=== PATIENT | female | born 1945 | race African-American/Black ===

== ENCOUNTER 2017-08-16 23:22 | Inpatient (IN) | payer OTHER ==
--- NOTE | 2017-08-16 23:41 | PDOC ---
History of Present Illness - General Stated Complaint: ABNORMAL LABS Time Seen by Provider: 08/16/17 23:38 - History of Present Illness Initial Comments: 08/17/17 00:16 The patient is a 72 year old female with a history of HTN, HLD, Afib s/p pacemaker who presents for evaluation of laboratory abnormality. The patient states that she was diagnosed with a left sided kidney stone 3 days ago and was scheduled for a procedure in 2 days. During her pre-op lab work, she was noted to be anemic with a reported hematocrit of 17 prompting her physician to send her to the ED for further evaluation and possible blood transfusion. She does endorse some melenotic stools several days ago as well as some blood in her urine due to her kidney stone. She otherwise denies fevers, chills, lightheadedness, SOB, chest pain, nausea, or vomiting. Past History - Past Medical History Allergies/Adverse Reactions: Allergies Allergy/AdvReac Type Severity Reaction Status Date / Time lisinopril Allergy Severe Swelling Verified 01/14/16 21:04 aspirin AdvReac Intermediate Vomiting Verified 01/14/16 21:04 aspartame AdvReac Mild Verified 01/14/16 21:04 Home Medications: Ambulatory Orders Amlodipine Besylate 20 mg PO DAILY 08/17/17 Biotin 5,000 mcg PO DAILY 08/17/17 Cholecalciferol (Vitamin D3) [Vitamin D3] 5,000 unit PO DAILY 08/17/17 Flaxseed Oil [Flaxseed] 1,000 mg PO DAILY 08/17/17 Iron Polysaccharide Complex [Ferrex 150] 150 mg PO DAILY 08/17/17 Metoprolol Succinate 100 mg PO DAILY 08/17/17 Multivitamin [One Daily] 1 each PO DAILY 08/17/17 Rivaroxaban [Xarelto -] 20 mg PO BID 08/17/17 Anemia: No Asthma: Yes Cardiac Disorders: Yes (afib) CVA: No COPD: No CHF: No Dementia: No Diabetes: No GI Disorders: No Disorders: No HTN: Yes Hypercholesterolemia: Yes Liver Disease: No Seizures: No Thyroid Disease: No - Surgical History Abdominal Surgery: Yes (,SLEEVE (STOMACH)) Appendectomy: Yes Cholecystectomy: Yes Orthopedic Surgery: No - Immunization History Immunization Up to Date: Yes - Suicide/Smoking/Psychosocial Hx Smoking History: Former smoker Have you smoked in the past 12 months: Yes Number of Cigarettes Smoked Daily: 6 If you are a former smoker, when did you quit?: 02/2015 'Breaking Loose' booklet given: 01/14/15 Hx Alcohol Use: No Drug/Substance Use Hx: No Substance Use Type: None Hx Substance Use Treatment: No Review of Systems - Review of Systems Comments:: 08/17/17 00:25 Constitutional: No fevers, chills, fatigue, malaise HEENT: No Rhinorrhea, nasal congestion, visual changes Cardiovascular: No chest pain, syncope, palpitations, lightheadedness Respiratory: No Cough, SOB, Hemoptysis, Gastrointestinal: Melena. No Abdominal pain, Nausea, Vomiting, Constipation, Diarrhea, Genitourinary: Hematuria, Flank pain No Dysuria, Frequency, Urgency, Hesitancy, Musculoskeletal: No Myalgia, arthralgia Skin: No rashes, itching, bruising, pallor Neurologic: No Headache, Dizziness, Numbness, Weakness, or Tingling Psychiatric: No Hallucinations. No SI or HI *Physical Exam - Physical Exam Comments: 08/17/17 00:26 General Appearance: Nourished. No Apparent Distress HEENT: EOMI, MANDEEP. No Pharyngeal Erythema, Tonsillar Exudate, Tonsillar Erythema Neck: No Cervical Lymphadenopathy Respiratory/Chest: Lungs Clear, Normal Breath Sounds. No Crackles, Rales, Rhonchi, Wheezing Cardiovascular: Regular Rhythm, Regular Rate. No Murmur, Gallops, Rubs Gastrointestinal/Abdominal: Normal Bowel Sounds, Soft. Mild diffuse discomfort with palpation on exam. No Guarding, Rebound, Musculoskeletal: No CVA Tenderness Extremity: Normal Capillary Refill Integumentary: Pallor noted on exam. Normal Dry, Warm Neurologic: Fully Oriented, Alert, Normal Mood/Affect, Normal Response, Heart Score/ECG Review #1 ECG reviewed & interpreted by me at: 02:00 General ECG Interpretation: Sinus Rhythm, Normal Rate, Normal Intervals, No acute ischemic changes ED Treatment Course - LABORATORY CBC & Chemistry Diagram: 08/17/17 00:20 08/17/17 00:20 Medical Decision Making - Medical Decision Making 08/17/17 00:27 The patient is a 72 year old female with a history of HTN, HLD, Afib s/p pacemaker who presents for evaluation of laboratory abnormality. Differential includes but is not limited to: Anemia, Peptic ulcer, infectious, metabolic derangement. Given the patient history, we will obtain a cbc, cmp, coags, type and screen, and stool guiac to evaluate further. Given her report of melenotic stools, it is possible the patient is bleeding from a gi source. We will continue to monitor and reassess in the meantime. 08/17/17 02:07 CBC demonstrates a hgb of 4.6. CMP is unremarkable. Stool for occult blood demonstrates trace signs of blood. We will transfuse the patient with 2 units of PRBC and she will require admission for further management at this time. She continues to remain asymptomatic. We discussed the case with the hospitalist team who accepted the patient for admission. *DC/Admit/Observation/Transfer Diagnosis at time of Disposition: Anemia Qualifiers: Anemia type: unspecified type Qualified Code(s): D64.9 - Anemia, unspecified - Discharge Dispostion Condition at time of disposition: Stable Admit: Yes - Referrals Referrals: Shekhar Barakat MD [Primary Care Provider] - - Patient Instructions - Post Discharge Activity
--- NOTE | 2017-08-17 00:05 | PDOC ---
Attending Attestation - HPI HPI: 08/17/17 00:31 The patient is a 72 year old female with a significant PMH of AFib (s/p pacemaker), HTN, hyperlipidemia, and recent left sided kidney stone (diagnosed 3 days ago) who presents to the emergency department for evaluation of possible blood transfusion. The patient reports receiving preliminary labs this morning for her kidney stone procedure this upcoming Monday and notes that Dr. Lyons reported anemic hematocrit levels and sent them to the ED for evaluation. Allergies: Lisinopril, Aspirin, Aspartame. PCP: Dr. Rex Barakat <King Leon - Last Filed: 08/17/17 00:31> - Resident Resident Name: Pato Larry - ED Attending Attestation I have performed the following: I have examined & evaluated the patient, The case was reviewed & discussed with the resident, I agree w/resident's findings & plan, Exceptions are as noted - Physicial Exam PE: 08/17/17 19:30 Physical Exam General Appearance: Yes: Appropriately Dressed. No: Apparent Distress, Intoxicated HEENT: positive: EOMI, MANDEEP, Normal ENT Inspection, Normal Voice, TMs Normal, Pharynx Normal. negative: Pale Conjunctivae, Photophobia, Scleral Icterus (R), Scleral Icterus (L) Neck: positive: Trachea midline, Normal Thyroid, Supple. negative: Tender, Rigid, Carotid bruit, Stridor, Lymphadenopathy (R), Lymphadenopathy (L), Thyromegaly Respiratory/Chest: positive: Lungs Clear, Normal Breath Sounds. negative: Chest Tender, Respiratory Distress, Accessory Muscle Use, Labored Respiration, RES, Crackles, Rales, Rhonchi, Stridor, Wheezing, Dullness Cardiovascular: positive: Regular Rhythm, Regular Rate, S1, S2. negative: Edema , JVD, Murmur, Bradycardia, Tachycardia Vascular Pulses: Dorsalis-Pedis (R): 2+, Doralis-Pedis (L): 2+ Gastrointestinal/Abdominal: positive: Normal Bowel Sounds, Flat, Soft. negative : Tender, Organomegaly, Pulsatile Mass, Increased Bowel Sounds, Decreased BS, Distended, Guarding, Rebound, Hernia, Hepatomegaly, Spleenomegaly Lymphatic: negative: Adenopathy, Tenderness Musculoskeletal: positive: Normal Inspection. negative: CVA Tenderness, Decreased Range of Motion Extremity: positive: Normal Capillary Refill, Normal Inspection, Normal Range of Motion, Pelvis Stable. negative: Tender, Pedal Edema, Swelling, Erythema Integumentary: positive: Normal Color, Dry, Warm. negative: Cyanotic, Erythema , Jaundice, Rash Neurologic: positive: audiovisual technician II-XII NML intact, Fully Oriented, Alert, Normal Mood/ Affect, Motor Strength 5/5. negative: EOM Palsy, Facial Droop, Sensory Deficit - Medical Decision Making 08/17/17 19:31 pt admitted to [facility] <Radames Jacome - Last Filed: 08/17/17 19:31>
[2017-08-17 00:43] LABS: HEMATOCRIT 15.2 % (32.4-45.2); MCHC 29.9 g/dl (32.0-36.0); MEAN CELL VOLUME 61.8 fl (80-96); MEAN PLT VOLUME 7.6 fl (7.5-11.1); PLATELET COUNT 368 K/MM3 (134-434); RBC 2.46 M/mm3 (3.60-5.2); RDW 21.3 % (11.6-15.6); WHITE BLOOD COUNT 8.1 K/mm3 (4.0-10.0)
[2017-08-17 00:48] LABS: INR 1.35 (0.82-1.09); PROTHROMBIN TIME (PATIENT) 15.2 SEC (9.98-11.88)
[2017-08-17 00:53] LABS: MCH 18.5 pg (25.7-33.7)
[2017-08-17 00:54] LABS: HEMOGLOBIN 4.6 GM/dL (10.7-15.3)
[2017-08-17 01:08] LABS: CHLORIDE 109 mmol/L (98-107); POTASSIUM 4.3 mmol/L (3.5-5.1); SODIUM 140 mmol/L (136-145)
[2017-08-17 01:21] LABS: ALBUMIN 3.3 g/dl (3.4-5.0); ALK PHOS 97 U/L (45-117); ANION GAP 11 (8-16); BILIRUBIN,TOTAL 0.2 mg/dL (0.2-1.0); BLOOD UREA NITROGEN 18 mg/dL (7-18); CALCIUM 8.3 mg/dL (8.5-10.1); CO2 20 mmol/L (21-32); CREATININE 1.1 mg/dL (0.55-1.02); GLUCOSE,RANDOM 88 mg/dL (74-106); SGOT/AST 7 U/L (15-37); SGPT/ALT 6 U/L (12-78); TOT PROT 7.1 g/dl (6.4-8.2)
[2017-08-17] MEDS ORDERED: GABAPENTIN 100 MG CAPSULE (FP) ONE (03:55)
[2017-08-17] MEDS ORDERED: GABAPENTIN 300 MG CAPSULE (FP) PO ONE (03:55)
--- NOTE | 2017-08-17 04:05 | HP ---
CHIEF COMPLAINT: anemia PCP: Yuval HISTORY OF PRESENT ILLNESS: This is a 72 year old female with a significant past medical history of afib on xarelto who was recently diagnosed with renal stones and is scheduled for a procedure this week. However, her preop labs revealed significant anemia thus she was sent to the ED. Pt denies any CP, SOB, lightheadedness. She does report dark tarry stools off and on over the past few weeks/months. She also recently had some hematuria associated with her kidney stone. ER course was notable for: (1) Hgb 4.6 (2) stool occ blood trace Recent Travel: pt denies PAST MEDICAL HISTORY: HTN, HLD, afib (on xarelto), PPM, L kidney stone, asthma, arthritis PAST SURGICAL HISTORY: breast reduction, lap band, sleeve gastrectomy, B/L foot surgery, appendectomy as a child, cholecystectomy, PPM Social History: Smoking: pt denies Alcohol:pt denies Drugs: pt denies Family History: mother age 61 due to CHF, h/o DC in her 50s father age 68, rectal CA, h/o heart problems 2 brothers in their 40s, complications after MVC brother age 46, "drug problem" sister age 51, mI, asthma Allergies lisinopril Allergy (Severe, Verified 01/14/16 21:04) Swelling aspirin Adverse Reaction (Intermediate, Verified 01/14/16 21:04) Vomiting aspartame Adverse Reaction (Mild, Verified 01/14/16 21:04) headaches HOME MEDICATIONS: 3 Medication Instructions Recorded Amlodipine Besylate 20 mg PO DAILY 08/17/17 Biotin 5,000 mcg PO DAILY 08/17/17 Cholecalciferol (Vitamin D3) 5,000 unit PO DAILY 08/17/17 [Vitamin D3] Flaxseed Oil [Flaxseed] 1,000 mg PO DAILY 08/17/17 Iron Polysaccharide Complex 150 mg PO DAILY 08/17/17 [Ferrex 150] Metoprolol Succinate 100 mg PO DAILY 08/17/17 Multivitamin [One Daily] 1 each PO DAILY 08/17/17 Rivaroxaban [Xarelto -] 20 mg PO BID 08/17/17 REVIEW OF SYSTEMS CONSTITUTIONAL: Absent: fever, chills, diaphoresis, generalized weakness, malaise, loss of appetite, weight change HEENT: Absent: rhinorrhea, nasal congestion, throat pain, throat swelling, difficulty swallowing, mouth swelling, ear pain, eye pain, visual changes CARDIOVASCULAR: Absent: chest pain, syncope, palpitations, irregular heart rate, lightheadedness , peripheral edema RESPIRATORY: Absent: cough, shortness of breath, dyspnea with exertion, orthopnea, wheezing, stridor, hemoptysis GASTROINTESTINAL: Absent: abdominal pain, abdominal distension, nausea, vomiting, diarrhea, constipation, melena, hematochezia GENITOURINARY: Absent: dysuria, frequency, urgency, hesitancy, hematuria, flank pain, genital pain MUSCULOSKELETAL: Absent: myalgia, arthralgia, joint swelling, back pain, neck pain SKIN: Absent: rash, itching, pallor HEMATOLOGIC/IMMUNOLOGIC: Absent: easy bleeding, easy bruising, lymphadenopathy, frequent infections ENDOCRINE: Absent: unexplained weight gain, unexplained weight loss, heat intolerance, cold intolerance NEUROLOGIC: Absent: headache, focal weakness or paresthesias, dizziness, unsteady gait, seizure, mental status changes, bladder or bowel incontinence PSYCHIATRIC: Absent: anxiety, depression, suicidal or homicidal ideation, hallucinations. PHYSICAL EXAMINATION Vital Signs - 24 hr 3 08/16/17 08/17/17 08/17/17 23:45 02:50 03:15 Temperature 98 F 98.6 F 97.2 F L Pulse Rate 89 Pulse Rate [ 76 82 Right Radial] Respiratory 19 19 19 Rate Blood Pressure 101/62 Blood Pressure 110/67 111/76 [Right Arm] 3 08/17/17 03:33 Temperature 98.5 F Pulse Rate Pulse Rate [ 85 Right Radial] Respiratory 19 Rate Blood Pressure Blood Pressure 103/51 [Right Arm] GENERAL: Awake, alert, and fully oriented, in no acute distress. HEAD: Normal with no signs of trauma. EYES: Pupils equal, round and reactive to light, extraocular movements intact, sclera anicteric, conjunctiva pale. No lid lag. EARS, NOSE, THROAT: Ears normal, nares patent, oropharynx clear without exudates. Moist mucous membranes. NECK: Normal range of motion, supple without lymphadenopathy, JVD, or masses. LUNGS: Breath sounds equal, clear to auscultation bilaterally. No wheezes, and no crackles. No accessory muscle use. HEART: Regular rate and rhythm, normal S1 and S2 without murmur, rub or gallop. ABDOMEN: Soft, nontender, not distended, normoactive bowel sounds, no guarding, no rebound, no masses. No hepatomegaly or splenomegaly. MUSCULOSKELETAL: Normal range of motion at all joints. No bony deformities or tenderness. No CVA tenderness. UPPER EXTREMITIES: 2+ pulses, warm, well-perfused. No cyanosis. No clubbing. No peripheral edema. LOWER EXTREMITIES: 2+ pulses, warm, well-perfused. No calf tenderness. No peripheral edema. NEUROLOGICAL: Cranial nerves II-XII intact. Normal speech. Normal gait. PSYCHIATRIC: Cooperative. Good eye contact. Appropriate mood and affect. SKIN: Warm, dry, normal turgor, no rashes or lesions noted, normal capillary refill. Laboratory Results - last 24 hr 3 08/17/17 08/17/17 08/17/17 00:20 00:20 00:20 WBC 8.1 RBC 2.46 L D Hgb 4.6 L* D Hct 15.2 L D MCV 61.8 L MCH 18.5 L MCHC 29.9 L RDW 21.3 H D Plt Count 368 MPV 7.6 Neutrophils % No Result Required. Lymphocytes % No Result Required. PT with INR 15.20 H INR 1.35 H D PTT (Actin FS) 29.0 Sodium Potassium Chloride Carbon Dioxide Anion Gap BUN Creatinine Creat Clearance w eGFR Random Glucose Calcium Total Bilirubin AST ALT Alkaline Phosphatase Creatine Kinase Troponin I Total Protein Albumin Stool Occult Blood Blood Type A POSITIVE Antibody Screen Negative Crossmatch See Detail 3 08/17/17 08/17/17 00:20 01:37 WBC RBC Hgb Hct MCV MCH MCHC RDW Plt Count MPV Neutrophils % Lymphocytes % PT with INR INR PTT (Actin FS) Sodium 140 Potassium 4.3 Chloride 109 H Carbon Dioxide 20 L Anion Gap 11 BUN 18 Creatinine 1.1 H Creat Clearance w eGFR 48.82 Random Glucose 88 Calcium 8.3 L Total Bilirubin 0.2 D AST 7 L ALT 6 L Alkaline Phosphatase 97 Creatine Kinase 54 Troponin I < 0.02 Total Protein 7.1 Albumin 3.3 L Stool Occult Blood Trace Blood Type Antibody Screen Crossmatch ECG NSR vent rate 91, QTC 440 left axis deviation flattened T waves ASSESSMENT/PLAN: 72yF with PMH HTN, HLD, afib (on xarelto), PPM, L kidney stone, asthma, arthritis presented to the ED with low H/H. anemia, ? due to GI bleed - Would recommend GI consult, defer to PCP choice of GI doc - transfuse 2uPRBC - repeat CBC after second unit - xarelto on hold since Friday 08/11 for urology procedure - protonix IV afib - rate controlled, cont home toprol - hold xarelto HTN/HLD - cont home meds: toprol, amlodipine asthma - albuterol nebs PRN DVT PPX - contraindicated due to severe anemia, ? GI bleed - restart xarelto when cleared FEN - receiving PRBC, no IVF for now - bmp in am - clear liquid diet Dispo: Pt currently requires inpatient management of her emergent condition. Hospitalist Screening - Colonoscopy Questionnaire Colonoscopy Questionnaire: Colonoscopy Questionnaire - Patient: 50 - 75 years old and never had a screening colonoscopy: Unknown History of colon or rectal polyps, or CA: No History of IBD, Crohn's disease or UC: No History of abdominal radiation therapy as a child: No - Relative: 1 with colon or rectal CA, or polyps at age 60 or younger: No Colon or rectal CA diagnosed at age 45 or younger: No Multiple relatives with colon or rectal CA: No - Outcome: Screening Result: Negative Screen
[2017-08-17 04:54] VITALS: BMI 31.2
[2017-08-17 06:16] LABS: ANISOCYTOSIS 2+; PLATELET ESTIMATE ADEQUATE
[2017-08-17 09:52] LABS: BASO % 0.6 % (0-2.0); EOS % 2.9 % (0-4.5); HEMATOCRIT 22.5 % (32.4-45.2); LYMPH % 27.2 % (8-40); MCH 21.8 pg (25.7-33.7); MCHC 31.1 g/dl (32.0-36.0); MEAN CELL VOLUME 70.1 fl (80-96); MEAN PLT VOLUME 7.2 fl (7.5-11.1); MONO % 11.8 % (3.8-10.2); NEUT % 57.5 % (42.8-82.8); PLATELET COUNT 311 K/MM3 (134-434); RBC 3.21 M/mm3 (3.60-5.2); RDW 26.7 % (11.6-15.6); WHITE BLOOD COUNT 6.2 K/mm3 (4.0-10.0)
[2017-08-17] MEDS ORDERED: MULTIVITAMINS (DAILY MVI) TABLET (FP) PO SCH (10:00)
[2017-08-17] MEDS ORDERED: PATIENT'S OWN MEDICATION (NON-FORMULARY) (Biotin [Biotin] 5,000 MCG) PO SCH (10:00)
[2017-08-17] MEDS ORDERED: FLAXSEED OIL 1000 MG PO SCH (10:00)
[2017-08-17] MEDS ORDERED: amLODIPine BESYLATE 10 MG TABLET (FP) PO SCH (10:00)
[2017-08-17] MEDS ORDERED: CHOLECALCIFEROL (VITAMIN D3) 1,000 UNIT TABLET (FP) PO SCH (10:00)
[2017-08-17] MEDS ORDERED: PANTOPRAZOLE SODIUM 40 MG VIAL IVPUSH SCH (10:00)
[2017-08-17] MEDS ORDERED: IRON POLYSACCHARIDES 150 MG CAPSULE PO SCH (10:00)
[2017-08-17 10:18] LABS: ANION GAP 10 (8-16); BLOOD UREA NITROGEN 16 mg/dL (7-18); CALCIUM 8.3 mg/dL (8.5-10.1); CHLORIDE 110 mmol/L (98-107); CO2 20 mmol/L (21-32); GLUCOSE,RANDOM 104 mg/dL (74-106); MAGNESIUM 2.1 mg/dL (1.8-2.4); POTASSIUM 3.9 mmol/L (3.5-5.1); SODIUM 140 mmol/L (136-145)
[2017-08-17 10:20] LABS: CREATININE 1.1 mg/dL (0.55-1.02); PHOSPHOROUS 2.7 mg/dL (2.5-4.9)
[2017-08-17] MEDS ORDERED: PT OWN MED DRAWER 7, Y5N ONE ×2 (10:21→17:44)
[2017-08-17] MEDS: PANTOPRAZOLE SODIUM 40 MG VIAL IVPUSH SCH ×2 (10:29→22:26)
--- NOTE | 2017-08-17 12:49 | PN ---
Progress Note (short form) - Note Progress Note: Events noted Pt has abdominal pain More after eating food She noticed pain since Monday and it is getting worse-- scheduled for ESWL kidney stone tomorrow-- thought her pain was due to kidney stone Had black stools three days ago and similar episode about 3 months ago No nausea or vomiting no dizziness, SOB, chest pain feels tired Went to [facility] for pre- op testing and found to have severe anemia-- which is why she came here Vital Signs - 24 hr 08/16/17 08/17/17 08/17/17 23:45 02:50 03:15 Temperature 98 F 98.6 F 97.2 F L Pulse Rate 89 Pulse Rate [ 76 82 Right Radial] Respiratory 19 19 19 Rate Blood Pressure 101/62 Blood Pressure 110/67 111/76 [Right Arm] O2 Sat by Pulse Oximetry (%) 08/17/17 08/17/17 08/17/17 03:33 04:23 08:06 Temperature 98.5 F 98.6 F 98.8 F Pulse Rate 84 82 Pulse Rate [ 85 Right Radial] Respiratory 19 20 20 Rate Blood Pressure 115/62 111/52 Blood Pressure 103/51 [Right Arm] O2 Sat by Pulse 98 Oximetry (%) Current Medications Generic Name Dose Route Start Last Admin Trade Name Freq PRN Reason Stop Dose Admin Acetaminophen 650 mg 08/17/17 12:43 Tylenol - PO Q6H PRN FEVER Amlodipine Besylate 20 mg 08/17/17 10:00 08/17/17 10:30 Norvasc - PO 20 mg DAILY REMY Administration Metronidazole 500 mg in 100 mls @ 100 mls/hr 08/17/17 12:45 Flagyl 500mg Premixed Ivpb - IVPB Q8H-IV REMY Levofloxacin 500 mg in 100 mls @ 100 mls/hr 08/17/17 13:00 Levaquin 500 Mg Premixed Ivpb - IVPB DAILY REMY Dextrose/Sodium Chloride 20 meq in 1,000 mls @ 75 mls/hr 08/17/17 12:45 Dextrose 5%-Normal Saline+20 Meq Kcl - IV ASDIR REMY Metoprolol Succinate 100 mg 08/17/17 10:00 08/17/17 10:31 Toprol Xl - PO 100 mg DAILY REMY Administration Morphine Sulfate 1 mg 08/17/17 12:43 Morphine Injection - IVPUSH Q6H PRN PAIN LEVEL 6-10 Pantoprazole Sodium 40 mg 08/17/17 06:45 08/17/17 10:29 Protonix Iv IVPUSH 40 mg BID REMY Administration Laboratory Results - last 24 hr 08/17/17 08/17/17 08/17/17 00:20 00:20 00:20 WBC 8.1 RBC 2.46 L D Hgb 4.6 L* D Hct 15.2 L D MCV 61.8 L MCH 18.5 L MCHC 29.9 L RDW 21.3 H D Plt Count 368 MPV 7.6 Neutrophils % No Result Required. Neutrophils % (Manual) 47.0 Lymphocytes % No Result Required. Lymphocytes % (Manual) 41.0 H Monocytes % Monocytes % (Manual) 10 Eosinophils % Eosinophils % (Manual) 2.0 Basophils % Nucleated RBC % 1 H Hypochromia 3+ Platelet Estimate Adequate Platelet Comment No clumping noted Polychromasia 1+ Anisocytosis 2+ PT with INR 15.20 H INR 1.35 H D PTT (Actin FS) 29.0 Sodium Potassium Chloride Carbon Dioxide Anion Gap BUN Creatinine Creat Clearance w eGFR Random Glucose Calcium Phosphorus Magnesium Total Bilirubin AST ALT Alkaline Phosphatase Creatine Kinase Troponin I Total Protein Albumin Stool Occult Blood Blood Type A POSITIVE Antibody Screen Negative Crossmatch See Detail 08/17/17 08/17/17 08/17/17 00:20 01:37 09:33 WBC 6.2 RBC 3.21 L D Hgb 7.0 L D Hct 22.5 L D MCV 70.1 L D MCH 21.8 L MCHC 31.1 L RDW 26.7 H Plt Count 311 MPV 7.2 L Neutrophils % 57.5 Neutrophils % (Manual) Lymphocytes % 27.2 Lymphocytes % (Manual) Monocytes % 11.8 H Monocytes % (Manual) Eosinophils % 2.9 D Eosinophils % (Manual) Basophils % 0.6 Nucleated RBC % Hypochromia Platelet Estimate Platelet Comment Polychromasia Anisocytosis PT with INR INR PTT (Actin FS) Sodium 140 Potassium 4.3 Chloride 109 H Carbon Dioxide 20 L Anion Gap 11 BUN 18 Creatinine 1.1 H Creat Clearance w eGFR 48.82 Random Glucose 88 Calcium 8.3 L Phosphorus Magnesium Total Bilirubin 0.2 D AST 7 L ALT 6 L Alkaline Phosphatase 97 Creatine Kinase 54 Troponin I < 0.02 Total Protein 7.1 Albumin 3.3 L Stool Occult Blood Trace Blood Type Antibody Screen Crossmatch 08/17/17 09:33 WBC RBC Hgb Hct MCV MCH MCHC RDW Plt Count MPV Neutrophils % Neutrophils % (Manual) Lymphocytes % Lymphocytes % (Manual) Monocytes % Monocytes % (Manual) Eosinophils % Eosinophils % (Manual) Basophils % Nucleated RBC % Hypochromia Platelet Estimate Platelet Comment Polychromasia Anisocytosis PT with INR INR PTT (Actin FS) Sodium 140 Potassium 3.9 Chloride 110 H Carbon Dioxide 20 L Anion Gap 10 BUN 16 Creatinine 1.1 H Creat Clearance w eGFR Random Glucose 104 Calcium 8.3 L Phosphorus 2.7 Magnesium 2.1 Total Bilirubin AST ALT Alkaline Phosphatase Creatine Kinase Troponin I Total Protein Albumin Stool Occult Blood Blood Type Antibody Screen Crossmatch S1 S2 Irregular Pale++ Lungs clear Abd- soft , obese, tenderness -- left quadrant, suprapubic, right quadrant No edema A/P Afib Severe anemia HTN Kidney stones Abdominal pain -- R/O colitis -- check CT abd/pelvis -- GI eval -- stool occult blood noted -- Xarelto on hold -- iv antibiotics -- keep NPO -- iv fluids -- pain control
[2017-08-17] MEDS ORDERED: SODIUM CHLORIDE 0.9% 500 ML INFUS.BAG IV ONE (13:14)
--- NOTE | 2017-08-17 13:19 | CON.GI ---
Consult Consult Specialty:: GI Reason for Consultation:: symptomatic anemia - History of Present Illness History of Present Illness: Chart reviewed. Per ED encounter: The patient is a 72 year old female with a history of HTN, HLD , Afib s/p pacemaker, on Xarelto, who presents for evaluation of laboratory abnormality. The patient states that she was diagnosed with a left sided kidney stone 3 days ago and was scheduled for a procedure in 2 days. During her pre-op lab work, she was noted to be anemic with a reported hematocrit of 17 prompting her physician to send her to the ED for further evaluation and possible blood transfusion. She does endorse some melenotic stools several days ago as well as some blood in her urine due to her kidney stone. She otherwise denies fevers, chills, lightheadedness, SOB, chest pain, nausea, or vomiting. Hgb 4.6 g/dl, heme positive stools on admission, s/p 1 unit PRBC. at the time of this encounter, the patient is not in distress, had the patient report generalized abdominal pain x 1 month accompanied by nausea. Worse 10 min after meals, vomiting alleviates the pain. No changed in bowels, other than few episodes of melena. Reports no hematochezia, hematemesis, jaundice, explosive diarrhea, or waking up in the middle of the night due to abdominal pain or diarrhea. No bms for 12 hrs+. Xarelto was stopped > 2 days ago. Pt's fatehr was diagnosed with rectal cancer in his 60s. Pt tells me she had normal colonoscopy 5 y ago. - History Source History Provided By: Patient, Medical Record - Past Medical History Cardio/Vascular: Yes: AFIB, HTN Pulmonary: Yes: Asthma Gastrointestinal: Yes: Gastritis ...: No Psych: Yes: Anxiety - Past Surgical History Past Surgical History: Yes: Permanent Pacemaker - Alcohol/Substance Use Hx Alcohol Use: No - Smoking History Smoking history: Former smoker Have you smoked in the past 12 months: Yes Aproximately how many cigarettes per day: 6 If you are a former smoker, when did you quit?: 02/2015 - Social History Usual Living Arrangement: Alone Home Medications - Allergies Allergies/Adverse Reactions: Allergies Allergy/AdvReac Type Severity Reaction Status Date / Time lisinopril Allergy Severe Swelling Verified 01/14/16 21:04 aspirin AdvReac Intermediate Vomiting Verified 01/14/16 21:04 aspartame AdvReac Mild Verified 01/14/16 21:04 - Home Medications Home Medications: Ambulatory Orders Amlodipine Besylate 20 mg PO DAILY 08/17/17 Biotin 5,000 mcg PO DAILY 08/17/17 Cholecalciferol (Vitamin D3) [Vitamin D3] 5,000 unit PO DAILY 08/17/17 Flaxseed Oil [Flaxseed] 1,000 mg PO DAILY 08/17/17 Iron Polysaccharide Complex [Ferrex 150] 150 mg PO DAILY 08/17/17 Metoprolol Succinate 100 mg PO DAILY 08/17/17 Multivitamin [One Daily] 1 each PO DAILY 08/17/17 Rivaroxaban [Xarelto -] 20 mg PO BID 08/17/17 Family Disease History - Family Disease History Family Disease History: CA: Father (rectal cancer @ 60yo) Review of Systems Findings/Remarks: fatigue, therwise please refer to hpi, H&P Physical Exam-GI Vital Signs: Vital Signs Temperature 98.8 F 08/17/17 08:06 Pulse Rate 82 08/17/17 08:06 Respiratory Rate 20 08/17/17 08:06 Blood Pressure 111/52 08/17/17 08:06 O2 Sat by Pulse Oximetry (%) 98 08/17/17 04:23 Constitutional: Yes: Well Nourished, No Distress, Calm Eyes: Yes: Conjunctiva Clear HENT: Yes: Atraumatic Neck: Yes: Supple Cardiovascular: No: Bradycardia, Tachycardia Respiratory: Yes: Regular Gastrointestinal Inspection: No: Distention ...Palpate: Yes: Guarding, Soft, Tenderness. No: Firm/Rigid, Tenderness, Rebound Neurological: Yes: Alert, Oriented Labs: CBC, BMP 08/17/17 09:33 08/17/17 09:33 INR, PTT INR 1.35 (0.82-1.09) H D 08/17/17 00:20 CBCD WBC 6.2 K/mm3 (4.0-10.0) 08/17/17 09:33 RBC 3.21 M/mm3 (3.60-5.2) L D 08/17/17 09:33 Hgb 7.0 GM/dL (10.7-15.3) L D 08/17/17 09:33 Hct 22.5 % (32.4-45.2) L D 08/17/17 09:33 MCV 70.1 fl (80-96) L D 08/17/17 09:33 MCHC 31.1 g/dl (32.0-36.0) L 08/17/17 09:33 RDW 26.7 % (11.6-15.6) H 08/17/17 09:33 Plt Count 311 K/MM3 (134-434) 08/17/17 09:33 MPV 7.2 fl (7.5-11.1) L 08/17/17 09:33 CMP Sodium 140 mmol/L (136-145) 08/17/17 09:33 Potassium 3.9 mmol/L (3.5-5.1) 08/17/17 09:33 Chloride 110 mmol/L (98-107) H 08/17/17 09:33 Carbon Dioxide 20 mmol/L (21-32) L 08/17/17 09:33 Anion Gap 10 (8-16) 08/17/17 09:33 BUN 16 mg/dL (7-18) 08/17/17 09:33 Creatinine 1.1 mg/dL (0.55-1.02) H 08/17/17 09:33 Creat Clearance w eGFR 48.82 (>60) 08/17/17 00:20 Calcium 8.3 mg/dL (8.5-10.1) L 08/17/17 09:33 Total Bilirubin 0.2 mg/dL (0.2-1.0) D 08/17/17 00:20 AST 7 U/L (15-37) L 08/17/17 00:20 ALT 6 U/L (12-78) L 08/17/17 00:20 Alkaline Phosphatase 97 U/L (45-117) 08/17/17 00:20 Total Protein 7.1 g/dl (6.4-8.2) 08/17/17 00:20 Albumin 3.3 g/dl (3.4-5.0) L 08/17/17 00:20 Imaging - Results Cat Scan: Report Reviewed Problem List - Problems (1) Symptomatic anemia Code(s): D64.9 - ANEMIA, UNSPECIFIED (2) Abdominal pain Code(s): R10.9 - UNSPECIFIED ABDOMINAL PAIN (3) Abdominal tenderness Code(s): R10.819 - ABDOMINAL TENDERNESS, UNSPECIFIED SITE (4) GI bleeding Code(s): K92.2 - GASTROINTESTINAL HEMORRHAGE, UNSPECIFIED Assessment/Plan Microcytic hypochromic, symptomatic anemia with blood in stool Generalized postprandial abdomina pain with nausea, but no diarrhea. Unrevealing liver chemistry, BUN, Cr. R/o ischemic bowel, doubt pancreaticobiliary etiology, however will obtain lipase and await for CT A/P with contrast results. Pt had renal stone work up recently and likely had abdominal US done. Would request that study results to asses for gallstone disease. Agree with NPO, adequate hydration, CT A/P with contrast, PPI po bid. Plan EGD/ Colonoscopy in am to rule out malignancy, ulcer disease, colitis, angiectasia, etc. unless CT is consisted with defuse (?ischemic) colitis. Discussed with the patient
[2017-08-17] MEDS ORDERED: BISACODYL 5 MG TABLET.DR (FP) PO ONE (16:00)
--- NOTE | 2017-08-17 16:39 | EKG ---
Test Reason : Blood Pressure : / mmHG Vent. Rate : 091 BPM Atrial Rate : 091 BPM P-R Int : 152 ms QRS Dur : 080 ms QT Int : 358 ms P-R-T Axes : 053 -33 042 degrees QTc Int : 440 ms NORMAL SINUS RHYTHM LEFT AXIS DEVIATION POSSIBLE ANTERIOR INFARCT , AGE UNDETERMINED ABNORMAL ECG WHEN COMPARED WITH ECG OF 14-JAN-2016 23:51, SINUS RHYTHM HAS REPLACED ELECTRONIC ATRIAL PACEMAKER VENT. RATE HAS INCREASED BY 32 BPM QRS AXIS SHIFTED LEFT Confirmed by PABLO MOON MD ([id number]) on 08/17/2017 4:39:44 PM Referred By: Confirmed By:PABLO MOON MD
[2017-08-17] MEDS: D5-NS + 20 MEQ KCL - 20 MEQ/1,000 ML INFUS.BAG IV SCH ×2 (18:07→21:00)
[2017-08-17] MEDS: PEG 3350/NA SULF BICARB CL/KCL 4000 ML SOLN.RECON PO ONE ×2 (21:01)
[2017-08-18 07:27] LABS: INR 1.22 (0.82-1.09); PROTHROMBIN TIME (PATIENT) 13.8 SEC (9.98-11.88)
[2017-08-18 07:30] LABS: ACTIVATED PTT 27.7 SECONDS (26.9-34.4)
[2017-08-18 07:36] LABS: HEMATOCRIT 25.7 % (32.4-45.2); HEMOGLOBIN 8.3 GM/dL (10.7-15.3); MCH 22.8 pg (25.7-33.7); MCHC 32.4 g/dl (32.0-36.0); MEAN CELL VOLUME 70.5 fl (80-96); MEAN PLT VOLUME 7.7 fl (7.5-11.1); PLATELET COUNT 320 K/MM3 (134-434); RBC 3.64 M/mm3 (3.60-5.2); RDW 26.9 % (11.6-15.6); WHITE BLOOD COUNT 6.4 K/mm3 (4.0-10.0)
[2017-08-18 07:39] LABS: ANION GAP 12 (8-16); BLOOD UREA NITROGEN 10 mg/dL (7-18); CALCIUM 8.4 mg/dL (8.5-10.1); CHLORIDE 110 mmol/L (98-107); CO2 21 mmol/L (21-32); GLUCOSE,RANDOM 80 mg/dL (74-106); POTASSIUM 4.1 mmol/L (3.5-5.1); SODIUM 143 mmol/L (136-145)
[2017-08-18] MEDS: PANTOPRAZOLE SODIUM 40 MG VIAL IVPUSH SCH ×2 (09:24→21:21)
[2017-08-18] MEDS ORDERED: PT OWN MED DRAWER 7, Y5N ONE (10:05)
[2017-08-18] MEDS ORDERED: LIDOCAINE HCL/PF 2% SDV 5ML VIAL ONE (10:33)
[2017-08-18] MEDS ORDERED: ETOMIDATE 20 MG/10 ML AMPUL IVPUSH ONE (10:33)
[2017-08-18] MEDS ORDERED: PROPOFOL 20 ML ONE (10:33)
[2017-08-18] MEDS ORDERED: BISACODYL 5 MG TABLET.DR (FP) PO ONE (10:57)
--- NOTE | 2017-08-18 10:57 | PROC ---
Endoscopy Procedure Endoscopy procedure completed. Please see scanned procedure report. No acute pathology noted on this EGD, random duodenal and gastric biopsies taken. S/p sleeve gastrectomy. Plan colonoscopy on Monday
--- NOTE | 2017-08-18 11:40 | PN ---
Progress Note (short form) - Note Progress Note: Medical coverage for Dr. Shekhar Barakat Subjective: The patient was seen and examined at the bedside, she states she was unable to drink the golytely for colonoscopy prep. Current Medications Generic Name Dose Route Start Last Admin Trade Name Freq PRN Reason Stop Dose Admin Acetaminophen 650 mg 08/17/17 12:43 Tylenol - PO Q6H PRN FEVER Metronidazole 500 mg in 100 mls @ 100 mls/hr 08/17/17 12:45 08/18/17 09:24 Flagyl 500mg Premixed Ivpb - IVPB 100 mls/hr Q8H-IV REMY Administration Levofloxacin 500 mg in 100 mls @ 100 mls/hr 08/17/17 13:00 08/18/17 10:11 Levaquin 500 Mg Premixed Ivpb - IVPB 100 mls/hr DAILY [facility] Administration Dextrose/Sodium Chloride 20 meq in 1,000 mls @ 75 mls/hr 08/17/17 12:45 08/17 21:00 Dextrose 5%-Normal Saline+20 Meq Kcl - IV 75 mls/hr ASDIR REMY Administration Morphine Sulfate 1 mg 08/17/17 13:00 Morphine Injection - IVPUSH Q6H PRN PAIN LEVEL 6-10 Pantoprazole Sodium 40 mg 08/17/17 06:45 08/18/17 09:24 Protonix Iv IVPUSH 40 mg BID REMY Administration Polyethylene Glycol 255 gm 08/20/17 18:00 Miralax (For Bowel Prep) - PO 08/20/17 18:01 ONCE ONE Objective: Vital Signs Period Temp Pulse Resp BP Sys/Johnson Pulse Ox Last 24 Hr 98 F-98.9 F 73-80 14-20 83-110/49-61 97-100 Physical Exam: Patient refused CBCD WBC 6.4 K/mm3 (4.0-10.0) 08/18/17 07:00 RBC 3.64 M/mm3 (3.60-5.2) 08/18/17 07:00 Hgb 8.3 GM/dL (10.7-15.3) L D 08/18/17 07:00 Hct 25.7 % (32.4-45.2) L 08/18/17 07:00 MCV 70.5 fl (80-96) L 08/18/17 07:00 MCHC 32.4 g/dl (32.0-36.0) 08/18/17 07:00 RDW 26.9 % (11.6-15.6) H 08/18/17 07:00 Plt Count 320 K/MM3 (134-434) 08/18/17 07:00 MPV 7.7 fl (7.5-11.1) 08/18/17 07:00 CMP Sodium 143 mmol/L (136-145) 08/18/17 07:00 Potassium 4.1 mmol/L (3.5-5.1) 08/18/17 07:00 Chloride 110 mmol/L (98-107) H 08/18/17 07:00 Carbon Dioxide 21 mmol/L (21-32) 08/18/17 07:00 Anion Gap 12 (8-16) 08/18/17 07:00 BUN 10 mg/dL (7-18) 08/18/17 07:00 Creatinine 1.0 mg/dL (0.55-1.02) 08/18/17 07:00 Creat Clearance w eGFR 48.82 (>60) 08/17/17 00:20 Random Glucose 80 mg/dL (74-106) 08/18/17 07:00 Calcium 8.4 mg/dL (8.5-10.1) L 08/18/17 07:00 Total Bilirubin 0.2 mg/dL (0.2-1.0) D 08/17/17 00:20 AST 7 U/L (15-37) L 08/17/17 00:20 ALT 6 U/L (12-78) L 08/17/17 00:20 Alkaline Phosphatase 97 U/L (45-117) 08/17/17 00:20 Total Protein 7.1 g/dl (6.4-8.2) 08/17/17 00:20 Albumin 3.3 g/dl (3.4-5.0) L 08/17/17 00:20 CARDIAC ENZYMES Creatine Kinase 54 IU/L (26-192) 08/17/17 00:20 Troponin I < 0.02 ng/ml (0.00-0.05) 08/17/17 00:20 Assessment: This is a 72 year old female with PMHx of a.fib on xarelto, HTN, hyperlipidemia, asthma, arthritis, sleeve gastrectomy, appendectomy, cholecystectomy, who presented to the ED with significant anemia Plan: 1) Severe anemia - Source unknown - Stool for occult blood negative - S/p 3u PRBC: Hgb 4.6->8.3 - Xarelto on hold - EGD today: awaiting results - Colonscopy on hold until Monday: patient refused prep - F/u iron studies - Appreciate GI consult 2) Abdominal pain - No CT evidence of acute colitis. Mild to moderate colitis may not be demonstable on CT. Minimal to mild urinary bladder wall thickening is seen. - Continue empiric abx 3) A.fib - Hold xarelto 4) F/E/N: - Regular diet - Monitor electrolytes 5) Prophylaxis: - Hold all chemical DVT prophylaxis 2/2 severe anemia with unknown source 6) Dispo: - Requires continued inpatient care CODE STATUS: FULL CODE Visit type - Emergency Visit Emergency Visit: Yes ED Registration Date: 08/17/17 Care time: The patient presented to the Emergency Department on the above date and was hospitalized for further evaluation of their emergent condition. - New Patient This patient is new to me today: Yes Date on this admission: 08/18/17 - Critical Care Critical Care patient: No
[2017-08-18] MEDS: D5-NS + 20 MEQ KCL - 20 MEQ/1,000 ML INFUS.BAG IV SCH (17:47)
[2017-08-18] MEDS: ACETAMINOPHEN 325 MG TABLET (FP) PO PRN (21:20)
[2017-08-18 22:20] LABS: URINE APPEARANCE CLOUDY; URINE BILIRUBIN NEGATIVE (NEGATIVE); URINE BLOOD 2+ (NEGATIVE); URINE COLOR YELLOW; URINE GLUCOSE (UA) NEGATIVE (NEGATIVE); URINE KETONE NEGATIVE (NEGATIVE); URINE NITRITE NEGATIVE (NEGATIVE); URINE UROBILINOGEN NEGATIVE mg/dL (0.2-1.0)
[2017-08-18 22:28] LABS: URINE LEUK ESTERASE 3+ (NEGATIVE); URINE PROTEIN 1+ (NEGATIVE)
[2017-08-18 22:46] LABS: EPI CELLS RARE /HPF (FEW); URINE BACTERIA FEW /hpf (NONE SEEN); URINE MUCUS RARE
[2017-08-19] MEDS ORDERED: diphenhydrAMINE HCL 25 MG CAPSULE (FP) PO ONE (02:05)
[2017-08-19 08:06] LABS: SERUM IRON SATURATION 11 % (15-55); TOTAL IRON BINDING CAPACITY 353 ug/dL (250-450); UIBC 313 ug/dL (118-369)
[2017-08-19 08:26] LABS: HEMATOCRIT 23.3 % (32.4-45.2); HEMOGLOBIN 7.5 GM/dL (10.7-15.3); MCH 22.9 pg (25.7-33.7); MCHC 32.3 g/dl (32.0-36.0); MEAN CELL VOLUME 70.8 fl (80-96); MEAN PLT VOLUME 8.3 fl (7.5-11.1); PLATELET COUNT 265 K/MM3 (134-434); RDW 27.1 % (11.6-15.6); WHITE BLOOD COUNT 5.6 K/mm3 (4.0-10.0)
[2017-08-19] MEDS: MORPHINE SULFATE 10 MG/1 ML *VIAL IVPUSH PRN ×2 (09:34→18:46)
[2017-08-19] MEDS: PANTOPRAZOLE SODIUM 40 MG VIAL IVPUSH SCH ×2 (10:00→21:19)
--- NOTE | 2017-08-19 11:59 | PN ---
Progress Note, Physician History of Present Illness: patient seen and examined today. Chart reviewed. Awake and comfortable. Denies pain--Reports okay with medication Denies any anju bleeding. Status post EGD --findings noted. Scheduled for colonoscopy on Monday. - Current Medication List Current Medications: Active Medications Acetaminophen (Tylenol -) 650 mg PO Q6H PRN PRN Reason: FEVER Last Admin: 08/18/17 21:20 Dose: 650 mg Metronidazole (Flagyl 500mg Premixed Ivpb -) 500 mg in 100 mls @ 100 mls/hr IVPB Q8H-IV [facility] Last Admin: 08/19/17 09:34 Dose: 100 mls/hr Levofloxacin (Levaquin 500 Mg Premixed Ivpb -) 500 mg in 100 mls @ 100 mls/hr IVPB DAILY [facility] Last Admin: 08/18/17 10:11 Dose: 100 mls/hr Morphine Sulfate (Morphine Injection -) 1 mg IVPUSH Q6H PRN PRN Reason: PAIN LEVEL 6-10 Last Admin: 08/19/17 09:34 Dose: 1 mg Pantoprazole Sodium (Protonix Iv) 40 mg IVPUSH BID [facility] Last Admin: 08/18/17 21:21 Dose: 40 mg Polyethylene Glycol (Miralax (For Bowel Prep) -) 255 gm PO ONCE ONE Stop: 08/20/17 18:01 - Objective Vital Signs: Vital Signs Temperature 98.6 F 08/19/17 05:37 Pulse Rate 85 08/19/17 05:37 Respiratory Rate 20 08/19/17 05:37 Blood Pressure 107/64 08/19/17 05:37 O2 Sat by Pulse Oximetry (%) 97 08/18/17 21:00 Constitutional: Yes: No Distress, Calm Eyes: Yes: Conjunctiva Clear Neck: Yes: Supple Cardiovascular: Yes: Regular Rate and Rhythm Respiratory: Yes: Diminished Gastrointestinal: Yes: Soft Edema: LLE: Trace, RLE: Trace Neurological: Yes: Alert Labs: CBC, BMP 08/19/17 06:18 08/18/17 07:00 INR, PTT INR 1.22 (0.82-1.09) H 08/18/17 07:00 Problem List - Problems (1) Abdominal pain Code(s): R10.9 - UNSPECIFIED ABDOMINAL PAIN (2) GI bleeding Code(s): K92.2 - GASTROINTESTINAL HEMORRHAGE, UNSPECIFIED (3) Back pain Code(s): M54.9 - DORSALGIA, UNSPECIFIED Qualifiers: Back pain location: low back pain Chronicity: acute Back pain laterality : bilateral Sciatica presence: with sciatica Sciatica laterality: bilateral sciatica Qualified Code(s): M54.42 - Lumbago with sciatica, left side (4) HTN (hypertension) Code(s): I10 - ESSENTIAL (PRIMARY) HYPERTENSION (5) Lumbago due to displacement of intervertebral disc Code(s): M51.26 - OTHER INTERVERTEBRAL DISC DISPLACEMENT, LUMBAR REGION (6) Morbid obesity Code(s): E66.01 - MORBID (SEVERE) OBESITY DUE TO EXCESS CALORIES Assessment/Plan GI bleed Afib HTN Kidney stones Abdominal pain transfuse when necessary xarelto held We will consult cardiology also Medications reviewed continue other medications Will follow. Monitor CBC and lites. discussed with nursing staff also
--- NOTE | 2017-08-19 19:10 | CON.CARD ---
Consult Consult Specialty:: cardiology Reason for Consultation:: anemia; CHF - History of Present Illness History of Present Illness: The patient is a 72 year old black female with a history of diastolic CHF, HTN, HLD, Afib s/p pacemaker who presents for evaluation of laboratory abnormality. The patient states that she was diagnosed with a left sided kidney stone 3 days ago and was scheduled for a procedure in 2 days. During her pre-op lab work, she was noted to be anemic with a reported hematocrit of 17 prompting her physician to send her to the ED for further evaluation and possible blood transfusion. She does endorse some melenotic stools several days ago as well as some blood in her urine due to her kidney stone. She otherwise denies fevers , chills, lightheadedness, SOB, chest pain, nausea, or vomiting. - History Source History Provided By: Patient, Medical Record Limitations to Obtaining History: No Limitations - Past Medical History Cardio/Vascular: Yes: AFIB, HTN Pulmonary: Yes: Asthma Gastrointestinal: Yes: Gastritis ...: No Psych: Yes: Anxiety - Past Surgical History Past Surgical History: Yes: Permanent Pacemaker - Alcohol/Substance Use Hx Alcohol Use: No - Smoking History Smoking history: Former smoker Have you smoked in the past 12 months: Yes Aproximately how many cigarettes per day: 6 If you are a former smoker, when did you quit?: 02/2015 - Social History Usual Living Arrangement: Alone Home Medications - Allergies Allergies/Adverse Reactions: Allergies Allergy/AdvReac Type Severity Reaction Status Date / Time lisinopril Allergy Severe Swelling Verified 01/14/16 21:04 aspirin AdvReac Intermediate Vomiting Verified 01/14/16 21:04 aspartame AdvReac Mild Verified 01/14/16 21:04 - Home Medications Home Medications: Ambulatory Orders Amlodipine Besylate 20 mg PO DAILY 08/17/17 Biotin 5,000 mcg PO DAILY 08/17/17 Cholecalciferol (Vitamin D3) [Vitamin D3] 5,000 unit PO DAILY 08/17/17 Flaxseed Oil [Flaxseed] 1,000 mg PO DAILY 08/17/17 Iron Polysaccharide Complex [Ferrex 150] 150 mg PO DAILY 08/17/17 Metoprolol Succinate 100 mg PO DAILY 08/17/17 Multivitamin [One Daily] 1 each PO DAILY 08/17/17 Rivaroxaban [Xarelto -] 20 mg PO BID 08/17/17 Family Disease History - Family Disease History Family Disease History: CA: Father (rectal cancer @ 60yo) Review of Systems - Review of Systems Constitutional: reports: Weakness Eyes: reports: No Symptoms HENT: reports: No Symptoms Neck: reports: No Symptoms Cardiovascular: reports: No Symptoms Respiratory: reports: SOB on Exertion Gastrointestinal: reports: Abdominal Pain Vital Signs: Vital Signs Temperature 98.2 F 08/19/17 17:24 Pulse Rate 90 08/19/17 17:24 Respiratory Rate 20 08/19/17 17:24 Blood Pressure 110/62 08/19/17 17:24 O2 Sat by Pulse Oximetry (%) 97 08/19/17 09:30 - Other Data Labs, Other Data: CBC, BMP 08/19/17 06:18 08/18/17 07:00 INR, PTT INR 1.22 (0.82-1.09) H 08/18/17 07:00 Problem List - Problems (1) Abdominal pain Code(s): R10.9 - UNSPECIFIED ABDOMINAL PAIN (2) Anemia Code(s): D64.9 - ANEMIA, UNSPECIFIED Qualifiers: Anemia type: unspecified type Qualified Code(s): D64.9 - Anemia, unspecified (3) GI bleeding Code(s): K92.2 - GASTROINTESTINAL HEMORRHAGE, UNSPECIFIED (4) Back pain Code(s): M54.9 - DORSALGIA, UNSPECIFIED Qualifiers: Back pain location: low back pain Chronicity: acute Back pain laterality : bilateral Sciatica presence: with sciatica Sciatica laterality: bilateral sciatica Qualified Code(s): M54.42 - Lumbago with sciatica, left side; M54.41 - Lumbago with sciatica, right side; M54.41 - Lumbago with sciatica, right side (5) Chronic leg pain Code(s): M79.606 - PAIN IN LEG, UNSPECIFIED; G89.29 - OTHER CHRONIC PAIN Qualifiers: Laterality: right Qualified Code(s): M79.604 - Pain in right leg (6) Cigarette nicotine dependence Code(s): F17.200 - NICOTINE DEPENDENCE, UNSPECIFIED, UNCOMPLICATED (7) Diastolic heart failure Code(s): I50.30 - UNSPECIFIED DIASTOLIC (CONGESTIVE) HEART FAILURE (8) HTN (hypertension) Code(s): I10 - ESSENTIAL (PRIMARY) HYPERTENSION (9) Hyperlipidemia Code(s): E78.5 - HYPERLIPIDEMIA, UNSPECIFIED
[2017-08-20] MEDS ORDERED: diphenhydrAMINE HCL 25 MG CAPSULE (FP) PO ONE (00:40)
[2017-08-20] MEDS: MORPHINE SULFATE 10 MG/1 ML *VIAL IVPUSH PRN ×2 (02:14→09:20)
[2017-08-20] MEDS ORDERED: PT OWN MED DRAWER 7, Y5N ONE (07:24)
[2017-08-20 08:04] LABS: BASO % 0.4 % (0-2.0); EOS % 4.6 % (0-4.5); HEMATOCRIT 24.8 % (32.4-45.2); HEMOGLOBIN 7.9 GM/dL (10.7-15.3); LYMPH % 27.5 % (8-40); MCH 22.8 pg (25.7-33.7); MCHC 31.7 g/dl (32.0-36.0); MEAN CELL VOLUME 71.7 fl (80-96); MEAN PLT VOLUME 7.7 fl (7.5-11.1); MONO % 10.5 % (3.8-10.2); PLATELET COUNT 286 K/MM3 (134-434); RBC 3.46 M/mm3 (3.60-5.2); RDW 27.8 % (11.6-15.6); WHITE BLOOD COUNT 5.7 K/mm3 (4.0-10.0)
[2017-08-20 08:12] LABS: ALBUMIN 2.8 g/dl (3.4-5.0); ANION GAP 6 (8-16); CHLORIDE 116 mmol/L (98-107); CO2 24 mmol/L (21-32); POTASSIUM 3.9 mmol/L (3.5-5.1); SODIUM 146 mmol/L (136-145)
[2017-08-20 08:17] LABS: ALK PHOS 83 U/L (45-117); BILIRUBIN,TOTAL 0.5 mg/dL (0.2-1.0); BLOOD UREA NITROGEN 8 mg/dL (7-18); GLUCOSE,RANDOM 83 mg/dL (74-106); SGOT/AST 5 U/L (15-37); SGPT/ALT < 6 U/L (12-78)
[2017-08-20] MEDS: PANTOPRAZOLE SODIUM 40 MG VIAL IVPUSH SCH ×2 (09:11→21:50)
--- NOTE | 2017-08-20 09:45 | PN ---
Progress Note, Physician History of Present Illness: patient seen and examined today. Chart reviewed. Awake and comfortable. Denies any anju bleeding. Status post EGD -- Scheduled for colonoscopy on Monday. No new issues today - Current Medication List Current Medications: Active Medications Acetaminophen (Tylenol -) 650 mg PO Q6H PRN PRN Reason: FEVER Last Admin: 08/18/17 21:20 Dose: 650 mg Metronidazole (Flagyl 500mg Premixed Ivpb -) 500 mg in 100 mls @ 100 mls/hr IVPB Q8H-IV [facility] Last Admin: 08/20/17 01:06 Dose: 100 mls/hr Levofloxacin (Levaquin 500 Mg Premixed Ivpb -) 500 mg in 100 mls @ 100 mls/hr IVPB DAILY [facility] Last Admin: 08/20/17 09:10 Dose: 100 mls/hr Morphine Sulfate (Morphine Injection -) 1 mg IVPUSH Q6H PRN PRN Reason: PAIN LEVEL 6-10 Last Admin: 08/20/17 09:20 Dose: 1 mg Pantoprazole Sodium (Protonix Iv) 40 mg IVPUSH BID [facility] Last Admin: 08/20/17 09:11 Dose: 40 mg Polyethylene Glycol (Miralax (For Bowel Prep) -) 255 gm PO ONCE ONE Stop: 08/20/17 18:01 - Objective Vital Signs: Vital Signs Temperature 98.2 F 08/20/17 05:47 Pulse Rate 83 08/20/17 05:47 Respiratory Rate 20 08/20/17 05:47 Blood Pressure 111/60 08/20/17 05:47 O2 Sat by Pulse Oximetry (%) 97 08/19/17 21:00 Constitutional: Yes: No Distress, Calm Eyes: Yes: Conjunctiva Clear Neck: Yes: Supple Cardiovascular: Yes: Pulse Irregular Respiratory: Yes: Diminished Gastrointestinal: Yes: Soft Edema: LLE: 1+, RLE: 1+ Neurological: Yes: Alert Labs: CBC, BMP 08/20/17 06:35 08/20/17 06:35 INR, PTT INR 1.22 (0.82-1.09) H 08/18/17 07:00 Problem List - Problems (1) Abdominal pain Code(s): R10.9 - UNSPECIFIED ABDOMINAL PAIN (2) GI bleeding Code(s): K92.2 - GASTROINTESTINAL HEMORRHAGE, UNSPECIFIED (3) Back pain Code(s): M54.9 - DORSALGIA, UNSPECIFIED Qualifiers: Back pain location: low back pain Chronicity: acute Back pain laterality : bilateral Sciatica presence: with sciatica Sciatica laterality: bilateral sciatica Qualified Code(s): M54.42 - Lumbago with sciatica, left side; M54.41 - Lumbago with sciatica, right side; M54.41 - Lumbago with sciatica, right side (4) HTN (hypertension) Code(s): I10 - ESSENTIAL (PRIMARY) HYPERTENSION (5) Lumbago due to displacement of intervertebral disc Code(s): M51.26 - OTHER INTERVERTEBRAL DISC DISPLACEMENT, LUMBAR REGION (6) Morbid obesity Code(s): E66.01 - MORBID (SEVERE) OBESITY DUE TO EXCESS CALORIES Assessment/Plan GI bleed Afib HTN Kidney stones Abdominal pain transfuse when necessary xarelto held Medications reviewed continue other medications Will follow. Monitor CBC and lites. discussed with nursing staff also colonoscopy on Monday.
[2017-08-20] MEDS ORDERED: POLYETHYLENE GLYCOL 3350 255 GM BTL PO ONE (18:00)
--- NOTE | 2017-08-20 21:12 | PN ---
Progress Note, Physician - Current Medication List Current Medications: Active Medications Acetaminophen (Tylenol -) 650 mg PO Q6H PRN PRN Reason: FEVER Last Admin: 08/18/17 21:20 Dose: 650 mg Metronidazole (Flagyl 500mg Premixed Ivpb -) 500 mg in 100 mls @ 100 mls/hr IVPB Q8H-IV [facility] Last Admin: 08/20/17 10:23 Dose: 100 mls/hr Levofloxacin (Levaquin 500 Mg Premixed Ivpb -) 500 mg in 100 mls @ 100 mls/hr IVPB DAILY [facility] Last Admin: 08/20/17 09:10 Dose: 100 mls/hr Pantoprazole Sodium (Protonix Iv) 40 mg IVPUSH BID [facility] Last Admin: 08/20/17 09:11 Dose: 40 mg - Objective Vital Signs: Vital Signs Temperature 98.3 F 08/20/17 17:21 Pulse Rate 86 08/20/17 14:27 Respiratory Rate 20 08/20/17 20:40 Blood Pressure 103/59 08/20/17 17:21 O2 Sat by Pulse Oximetry (%) 96 08/20/17 20:40 Labs: CBC, BMP 08/20/17 06:35 08/20/17 06:35 INR, PTT INR 1.22 (0.82-1.09) H 08/18/17 07:00 Problem List - Problems (1) Abdominal pain Code(s): R10.9 - UNSPECIFIED ABDOMINAL PAIN (2) Anemia Code(s): D64.9 - ANEMIA, UNSPECIFIED Qualifiers: Anemia type: unspecified type Qualified Code(s): D64.9 - Anemia, unspecified (3) GI bleeding Code(s): K92.2 - GASTROINTESTINAL HEMORRHAGE, UNSPECIFIED (4) Back pain Code(s): M54.9 - DORSALGIA, UNSPECIFIED Qualifiers: Back pain location: low back pain Chronicity: acute Back pain laterality : bilateral Sciatica presence: with sciatica Sciatica laterality: bilateral sciatica Qualified Code(s): M54.42 - Lumbago with sciatica, left side (5) Chronic leg pain Code(s): M79.606 - PAIN IN LEG, UNSPECIFIED; G89.29 - OTHER CHRONIC PAIN Qualifiers: Laterality: right Qualified Code(s): M79.604 - Pain in right leg (6) Cigarette nicotine dependence Code(s): F17.200 - NICOTINE DEPENDENCE, UNSPECIFIED, UNCOMPLICATED (7) Diastolic heart failure Code(s): I50.30 - UNSPECIFIED DIASTOLIC (CONGESTIVE) HEART FAILURE (8) HTN (hypertension) Code(s): I10 - ESSENTIAL (PRIMARY) HYPERTENSION (9) Hyperlipidemia Code(s): E78.5 - HYPERLIPIDEMIA, UNSPECIFIED
[2017-08-21] MEDS ORDERED: LIDOCAINE HCL/PF 2% SDV 5ML VIAL ONE (10:30)
--- NOTE | 2017-08-21 11:05 | PROC ---
Endoscopy Procedure Endoscopy procedure completed. Please see scanned procedure report. Severe, non-bleeding diverticulosis throughout the colon, and small internal hemorrhoids were noted, othersie notmal colonoscopy. High fiber diet, avoid constipation, hard stools, straining.
[2017-08-21] MEDS: PANTOPRAZOLE SODIUM 40 MG VIAL IVPUSH SCH (12:18)
[2017-08-21] MEDS: ACETAMINOPHEN 325 MG TABLET (FP) PO PRN ×2 (12:44→18:42)
--- NOTE | 2017-08-21 13:27 | PN ---
Progress Note, Physician History of Present Illness: patient seen and examined today. Chart reviewed. Awake and comfortable. no further bleeding no new issues today just came back from colonoscopy - Current Medication List Current Medications: Active Medications Acetaminophen (Tylenol -) 650 mg PO Q6H PRN PRN Reason: FEVER Last Admin: 08/21/17 12:44 Dose: 650 mg - Objective Vital Signs: Vital Signs Temperature 98.0 F 08/21/17 11:00 Pulse Rate 84 08/21/17 11:31 Respiratory Rate 20 08/21/17 11:31 Blood Pressure 130/72 08/21/17 11:31 O2 Sat by Pulse Oximetry (%) 99 08/21/17 11:31 Constitutional: Yes: No Distress, Calm Eyes: Yes: Conjunctiva Clear Neck: Yes: Supple Cardiovascular: Yes: Pulse Irregular Respiratory: Yes: Diminished Gastrointestinal: Yes: Soft Edema: LLE: 1+, RLE: 1+ Neurological: Yes: Alert Psychiatric: Yes: Alert Labs: CBC, BMP 08/20/17 06:35 08/20/17 06:35 INR, PTT INR 1.22 (0.82-1.09) H 08/18/17 07:00 Problem List - Problems (1) Abdominal pain Code(s): R10.9 - UNSPECIFIED ABDOMINAL PAIN (2) GI bleeding Code(s): K92.2 - GASTROINTESTINAL HEMORRHAGE, UNSPECIFIED (3) Back pain Code(s): M54.9 - DORSALGIA, UNSPECIFIED Qualifiers: Back pain location: low back pain Chronicity: acute Back pain laterality : bilateral Sciatica presence: with sciatica Sciatica laterality: bilateral sciatica Qualified Code(s): M54.42 - Lumbago with sciatica, left side; M54.41 - Lumbago with sciatica, right side; M54.41 - Lumbago with sciatica, right side (4) HTN (hypertension) Code(s): I10 - ESSENTIAL (PRIMARY) HYPERTENSION (5) Lumbago due to displacement of intervertebral disc Code(s): M51.26 - OTHER INTERVERTEBRAL DISC DISPLACEMENT, LUMBAR REGION (6) Morbid obesity Code(s): E66.01 - MORBID (SEVERE) OBESITY DUE TO EXCESS CALORIES Assessment/Plan GI bleed Afib HTN Kidney stones Abdominal pain transfuse when necessary xarelto held Medications reviewed continue other medications Will follow. Monitor CBC and lites. discussed with nursing staff also colonoscopy findings noted--- severe diverticulosis Check CBC tomorrow Discussed about diverticulosis If stable--- we will consider discharge Need cardiology input regarding anticoagulation. On hold for now. Will follow
--- NOTE | 2017-08-21 13:49 | PN ---
Progress Note, Physician History of Present Illness: The patient is a 72 year old black female with a history of diastolic CHF, HTN, HLD, Afib s/p pacemaker who presents for evaluation of laboratory abnormality. The patient states that she was diagnosed with a left sided kidney stone 3 days ago and was scheduled for a procedure in 2 days. During her pre-op lab work, she was noted to be anemic with a reported hematocrit of 17 prompting her physician to send her to the ED for further evaluation and possible blood transfusion. She does endorse some melenotic stools several days ago as well as some blood in her urine due to her kidney stone. She otherwise denies fevers , chills, lightheadedness, SOB, chest pain, nausea, or vomiting. - Current Medication List Current Medications: Active Medications Acetaminophen (Tylenol -) 650 mg PO Q6H PRN PRN Reason: FEVER Last Admin: 08/21/17 12:44 Dose: 650 mg - Objective Vital Signs: Vital Signs Temperature 98.0 F 08/21/17 13:26 Pulse Rate 83 08/21/17 13:26 Respiratory Rate 18 08/21/17 13:26 Blood Pressure 128/69 08/21/17 13:26 O2 Sat by Pulse Oximetry (%) 99 08/21/17 11:31 Eyes: Yes: WNL, Conjunctiva Clear, EOM Intact HENT: Yes: WNL, Atraumatic, Normocephalic Neck: Yes: WNL, Supple, Trachea Midline Cardiovascular: Yes: WNL, Regular Rate and Rhythm Respiratory: Yes: WNL, Regular, CTA Bilaterally Gastrointestinal: Yes: WNL, Normal Bowel Sounds Genitourinary: Yes: WNL Musculoskeletal: Yes: WNL Extremities: Yes: WNL Edema: No Integumentary: Yes: WNL Neurological: Yes: WNL, Alert, Oriented ...Motor Strength: WNL Psychiatric: Yes: WNL Labs: CBC, BMP 08/20/17 06:35 08/20/17 06:35 INR, PTT INR 1.22 (0.82-1.09) H 08/18/17 07:00 Assessment/Plan roblems (1) Abdominal pain Code(s): R10.9 - UNSPECIFIED ABDOMINAL PAIN (2) Anemia Code(s): D64.9 - ANEMIA, UNSPECIFIED Qualifiers: Anemia type: unspecified type Qualified Code(s): D64.9 - Anemia, unspecified (3) GI bleeding Code(s): K92.2 - GASTROINTESTINAL HEMORRHAGE, UNSPECIFIED (4) Back pain Code(s): M54.9 - DORSALGIA, UNSPECIFIED Qualifiers: Back pain location: low back pain Chronicity: acute Back pain laterality : bilateral Sciatica presence: with sciatica Sciatica laterality: bilateral sciatica Qualified Code(s): M54.42 - Lumbago with sciatica, left side (5) Chronic leg pain Code(s): M79.606 - PAIN IN LEG, UNSPECIFIED; G89.29 - OTHER CHRONIC PAIN Qualifiers: Laterality: right Qualified Code(s): M79.604 - Pain in right leg (6) Cigarette nicotine dependence Code(s): F17.200 - NICOTINE DEPENDENCE, UNSPECIFIED, UNCOMPLICATED (7) Diastolic heart failure Code(s): I50.30 - UNSPECIFIED DIASTOLIC (CONGESTIVE) HEART FAILURE (8) HTN (hypertension) Code(s): I10 - ESSENTIAL (PRIMARY) HYPERTENSION (9) Hyperlipidemia Code(s): E78.5 - HYPERLIPIDEMIA, UNSPECIFIED
--- NOTE | 2017-08-21 16:30 | PATH ---
Surgical Pathology Report Patient Name: SADIE CASAREZ Med. Rec. #: [id number] /Age/Gender: 1945 (Age: 72) / F Account: [id number] Location: [facility] MED/SURG Taken: 08/18/2017 Received: 08/18/2017 Reported: 08/21/2017 Physicians: Kristan Henderson AGAIvet Specimen(s) Received A: BX 2ND PORTION DUODENUM B: BX ANTRUM Clinical History Preoperative diagnosis: Anemia Postoperative diagnosis: Same Final Diagnosis A. DUODENUM, SECOND PORTION, BIOPSY: SMALL BOWEL MUCOSA WITHOUT SIGNIFICANT PATHOLOGIC FINDINGS. B. STOMACH, ANTRUM, BIOPSY: GASTRIC ANTRAL MUCOSA WITH MODERATE CHRONIC GASTRITIS. IMMUNOHISTOCHEMICAL STAIN FOR H. PYLORI IS NEGATIVE. Electronically Signed Lexi Conway M.D. Gross Description A. Received in formalin, labeled "biopsy second portion of duodenum" are 2 schaefer, irregular portions of soft tissue measuring 0.2 and 0.4 cm. in greatest dimension. The specimens are submitted in toto in one cassette. B. Received in formalin, labeled "biopsy antrum" are 3 schaefer, irregular portions of soft tissue ranging from 0.1-0.4 cm. in greatest dimension. The specimens are submitted in toto in one cassette. 08/18/2017 [facility]08/18/2017
[2017-08-22 07:47] LABS: BASO % 0.7 % (0-2.0); EOS % 5.7 % (0-4.5); HEMATOCRIT 24.2 % (32.4-45.2); HEMOGLOBIN 7.7 GM/dL (10.7-15.3); LYMPH % 30.8 % (8-40); MCHC 31.9 g/dl (32.0-36.0); MEAN CELL VOLUME 72.1 fl (80-96); MEAN PLT VOLUME 8.3 fl (7.5-11.1); MONO % 10.5 % (3.8-10.2); NEUT % 52.3 % (42.8-82.8); PLATELET COUNT 246 K/MM3 (134-434); RBC 3.36 M/mm3 (3.60-5.2); RDW 29.3 % (11.6-15.6); WHITE BLOOD COUNT 5.1 K/mm3 (4.0-10.0)
[2017-08-22 08:17] LABS: ALBUMIN 2.8 g/dl (3.4-5.0); ANION GAP 9 (8-16); BLOOD UREA NITROGEN 6 mg/dL (7-18); CALCIUM 8.1 mg/dL (8.5-10.1); CHLORIDE 113 mmol/L (98-107); CO2 24 mmol/L (21-32); CREATININE 0.8 mg/dL (0.55-1.02); GLUCOSE,RANDOM 83 mg/dL (74-106); POTASSIUM 3.5 mmol/L (3.5-5.1); SGOT/AST 15 U/L (15-37); SGPT/ALT 8 U/L (12-78); SODIUM 146 mmol/L (136-145)
[2017-08-22 08:19] LABS: ALK PHOS 82 U/L (45-117); BILIRUBIN,TOTAL 0.6 mg/dL (0.2-1.0); TOT PROT 6.1 g/dl (6.4-8.2)
[2017-08-22] MEDS: ACETAMINOPHEN 325 MG TABLET (FP) PO PRN (10:20)
--- NOTE | 2017-08-22 12:48 | DS ---
Physical Examination Vital Signs: Vital Signs Temperature 98.3 F 08/22/17 09:52 Pulse Rate 88 08/22/17 09:52 Respiratory Rate 18 08/22/17 09:52 Blood Pressure 115/58 08/22/17 09:52 O2 Sat by Pulse Oximetry (%) 100 08/21/17 21:00 Constitutional: Yes: No Distress, Calm Cardiovascular: Yes: Pulse Irregular Respiratory: Yes: CTA Bilaterally Gastrointestinal: Yes: Normal Bowel Sounds, Soft, Abdomen, Obese. No: Tenderness Edema: No Labs: CBC, BMP 08/22/17 06:00 08/22/17 06:00 Discharge Summary Reason For Visit: ANEMIA Current Active Problems Abdominal pain (Acute) Abdominal tenderness (Acute) Anemia (Acute) GI bleeding (Acute) Symptomatic anemia (Acute) Hospital Course: Admitted for GI bleeding-- found to have severe anemia-- transfused PRBC Seen by GI and Cardiology Xarelto on hold Underwent EGD and colonoscopy-- extensive diverticulosis No further bleeding- viatls stable pt has persistent AFib-- xarelto restarted stable for dc home-- advised to return to ER if GI bleeding as she is on anticoagulant Condition: Stable - Instructions Referrals: Shekhar Barakat MD [Primary Care Provider] - Disposition: HOME - Home Medications Comprehensive Discharge Medication List: Ambulatory Orders Amlodipine Besylate 20 mg PO DAILY 08/17/17 Biotin 5,000 mcg PO DAILY 08/17/17 Cholecalciferol (Vitamin D3) [Vitamin D3] 5,000 unit PO DAILY 08/17/17 Flaxseed Oil [Flaxseed] 1,000 mg PO DAILY 08/17/17 Iron Polysaccharide Complex [Ferrex 150] 150 mg PO DAILY 08/17/17 Metoprolol Succinate 100 mg PO DAILY 08/17/17 Multivitamin [One Daily] 1 each PO DAILY 08/17/17 Rivaroxaban [Xarelto -] 20 mg PO BID 08/17/17
[2017-08-22 14:44] VITALS: BP 124/72; PULSE 86; TEMP 97.9
== END 2017-08-22 17:15 | disposition home or self-care (01) | DRG 812 ==
LOC: JER 23:22 → JERBED 08-17 02:06 → UNDOADMIN 08-17 02:27 → JERBED 08-17 02:27 → J5S 08-17 04:20 → J7W 08-18 11:20
PROVIDERS: ADMIT Internal Medicine; ATTEND Internal Medicine
PROC: 30233N1 Transfusion of Nonautologous Red Blood Cells into Peripheral Vein, Percutaneous Approach (ICD-10-PCS; 2017-08-17)
PROC: 0DD68ZX Extraction of Stomach, Via Natural or Artificial Opening Endoscopic, Diagnostic (ICD-10-PCS; 2017-08-18)
PROC: 0DD98ZX Extraction of Duodenum, Via Natural or Artificial Opening Endoscopic, Diagnostic (ICD-10-PCS; principal; 2017-08-18 15:30)
PROC: 0DJD8ZZ Inspection of Lower Intestinal Tract, Via Natural or Artificial Opening Endoscopic (ICD-10-PCS; 2017-08-21)
DX: D64.9 Anemia, unspecified (principal); K92.2 Gastrointestinal hemorrhage, unspecified; I50.30 Unspecified diastolic (congestive) heart failure; I48.91 Unspecified atrial fibrillation; I11.0 Hypertensive heart disease with heart failure; E78.5 Hyperlipidemia, unspecified; M19.90 Unspecified osteoarthritis, unspecified site; J45.909 Unspecified asthma, uncomplicated; N20.0 Calculus of kidney; K29.60 Other gastritis without bleeding; F41.9 Anxiety disorder, unspecified; K57.30 Diverticulosis of large intestine without perforation or abscess without bleeding; K64.8 Other hemorrhoids; M79.604 Pain in right leg; R10.819 Abdominal tenderness, unspecified site; E66.8 Other obesity; Z68.31 Body mass index [BMI] 31.0-31.9, adult; M54.42 Lumbago with sciatica, left side; M51.26 Other intervertebral disc displacement, lumbar region; Z98.84 Bariatric surgery status; Z95.0 Presence of cardiac pacemaker; Z87.891 Personal history of nicotine dependence
CPT/HCPCS: 36415; 36430; 74177-TC; 80048; 80053; 81003; 81015; 82272; 82550; 82728; 83540; 83550; 83605; 83690; 83735; 84100; 84484; 85025; 85027; 85610; 85730; 86850; 86900; 86901; 86922; 87086; 88305-TC; 93005; 93010; 94761; 99283-25; P9038; P9058

== ENCOUNTER 2018-04-05 12:03 | Inpatient (IN) | payer OTHER ==
[2018-04-05] MEDS ORDERED: RANITIDINE HCL 150 MG TABLET (FP) ONE (12:12)
[2018-04-05] MEDS ORDERED: PANTOPRAZOLE SODIUM 40 MG VIAL IVPUSH ONE (13:04)
[2018-04-05] MEDS ORDERED: morphine CARPU-JECT 4 MG/1 ML DISP.SYRIN IVPUSH ONE (13:06)
--- NOTE | 2018-04-05 13:18 | PDOC ---
*Physical Exam - Vital Signs Last Vital Signs Temp Pulse Resp BP Pulse Ox 98.4 F 93 H 18 100/67 95 04/05/18 12:10 04/05/18 12:10 04/05/18 12:10 04/05/18 12:10 04/05/18 12:10 ED Treatment Course - LABORATORY CBC & Chemistry Diagram: 04/09/18 05:30 04/09/18 05:30 Medical Decision Making - Critical Care Time Total Critical Care Time (minutes): 35 Critical Care Statement: The care of this patient involved high complexity decision making to prevent further life threatening deterioration of the patient 's condition and/or to evaluate & treat vital organ system(s) failure or risk of failure. - Medical Decision Making 04/05/18 13:17 Pt seen by the Advanced Practice Provider under my direct supervision Pt interviewed and examined Ancillary studies reviewed I agree with plan as outlined by the Advanced Practice Provider MORRIS Houser Vital Signs Temp Pulse Resp BP Pulse Ox 98.4 F 93 H 18 100/67 95 04/05/18 12:10 04/05/18 12:10 04/05/18 12:10 04/05/18 12:10 04/05/18 12:10 This is a 73-year-old female history of gastric sleeve presenting with left flank pain and abdominal pain. Patient reported that the pain is persisted with decreased appetite and started noticing dark stools. Patient does have prior history of kidney stones. I had examined the patient and noted that she had lower and upper bowel pain including left flank pain. Differential includes gastritis, renal colic, pyelonephritis, cystitis, bowel obstruction, pancreatitis, gastric sleeve competition. I agree with the physician civil engineering assistant plan to obtain a CAT scan of the pelvis and labs and urinalysis and reassess. 04/05/18 14:06 CBC, BMP 04/05/18 12:52 04/05/18 12:52 CMP Sodium 141 mmol/L (136-145) 04/05/18 12:52 Potassium 4.1 mmol/L (3.5-5.1) 04/05/18 12:52 Chloride 111 mmol/L (98-107) H 04/05/18 12:52 Carbon Dioxide 19 mmol/L (21-32) L 04/05/18 12:52 Anion Gap 11 MMOL/L (8-16) 04/05/18 12:52 BUN 29 mg/dL (7-18) H 04/05/18 12:52 Creatinine 1.3 mg/dL (0.55-1.3) 04/05/18 12:52 Creat Clearance w eGFR 40.15 (>60) 04/05/18 12:52 Random Glucose 99 mg/dL (74-106) 04/05/18 12:52 Calcium 8.5 mg/dL (8.5-10.1) 04/05/18 12:52 Phosphorus 2.9 mg/dL (2.5-4.9) 04/05/18 12:52 Magnesium 2.4 mg/dL (1.8-2.4) 04/05/18 12:52 Total Bilirubin 0.5 mg/dL (0.2-1) 04/05/18 12:52 AST 19 U/L (15-37) 04/05/18 12:52 ALT 12 U/L (13-61) L 04/05/18 12:52 Alkaline Phosphatase 80 U/L (45-117) 04/05/18 12:52 Creatine Kinase 50 IU/L (26-192) 04/05/18 12:52 Troponin I < 0.02 ng/ml (0.00-0.05) 04/05/18 12:52 Total Protein 6.3 g/dl (6.4-8.2) L 04/05/18 12:52 Albumin 3.0 g/dl (3.4-5.0) L 04/05/18 12:52 Lipase 33 U/L (73-393) L 04/05/18 12:52 INR, PTT INR 3.29 (0.83-1.09) H 04/05/18 12:52 Stool occult negative. Patient's hemoglobin is noted to be at 2.5. This is concerning given the anemia. At this time, according to the physician civil engineering assistant, the patient's stool was dark but not black and tarry. We'll however, initiate Protonix bolus and drip. The INR is interestingly elevated at 3.29 despite only being on xarelto. The patient is taking his medication for atrial fibrillation. We'll consult patient's radiographic technologist, Dr. Aranda in regards for what to do coagulation medications. We'll consult the intensive care unit team for admission to the ICU. We'll touch base with the patient's primary care physician for admission. Risks and benefits were discussed with the patient in regards for blood chest fusion. Patient consents for transfusion. Family didn't know that the patient did have a history of anemia in August 2017 where her preoperative hemoglobin was 7. This was done prior to procedure for her kidney stones. The patient's vital signs are stable the patient overall is alert and speaking and without chest pain. We'll continue to monitor the patient but will admit the patient. *DC/Admit/Observation/Transfer Diagnosis at time of Disposition: Anemia, Elevated INR, Hemoglobin low - Discharge Dispostion Condition at time of disposition: Stable - Referrals - Patient Instructions - Post Discharge Activity
[2018-04-05 13:23] LABS: BASO % 0.6 % (0-2.0); EOS % 0.2 % (0-4.5); HEMATOCRIT 9.1 % (32.4-45.2); MEAN CELL VOLUME 57.9 fl (80-96); MEAN PLT VOLUME 8.7 fl (7.5-11.1); MONO % 11.1 % (3.8-10.2); NEUT % 67.1 % (42.8-82.8); PLATELET COUNT 344 K/MM3 (134-434); RBC 1.58 M/mm3 (3.60-5.2); RDW 21.5 % (11.6-15.6); WHITE BLOOD COUNT 6.8 K/mm3 (4.0-10.0)
[2018-04-05 13:26] LABS: INR 3.29 (0.83-1.09); MCH 15.6 pg (25.7-33.7); PROTHROMBIN TIME (PATIENT) 39.3 SEC (9.7-13.0)
[2018-04-05 13:28] LABS: HEMOGLOBIN 2.5 GM/dL (10.7-15.3)
[2018-04-05] MEDS ORDERED: PANTOPRAZOLE SODIUM 40 MG VIAL ONE (13:29)
[2018-04-05] MEDS ORDERED: ACETAMINOPHEN 1000 MG/100 ML VIAL (NON FORMULARY) IVPB ONE (13:32)
[2018-04-05] MEDS ORDERED: ONDANSETRON 4 MG/2 ML VIAL ONE (13:38)
--- NOTE | 2018-04-05 13:40 | PDOC ---
History of Present Illness - General Chief Complaint: Nausea/Vomiting Stated Complaint: Nausea Time Seen by Provider: 04/05/18 12:17 History Source: Patient, Friend Exam Limitations: No Limitations - History of Present Illness Initial Comments: 04/05/18 13:38 73 yo F w/ a h/o HTN, HLD, distolic CHF, Afib w/ PPM, asthma, kidney stone s/p lithotripsy 5 months ago, s/p gastric sleeve 5years, comes in for evaluation of generalized malaise for the past 2-3 days with associated fatigue,(+)diffuse abdominal pain worse in epigastric and suprapubic regions. (+)mild L sided flank pain (+)loss of appetite, (+) nausea and 1-2 episodes a day of NBNB vomiting. No diarrhea but admits to dark colored stools, no BRBPR. (+) occasional lightheadedness worse with movement, no CP, no SOB, no dizziness. NO fever/chills, no known sick contacts, no recent travel, no prior h/o similar symptoms. DEnies urinary symptoms, no burning/pain on urination, no hematuria PSHx: appendectomy, cholecystectomy, Lap band, PPM, gastric sleeve, lithotripsy Head Of Advertising: Dr. Jorgensen PMD: Dr. Barakat 04/05/18 14:06 Past History - Past Medical History Allergies/Adverse Reactions: Allergies Allergy/AdvReac Type Severity Reaction Status Date / Time lisinopril Allergy Severe Swelling Verified 04/05/18 12:08 aspirin AdvReac Intermediate Vomiting Verified 04/05/18 12:08 aspartame AdvReac Mild Verified 04/05/18 12:08 Home Medications: Ambulatory Orders Amlodipine Besylate 20 mg PO DAILY 08/17/17 Biotin 5,000 mcg PO DAILY 08/17/17 Cholecalciferol (Vitamin D3) [Vitamin D3] 5,000 unit PO DAILY 08/17/17 Flaxseed Oil [Flaxseed] 1,000 mg PO DAILY 08/17/17 Iron Polysaccharide Complex [Ferrex 150] 150 mg PO DAILY 08/17/17 Metoprolol Succinate 100 mg PO DAILY 08/17/17 Multivitamin [One Daily] 1 each PO DAILY 08/17/17 Rivaroxaban [Xarelto -] 20 mg PO BID 08/17/17 Anemia: No Asthma: Yes Cancer: No Cardiac Disorders: Yes (afib) CVA: Yes (LEFT SIDE WEAK) COPD: No CHF: No Dementia: No Diabetes: No GI Disorders: No Disorders: No HTN: Yes Hypercholesterolemia: Yes Liver Disease: No Seizures: No Thyroid Disease: No - Surgical History Abdominal Surgery: Yes (SLEEVE (STOMACH)) Appendectomy: Yes Cholecystectomy: Yes Orthopedic Surgery: Yes - Immunization History Immunization Up to Date: Yes - Suicide/Smoking/Psychosocial Hx Smoking History: Former smoker Have you smoked in the past 12 months: No Number of Cigarettes Smoked Daily: 6 If you are a former smoker, when did you quit?: 02/2015 Information on smoking cessation initiated: No 'Breaking Loose' booklet given: 01/14/15 Hx Alcohol Use: No Drug/Substance Use Hx: No Substance Use Type: None Hx Substance Use Treatment: No Review of Systems - Review of Systems Able to Perform ROS?: Yes Constitutional: Yes: Loss of Appetite, Malaise. No: Chills, Fever, Night Sweats HEENTM: No: Eye Pain, Recent change in vision, Throat Pain Respiratory: No: Cough, Shortness of Breath Cardiac (ROS): No: Chest Pain, Palpitations, Chest Tightness ABD/GI: Yes: Nausea, Vomiting, Abdominal cramping. No: Diarrhea : No: Dysuria, Hematuria Integumentary: No: Rash Neurological: No: Headache, Numbness Endocrine: No: Unexplained Weight Loss *Physical Exam - Vital Signs Last Vital Signs Temp Pulse Resp BP Pulse Ox 98.4 F 93 H 18 100/67 95 04/05/18 12:10 04/05/18 12:10 04/05/18 12:10 04/05/18 12:10 04/05/18 12:10 - Physical Exam General Appearance: Yes: Nourished, Apparent Distress HEENT: positive: MANDEEP, Normal ENT Inspection, Normal Voice, Pale Conjunctivae. negative: Scleral Icterus (R), Scleral Icterus (L) Neck: positive: Supple. negative: Decreased range of motion, Tender midline Respiratory/Chest: positive: Lungs Clear, Normal Breath Sounds. negative: Respiratory Distress, Accessory Muscle Use Cardiovascular: positive: Regular Rhythm, Regular Rate Gastrointestinal/Abdominal: positive: Normal Bowel Sounds, Tender (epigastric and suprapubic regions, L CVA tenderness), Soft. negative: Guarding Rectal Exam: positive: other (mikey guaiac sent to the lab, no BRBPR) Musculoskeletal: positive: Normal Inspection. negative: CVA Tenderness, Decreased Range of Motion Extremity: positive: Normal Capillary Refill, Normal Inspection, Normal Range of Motion. negative: Tender, Pedal Edema Integumentary: positive: Dry, Pale. negative: Jaundice, Rash Neurologic: positive: Fully Oriented, Alert, Normal Mood/Affect ED Treatment Course - LABORATORY CBC & Chemistry Diagram: 04/05/18 12:52 04/05/18 12:52 - ADDITIONAL ORDERS Additional order review: Laboratory Results 04/05/18 04/05/18 04/05/18 12:52 12:52 12:52 PT with INR 39.30 H INR 3.29 H Stool Occult Blood Negative Crossmatch See Detail 04/05/18 12:52 RBC 1.58 L MCV 57.9 L MCHC 27.0 L RDW 21.5 H MPV 8.7 Neutrophils % 67.1 D Lymphocytes % 21.0 D Monocytes % 11.1 H Eosinophils % 0.2 D Basophils % 0.6 - RADIOLOGY Radiology Studies Ordered: Category Date Time Status SPIRAL- RENAL-STONE CT [CT] Stat CT Scan 04/05/18 13:00 Ordered CHEST X-RAY PORTABLE* [RAD] Stat Radiology 04/05/18 12:45 Ordered Medical Decision Making - Medical Decision Making 04/05/18 13:47 73 yo F w/ generalized malaise, vomiting, dark colored stools, w/ lightheadedness, fatigue. R/O GI bleed with blood loss. Will line and lab, do an EKG, CXR, CT abdomen and reassess. WIll give tylenol and protonix and reassess 04/05/18 14:08 H/H noted. 2 units of PRBCs ordered. INR is 3, pt is on Xarelto. Pt's PMD and Head Of Advertising paged. wIll ask Dr. Barakat which GI doctor he would like us to consult for patient 04/05/18 14:[address] Case covering for Dr. Barakat. She asked to call GI (Dr. Roe ) for a consult. Also recommended to give 1 unit of FFP due to the high INR. Pt should go to the ICU. ICU paged for consult. GI also paged 04/05/18 14:[address] Roe who says that he will consult on her, he will come see her late tonight at around 9pm 04/05/18 14:47 ICU came and saw patient. I spoke to Dr. Aranda who is aware of admission and will come in see patient today or tomorrow *DC/Admit/Observation/Transfer Diagnosis at time of Disposition: Anemia, Elevated INR, Hemoglobin low - Discharge Dispostion Condition at time of disposition: Stable Decision to Admit order: Yes - Referrals Referrals: Shekhar Barakat MD [Primary Care Provider] - - Patient Instructions - Post Discharge Activity
[2018-04-05 13:44] LABS: ALK PHOS 80 U/L (45-117); ANION GAP 11 MMOL/L (8-16); BILIRUBIN,TOTAL 0.5 mg/dL (0.2-1); BLOOD UREA NITROGEN 29 mg/dL (7-18); CALCIUM 8.5 mg/dL (8.5-10.1); CHLORIDE 111 mmol/L (98-107); CO2 19 mmol/L (21-32); CREATININE 1.3 mg/dL (0.55-1.3); GLUCOSE,RANDOM 99 mg/dL (74-106); LIPASE 33 U/L (73-393); MAGNESIUM 2.4 mg/dL (1.8-2.4); PHOSPHOROUS 2.9 mg/dL (2.5-4.9); POTASSIUM 4.1 mmol/L (3.5-5.1); SGOT/AST 19 U/L (15-37); SGPT/ALT 12 U/L (13-61); SODIUM 141 mmol/L (136-145); TOT PROT 6.3 g/dl (6.4-8.2)
[2018-04-05 15:04] LABS: ANISOCYTOSIS 2+
[2018-04-05] MEDS: PANTOPRAZOLE SODIUM 80 MG in SODIUM CHLORIDE 100 ML IVPB SCH (15:20)
[2018-04-05] MEDS ORDERED: SODIUM CHLORIDE 500 ML IV STA (15:31)
--- NOTE | 2018-04-05 16:07 | CONSULT ---
Consultation: REQUESTING PROVIDER: CONSULT REQUEST: We have been asked to medically evaluate this patient for severe acute anemia HISTORY OF PRESENT ILLNESS: 73 yo F w/ PMH HTN, HLD, diastolic CHF, Afib w/ PPM (on Xarelto), asthma, kidney stone s/p lithotripsy 5 months ago, s/p gastric sleeve 5years, small internal hemorrhoids ( EGD 08/2017), and severe, non-bleeding diverticulosis ( colonoscopy 08/2017), p/w generalized fatigue/lightheadedness, diffuse abdominal pain worse in epigastric and suprapubic regions, mild L sided flank pain, loss of appetite, nausea, and 1-2 episodes a day of NBNB vomiting x 3d. pt says this is the first time she has felt these sxs. Denies diarrhea but does admit to dark colored stools, no BRBPR. Denies diarrhea, fevers, chills, cp, sob, sick contacts, recent travel, urinary sxs Of note, pt was seen in our hospital in 08/2017 for drop in Hgb of 4.6 and required transfusion. pt underwent EGD and colonoscopy which revealed severe, non-bleeding diverticulosis throughout the colon, and small internal hemorrhoids PSHx: appendectomy, cholecystectomy, Lap band, PPM, gastric sleeve, lithotripsy Qa Intern: Dr. Jorgensen PMD: Dr. Barakat In the ED, pt was noted to have severe pallor w/ a Hgb of 2.5 EKG Qtc 500 , CXR unremarkable , FOBT neg CT abdomen was ordered pt given tylenol and protonix 2 units of PRBCs ordered. INR is 3 Dr. Case covering for Dr. Barakat. Dr. Roe (GI) consulted, he will come see her late tonight at around 9pm Dr. Aranda aware of admission and will come in see patient today or tomorrow REVIEW OF SYSTEMS: as per HPI PHYSICAL EXAMINATION Vital Signs - 24 hr 04/05/18 12:10 Temperature 98.4 F Pulse Rate 93 H Respiratory 18 Rate Blood Pressure 100/67 O2 Sat by Pulse 95 Oximetry (%) GENERAL: AOX3, mild distress, dark skinned, pale HEAD: NCAT EYES: PERRLA, EOMI, sclera anicteric, conjunctival pallor EARS, NOSE, THROAT: nares patent, oropharynx clear without exudates. dry mucous membranes. pale mucosa NECK: Normal range of motion, supple without lymphadenopathy, JVD, or masses. LUNGS: CTAB HEART: tachycardia, RR, normal S1 and S2 without murmur, rub or gallop. ABDOMEN: Soft, ND +BS, TTP lower quadrants no guarding, no rebound, no masses. MUSCULOSKELETAL: Normal range of motion at all joints. No bony deformities or tenderness. No CVA tenderness. UPPER EXTREMITIES: 2+ pulses, warm, well-perfused. No clubbing. No peripheral edema. white palmar sufaces LOWER EXTREMITIES: 2+ pulses, warm, well-perfused. No calf tenderness. No peripheral edema. NEUROLOGICAL: Cranial nerves II-XII intact. Normal speech. RECTAL: no masses palpated. soft dark brown stools PSYCHIATRIC: Cooperative. Good eye contact. Appropriate mood and affect. SKIN: Warm, dry, normal turgor, no rashes or lesions noted. dark skinned, pale Laboratory Results - last 24 hr 04/05/18 04/05/18 04/05/18 12:52 12:52 12:52 WBC 6.8 RBC 1.58 L Hgb 2.5 L* Hct 9.1 L MCV 57.9 L MCH 15.6 L D MCHC 27.0 L RDW 21.5 H Plt Count 344 D MPV 8.7 Absolute Neuts (auto) 4.6 Neutrophils % 67.1 D Lymphocytes % 21.0 D Monocytes % 11.1 H Eosinophils % 0.2 D Basophils % 0.6 Nucleated RBC % 1 H Hypochromia 2+ Anisocytosis 2+ Microcytosis 2+ PT with INR 39.30 H INR 3.29 H Sodium 141 Potassium 4.1 Chloride 111 H Carbon Dioxide 19 L Anion Gap 11 BUN 29 H Creatinine 1.3 Creat Clearance w eGFR 40.15 Random Glucose 99 Calcium 8.5 Phosphorus 2.9 Magnesium 2.4 Total Bilirubin 0.5 AST 19 ALT 12 L Alkaline Phosphatase 80 Creatine Kinase 50 Troponin I < 0.02 Total Protein 6.3 L Albumin 3.0 L Lipase 33 L Stool Occult Blood Blood Type Antibody Screen Crossmatch 04/05/18 04/05/18 12:52 12:52 WBC RBC Hgb Hct MCV MCH MCHC RDW Plt Count MPV Absolute Neuts (auto) Neutrophils % Lymphocytes % Monocytes % Eosinophils % Basophils % Nucleated RBC % Hypochromia Anisocytosis Microcytosis PT with INR INR Sodium Potassium Chloride Carbon Dioxide Anion Gap BUN Creatinine Creat Clearance w eGFR Random Glucose Calcium Phosphorus Magnesium Total Bilirubin AST ALT Alkaline Phosphatase Creatine Kinase Troponin I Total Protein Albumin Lipase Stool Occult Blood Negative Blood Type A POSITIVE Antibody Screen Negative Crossmatch See Detail Active Medications Generic Name Dose Route Start Last Admin Trade Name Freq PRN Reason Stop Dose Admin Pantoprazole Sodium 80 mg/ 100 mls @ 10 mls/hr 04/05/18 13:45 Sodium Chloride IVPB Q10H REMY 8 MG/HR ASSESSMENT/PLAN: 73 yo F w/ PMH HTN, HLD, diastolic CHF, Afib w/ PPM (on Xarelto), asthma, kidney stone s/p lithotripsy 5 months ago, s/p gastric sleeve 5years, small internal hemorrhoids ( EGD 08/2017), and severe, non-bleeding diverticulosis ( colonoscopy 08/2017), p/w lightheadedness, abdominal pain, mild L sided flank pain, N/NBNB vomiting x 3d and found on labs w/ severe microcytic anemia (Hgb 2.5) requiring transfusion and monitoring in ICU. Neuro intact, AO x3 Cardio/Heme/GI -In the ED, pt was noted to have severe pallor w/ a Hgb of 2.5 w/ tachycardia and soft BPs -hold home BP meds in setting of soft BPs and severe anemia -hold xarelto in setting of severe anemia -Maintain MAP >65 -cardiac monitoring -EKG Qtc 500, avoid prolonging qtc meds -daily EKG if need prolonging qtc meds -FOBT neg -f/u CT A/P for source of a bleed -c/w protonix gtt -2 units of PRBCs and 1 FFP ordered. INR is 3 -monitor H/H -trop neg, lipase nl -Dr. Case covering for Dr. Barakat. -Dr. Roe (GI) consulted, he will come see her late tonight at around 9pm -Dr. Aranda aware of admission and will come in see patient today or tomorrow Pulm no active issues Duonebs prn CXR unremarkable maintain O2 sat >90 O2 prn Renal monitor UOP monitor Cr IVF bolus 500cc for RACHEL, likely prerenal IVF 100cc/hr ID -no issues, afebrile, no leukocytosis FEN IVF NS 100cc/hr replete prn NPO ppx SCDs protonix gtt Dispo: severe acute anemia requiring transfusions ICU monitoring We will continue to follow the patient. Thank you for this consultative opportunity. Visit type - Emergency Visit Emergency Visit: Yes ED Registration Date: 04/05/18 Care time: The patient presented to the Emergency Department on the above date and was hospitalized for further evaluation of their emergent condition. - New Patient This patient is new to me today: Yes Date on this admission: 04/05/18 - Critical Care Critical Care patient: Yes Total Critical Care Time (in minutes): 38 Critical Care Statement: The care of this patient involved high complexity decision making to prevent further life threatening deterioration of the patient 's condition and/or to evaluate & treat vital organ system(s) failure or risk of failure.
--- NOTE | 2018-04-05 16:40 | HP ---
Admitting History and Physical - Primary Care Physician PCP: Shekhar Barakat - Admission Chief Complaint: fatigue History of Present Illness: ER HISTORY 04/05/18 13:38 73 yo F w/ a h/o HTN, HLD, distolic CHF, Afib w/ PPM, asthma, kidney stone s/p lithotripsy 5 months ago, s/p gastric sleeve 5years, comes in for evaluation of generalized malaise for the past 2-3 days with associated fatigue,(+)diffuse abdominal pain worse in epigastric and suprapubic regions. (+)mild L sided flank pain (+)loss of appetite, (+) nausea and 1-2 episodes a day of NBNB vomiting. No diarrhea but admits to dark colored stools, no BRBPR. (+) occasional lightheadedness worse with movement, no CP, no SOB, no dizziness. NO fever/chills, no known sick contacts, no recent travel, no prior h/o similar symptoms. 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 Jorgensen PMD: Dr. Barakat Pt seen by me in the ER , has not been feeling herself for the last 3 days. Did notice dark colored stools a few days ago. Has pain in lower abdomen, no associated nausea, fever, no dysuria. Dizzy+, palpitations+ History Source: Patient Limitations to Obtaining History: No Limitations - Past Medical History Cardiovascular: Yes: AFIB, HTN Pulmonary: Yes: Asthma Gastrointestinal: Yes: Gastritis Psych: Yes: Anxiety - Past Surgical History Past Surgical History: Yes: Permanent Pacemaker - Smoking History Smoking history: Former smoker Have you smoked in the past 12 months: No Aproximately how many cigarettes per day: 6 If you are a former smoker, when did you quit?: 02/2015 - Alcohol/Substance Use Hx Alcohol Use: No Home Medications - Allergies Allergies/Adverse Reactions: Allergies Allergy/AdvReac Type Severity Reaction Status Date / Time lisinopril Allergy Severe Swelling Verified 04/05/18 12:08 aspirin AdvReac Intermediate Vomiting Verified 04/05/18 12:08 aspartame AdvReac Mild Verified 04/05/18 12:08 - Home Medications Home Medications: Ambulatory Orders Amlodipine Besylate 20 mg PO DAILY 08/17/17 Biotin 5,000 mcg PO DAILY 08/17/17 Cholecalciferol (Vitamin D3) [Vitamin D3] 5,000 unit PO DAILY 08/17/17 Flaxseed Oil [Flaxseed] 1,000 mg PO DAILY 08/17/17 Iron Polysaccharide Complex [Ferrex 150] 150 mg PO DAILY 08/17/17 Metoprolol Succinate 100 mg PO DAILY 08/17/17 Multivitamin [One Daily] 1 each PO DAILY 08/17/17 Rivaroxaban [Xarelto -] 20 mg PO BID 08/17/17 Family Disease History - Family Disease History Family Disease History: CA: Father (rectal cancer @ 60yo) Review of Systems - Review of Systems Constitutional: reports: Weakness. denies: Chills, Fever, Unintentional Wgt. Loss Cardiovascular: reports: Palpitations, Shortness of Breath. denies: Chest Pain Gastrointestinal: reports: Abdominal Pain. denies: Constipation Physical Examination Vital Signs: Vital Signs Temperature 97.9 F 04/05/18 15:25 Pulse Rate 98 H 04/05/18 15:25 Respiratory Rate 22 H 04/05/18 15:25 Blood Pressure 105/57 L 04/05/18 15:25 O2 Sat by Pulse Oximetry (%) 100 04/05/18 15:25 Constitutional: Yes: No Distress, Calm, Pallor Cardiovascular: Yes: Regular Rate and Rhythm, Murmur Respiratory: Yes: Diminished Gastrointestinal: Yes: Normal Bowel Sounds, Soft, Tenderness (suprapubic region) Edema: No Psychiatric: Yes: Alert, Oriented Labs: CBC, BMP 04/05/18 12:52 04/05/18 12:52 Imaging - Results Chest X-ray: Image Reviewed (clear) EKG: Image Reviewed (NSR) Problem List - Problems (1) Acute anemia Code(s): D64.9 - ANEMIA, UNSPECIFIED (2) Anemia Code(s): D64.9 - ANEMIA, UNSPECIFIED (3) Elevated INR Code(s): R79.1 - ABNORMAL COAGULATION PROFILE (4) GI bleeding Code(s): K92.2 - GASTROINTESTINAL HEMORRHAGE, UNSPECIFIED (5) HTN (hypertension) Code(s): I10 - ESSENTIAL (PRIMARY) HYPERTENSION Assessment/Plan PLAN Guaic negative Pt will receive 2 units of PRBC in ER will need more , Lasix IV in between Also to give FFP for elevated INR Protonix gtt DC Xarelto GI and Cardiology evaluation CT Abd/pelvis pending Spoke with ER attending Admit to ICU for further monitoring
--- NOTE | 2018-04-05 17:24 | CON.CARD ---
Consult Consult Specialty:: cardiology Reason for Consultation:: CAD; CHF - History of Present Illness History of Present Illness: This is a 73-year-old black woman with PMHx of history of gastric sleeve, overweight, CVA (?2016), HTN, diastolic CHF, AF, s/p PPM, nephrolithiasis, anemia, now presenting with left flank pain and abdominal pain. Patient reported that the pain is persisted with decreased appetite and started noticing dark stools. She denies chest pain or dyspnea. - History Source History Provided By: Patient, Medical Record Limitations to Obtaining History: No Limitations - Past Medical History Cardio/Vascular: Yes: AFIB, CHF (diastolic), HTN Pulmonary: Yes: Asthma Gastrointestinal: Yes: Gastritis Renal/: Yes: Renal Inusuff Reproductive: Yes: Postmenopausal ...: No Heme/Onc: Yes: Anemia Psych: Yes: Anxiety - Past Surgical History Past Surgical History: Yes: Permanent Pacemaker - Alcohol/Substance Use Hx Alcohol Use: No - Smoking History Smoking history: Former smoker Have you smoked in the past 12 months: No Aproximately how many cigarettes per day: 6 If you are a former smoker, when did you quit?: 02/2015 - Social History Usual Living Arrangement: Alone Home Medications - Allergies Allergies/Adverse Reactions: Allergies Allergy/AdvReac Type Severity Reaction Status Date / Time lisinopril Allergy Severe Swelling Verified 04/05/18 12:08 tomato Allergy Intermediate Itching Verified 04/05/18 17:33 aspirin AdvReac Intermediate Vomiting Verified 04/05/18 12:08 aspartame AdvReac Mild Verified 04/05/18 12:08 dark chocolated Allergy Intermediate Rash Uncoded 04/05/18 17:33 string beans Allergy Intermediate Rash Uncoded 04/05/18 17:33 - Home Medications Home Medications: Ambulatory Orders Amlodipine Besylate 10 mg PO DAILY 08/17/17 Biotin 500 mg PO DAILY 08/17/17 Cholecalciferol (Vitamin D3) [Vitamin D3] 1,000 unit PO DAILY 08/17/17 Flaxseed Oil [Flaxseed] 1,200 mg PO DAILY 08/17/17 Metoprolol Succinate 100 mg PO DAILY 08/17/17 Multivitamin [One Daily] 1 each PO DAILY 08/17/17 Rivaroxaban [Xarelto -] 20 mg PO DAILY 08/17/17 Gabapentin [Neurontin] 600 mg PO DAILY PRN 04/05/18 Family Disease History - Family Disease History Family Disease History: CA: Father (rectal cancer @ 60yo) Review of Systems - Review of Systems Constitutional: reports: Weakness Eyes: reports: No Symptoms HENT: reports: No Symptoms Neck: reports: No Symptoms Cardiovascular: reports: No Symptoms Respiratory: reports: No Symptoms Gastrointestinal: reports: Abdominal Pain, Nausea Breasts: reports: No Symptoms Reported Musculoskeletal: reports: Muscle Weakness Integumentary: reports: No Symptoms Neurological: reports: Weakness Hematology/Lymphatic: reports: Other Psychiatric: reports: Anxiety - Risk Factors Known Risk Factors: Yes: Age, Hypercholesterolemia, Hypertension, Physical Inactivity, Prior [place] /Emb Stroke, Race, Smoking (former) Vital Signs: Vital Signs Temperature 97.9 F 04/05/18 15:25 Pulse Rate 98 H 04/05/18 15:25 Respiratory Rate 22 H 04/05/18 15:25 Blood Pressure 105/57 L 04/05/18 15:25 O2 Sat by Pulse Oximetry (%) 100 04/05/18 15:25 Constitutional: Yes: Calm Eyes: Yes: WNL HENT: Yes: WNL Neck: Yes: WNL Respiratory: Yes: Regular Gastrointestinal: Yes: Soft Renal/: No: Anuria Heart Sounds: Yes: S1, S2 Murmur: Yes: Systolic Murmur, Grade 2 Musculoskeletal: Yes: Muscle Weakness Extremities: Yes: Cool Edema: Yes Peripheral Pulses WNL: Yes Integumentary: Yes: WNL Neurological: Yes: WNL, Alert, Oriented Psychiatric: Yes: WNL - Other Data Labs, Other Data: CBC, BMP 04/05/18 12:52 04/05/18 12:52 INR, PTT INR 3.29 (0.83-1.09) H 04/05/18 12:52 Troponin, BNP 04/05/18 12:52 Troponin I < 0.02 Troponin, BNP 04/05/18 12:52 Troponin I < 0.02 Ejection Fraction %: LVEF > or = 40 % Imaging - Results Chest X-ray: Image Reviewed Cat Scan: Report Reviewed EKG: Pending Problem List - Problems (1) Nephrolithiasis Code(s): N20.0 - CALCULUS OF KIDNEY (2) Acute anemia Assessment/Plan: Pt for transfusion of FFP (elevated INR) and PRBCs. On IVF (increase in BUN/Cr compared to 08/2017). F/u hematology and GI consults. Code(s): D64.9 - ANEMIA, UNSPECIFIED (3) Elevated INR Code(s): R79.1 - ABNORMAL COAGULATION PROFILE (4) Abdominal tenderness Code(s): R10.819 - ABDOMINAL TENDERNESS, UNSPECIFIED SITE (5) Diastolic heart failure Code(s): I50.30 - UNSPECIFIED DIASTOLIC (CONGESTIVE) HEART FAILURE (6) GI bleeding Code(s): K92.2 - GASTROINTESTINAL HEMORRHAGE, UNSPECIFIED Qualifiers: GI bleed type/associated pathology: unspecified gastrointestinal hemorrhage type Qualified Code(s): K92.2 - Gastrointestinal hemorrhage, unspecified (7) HTN (hypertension) Code(s): I10 - ESSENTIAL (PRIMARY) HYPERTENSION (8) Atrial fibrillation Assessment/Plan: NOAC held pending heme, GI workups. On metoprolol for HR conttrol. Code(s): I48.91 - UNSPECIFIED ATRIAL FIBRILLATION (9) History of permanent cardiac pacemaker placement Assessment/Plan: DDDR PPM Code(s): Z95.0 - PRESENCE OF CARDIAC PACEMAKER
[2018-04-05] MEDS ORDERED: ACETAMINOPHEN 325 MG TABLET (FP) PO PRN (18:15)
--- NOTE | 2018-04-05 18:24 | CONSULT ---
Consult - text type - Consultation Consultation Note: 73 yo F w/ a h/o HTN, HLD, distolic CHF, Afib w/ PPM, asthma, kidney stone s/p lithotripsy 5 months ago, s/p gastric sleeve 5years, comes in for evaluation of generalized malaise for the past 2-3 days with associated fatigue,(+)diffuse abdominal pain worse in suprapubic regions. (+)mild L sided flank pain (+)loss of appetite, (+) nausea and 1-2 episodes a day of vomiting. No diarrhea but admits to dark colored stools, no BRBPR. (+)occasional lightheadedness worse with movement, no CP, no SOB, no dizziness. NO fever/chills, no known sick contacts, no recent travel, no prior h/o similar symptoms. PSHx: appendectomy, cholecystectomy, Lap band, PPM, gastric sleeve, lithotripsy Allergies/Adverse Reactions: Allergies Allergy/AdvReac Type Severity Reaction Status Date / Time lisinopril Allergy Severe Swelling Verified 04/05/18 12:08 aspirin AdvReac Intermediate Vomiting Verified 04/05/18 12:08 aspartame AdvReac Mild Verified 04/05/18 12:08 Home Medications: Ambulatory Orders Amlodipine Besylate 20 mg PO DAILY 08/17/17 Biotin 5,000 mcg PO DAILY 08/17/17 Cholecalciferol (Vitamin D3) [Vitamin D3] 5,000 unit PO DAILY 08/17/17 Flaxseed Oil [Flaxseed] 1,000 mg PO DAILY 08/17/17 Iron Polysaccharide Complex [Ferrex 150] 150 mg PO DAILY 08/17/17 Metoprolol Succinate 100 mg PO DAILY 08/17/17 Multivitamin [One Daily] 1 each PO DAILY 08/17/17 Rivaroxaban [Xarelto -] 20 mg PO BID 08/17/17 PMH Asthma: Yes Cardiac Disorders: Yes (afib) CVA: Yes (LEFT SIDE WEAK) HTN: Yes Hypercholesterolemia: Yes - Surgical History Abdominal Surgery: Yes (SLEEVE (STOMACH)) Appendectomy: Yes Cholecystectomy: Yes Orthopedic Surgery: Yes - Suicide/Smoking/Psychosocial Hx Smoking History: Former smoker - Vital Signs Last Vital Signs Temp Pulse Resp BP Pulse Ox 99.0 F 81 14 107/68 98 04/06/18 18:00 04/06/18 18:00 04/06/18 18:00 04/06/18 18:00 04/06/18 09:00 Cor: RSR, No murmurs, No gallops Lungs: Clear to P&A Abd: Soft, Normal bowel sounds, No organomegaly Ext:No significant edema Labs/meds reviewed A/P 73 yo F w/ generalized malaise, vomiting, dark colored stools, w/ lightheadedness, fatigue. Hgb --2.5/Hct-9/MCV -57 SEVERE IRON DEFICIENCY ANEMIA/chronic blood loss Check iron studies /B!@/folate/retic/TSH/fT4/hemoglobin electrophoresis Transfusing PRBCS Hold Xeralti GI w/u
[2018-04-05] MEDS: SODIUM CHLORIDE 1,000 ML IV SCH (18:47)
[2018-04-05] MEDS ORDERED: GABAPENTIN 300 MG CAPSULE (FP) PO ONE (20:00)
--- NOTE | 2018-04-05 20:55 | CON.GI ---
Consult Consult Specialty:: Gastroenterology Referred by:: Dr. Sabiha Case Reason for Consultation:: Anemia - History of Present Illness Chief Complaint: Weakness, orthostatic dizziness, dark stools History of Present Illness: 73F is admitted with a Hb of 2 and c/o weakness, orthabostatic dizziness, and dark stools. She denies any overt hematochezia or hematemesis. She denies dysphagia and loss of appetite. She lost 125 lbs following her gastric sleeve surgery but has been stable since then. She presented with Hb of 4 in 08/20 when she was seen by Dr Ling. He performed an EGD on 08/18/17 which was unremarkable and biopsies faied to reveal celiac disease. He did a colonoscopy on 08/21/17 which revealed severe universal diverticulosis. She had a colonoscopy with Dr Gayle on 03/08/12 revealed scattered diverticuli and a normal terminal ileum. 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 Nicolette has no recollection of this. Her father of colon cancer in his 60's as per previous records. She now believes that he of heart disease and alcohol abuse. Nicolette denies using NSAIDs and does not drink alcohol. She had a lap band before her gastric sleeve. She moves her bowels regularly. 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 Cardio/Vascular: Yes: AFIB (has PPM), CHF (diastolic), HTN Pulmonary: Yes: Asthma Gastrointestinal: Yes: Diverticulosis, GI Bleed, Hiatal Hernia, Other (s/p gastric sleeve and ) Renal/: Yes: Renal Inusuff, Renal Calculi (s/p ESWL) ...: No Heme/Onc: Yes: Anemia (recurring severe microcytic anemia) Psych: Yes: Anxiety Musculoskeletal: Yes: Chronic low back pain (spinal stenosis and lower extremity weakness) - Past Surgical History Past Surgical History: Yes: Appendectomy, Cholecystectomy, Colonoscopy, Hernia Repair (umbilical hernia repair), Permanent Pacemaker Additional Surgical History: s/p lap band and later gastric sleeve. 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 Place of : [facility] History of Recent Travel: No Home Medications - Allergies Allergies/Adverse Reactions: Allergies Allergy/AdvReac Type Severity Reaction Status Date / Time lisinopril Allergy Severe Swelling Verified 04/05/18 12:08 tomato Allergy Intermediate Itching Verified 04/05/18 17:33 aspirin AdvReac Intermediate Vomiting Verified 04/05/18 12:08 aspartame AdvReac Mild Verified 04/05/18 12:08 dark chocolated Allergy Intermediate Rash Uncoded 04/05/18 17:33 string beans Allergy Intermediate Rash Uncoded 04/05/18 17:33 - Home Medications Home Medications: Ambulatory Orders Amlodipine Besylate 10 mg PO DAILY 08/17/17 Biotin 500 mg PO DAILY 08/17/17 Cholecalciferol (Vitamin D3) [Vitamin D3] 1,000 unit PO DAILY 08/17/17 Flaxseed Oil [Flaxseed] 1,200 mg PO DAILY 08/17/17 Metoprolol Succinate 100 mg PO DAILY 08/17/17 Multivitamin [One Daily] 1 each PO DAILY 08/17/17 Rivaroxaban [Xarelto -] 20 mg PO DAILY 08/17/17 Gabapentin [Neurontin] 600 mg PO DAILY PRN 04/05/18 Family Disease History - Family Disease History Family Disease History: Heart Disease: Mother ( in her 70's of heart disease ), CA: Father (rectal cancer @ 60yo,alcoholic), Other: Brother (3 brother were alcoholics) Review of Systems - Review of Systems Constitutional: reports: Malaise, Weakness Eyes: reports: No Symptoms HENT: reports: No Symptoms Neck: reports: No Symptoms Cardiovascular: reports: Shortness of Breath Respiratory: reports: Exercise Intolerance, SOB on Exertion Gastrointestinal: reports: Other (dark stool) Musculoskeletal: reports: Back Pain Physical Exam-GI Vital Signs: Vital Signs Temperature 98.0 F 04/05/18 18:00 Pulse Rate 100 H 04/05/18 20:00 Respiratory Rate 13 04/05/18 20:00 Blood Pressure 93/82 04/05/18 20:00 O2 Sat by Pulse Oximetry (%) 98 04/05/18 20:05 CBC,CMP WBC 6.8 K/mm3 (4.0-10.0) 04/05/18 12:52 RBC 1.58 M/mm3 (3.60-5.2) L 04/05/18 12:52 Hgb 2.5 GM/dL (10.7-15.3) L* 04/05/18 12:52 Hct 9.1 % (32.4-45.2) L 04/05/18 12:52 MCV 57.9 fl (80-96) L 04/05/18 12:52 MCH 15.6 pg (25.7-33.7) L D 04/05/18 12:52 MCHC 27.0 g/dl (32.0-36.0) L 04/05/18 12:52 RDW 21.5 % (11.6-15.6) H 04/05/18 12:52 Plt Count 344 K/MM3 (134-434) D 04/05/18 12:52 MPV 8.7 fl (7.5-11.1) 04/05/18 12:52 Absolute Neuts (auto) 4.6 K/mm3 (1.5-8.0) 04/05/18 12:52 Neutrophils % 67.1 % (42.8-82.8) D 04/05/18 12:52 Lymphocytes % 21.0 % (8-40) D 04/05/18 12:52 Monocytes % 11.1 % (3.8-10.2) H 04/05/18 12:52 Eosinophils % 0.2 % (0-4.5) D 04/05/18 12:52 Basophils % 0.6 % (0-2.0) 04/05/18 12:52 Nucleated RBC % 1 % (0-0) H 04/05/18 12:52 Hypochromia 2+ 04/05/18 12:52 Anisocytosis 2+ 04/05/18 12:52 Microcytosis 2+ 04/05/18 12:52 Sodium 141 mmol/L (136-145) 04/05/18 12:52 Potassium 4.1 mmol/L (3.5-5.1) 04/05/18 12:52 Chloride 111 mmol/L (98-107) H 04/05/18 12:52 Carbon Dioxide 19 mmol/L (21-32) L 04/05/18 12:52 Anion Gap 11 MMOL/L (8-16) 04/05/18 12:52 BUN 29 mg/dL (7-18) H 04/05/18 12:52 Creatinine 1.3 mg/dL (0.55-1.3) 04/05/18 12:52 Creat Clearance w eGFR 40.15 (>60) 04/05/18 12:52 Random Glucose 99 mg/dL (74-106) 04/05/18 12:52 Calcium 8.5 mg/dL (8.5-10.1) 04/05/18 12:52 Phosphorus 2.9 mg/dL (2.5-4.9) 04/05/18 12:52 Magnesium 2.4 mg/dL (1.8-2.4) 04/05/18 12:52 Total Bilirubin 0.5 mg/dL (0.2-1) 04/05/18 12:52 AST 19 U/L (15-37) 04/05/18 12:52 ALT 12 U/L (13-61) L 04/05/18 12:52 Alkaline Phosphatase 80 U/L (45-117) 04/05/18 12:52 Creatine Kinase 50 IU/L (26-192) 04/05/18 12:52 Troponin I < 0.02 ng/ml (0.00-0.05) 04/05/18 12:52 Total Protein 6.3 g/dl (6.4-8.2) L 04/05/18 12:52 Albumin 3.0 g/dl (3.4-5.0) L 04/05/18 12:52 Lipase 33 U/L (73-393) L 04/05/18 12:52 TSH 2.35 uIU/ml (0.358-3.74) 04/05/18 12:52 Current Medications Generic Name Dose Route Start Last Admin Trade Name Freq PRN Reason Stop Dose Admin Acetaminophen 650 mg 04/05/18 18:15 04/05/18 18:47 Tylenol - PO 650 mg Q6H PRN Administration PAIN LEVEL 4 - 6 Chlorhexidine Gluconate 1 applic 04/05/18 22:00 04/05/18 21:00 Hibiclens For Decolonization - TP 1 applic HS REMY Administration Pantoprazole Sodium 80 mg/ 100 mls @ 10 mls/hr 04/05/18 13:45 04/05/18 15:20 Sodium Chloride IVPB 10 mls/hr Q10H REMY Administration 8 MG/HR Sodium Chloride 1,000 mls @ 100 mls/hr 04/05/18 15:45 04/05/18 18:47 Normal Saline - IV 100 mls/hr ASDIR REMY Administration Mupirocin 1 applic 04/05/18 22:00 04/05/18 21:00 Bactroban Ointment (For Decolonization) - NS 04/10/18 21:59 1 applic BID REMY Administration Constitutional: Yes: Calm, Pallor Eyes: Yes: Conjunctiva Clear HENT: Yes: Atraumatic Neck: Yes: Trachea Midline Cardiovascular: Yes: Regular Rate and Rhythm (left PPM) Respiratory: Yes: CTA Bilaterally Gastrointestinal Inspection: Yes: Distention, Scars (oblique RUQ and oblique RLQ and inverted arc subumbilical and laparoscopic incisions) ...Auscultate: Yes: Normoactive Bowel Sounds ...Palpate: Yes: Soft, Other (nontender) ...Percussion: Yes: Tympanitic ...Rectal Exam: Yes: Guaiac Positive (dark bronw strongly guaiac positive stool) Neurological: Yes: Alert, Other (forgetful) Labs: CBC, BMP 04/05/18 12:52 04/05/18 12:52 INR, PTT INR 3.29 (0.83-1.09) H 04/05/18 12:52 Laboratory Tests 03/23/11 01/14/15 01/18/15 16:25 12:11 06:00 Hgb 13.6 13.6 MCV 90.6 90.0 01/14/16 04/25/17 08/17/17 22:33 11:48 00:20 Hgb 10.8 D 10.5 L 4.6 L* D MCV 76.2 L 61.8 L 08/22/17 04/05/18 06:00 12:52 Hgb 7.7 L MCV 57.9 L Imaging - Results Cat Scan: Image Reviewed (bladder wall thickening, left staghorn calculus, diverticulosis) Problem List - Problems (1) GI bleeding Assessment/Plan: Her recurring severe anemia and strongly positive stool guaiac suggest ongoing GI blood loss. 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 She will ultimately need a capsule endoscopy an can return to Dr Genia Walters for this. . The finding of a submucosal cardia tumor in 2006 also bears further investigation. I have therefore advised Nicolette to undergo an enteroscopy when adequately stabilized with transfusions and off Xarelto. Her gastric sleeve may preclude being able to retrovert the scope and examine the cardia however. Her bariatric surgery hinders iron absorption so she will likely need Venofer. She may need another colonoscopy if a capsule endoscopy is unrevealing given her FH of colon cancer. Agree with empiric PPI in the interim Code(s): K92.2 - GASTROINTESTINAL HEMORRHAGE, UNSPECIFIED Qualifiers: GI bleed type/associated pathology: unspecified gastrointestinal hemorrhage type Qualified Code(s): K92.2 - Gastrointestinal hemorrhage, unspecified (2) Bariatric surgery status Code(s): Z98.84 - BARIATRIC SURGERY STATUS (3) Diverticula of colon Code(s): K57.30 - DVRTCLOS OF LG INT W/O PERFORATION OR ABSCESS W/O BLEEDING (4) Microcytic hypochromic anemia Code(s): D50.9 - IRON DEFICIENCY ANEMIA, UNSPECIFIED (5) Family history of colon cancer in father Code(s): Z80.0 - FAMILY HISTORY OF MALIGNANT NEOPLASM OF DIGESTIVE ORGANS Assessment/Plan Agree with transfusions Enteroscopy when stable May need Venofer Refer for capsule endoscopy and possible gastric EUS after discharge
[2018-04-05] MEDS: CHLORHEXIDINE GLUCONATE 4% CLEANSER FOR DECOLONIZATION TP SCH (21:00)
[2018-04-05] MEDS: MUPIROCIN 2% TOPICAL OINTMENT FOR DECOLONIZATION NS SCH (21:00)
[2018-04-06 01:54] LABS: BASO % 0.6 % (0-2.0); EOS % 0.1 % (0-4.5); HEMATOCRIT 14.6 % (32.4-45.2); LYMPH % 28.9 % (8-40); MCH 21.3 pg (25.7-33.7); MEAN CELL VOLUME 68.7 fl (80-96); MEAN PLT VOLUME 8.8 fl (7.5-11.1); MONO % 13.2 % (3.8-10.2); NEUT % 57.2 % (42.8-82.8); PLATELET COUNT 230 K/MM3 (134-434); RBC 2.12 M/mm3 (3.60-5.2); RDW 28.8 % (11.6-15.6); WHITE BLOOD COUNT 5.4 K/mm3 (4.0-10.0)
[2018-04-06 02:03] LABS: HEMOGLOBIN 4.5 GM/dL (10.7-15.3)
--- NOTE | 2018-04-06 06:13 | PN ---
Progress Note (short form) - Note Progress Note: Patient seen and examined Denies chest pain or SOB No GI complaints of naused, vominting diarrhea , melena, hematochezia Last Vital Signs Temp Pulse Resp BP Pulse Ox 98 F 84 16 95/81 98 04/06/18 05:46 04/06/18 05:46 04/06/18 05:46 04/06/18 05:46 04/05/18 20:05 HEENT: ESTEBAN, EOM Intact Oropharynx: No thrush, No mucositis, dentures Cor: RSR, No murmurs, No gallops Lungs: Clear to P&A Abd: Soft, Normal bowel sounds, No organomegaly,RUQ scar Ext:No significant edema Skin: No rashes, Integument intact CBC, BMP 04/06/18 01:00 04/05/18 12:52 INR, PTT INR 3.29 (0.83-1.09) H 04/05/18 12:52 Current Medications Generic Name Dose Route Start Last Admin Trade Name Freq PRN Reason Stop Dose Admin Acetaminophen 650 mg 04/05/18 18:15 04/05/18 18:47 Tylenol - PO 650 mg Q6H PRN Administration PAIN LEVEL 4 - 6 Chlorhexidine Gluconate 1 applic 04/05/18 22:00 04/05/18 21:00 Hibiclens For Decolonization - TP 1 applic HS REYM Administration Pantoprazole Sodium 80 mg/ 100 mls @ 10 mls/hr 04/05/18 13:45 04/05/18 15:20 Sodium Chloride IVPB 10 mls/hr Q10H REMY Administration 8 MG/HR Sodium Chloride 1,000 mls @ 100 mls/hr 04/05/18 15:45 04/05/18 18:47 Normal Saline - IV 100 mls/hr ASDIR REMY Administration Mupirocin 1 applic 04/05/18 22:00 04/05/18 21:00 Bactroban Ointment (For Decolonization) - NS 04/10/18 21:59 1 applic BID REMY Administration Impression: Hypochromic anemia, with previous hematest positive stool suggestive of Blood loss anemia S/P gastric sleeve and lap band bypass surgery- suggesting possibility of FE++ malabsorption as well Coagulopathy- with elevated INR - previously in records normal INR and level seems too elevated for xarelto as underlying sole etiology, normal LFT's, and no obvious occult infection Suggest - transfuse to HB- 7.0- 8.0 repeat INR/PTT Check B-12 in view of gastric bypass Further GI assessment as outpatient with capsule endoscopy if feasible IV Venofer Problem List - Problems (1) Bariatric surgery status Code(s): Z98.84 - BARIATRIC SURGERY STATUS (2) Nephrolithiasis Code(s): N20.0 - CALCULUS OF KIDNEY (3) History of permanent cardiac pacemaker placement Code(s): Z95.0 - PRESENCE OF CARDIAC PACEMAKER
[2018-04-06] MEDS ORDERED: IRON SUCROSE INJECTION 200 MG in SODIUM CHLORIDE 90 ML IVPB ONE (07:15)
[2018-04-06 09:12] LABS: BASO % 0.5 % (0-2.0); EOS % 0.5 % (0-4.5); HEMATOCRIT 19.2 % (32.4-45.2); LYMPH % 22.6 % (8-40); MCH 22.7 pg (25.7-33.7); MCHC 31.6 g/dl (32.0-36.0); MEAN CELL VOLUME 71.9 fl (80-96); MEAN PLT VOLUME 8.6 fl (7.5-11.1); MONO % 14.7 % (3.8-10.2); NEUT % 61.7 % (42.8-82.8); PLATELET COUNT 224 K/MM3 (134-434); RBC 2.68 M/mm3 (3.60-5.2); RDW 26.8 % (11.6-15.6); WHITE BLOOD COUNT 4.5 K/mm3 (4.0-10.0)
[2018-04-06 09:13] LABS: INR 2.06 (0.83-1.09); PROTHROMBIN TIME (PATIENT) 24.5 SEC (9.7-13.0)
[2018-04-06 09:17] LABS: HEMOGLOBIN 6.1 GM/dL (10.7-15.3)
--- NOTE | 2018-04-06 09:47 | PN ---
Progress Note (short form) - Note Progress Note: pt seen/ examined in icu chart reviewed awake/ comfortable weak but better got 2 units of prbcs and ffps INR, PTT INR 2.06 (0.83-1.09) H 04/06/18 08:10 Vital Signs Temp 98 F 04/06/18 05:46 Pulse 73 04/06/18 08:00 Resp 12 04/06/18 08:00 BP 94/52 L 04/06/18 08:00 Pulse Ox 98 04/05/18 20:05 Intake & Output 04/05/18 04/05/18 04/06/18 11:59 23:59 11:59 Intake Total 1767 Balance 1767 Weight 154 lb 5.177 oz 169 lb 9 oz Intake: IV 500 Normal Saline - 1,000 ml 500 @ 100 mls/hr IV ASDIR REMY Rx#:[id number] IVPB 250 Packed Cells 700 Fresh Frozen Plasma 317 Other: Voiding Method Bedpan # Unmeasured Voids Void 1 2 Height 5 ft Body Mass Index (BMI) 30.1 Weight Measurement Method [facility] Method Est/Stated by Patient Active Medications Acetaminophen (Tylenol -) 650 mg PO Q6H PRN PRN Reason: PAIN LEVEL 4 - 6 Last Admin: 04/05/18 18:47 Dose: 650 mg Chlorhexidine Gluconate (Hibiclens For Decolonization -) 1 applic TP HS [facility] Last Admin: 04/05/18 21:00 Dose: 1 applic Pantoprazole Sodium 80 mg/ (Sodium Chloride) 100 mls @ 10 mls/hr IVPB Q10H [facility] Last Admin: 04/05/18 15:20 Dose: 10 mls/hr Sodium Chloride (Normal Saline -) 1,000 mls @ 100 mls/hr IV ASDIR REMY Last Admin: 04/05/18 18:47 Dose: 100 mls/hr Mupirocin (Bactroban Ointment (For Decolonization) -) 1 applic NS BID [facility] Stop: 04/10/18 21:59 Last Admin: 04/05/18 21:00 Dose: 1 applic CBC, BMP 04/06/18 08:10 Physical Examination Constitutional: Yes: No Distress, Calm, Pallor. weak Cardiovascular: Yes: Regular Rate and Rhythm, Murmur Respiratory: Yes: Bilateral Breath sounds Gastrointestinal: Yes: Normal Bowel Sounds, Soft, Tenderness (suprapubic region) Edema: No Psychiatric: Yes: Alert, Oriented x 3 Imaging - Results Chest X-ray: Image Reviewed (clear) EKG: Image Reviewed (NSR) Problem List - Problems (1) Acute anemia Code(s): D64.9 - ANEMIA, UNSPECIFIED (2) Anemia Code(s): D64.9 - ANEMIA, UNSPECIFIED (3) Elevated INR Code(s): R79.1 - ABNORMAL COAGULATION PROFILE (4) GI bleeding Code(s): K92.2 - GASTROINTESTINAL HEMORRHAGE, UNSPECIFIED (5) HTN (hypertension) Code(s): I10 - ESSENTIAL (PRIMARY) HYPERTENSION Assessment/Plan Better tranfuse one unit of prbcs Protonix gtt off Xarelto GI and Cardiology to follow Discussed with Dr. Ornelas also today Discussed with icu team/ nursing staff will follow cc time approx 25 min
[2018-04-06] MEDS ORDERED: PT OWN MED DRAWER 7, Y5N ONE (09:51)
[2018-04-06] MEDS: PANTOPRAZOLE SODIUM 80 MG in SODIUM CHLORIDE 100 ML IVPB SCH ×3 (09:55→23:08)
[2018-04-06] MEDS: MUPIROCIN 2% TOPICAL OINTMENT FOR DECOLONIZATION NS SCH ×2 (09:56→21:10)
[2018-04-06 09:57] LABS: CHOLESTEROL 75 mg/dL (50-200); HDL CHOLESTEROL 24 mg/dL (40-60); TRIGLYCERIDES 71 mg/dL (0-150)
[2018-04-06 10:16] LABS: ALBUMIN 2.9 g/dl (3.4-5.0); ALK PHOS 81 U/L (45-117); ANION GAP 7 MMOL/L (8-16); BILIRUBIN,TOTAL 1.4 mg/dL (0.2-1); BLOOD UREA NITROGEN 20 mg/dL (7-18); CALCIUM 8.2 mg/dL (8.5-10.1); CHLORIDE 116 mmol/L (98-107); CO2 22 mmol/L (21-32); GLUCOSE,RANDOM 83 mg/dL (74-106); LDH 130 U/L (84-246); MAGNESIUM 2.4 mg/dL (1.8-2.4); PHOSPHOROUS 2.5 mg/dL (2.5-4.9); POTASSIUM 3.8 mmol/L (3.5-5.1); SGOT/AST 13 U/L (15-37); SGPT/ALT 13 U/L (13-61); SODIUM 145 mmol/L (136-145); TOT PROT 5.8 g/dl (6.4-8.2); URIC ACID 6.8 mg/dL (2.6-7.2)
--- NOTE | 2018-04-06 10:55 | EKG ---
Test Reason : Blood Pressure : / mmHG Vent. Rate : 101 BPM Atrial Rate : 101 BPM P-R Int : 142 ms QRS Dur : 164 ms QT Int : 386 ms P-R-T Axes : 053 005 104 degrees QTc Int : 500 ms SINUS TACHYCARDIA LOW VOLTAGE QRS POOR R WAVE PROGRESSION POOR DATA QUALITY, INTERPRETATION MAY BE ADVERSELY AFFECTED Confirmed by JAIRO HERNÁNDEZ MD ([id number]) on 04/06/2018 10:55:08 AM Referred By: Confirmed By:JAIRO HERNÁNDEZ MD
--- NOTE | 2018-04-06 12:01 | PN ---
Teaching Attending Note Name of Resident: Fabrizio King ATTENDING PHYSICIAN STATEMENT I saw and evaluated the patient. I reviewed the resident's note and discussed the case with the resident. I agree with the resident's findings and plan as documented. SUBJECTIVE: Patient seen and examined in the ICU. Awake and alert. No obvious sign of bleeding. Receiving pRBCs transfusion. Denies CP or SOB. Does report some lower abdominal discomfort. Denies hematuria. Intake & Output 04/03/18 04/04/18 04/05/18 04/06/18 23:59 23:59 23:59 23:59 Intake Total 1767 Balance 1767 Weight 154 lb 5.177 oz 169 lb 9 oz Last Vital Signs Temp Pulse Resp BP Pulse Ox 98.6 F 82 16 106/54 L 98 04/06/18 10:00 04/06/18 10:00 04/06/18 10:00 04/06/18 10:00 04/06/18 09:00 Active Medications Acetaminophen (Tylenol -) 650 mg PO Q6H PRN PRN Reason: PAIN LEVEL 4 - 6 Last Admin: 04/05/18 18:47 Dose: 650 mg Chlorhexidine Gluconate (Hibiclens For Decolonization -) 1 applic TP HS [facility] Last Admin: 04/05/18 21:00 Dose: 1 applic Pantoprazole Sodium 80 mg/ (Sodium Chloride) 100 mls @ 10 mls/hr IVPB Q10H [facility] Last Admin: 04/06/18 09:55 Dose: 10 mls/hr Sodium Chloride (Normal Saline -) 1,000 mls @ 100 mls/hr IV ASDIR [facility] Last Admin: 04/05/18 18:47 Dose: 100 mls/hr Mupirocin (Bactroban Ointment (For Decolonization) -) 1 applic NS BID [facility] Stop: 04/10/18 21:59 Last Admin: 04/06/18 09:56 Dose: 1 applic GENERAL: AOX3 HEAD: NC, AT EYES: PERRLA, EOMI, sclera anicteric, conjunctival pallor EARS, NOSE, THROAT: nares patent, oropharynx clear without exudates. dry mucous membranes. pale mucosa NECK: Normal range of motion, supple without lymphadenopathy, JVD, or masses. LUNGS: Clear HEART: normal S1 and S2 without murmur, rub or gallop. ABDOMEN: Soft, ND +BS, TTP lower quadrants no guarding, no rebound, no masses. MUSCULOSKELETAL: Normal range of motion at all joints. No bony deformities or tenderness. No CVA tenderness. UPPER EXTREMITIES: 2+ pulses, warm, well-perfused. No clubbing. No peripheral edema. white palmar sufaces LOWER EXTREMITIES: 2+ pulses, warm, well-perfused. No calf tenderness. No peripheral edema. NEUROLOGICAL: Non-focal PSYCHIATRIC: Cooperative. Good eye contact. Appropriate mood and affect. SKIN: Warm, dry, normal turgor, no rashes or lesions noted. dark skinned, pale Laboratory Results - last 24 hr 04/05/18 04/05/18 04/05/18 12:52 12:52 12:52 WBC 6.8 RBC 1.58 L Hgb 2.5 L* Hct 9.1 L MCV 57.9 L MCH 15.6 L D MCHC 27.0 L RDW 21.5 H Plt Count 344 D MPV 8.7 Absolute Neuts (auto) 4.6 Neutrophils % 67.1 D Lymphocytes % 21.0 D Monocytes % 11.1 H Eosinophils % 0.2 D Basophils % 0.6 Nucleated RBC % 1 H Hypochromia 2+ Anisocytosis 2+ Microcytosis 2+ PT with INR 39.30 H INR 3.29 H Sodium 141 Potassium 4.1 Chloride 111 H Carbon Dioxide 19 L Anion Gap 11 BUN 29 H Creatinine 1.3 Creat Clearance w eGFR 40.15 Random Glucose 99 Uric Acid Calcium 8.5 Phosphorus 2.9 Magnesium 2.4 Ferritin Total Bilirubin 0.5 AST 19 ALT 12 L Alkaline Phosphatase 80 LD Total Creatine Kinase 50 Troponin I < 0.02 Total Protein 6.3 L Albumin 3.0 L Triglycerides Cholesterol Total LDL Cholesterol HDL Cholesterol Lipase 33 L Vitamin B12 TSH 2.35 Free T4 Stool Occult Blood Blood Type Antibody Screen Direct Antiglob Test Crossmatch 04/05/18 04/05/18 04/06/18 12:52 12:52 01:00 WBC 5.4 RBC 2.12 L Hgb 4.5 L* Hct 14.6 L MCV 68.7 L MCH 21.3 L D MCHC 31.0 L RDW 28.8 H Plt Count 230 D MPV 8.8 Absolute Neuts (auto) 3.1 Neutrophils % 57.2 Lymphocytes % 28.9 D Monocytes % 13.2 H Eosinophils % 0.1 Basophils % 0.6 Nucleated RBC % 1 H Hypochromia Anisocytosis Microcytosis PT with INR INR Sodium Potassium Chloride Carbon Dioxide Anion Gap BUN Creatinine Creat Clearance w eGFR Random Glucose Uric Acid Calcium Phosphorus Magnesium Ferritin Total Bilirubin AST ALT Alkaline Phosphatase LD Total Creatine Kinase Troponin I Total Protein Albumin Triglycerides Cholesterol Total LDL Cholesterol HDL Cholesterol Lipase Vitamin B12 TSH Free T4 Stool Occult Blood Negative Blood Type A POSITIVE Antibody Screen Negative Direct Antiglob Test Crossmatch See Detail 04/06/18 04/06/18 04/06/18 08:10 08:10 08:10 WBC 4.5 RBC 2.68 L Hgb 6.1 L* Hct 19.2 L D MCV 71.9 L MCH 22.7 L MCHC 31.6 L RDW 26.8 H Plt Count 224 MPV 8.6 Absolute Neuts (auto) 2.8 Neutrophils % 61.7 Lymphocytes % 22.6 D Monocytes % 14.7 H Eosinophils % 0.5 D Basophils % 0.5 Nucleated RBC % 1 H Hypochromia Anisocytosis Microcytosis PT with INR INR Sodium 145 Potassium 3.8 Chloride 116 H Carbon Dioxide 22 Anion Gap 7 L BUN 20 H Creatinine 1.0 Creat Clearance w eGFR 54.35 Random Glucose 83 Uric Acid 6.8 Calcium 8.2 L Phosphorus 2.5 Magnesium 2.4 Ferritin Total Bilirubin 1.4 H AST 13 L ALT 13 Alkaline Phosphatase 81 LD Total 130 Creatine Kinase Troponin I Total Protein 5.8 L Albumin 2.9 L Triglycerides Cholesterol Total LDL Cholesterol HDL Cholesterol Lipase Vitamin B12 TSH Free T4 Stool Occult Blood Blood Type Antibody Screen Direct Antiglob Test Negative Crossmatch See Detail 04/06/18 04/06/18 04/06/18 08:10 08:10 08:10 WBC RBC Hgb Hct MCV MCH MCHC RDW Plt Count MPV Absolute Neuts (auto) Neutrophils % Lymphocytes % Monocytes % Eosinophils % Basophils % Nucleated RBC % Hypochromia Anisocytosis Microcytosis PT with INR 24.50 H INR 2.06 H Sodium Potassium Chloride Carbon Dioxide Anion Gap BUN Creatinine Creat Clearance w eGFR Random Glucose Uric Acid Calcium Phosphorus Magnesium Ferritin 12.7 Total Bilirubin AST ALT Alkaline Phosphatase LD Total Creatine Kinase Troponin I Total Protein Albumin Triglycerides 71 Cholesterol 75 Total LDL Cholesterol 43 HDL Cholesterol 24 L Lipase Vitamin B12 2016 H TSH Free T4 1.04 Stool Occult Blood Blood Type Antibody Screen Direct Antiglob Test Crossmatch ASSESSMENT/PLAN: Acute GI Bleed with Severe Symptomatic Anemia HTN RACHEL HLD Diastolic CHF Afib w/ PPM on Xarelto (stopped) Asthma by history Kidney stone s/p lithotripsy 5 months ago S/P gastric sleeve 5years ago Internal hemorrhoids Severe diverticulosis Prolonged QTc Normal transfusion thresholds O2 as needed Monitor for signs of high output failure Hold Xarelto Follow EKG for QTc PPI Follow INR (hold further FFP for now) BD TX PRN IVF GI consult noted ICU monitoring until H&H has stabilized Dr Zapata Critical care time spent in reviewing chart, evaluating patient and formulating plan - 36 minutes.
--- NOTE | 2018-04-06 12:26 | PN ---
Physical Exam: SUBJECTIVE: Patient seen and examined in the ICU. pt feeling much better. pt received 3U pRBCs and 1 FFP. pt currently on 4th prbc. Awake and alert. No obvious sign of bleeding. Does report some lower abdominal discomfort. denies cp , sob, SMILEY, dysuria, hematuria OBJECTIVE: Vital Signs Period Temp Pulse Resp BP Sys/Johnson Pulse Ox Last 24 Hr 97.9 F-98.7 F 72-100 12-100 85-114/49-82 98-100 GENERAL: AOX3, mild distress, dark skinned, improved color of skin HEAD: NCAT EYES: PERRLA, EOMI, sclera anicteric, conjunctival pallor, but improved EARS, NOSE, THROAT: nares patent, oropharynx clear without exudates. MMM. good mucosal color NECK: Normal range of motion, supple without lymphadenopathy, JVD, or masses. LUNGS: CTAB HEART: RRR, normal S1 and S2 without murmur, rub or gallop. ABDOMEN: Soft, ND +BS, TTP suprapubic no guarding, no rebound, no masses. MUSCULOSKELETAL: Normal range of motion at all joints. No bony deformities or tenderness. No CVA tenderness. UPPER EXTREMITIES: 2+ pulses, warm, well-perfused. No clubbing. No peripheral edema. LOWER EXTREMITIES: 2+ pulses, warm, well-perfused. No calf tenderness. No peripheral edema. NEUROLOGICAL: Cranial nerves II-XII intact. Normal speech. PSYCHIATRIC: Cooperative. Good eye contact. Appropriate mood and affect. SKIN: Warm, dry, normal turgor, no rashes or lesions noted. normal color Laboratory Results - last 24 hr 04/05/18 04/05/18 04/05/18 12:52 12:52 12:52 WBC 6.8 RBC 1.58 L Hgb 2.5 L* Hct 9.1 L MCV 57.9 L MCH 15.6 L D MCHC 27.0 L RDW 21.5 H Plt Count 344 D MPV 8.7 Absolute Neuts (auto) 4.6 Neutrophils % 67.1 D Lymphocytes % 21.0 D Monocytes % 11.1 H Eosinophils % 0.2 D Basophils % 0.6 Nucleated RBC % 1 H Hypochromia 2+ Anisocytosis 2+ Microcytosis 2+ PT with INR 39.30 H INR 3.29 H Sodium 141 Potassium 4.1 Chloride 111 H Carbon Dioxide 19 L Anion Gap 11 BUN 29 H Creatinine 1.3 Creat Clearance w eGFR 40.15 Random Glucose 99 Uric Acid Calcium 8.5 Phosphorus 2.9 Magnesium 2.4 Ferritin Total Bilirubin 0.5 AST 19 ALT 12 L Alkaline Phosphatase 80 LD Total Creatine Kinase 50 Troponin I < 0.02 Total Protein 6.3 L Albumin 3.0 L Triglycerides Cholesterol Total LDL Cholesterol HDL Cholesterol Lipase 33 L Vitamin B12 TSH 2.35 Free T4 Stool Occult Blood Blood Type Antibody Screen Direct Antiglob Test Crossmatch 04/05/18 04/05/18 04/06/18 12:52 12:52 01:00 WBC 5.4 RBC 2.12 L Hgb 4.5 L* Hct 14.6 L MCV 68.7 L MCH 21.3 L D MCHC 31.0 L RDW 28.8 H Plt Count 230 D MPV 8.8 Absolute Neuts (auto) 3.1 Neutrophils % 57.2 Lymphocytes % 28.9 D Monocytes % 13.2 H Eosinophils % 0.1 Basophils % 0.6 Nucleated RBC % 1 H Hypochromia Anisocytosis Microcytosis PT with INR INR Sodium Potassium Chloride Carbon Dioxide Anion Gap BUN Creatinine Creat Clearance w eGFR Random Glucose Uric Acid Calcium Phosphorus Magnesium Ferritin Total Bilirubin AST ALT Alkaline Phosphatase LD Total Creatine Kinase Troponin I Total Protein Albumin Triglycerides Cholesterol Total LDL Cholesterol HDL Cholesterol Lipase Vitamin B12 TSH Free T4 Stool Occult Blood Negative Blood Type A POSITIVE Antibody Screen Negative Direct Antiglob Test Crossmatch See Detail 04/06/18 04/06/18 04/06/18 08:10 08:10 08:10 WBC 4.5 RBC 2.68 L Hgb 6.1 L* Hct 19.2 L D MCV 71.9 L MCH 22.7 L MCHC 31.6 L RDW 26.8 H Plt Count 224 MPV 8.6 Absolute Neuts (auto) 2.8 Neutrophils % 61.7 Lymphocytes % 22.6 D Monocytes % 14.7 H Eosinophils % 0.5 D Basophils % 0.5 Nucleated RBC % 1 H Hypochromia Anisocytosis Microcytosis PT with INR INR Sodium 145 Potassium 3.8 Chloride 116 H Carbon Dioxide 22 Anion Gap 7 L BUN 20 H Creatinine 1.0 Creat Clearance w eGFR 54.35 Random Glucose 83 Uric Acid 6.8 Calcium 8.2 L Phosphorus 2.5 Magnesium 2.4 Ferritin Total Bilirubin 1.4 H AST 13 L ALT 13 Alkaline Phosphatase 81 LD Total 130 Creatine Kinase Troponin I Total Protein 5.8 L Albumin 2.9 L Triglycerides Cholesterol Total LDL Cholesterol HDL Cholesterol Lipase Vitamin B12 TSH Free T4 Stool Occult Blood Blood Type Antibody Screen Direct Antiglob Test Negative Crossmatch See Detail 04/06/18 04/06/18 04/06/18 08:10 08:10 08:10 WBC RBC Hgb Hct MCV MCH MCHC RDW Plt Count MPV Absolute Neuts (auto) Neutrophils % Lymphocytes % Monocytes % Eosinophils % Basophils % Nucleated RBC % Hypochromia Anisocytosis Microcytosis PT with INR 24.50 H INR 2.06 H Sodium Potassium Chloride Carbon Dioxide Anion Gap BUN Creatinine Creat Clearance w eGFR Random Glucose Uric Acid Calcium Phosphorus Magnesium Ferritin 12.7 Total Bilirubin AST ALT Alkaline Phosphatase LD Total Creatine Kinase Troponin I Total Protein Albumin Triglycerides 71 Cholesterol 75 Total LDL Cholesterol 43 HDL Cholesterol 24 L Lipase Vitamin B12 2016 H TSH Free T4 1.04 Stool Occult Blood Blood Type Antibody Screen Direct Antiglob Test Crossmatch Active Medications Generic Name Dose Route Start Last Admin Trade Name Freq PRN Reason Stop Dose Admin Acetaminophen 650 mg 04/05/18 18:15 04/05/18 18:47 Tylenol - PO 650 mg Q6H PRN Administration PAIN LEVEL 4 - 6 Chlorhexidine Gluconate 1 applic 04/05/18 22:00 04/05/18 21:00 Hibiclens For Decolonization - TP 1 applic HS REMY Administration Pantoprazole Sodium 80 mg/ 100 mls @ 10 mls/hr 04/05/18 13:45 04/06/18 09:55 Sodium Chloride IVPB 10 mls/hr Q10H REMY Administration 8 MG/HR Sodium Chloride 1,000 mls @ 100 mls/hr 04/05/18 15:45 04/05/18 18:47 Normal Saline - IV 100 mls/hr ASDIR REMY Administration Mupirocin 1 applic 04/05/18 22:00 04/06/18 09:56 Bactroban Ointment (For Decolonization) - NS 04/10/18 21:59 1 applic BID REMY Administration ASSESSMENT/PLAN: 73 yo F w/ PMH HTN, HLD, diastolic CHF, Afib w/ PPM (on Xarelto), asthma, kidney stone s/p lithotripsy 5 months ago, s/p gastric sleeve 5years, small internal hemorrhoids ( EGD 08/2017), and severe, non-bleeding diverticulosis ( colonoscopy 08/2017), p/w lightheadedness, abdominal pain, mild L sided flank pain, N/NBNB vomiting x 3d and found on labs w/ severe microcytic anemia (Hgb 2.5) requiring multiple transfusions and monitoring in ICU. Neuro intact, AO x3 Cardio/Heme/GI -In the ED, pt was noted to have severe pallor w/ a Hgb of 2.5 w/ tachycardia and soft BPs -pt received 3U pRBCs and currently on 4th prbc. Hgb improved to 6.1 overnight s /p 3U, will rpt CBC at 430pm after 4th unit. -INR improved to 2.06 s/p 1 FFP -continue to transfuse if H/H <7 -Follow INR (hold further FFP for now) -monitor H/H -hold home BP meds in setting of soft BPs and severe anemia -hold xarelto in setting of severe anemia -Maintain MAP >65 -cardiac monitoring -EKG Qtc 500, avoid prolonging qtc meds -daily EKG if need prolonging qtc meds -FOBT neg -c/w protonix gtt -trop neg, lipase nl -Dr. Roe (GI) consulted -Dr. Aranda (cardio) consulted -CT A/P - urinary bladder suggestive of increased inflammation/infection in comparison to a CT exam of 08/17/2017. Several punctate nonobstructing left renal lower pole calculi are noted. On the previous exam a ipsilateral staghorn calculus was noted with associated at least moderate hydronephrosis. On the current exam there is mild left hydronephrosis. Left renal atrophy is seen. As on the prior study there is minimal right hydronephrosis. No obstructing calculus is seen. There is no gross mass lesion on noncontrast imaging. Pulm no active issues Duonebs prn CXR unremarkable maintain O2 sat >90 O2 prn Renal monitor UOP monitor Cr s/p IVF bolus 500cc for RACHEL, likely prerenal RACHEL improving IVF 100cc/hr ID -afebrile, no leukocytosis, suprapubic tenderness -CT A/P - urinary bladder suggestive of increased inflammation/infection in comparison to a CT exam of 08/17/2017 -f/u UA, Ucx FEN IVF NS 100cc/hr replete prn clear liquid diet ppx SCDs protonix gtt Dispo: severe acute anemia requiring transfusions, s/p 3 pRBCS, 1 FFP, currently on 4th pRBC ICU monitoring We will continue to follow the patient. Thank you for this consultative opportunity. Visit type - Emergency Visit Emergency Visit: Yes ED Registration Date: 04/05/18 Care time: The patient presented to the Emergency Department on the above date and was hospitalized for further evaluation of their emergent condition. - New Patient This patient is new to me today: Yes Date on this admission: 04/06/18 - Critical Care Critical Care patient: Yes Total Critical Care Time (in minutes): 38 Critical Care Statement: The care of this patient involved high complexity decision making to prevent further life threatening deterioration of the patient 's condition and/or to evaluate & treat vital organ system(s) failure or risk of failure.
[2018-04-06] MEDS: SODIUM CHLORIDE 1,000 ML IV SCH (15:32)
[2018-04-06 15:43] LABS: URINE APPEARANCE CLOUDY; URINE BILIRUBIN NEGATIVE (<2.0 mg/dL); URINE COLOR YELLOW; URINE GLUCOSE (UA) NEGATIVE (NEGATIVE); URINE KETONE NEGATIVE (NEGATIVE); URINE LEUK ESTERASE 3+ (NEGATIVE); URINE NITRITE NEGATIVE (NEGATIVE); URINE PROTEIN 2+ (NEGATIVE)
--- NOTE | 2018-04-06 16:04 | PN ---
Progress Note, Physician Chief Complaint: Pt A&Ox3; still weak, but less so than when first admitted (now s/p 2 U PRBCs). History of Present Illness: This is a 73-year-old black woman with PMHx of history of gastric sleeve, overweight, CVA (?2015), HTN, diastolic CHF, AF, s/p PPM, nephrolithiasis, anemia, now presenting with left flank pain and abdominal pain. Patient reported that the pain is persisted with decreased appetite and started noticing dark stools. She denies chest pain or dyspnea. - Current Medication List Current Medications: Active Medications Acetaminophen (Tylenol -) 650 mg PO Q6H PRN PRN Reason: PAIN LEVEL 4 - 6 Last Admin: 04/05/18 18:47 Dose: 650 mg Chlorhexidine Gluconate (Hibiclens For Decolonization -) 1 applic TP HS [facility] Last Admin: 04/05/18 21:00 Dose: 1 applic Pantoprazole Sodium 80 mg/ (Sodium Chloride) 100 mls @ 10 mls/hr IVPB Q10H [facility] Last Admin: 04/06/18 09:55 Dose: 10 mls/hr Sodium Chloride (Normal Saline -) 1,000 mls @ 100 mls/hr IV ASDIR [facility] Last Admin: 04/06/18 15:32 Dose: 100 mls/hr Mupirocin (Bactroban Ointment (For Decolonization) -) 1 applic NS BID [facility] Stop: 04/10/18 21:59 Last Admin: 04/06/18 09:56 Dose: 1 applic - Objective Vital Signs: Vital Signs Temperature 99.3 F 04/06/18 14:00 Pulse Rate 83 04/06/18 14:00 Respiratory Rate 13 04/06/18 14:00 Blood Pressure 95/50 L 04/06/18 14:00 O2 Sat by Pulse Oximetry (%) 98 04/06/18 09:00 Constitutional: Yes: No Distress Eyes: Yes: WNL HENT: Yes: WNL Neck: Yes: WNL Cardiovascular: Yes: Regular Rate and Rhythm Respiratory: Yes: WNL Gastrointestinal: Yes: Soft ...Rectal Exam: Yes: Deferred Genitourinary: No: Anuria Breast(s): Yes: WNL Musculoskeletal: Yes: Muscle Weakness Extremities: Yes: WNL Edema: No Peripheral Pulses WNL: Yes Integumentary: Yes: WNL Labs: CBC, BMP 04/06/18 08:10 04/06/18 08:10 INR, PTT INR 2.06 (0.83-1.09) H 04/06/18 08:10 Problem List - Problems (1) Nephrolithiasis Code(s): N20.0 - CALCULUS OF KIDNEY (2) Acute anemia Assessment/Plan: Pt has had transfusion of FFP (elevated INR) and 2 & PRBCs; for further PRBCs today; Hb 2.5-->6.1. On IVF (increase in BUN/Cr compared to 08/2017). F/u hematology and GI consults. Code(s): D64.9 - ANEMIA, UNSPECIFIED (3) Elevated INR Code(s): R79.1 - ABNORMAL COAGULATION PROFILE (4) Abdominal tenderness Code(s): R10.819 - ABDOMINAL TENDERNESS, UNSPECIFIED SITE (5) Diastolic heart failure Code(s): I50.30 - UNSPECIFIED DIASTOLIC (CONGESTIVE) HEART FAILURE (6) GI bleeding Code(s): K92.2 - GASTROINTESTINAL HEMORRHAGE, UNSPECIFIED Qualifiers: GI bleed type/associated pathology: unspecified gastrointestinal hemorrhage type Qualified Code(s): K92.2 - Gastrointestinal hemorrhage, unspecified (7) HTN (hypertension) Code(s): I10 - ESSENTIAL (PRIMARY) HYPERTENSION (8) Atrial fibrillation Assessment/Plan: NOAC held pending heme, GI workups. On metoprolol for HR conttrol. Code(s): I48.91 - UNSPECIFIED ATRIAL FIBRILLATION (9) History of permanent cardiac pacemaker placement Code(s): Z95.0 - PRESENCE OF CARDIAC PACEMAKER
[2018-04-06 16:40] LABS: URINE BACTERIA RARE /hpf (NONE SEEN)
[2018-04-06 17:35] LABS: BASO % 0.8 % (0-2.0); EOS % 1.2 % (0-4.5); HEMATOCRIT 26.9 % (32.4-45.2); MCH 25.8 pg (25.7-33.7); MCHC 33.5 g/dl (32.0-36.0); MEAN PLT VOLUME 8.6 fl (7.5-11.1); PLATELET COUNT 199 K/MM3 (134-434); RBC 3.49 M/mm3 (3.60-5.2); RDW 25.6 % (11.6-15.6); WHITE BLOOD COUNT 5.6 K/mm3 (4.0-10.0)
--- NOTE | 2018-04-06 18:20 | PN ---
GI Progress Note Subjective: GI NOte: Hb up to 9. 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 I explained to Nicolette that she will ultimately need a capsule endoscopy and that she can return to Dr Genia Walters for this. Will try to arrange enteroscopy. Continue PPI in the interim. Discussed with ICU residents Code(s): K92.2 - GASTROINTESTINAL HEMORRHAGE, UNSPECIFIED Qualifiers: GI bleed type/associated pathology: unspecified gastrointestinal hemorrhage type Qualified Code(s): K92.2 - Gastrointestinal hemorrhage, unspecified (2) Bariatric surgery status Code(s): Z98.84 - BARIATRIC SURGERY STATUS (3) Diverticula of colon Code(s): K57.30 - DVRTCLOS OF LG INT W/O PERFORATION OR ABSCESS W/O BLEEDING (4) Microcytic hypochromic anemia Code(s): D50.9 - IRON DEFICIENCY ANEMIA, UNSPECIFIED (5) Family history of colon cancer in father Code(s): Z80.0 - FAMILY HISTORY OF MALIGNANT NEOPLASM OF DIGESTIVE ORGANS
--- NOTE | 2018-04-06 19:04 | PN ---
Progress Note (short form) - Note Progress Note: Patient has foul smelling urine, Positive LE 3+, 45 WBC. We will treat with IV ceftriaxone for UTI. Urine cultures are pending. H&H improved after 4 units of PRBC to 02/28.9 VS are currently stable. Tolerating PO Stable for transfer to Tele Informed Dr. Barakat about transfer.
[2018-04-06] MEDS ORDERED: cefTRIAXone SODIUM 1 GM VIAL ONE (19:15)
[2018-04-06] MEDS ORDERED: DEXTROSE 5%-WATER - 50 ML IVPB ONE (19:15)
[2018-04-06] MEDS: CEFTRIAXONE 1 GM in DEXTROSE 5%-WATER - 50 ML IVPB SCH (19:16)
[2018-04-06] MEDS: CHLORHEXIDINE GLUCONATE 4% CLEANSER FOR DECOLONIZATION TP SCH (21:10)
[2018-04-07 06:11] LABS: SERUM IRON SATURATION 6 % (15-55); TOTAL IRON BINDING CAPACITY 380 ug/dL (250-450); UIBC 356 ug/dL (118-369)
[2018-04-07] MEDS: PANTOPRAZOLE SODIUM 80 MG in SODIUM CHLORIDE 100 ML IVPB SCH ×2 (06:43→16:37)
[2018-04-07 07:00] LABS: BASO % 0.4 % (0-2.0); EOS % 1.9 % (0-4.5); HEMATOCRIT 28.2 % (32.4-45.2); HEMOGLOBIN 9.5 GM/dL (10.7-15.3); LYMPH % 11.4 % (8-40); MCH 25.8 pg (25.7-33.7); MCHC 33.7 g/dl (32.0-36.0); MEAN CELL VOLUME 76.5 fl (80-96); MEAN PLT VOLUME 8.7 fl (7.5-11.1); MONO % 10.9 % (3.8-10.2); NEUT % 75.4 % (42.8-82.8); PLATELET COUNT 200 K/MM3 (134-434); RBC 3.69 M/mm3 (3.60-5.2); RDW 25.1 % (11.6-15.6); WHITE BLOOD COUNT 7.6 K/mm3 (4.0-10.0)
[2018-04-07 07:13] LABS: INR 1.48 (0.83-1.09); PROTHROMBIN TIME (PATIENT) 17.5 SEC (9.7-13.0)
[2018-04-07 07:16] LABS: ACTIVATED PTT 29.2 SECONDS (25.2-36.5)
[2018-04-07 07:19] LABS: ALBUMIN 2.8 g/dl (3.4-5.0); ALK PHOS 86 U/L (45-117); ANION GAP 8 MMOL/L (8-16); BLOOD UREA NITROGEN 11 mg/dL (7-18); CALCIUM 7.6 mg/dL (8.5-10.1); CHLORIDE 119 mmol/L (98-107); CO2 20 mmol/L (21-32); CREATININE 0.8 mg/dL (0.55-1.3); GLUCOSE,RANDOM 75 mg/dL (74-106); MAGNESIUM 2.1 mg/dL (1.8-2.4); PHOSPHOROUS 1.7 mg/dL (2.5-4.9); POTASSIUM 3.9 mmol/L (3.5-5.1); SGOT/AST 13 U/L (15-37); SGPT/ALT 11 U/L (13-61); SODIUM 147 mmol/L (136-145); TOT PROT 5.6 g/dl (6.4-8.2)
[2018-04-07] MEDS ORDERED: cefTRIAXone SODIUM 1 GM VIAL ONE (08:49)
[2018-04-07] MEDS ORDERED: DEXTROSE 5%-WATER - 50 ML IVPB ONE (08:50)
[2018-04-07] MEDS: CEFTRIAXONE 1 GM in DEXTROSE 5%-WATER - 50 ML IVPB SCH (09:30)
[2018-04-07] MEDS: MUPIROCIN 2% TOPICAL OINTMENT FOR DECOLONIZATION NS SCH (09:31)
--- NOTE | 2018-04-07 10:44 | PN ---
Progress Note, Physician Chief Complaint: This is my first encounter with Ms. Guzman covering Dr. Aranda for the weekend. c/o left pleuritic chest pain since last night Mild dry cough TELE: NSR w/ rare PVCs - Current Medication List Current Medications: Active Medications Acetaminophen (Tylenol -) 650 mg PO Q6H PRN PRN Reason: PAIN LEVEL 4 - 6 Last Admin: 04/05/18 18:47 Dose: 650 mg Chlorhexidine Gluconate (Hibiclens For Decolonization -) 1 applic TP HS REMY Last Admin: 04/06/18 21:10 Dose: 1 applic Pantoprazole Sodium 80 mg/ (Sodium Chloride) 100 mls @ 10 mls/hr IVPB Q10H REMY Last Admin: 04/07/18 06:43 Dose: 10 mls/hr Sodium Chloride (Normal Saline -) 1,000 mls @ 100 mls/hr IV ASDIR REMY Last Admin: 04/06/18 15:32 Dose: 100 mls/hr Ceftriaxone Sodium 1 gm/ (Dextrose) 50 mls @ 100 mls/hr IVPB DAILY REMY; Protocol Last Admin: 04/07/18 09:30 Dose: 100 mls/hr Mupirocin (Bactroban Ointment (For Decolonization) -) 1 applic NS BID REMY Stop: 04/10/18 21:59 Last Admin: 04/07/18 09:31 Dose: Not Given - Objective Vital Signs: Vital Signs Temperature 98.1 F 04/07/18 06:00 Pulse Rate 90 04/07/18 06:00 Respiratory Rate 20 04/07/18 06:00 Blood Pressure 103/58 L 04/07/18 06:00 O2 Sat by Pulse Oximetry (%) 96 04/07/18 02:00 Constitutional: Yes: No Distress, Calm Eyes: Yes: Conjunctiva Clear Cardiovascular: Yes: Regular Rate and Rhythm Respiratory: Yes: Other (left basilar rales.) Gastrointestinal: Yes: Soft Edema: No Neurological: Yes: Alert, Oriented Labs: CBC, BMP 04/07/18 05:30 04/07/18 05:30 INR, PTT INR 1.48 (0.83-1.09) H 04/07/18 05:30 Laboratory Tests 04/06/18 04/07/18 04/07/18 08:10 05:30 05:30 WBC 7.6 Hgb 9.5 L Hct 28.2 L Plt Count 200 INR 2.06 H 1.48 H Sodium Potassium Creatinine Creat Clearance w eGFR 04/07/18 05:30 WBC Hgb Hct Plt Count INR Sodium 147 H Potassium 3.9 Creatinine 0.8 Creat Clearance w eGFR > 60 - ....Imaging EKG: Image Reviewed Assessment/Plan IMP: Anemia secondary GI blood loss small bowel ectasias PAF s/p PPM Abnl lung exam/ left basilar rales and pleuritic pain x 24 hours REC: To resume AC when cleared by GI. Hemodynamically stable in NSR at this time Repeat CXR ordered to eval left base.
--- NOTE | 2018-04-07 11:18 | PN ---
Progress Note (short form) - Note Progress Note: Patient seen and examined Denies chest pain or SOB No GI complaints of naused, vominting diarrhea , melena, hematochezia Vital Signs Period Temp Pulse Resp BP Sys/Johnson Pulse Ox Last 24 Hr 97.3 F-99.3 F 72-90 13-20 86-114/50-68 96-98 doing well CBC, BMP 04/07/18 05:30 04/07/18 05:30 Active Medications Generic Name Dose Route Start Last Admin Trade Name Freq PRN Reason Stop Dose Admin Acetaminophen 650 mg 04/05/18 18:15 04/05/18 18:47 Tylenol - PO 650 mg Q6H PRN Administration PAIN LEVEL 4 - 6 Chlorhexidine Gluconate 1 applic 04/05/18 22:00 04/06/18 21:10 Hibiclens For Decolonization - TP 1 applic HS REMY Administration Pantoprazole Sodium 80 mg/ 100 mls @ 10 mls/hr 04/05/18 13:45 04/07/18 06:43 Sodium Chloride IVPB 10 mls/hr Q10H REMY Administration 8 MG/HR Sodium Chloride 1,000 mls @ 100 mls/hr 04/05/18 15:45 04/06/18 15:32 Normal Saline - IV 100 mls/hr ASDIR REMY Administration Ceftriaxone Sodium 1 gm/ 50 mls @ 100 mls/hr 04/06/18 19:15 04/07/18 09:30 Dextrose IVPB 100 mls/hr DAILY REMY Administration Protocol Mupirocin 1 applic 04/05/18 22:00 04/07/18 09:31 Bactroban Ointment (For Decolonization) - NS 04/10/18 21:59 Not Given BID REMY Impression: Hypochromic anemia, with previous hematest positive stool suggestive of Blood loss anemia S/P gastric sleeve and lap band bypass surgery- suggesting possibility of FE++ malabsorption as well Coagulopathy- with elevated INR - previously in records normal INR and level seems too elevated for xarelto as underlying sole etiology, normal LFT's, and no obvious occult infection Suggest - transfuse to HB- 7.0- 8.0 repeat INR/PTT Check B-12 in view of gastric bypass Further GI assessment as outpatient with capsule endoscopy if feasible IV Venofer
--- NOTE | 2018-04-07 12:33 | EKG ---
Test Reason : Blood Pressure : / mmHG Vent. Rate : 084 BPM Atrial Rate : 084 BPM P-R Int : 146 ms QRS Dur : 092 ms QT Int : 332 ms P-R-T Axes : 048 -18 068 degrees QTc Int : 392 ms NORMAL SINUS RHYTHM with demand atrial and ventricular pacing. LOW VOLTAGE QRS CANNOT RULE OUT ANTERIOR INFARCT , AGE UNDETERMINED ABNORMAL ECG Confirmed by JAIRO HERNÁNDEZ MD ([id number]) on 04/07/2018 12:32:43 PM Referred By: Krishna DODD Confirmed By:JAIRO HERNÁNDEZ MD
[2018-04-07 12:48] VITALS: BMI 33.0
--- NOTE | 2018-04-07 14:16 | PN ---
Progress Note (short form) - Note Progress Note: feeling better no dark colored stools has lower abdominal pain no nausea Vital Signs - 24 hr 04/06/18 04/06/18 04/06/18 16:00 18:00 20:00 Temperature 99.0 F Pulse Rate 81 81 81 Respiratory 19 14 14 Rate Blood Pressure 104/60 107/68 86/51 L O2 Sat by Pulse Oximetry (%) 04/06/18 04/06/18 04/07/18 20:25 22:00 00:00 Temperature 98.8 F Pulse Rate 75 78 Respiratory 18 20 Rate Blood Pressure 105/57 L 100/52 L O2 Sat by Pulse 98 Oximetry (%) 04/07/18 04/07/18 04/07/18 02:00 06:00 10:09 Temperature 98.2 F 98.1 F 97.3 F L Pulse Rate 83 90 90 Respiratory 20 20 18 Rate Blood Pressure 109/60 103/58 L 114/60 O2 Sat by Pulse 96 Oximetry (%) 04/07/18 10:49 Temperature Pulse Rate Respiratory 18 Rate Blood Pressure O2 Sat by Pulse 96 Oximetry (%) Current Medications Generic Name Dose Route Start Last Admin Trade Name Freq PRN Reason Stop Dose Admin Acetaminophen 650 mg 04/05/18 18:15 04/05/18 18:47 Tylenol - PO 650 mg Q6H PRN Administration PAIN LEVEL 4 - 6 Chlorhexidine Gluconate 1 applic 04/05/18 22:00 04/06/18 21:10 Hibiclens For Decolonization - TP 1 applic HS REMY Administration Pantoprazole Sodium 80 mg/ 100 mls @ 10 mls/hr 04/05/18 13:45 04/07/18 06:43 Sodium Chloride IVPB 10 mls/hr Q10H REMY Administration 8 MG/HR Sodium Chloride 1,000 mls @ 100 mls/hr 04/05/18 15:45 04/06/18 15:32 Normal Saline - IV 100 mls/hr ASDIR REMY Administration Ceftriaxone Sodium 1 gm/ 50 mls @ 100 mls/hr 04/06/18 19:15 04/07/18 09:30 Dextrose IVPB 100 mls/hr DAILY REMY Administration Protocol Mupirocin 1 applic 04/05/18 22:00 04/07/18 09:31 Bactroban Ointment (For Decolonization) - NS 04/10/18 21:59 Not Given BID REMY Laboratory Results - last 24 hr 04/05/18 04/06/18 04/06/18 19:20 08:10 08:10 WBC RBC Hgb Hct MCV MCH MCHC RDW Plt Count MPV Absolute Neuts (auto) Neutrophils % Lymphocytes % Monocytes % Eosinophils % Basophils % Nucleated RBC % Retic Count 1.49 Haptoglobin PT with INR INR PTT (Actin FS) Sodium Potassium Chloride Carbon Dioxide Anion Gap BUN Creatinine Creat Clearance w eGFR Random Glucose Calcium Phosphorus Magnesium Iron 24 L 90 TIBC 380 Iron Saturation 6 L Transferrin 275 Total Bilirubin AST ALT Alkaline Phosphatase Total Protein Albumin Urine Color Urine Appearance Urine pH Ur Specific [place] Urine Protein Urine Glucose (UA) Urine Ketones Urine Blood Urine Nitrite Urine Bilirubin Urine Urobilinogen Ur Leukocyte Esterase Urine WBC (Auto) Urine RBC (Auto) Urine Bacteria 04/06/18 04/06/18 04/06/18 08:10 15:00 17:20 WBC 5.6 RBC 3.49 L Hgb 9.0 L Hct 26.9 L D MCV 77.0 L MCH 25.8 D MCHC 33.5 RDW 25.6 H Plt Count 199 MPV 8.6 Absolute Neuts (auto) 3.6 Neutrophils % 65.0 Lymphocytes % 20.0 Monocytes % 13.0 H Eosinophils % 1.2 D Basophils % 0.8 Nucleated RBC % 1 H Retic Count Haptoglobin 63 PT with INR INR PTT (Actin FS) Sodium Potassium Chloride Carbon Dioxide Anion Gap BUN Creatinine Creat Clearance w eGFR Random Glucose Calcium Phosphorus Magnesium Iron TIBC Iron Saturation Transferrin Total Bilirubin AST ALT Alkaline Phosphatase Total Protein Albumin Urine Color Yellow Urine Appearance Cloudy Urine pH 8.0 D Ur Specific [place] 1.013 Urine Protein 2+ H Urine Glucose (UA) Negative Urine Ketones Negative Urine Blood 1+ H Urine Nitrite Negative Urine Bilirubin Negative Urine Urobilinogen 2.0 H Ur Leukocyte Esterase 3+ H Urine WBC (Auto) 45 Urine RBC (Auto) 15 Urine Bacteria Rare 04/07/18 04/07/18 04/07/18 05:30 05:30 05:30 WBC 7.6 RBC 3.69 Hgb 9.5 L Hct 28.2 L MCV 76.5 L MCH 25.8 MCHC 33.7 RDW 25.1 H Plt Count 200 MPV 8.7 Absolute Neuts (auto) 5.7 Neutrophils % 75.4 Lymphocytes % 11.4 D Monocytes % 10.9 H Eosinophils % 1.9 Basophils % 0.4 Nucleated RBC % 1 H Retic Count Haptoglobin PT with INR 17.50 H INR 1.48 H PTT (Actin FS) 29.2 Sodium 147 H Potassium 3.9 Chloride 119 H Carbon Dioxide 20 L Anion Gap 8 BUN 11 Creatinine 0.8 Creat Clearance w eGFR > 60 Random Glucose 75 Calcium 7.6 L Phosphorus 1.7 L Magnesium 2.1 Iron TIBC Iron Saturation Transferrin Total Bilirubin 1.0 AST 13 L ALT 11 L Alkaline Phosphatase 86 Total Protein 5.6 L Albumin 2.8 L Urine Color Urine Appearance Urine pH Ur Specific [place] Urine Protein Urine Glucose (UA) Urine Ketones Urine Blood Urine Nitrite Urine Bilirubin Urine Urobilinogen Ur Leukocyte Esterase Urine WBC (Auto) Urine RBC (Auto) Urine Bacteria S1 S2 RRR Lungs clear Abd- soft , obese, tender lower abdomen, BS+ No edema PLAN HCT better for capsule endoscopy as outpt can advance diet to full liquids on protonix GTT Problem List - Problems (1) Acute anemia Code(s): D64.9 - ANEMIA, UNSPECIFIED (2) Anemia Code(s): D64.9 - ANEMIA, UNSPECIFIED (3) Elevated INR Code(s): R79.1 - ABNORMAL COAGULATION PROFILE (4) GI bleeding Code(s): K92.2 - GASTROINTESTINAL HEMORRHAGE, UNSPECIFIED Qualifiers: GI bleed type/associated pathology: unspecified gastrointestinal hemorrhage type Qualified Code(s): K92.2 - Gastrointestinal hemorrhage, unspecified (5) HTN (hypertension) Code(s): I10 - ESSENTIAL (PRIMARY) HYPERTENSION
[2018-04-07] MEDS: SODIUM CHLORIDE 1,000 ML IV SCH (16:36)
--- NOTE | 2018-04-07 17:19 | PN ---
GI Progress Note Subjective: GI Note: NO overt bleeding. I have obtained an informed consent to do enteroscopy on 04/09 after discussing the risks of perforation and hemorrhage with Nicolette. - Objective Vital Signs: Vital Signs Temperature 98.1 F 04/07/18 14:00 Pulse Rate 92 H 04/07/18 14:00 Respiratory Rate 20 04/07/18 14:00 Blood Pressure 114/56 L 04/07/18 14:00 O2 Sat by Pulse Oximetry (%) 96 04/07/18 10:49 CBC,CMP WBC 7.6 K/mm3 (4.0-10.0) 04/07/18 05:30 RBC 3.69 M/mm3 (3.60-5.2) 04/07/18 05:30 Hgb 9.5 GM/dL (10.7-15.3) L 04/07/18 05:30 Hct 28.2 % (32.4-45.2) L 04/07/18 05:30 MCV 76.5 fl (80-96) L 04/07/18 05:30 MCH 25.8 pg (25.7-33.7) 04/07/18 05:30 MCHC 33.7 g/dl (32.0-36.0) 04/07/18 05:30 RDW 25.1 % (11.6-15.6) H 04/07/18 05:30 Plt Count 200 K/MM3 (134-434) 04/07/18 05:30 MPV 8.7 fl (7.5-11.1) 04/07/18 05:30 Absolute Neuts (auto) 5.7 K/mm3 (1.5-8.0) 04/07/18 05:30 Neutrophils % 75.4 % (42.8-82.8) 04/07/18 05:30 Lymphocytes % 11.4 % (8-40) D 04/07/18 05:30 Monocytes % 10.9 % (3.8-10.2) H 04/07/18 05:30 Eosinophils % 1.9 % (0-4.5) 04/07/18 05:30 Basophils % 0.4 % (0-2.0) 04/07/18 05:30 Nucleated RBC % 1 % (0-0) H 04/07/18 05:30 Hypochromia 2+ 04/05/18 12:52 Anisocytosis 2+ 04/05/18 12:52 Microcytosis 2+ 04/05/18 12:52 Retic Count 1.49 % (0.5-1.5) 04/06/18 08:10 Haptoglobin 63 mg/dL (34-200) 04/06/18 08:10 Sodium 147 mmol/L (136-145) H 04/07/18 05:30 Potassium 3.9 mmol/L (3.5-5.1) 04/07/18 05:30 Chloride 119 mmol/L (98-107) H 04/07/18 05:30 Carbon Dioxide 20 mmol/L (21-32) L 04/07/18 05:30 Anion Gap 8 MMOL/L (8-16) 04/07/18 05:30 BUN 11 mg/dL (7-18) 04/07/18 05:30 Creatinine 0.8 mg/dL (0.55-1.3) 04/07/18 05:30 Creat Clearance w eGFR > 60 (>60) 04/07/18 05:30 Random Glucose 75 mg/dL (74-106) 04/07/18 05:30 Uric Acid 6.8 mg/dL (2.6-7.2) 04/06/18 08:10 Calcium 7.6 mg/dL (8.5-10.1) L 04/07/18 05:30 Phosphorus 1.7 mg/dL (2.5-4.9) L 04/07/18 05:30 Magnesium 2.1 mg/dL (1.8-2.4) 04/07/18 05:30 Iron 90 ug/dL (27-139) 04/06/18 08:10 TIBC 380 ug/dL (250-450) 04/05/18 19:20 Iron Saturation 6 % (15-55) L 04/05/18 19:20 Transferrin 275 mg/dL (200-370) 04/06/18 08:10 Ferritin 12.7 ng/ml (8-388) 04/06/18 08:10 Total Bilirubin 1.0 mg/dL (0.2-1) 04/07/18 05:30 AST 13 U/L (15-37) L 04/07/18 05:30 ALT 11 U/L (13-61) L 04/07/18 05:30 Alkaline Phosphatase 86 U/L (45-117) 04/07/18 05:30 LD Total 130 U/L (84-246) 04/06/18 08:10 Creatine Kinase 50 IU/L (26-192) 04/05/18 12:52 Troponin I < 0.02 ng/ml (0.00-0.05) 04/05/18 12:52 Total Protein 5.6 g/dl (6.4-8.2) L 04/07/18 05:30 Albumin 2.8 g/dl (3.4-5.0) L 04/07/18 05:30 Triglycerides 71 mg/dL (0-150) 04/06/18 08:10 Cholesterol 75 mg/dL (50-200) 04/06/18 08:10 Total LDL Cholesterol 43 mg/dL (5-100) 04/06/18 08:10 HDL Cholesterol 24 mg/dL (40-60) L 04/06/18 08:10 Lipase 33 U/L (73-393) L 04/05/18 12:52 Vitamin B12 2016 pg/ml (193-986) H 04/06/18 08:10 TSH 2.35 uIU/ml (0.358-3.74) 04/05/18 12:52 Free T4 1.04 ng/dl (0.76-1.46) 04/06/18 08:10 Constitutional: No Distress ...Auscultate: Yes: Normoactive Bowel Sounds ...Palpate: Yes: Soft, Other (nontender) Labs: CBC, BMP 04/07/18 05:30 04/07/18 05:30 INR, PTT INR 1.48 (0.83-1.09) H 04/07/18 05:30 Assessment/Plan 04/09 enteroscopy Problem List - Problems (1) GI bleeding Assessment/Plan: 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 For 04/09 enteroscopy. Continue PPI in the interim. Code(s): K92.2 - GASTROINTESTINAL HEMORRHAGE, UNSPECIFIED Qualifiers: GI bleed type/associated pathology: unspecified gastrointestinal hemorrhage type Qualified Code(s): K92.2 - Gastrointestinal hemorrhage, unspecified (2) Bariatric surgery status Code(s): Z98.84 - BARIATRIC SURGERY STATUS (3) Diverticula of colon Code(s): K57.30 - DVRTCLOS OF LG INT W/O PERFORATION OR ABSCESS W/O BLEEDING (4) Microcytic hypochromic anemia Code(s): D50.9 - IRON DEFICIENCY ANEMIA, UNSPECIFIED (5) Family history of colon cancer in father Code(s): Z80.0 - FAMILY HISTORY OF MALIGNANT NEOPLASM OF DIGESTIVE ORGANS
[2018-04-07] MEDS: SODIUM CHLORIDE 0.45% 1,000 ML IV SCH (23:13)
[2018-04-07] MEDS: PANTOPRAZOLE 40 MG TABLET (FP) PO SCH (23:14)
[2018-04-08 07:33] LABS: HEMATOCRIT 26.8 % (32.4-45.2); HEMOGLOBIN 9.2 GM/dL (10.7-15.3); MCH 26.5 pg (25.7-33.7); MCHC 34.4 g/dl (32.0-36.0); MEAN CELL VOLUME 77.1 fl (80-96); MEAN PLT VOLUME 8.7 fl (7.5-11.1); PLATELET COUNT 219 K/MM3 (134-434); RBC 3.48 M/mm3 (3.60-5.2); WHITE BLOOD COUNT 6.9 K/mm3 (4.0-10.0)
[2018-04-08] MEDS ORDERED: cefTRIAXone SODIUM 1 GM VIAL ONE (09:29)
[2018-04-08] MEDS ORDERED: DEXTROSE 5%-WATER - 50 ML IVPB ONE (09:30)
--- NOTE | 2018-04-08 10:03 | PN ---
Progress Note, Physician Chief Complaint: Coverage for Manoj TELE: NSR Pleuritic CP resolved: CXR with LLL atelectasis. - Current Medication List Current Medications: Active Medications Acetaminophen (Tylenol -) 650 mg PO Q6H PRN PRN Reason: PAIN LEVEL 4 - 6 Last Admin: 04/05/18 18:47 Dose: 650 mg Ceftriaxone Sodium 1 gm/ (Dextrose) 50 mls @ 100 mls/hr IVPB DAILY [facility]; Protocol Last Admin: 04/07/18 09:30 Dose: 100 mls/hr Sodium Chloride (1/2 Normal Saline) 1,000 mls @ 75 mls/hr IV ASDIR [facility] Last Admin: 04/07/18 23:13 Dose: 75 mls/hr Pantoprazole Sodium (Protonix -) 40 mg PO BID [facility] Last Admin: 04/07/18 23:14 Dose: 40 mg - Objective Vital Signs: Vital Signs Temperature 98.3 F 04/08/18 05:00 Pulse Rate 85 04/08/18 05:00 Respiratory Rate 20 04/08/18 05:00 Blood Pressure 105/60 04/08/18 05:00 O2 Sat by Pulse Oximetry (%) 98 04/07/18 21:00 Constitutional: Yes: No Distress, Calm Cardiovascular: Yes: Regular Rate and Rhythm Respiratory: Yes: CTA Bilaterally, Other (L basilar rales cleared) Gastrointestinal: Yes: Soft Edema: No Neurological: Yes: Alert, Oriented Labs: CBC, BMP 04/08/18 05:30 04/07/18 05:30 INR, PTT INR 1.48 (0.83-1.09) H 04/07/18 05:30 Laboratory Tests 04/07/18 04/08/18 05:30 05:30 WBC 6.9 Hgb 9.2 L Plt Count 219 Sodium 147 H Potassium 3.9 BUN 11 Creatinine 0.8 Magnesium 2.1 - ....Imaging EKG: Image Reviewed Assessment/Plan IMP: Anemia secondary GI blood loss small bowel ectasias PAF s/p PPM Atelectasis REC: To resume AC when cleared by GI. Hemodynamically stable in NSR at this time Incentive spirometer Coverage for Dr. Aranda
[2018-04-08] MEDS: PANTOPRAZOLE 40 MG TABLET (FP) PO SCH ×2 (10:31→21:20)
[2018-04-08] MEDS: SODIUM CHLORIDE 0.45% 1,000 ML IV SCH ×2 (10:31→21:19)
[2018-04-08] MEDS: CEFTRIAXONE 1 GM in DEXTROSE 5%-WATER - 50 ML IVPB SCH (10:31)
--- NOTE | 2018-04-08 11:44 | PN ---
GI Progress Note Subjective: GI NOte: No overt bleeding. Will do enteroscopy tomorrow - Objective Vital Signs: Vital Signs Temperature 98.3 F 04/08/18 05:00 Pulse Rate 85 04/08/18 05:00 Respiratory Rate 20 04/08/18 05:00 Blood Pressure 105/60 04/08/18 05:00 O2 Sat by Pulse Oximetry (%) 98 04/07/18 21:00 Laboratory Tests 04/06/18 04/06/18 04/07/18 08:10 17:20 05:30 Hgb 6.1 L* 9.0 L 9.5 L 04/08/18 05:30 Hgb 9.2 L Constitutional: No Distress ...Auscultate: Yes: Normoactive Bowel Sounds ...Palpate: Yes: Soft, Other (nontender) Labs: CBC, BMP 04/08/18 05:30 04/07/18 05:30 INR, PTT INR 1.48 (0.83-1.09) H 04/07/18 05:30 Assessment/Plan 04/09 enteroscopy Problem List - Problems (1) GI bleeding Code(s): K92.2 - GASTROINTESTINAL HEMORRHAGE, UNSPECIFIED Qualifiers: GI bleed type/associated pathology: unspecified gastrointestinal hemorrhage type Qualified Code(s): K92.2 - Gastrointestinal hemorrhage, unspecified (2) Bariatric surgery status Code(s): Z98.84 - BARIATRIC SURGERY STATUS (3) Diverticula of colon Code(s): K57.30 - DVRTCLOS OF LG INT W/O PERFORATION OR ABSCESS W/O BLEEDING (4) Microcytic hypochromic anemia Code(s): D50.9 - IRON DEFICIENCY ANEMIA, UNSPECIFIED (5) Family history of colon cancer in father Code(s): Z80.0 - FAMILY HISTORY OF MALIGNANT NEOPLASM OF DIGESTIVE ORGANS
[2018-04-08] MEDS ORDERED: ACETAMINOPHEN 325 MG TABLET (FP) PO PRN (14:10)
--- NOTE | 2018-04-08 19:33 | PN ---
Progress Note (short form) - Note Progress Note: no complaints no dark colored stools has lower abdominal pain no nausea tolerating diet enteroscopy scheduled for tomorrow Vital Signs - 24 hr 04/07/18 04/08/18 04/08/18 21:00 01:00 EST 05:00 Temperature 98.3 F 98.4 F 98.3 F Pulse Rate 90 85 85 Respiratory 20 20 20 Rate Blood Pressure 110/58 L 109/55 L 105/60 O2 Sat by Pulse 98 Oximetry (%) 04/08/18 04/08/18 09:00 14:00 Temperature 98 F 98.5 F Pulse Rate 76 91 H Respiratory 20 20 Rate Blood Pressure 90/40 L 121/62 O2 Sat by Pulse 98 Oximetry (%) Current Medications Generic Name Dose Route Start Last Admin Trade Name Freq PRN Reason Stop Dose Admin Acetaminophen 650 mg 04/08/18 14:10 Tylenol - PO Q6H PRN PAIN LEVEL 4 - 6 Ceftriaxone Sodium 1 gm/ 50 mls @ 100 mls/hr 04/06/18 19:15 04/08/18 10:31 Dextrose IVPB 100 mls/hr DAILY [facility] Administration Protocol Sodium Chloride 1,000 mls @ 75 mls/hr 04/07/18 20:15 04/08/18 10:31 1/2 Normal Saline IV 75 mls/hr ASDIR [facility] Administration Pantoprazole Sodium 40 mg 04/07/18 22:00 04/08/18 10:31 Protonix - PO 40 mg BID [facility] Administration Laboratory Results - last 24 hr 04/05/18 04/06/18 04/08/18 12:52 08:10 05:30 WBC 6.9 RBC 3.48 L Hgb 9.2 L Hct 19.0 L 26.8 L MCV 77.1 L MCH 26.5 MCHC 34.4 RDW 26.0 H Plt Count 219 MPV 8.7 Folate 2083 Folate Hemolysate 395.7 Blood Type A POSITIVE Antibody Screen Negative Crossmatch See Detail S1 S2 RRR Lungs clear Abd- soft , obese, tender lower abdomen, BS+ No edema PLAN HCT better enteroscopy tomorrow GI follow up noted xarelto in hold Problem List - Problems (1) Acute anemia Code(s): D64.9 - ANEMIA, UNSPECIFIED (2) Anemia Code(s): D64.9 - ANEMIA, UNSPECIFIED (3) Elevated INR Code(s): R79.1 - ABNORMAL COAGULATION PROFILE (4) GI bleeding Code(s): K92.2 - GASTROINTESTINAL HEMORRHAGE, UNSPECIFIED Qualifiers: GI bleed type/associated pathology: unspecified gastrointestinal hemorrhage type Qualified Code(s): K92.2 - Gastrointestinal hemorrhage, unspecified (5) HTN (hypertension) Code(s): I10 - ESSENTIAL (PRIMARY) HYPERTENSION
[2018-04-09] MEDS: SODIUM CHLORIDE 0.45% 1,000 ML IV SCH ×2 (00:33→22:06)
[2018-04-09] MEDS ORDERED: METOCLOPRAMIDE HCL INJECTION 10 MG/2 ML VIAL IVPUSH ONE (02:12)
[2018-04-09] MEDS ORDERED: oxyCODONE HCL 5 MG TABLET PO ONE (02:13)
[2018-04-09 06:30] LABS: HEMATOCRIT 26.9 % (32.4-45.2); HEMOGLOBIN 9.3 GM/dL (10.7-15.3); MCH 26.9 pg (25.7-33.7); MCHC 34.7 g/dl (32.0-36.0); MEAN CELL VOLUME 77.4 fl (80-96); MEAN PLT VOLUME 8.7 fl (7.5-11.1); PLATELET COUNT 229 K/MM3 (134-434); RBC 3.48 M/mm3 (3.60-5.2); WHITE BLOOD COUNT 7.4 K/mm3 (4.0-10.0)
[2018-04-09 06:54] LABS: ANION GAP 7 MMOL/L (8-16); BLOOD UREA NITROGEN 7 mg/dL (7-18); CALCIUM 7.9 mg/dL (8.5-10.1); CHLORIDE 113 mmol/L (98-107); CO2 22 mmol/L (21-32); CREATININE 0.8 mg/dL (0.55-1.3); GLUCOSE,RANDOM 94 mg/dL (74-106); POTASSIUM 3.5 mmol/L (3.5-5.1); SODIUM 142 mmol/L (136-145)
[2018-04-09] MEDS ORDERED: DEXTROSE 5%-WATER - 50 ML IVPB ONE (09:39)
[2018-04-09] MEDS ORDERED: cefTRIAXone SODIUM 1 GM VIAL ONE (09:39)
--- NOTE | 2018-04-09 12:04 | PN ---
Progress Note, Physician History of Present Illness: This is a 73-year-old black woman with PMHx of history of gastric sleeve, overweight, CVA (?2015), HTN, diastolic CHF, AF, s/p PPM, nephrolithiasis, anemia, now presenting with left flank pain and abdominal pain. Patient reported that the pain is persisted with decreased appetite and started noticing dark stools. She denies chest pain or dyspnea. - Current Medication List Current Medications: Active Medications Acetaminophen (Tylenol -) 650 mg PO Q6H PRN PRN Reason: PAIN LEVEL 4 - 6 Last Admin: 04/09/18 01:41 Dose: 650 mg Ceftriaxone Sodium 1 gm/ (Dextrose) 50 mls @ 100 mls/hr IVPB DAILY [facility]; Protocol Last Admin: 04/08/18 10:31 Dose: 100 mls/hr Sodium Chloride (1/2 Normal Saline) 1,000 mls @ 75 mls/hr IV ASDIR [facility] Last Admin: 04/09/18 00:33 Dose: 75 mls/hr Pantoprazole Sodium (Protonix -) 40 mg PO BID [facility] Last Admin: 04/08/18 21:20 Dose: 40 mg - Objective Vital Signs: Vital Signs Temperature 98 F 04/09/18 09:00 Pulse Rate 70 04/09/18 09:00 Respiratory Rate 20 04/09/18 09:00 Blood Pressure 130/80 04/09/18 09:00 O2 Sat by Pulse Oximetry (%) 99 04/08/18 21:00 Eyes: Yes: WNL, Conjunctiva Clear, EOM Intact HENT: Yes: WNL, Atraumatic, Normocephalic Neck: Yes: WNL, Supple, Trachea Midline Cardiovascular: Yes: WNL, Regular Rate and Rhythm Respiratory: Yes: WNL, Regular, CTA Bilaterally Gastrointestinal: Yes: WNL, Normal Bowel Sounds Genitourinary: Yes: WNL Musculoskeletal: Yes: WNL Extremities: Yes: WNL Edema: No Integumentary: Yes: WNL Neurological: Yes: WNL, Alert, Oriented ...Motor Strength: WNL Psychiatric: Yes: WNL Labs: CBC, BMP 04/09/18 05:30 04/09/18 05:30 INR, PTT INR 1.48 (0.83-1.09) H 04/07/18 05:30 Assessment/Plan IMP: Anemia secondary GI blood loss small bowel ectasias PAF s/p PPM Atelectasis REC: To resume AC when cleared by GI. Hemodynamically stable in NSR at this time Incentive spirometer
--- NOTE | 2018-04-09 13:22 | PN ---
Progress Note (short form) - Note Progress Note: GI Procedure NOte: Please see enteroscopy report. Two small nonbleeding gastric antral ulcers were found. A vascular ectasia was found in the proximal jejunum. The gastric sleeve appeared normal. A hiatal hernia was found. 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 Continue PPI. Problem List - Problems (1) GI bleeding Code(s): K92.2 - GASTROINTESTINAL HEMORRHAGE, UNSPECIFIED Qualifiers: GI bleed type/associated pathology: unspecified gastrointestinal hemorrhage type Qualified Code(s): K92.2 - Gastrointestinal hemorrhage, unspecified (2) Bariatric surgery status Code(s): Z98.84 - BARIATRIC SURGERY STATUS (3) Diverticula of colon Code(s): K57.30 - DVRTCLOS OF LG INT W/O PERFORATION OR ABSCESS W/O BLEEDING (4) Microcytic hypochromic anemia Code(s): D50.9 - IRON DEFICIENCY ANEMIA, UNSPECIFIED (5) Family history of colon cancer in father Code(s): Z80.0 - FAMILY HISTORY OF MALIGNANT NEOPLASM OF DIGESTIVE ORGANS
--- NOTE | 2018-04-09 14:09 | PN ---
Progress Note (short form) - Note Progress Note: patient seen and examined. Chart reviewed Just came back from endoscopy Drowsy Daughter at bedside Vital Signs Temp 98 F 04/09/18 13:03 Pulse 64 04/09/18 13:39 Resp 17 04/09/18 13:39 BP 128/58 L 04/09/18 13:39 Pulse Ox 100 04/09/18 13:39 Intake & Output 04/08/18 04/09/18 04/09/18 23:59 11:59 23:59 Intake Total 1050 450 100 Balance 1050 450 100 Intake: IV 1050 450 100 1/2 Normal Saline 1,000 825 ml @ 75 mls/hr IV ASDIR [facility] Rx#:[id number] SL 225 450 Other: Voiding Method Diaper Incontinent Incontinent # Unmeasured Voids Void 2 1 Bowel Movement No No # Bowel Movements 1 Active Medications Acetaminophen (Tylenol -) 650 mg PO Q6H PRN PRN Reason: PAIN LEVEL 4 - 6 Last Admin: 04/09/18 01:41 Dose: 650 mg Ceftriaxone Sodium 1 gm/ (Dextrose) 50 mls @ 100 mls/hr IVPB DAILY [facility]; Protocol Last Admin: 04/08/18 10:31 Dose: 100 mls/hr Sodium Chloride (1/2 Normal Saline) 1,000 mls @ 75 mls/hr IV ASDIR [facility] Last Admin: 04/09/18 00:33 Dose: 75 mls/hr Pantoprazole Sodium (Protonix -) 40 mg PO BID [facility] Last Admin: 04/08/18 21:20 Dose: 40 mg Sumatriptan Succinate (Imitrex -) 25 mg PO ONCE ONE Stop: 04/09/18 14:11 CBC, BMP 04/09/18 05:30 04/09/18 05:30 Physical exam Drowsy/comfortable Lungs--clear CVS--S1 and S2 regular abdomen-soft Extremity--no edema Assessment and plan GI bleed s/p enteroscopy by Dr. Roe with 2 gastric ulcers at the antrum and AV malformation at the proximal jejunum.As per Dr. Roe---the patient may have multiple vascular ectasias along the small bowel and is recommending capsule endoscopy. Will discuss with GI Monitor H&H and continue other medications Will follow discussed with Patient's daughter also.
[2018-04-09] MEDS ORDERED: SUMAtriptan SUCCINATE 25 MG TABLET PO ONE (14:10)
[2018-04-09] MEDS: CEFTRIAXONE 1 GM in DEXTROSE 5%-WATER - 50 ML IVPB SCH (15:02)
[2018-04-09] MEDS: PANTOPRAZOLE 40 MG TABLET (FP) PO SCH ×2 (15:12→22:06)
--- NOTE | 2018-04-09 15:41 | PN ---
Progress Note (short form) - Note Progress Note: Patient seen and examined at bedside with daughter present Came to see patient this AM but was at endoscopy patient is now s/p enteroscopy by Dr. Roe with 2 gastric ulcers at the antrum and AV malformation at the proximal jejunum. Dr. Roe believes the patient may have multiple vascular ectasias along the small bowel and is recommending capsule endoscopy. Patient feels "bad" after procedure tolerated procedure well Vital Signs Temperature 98 F 04/09/18 13:03 Pulse Rate 64 04/09/18 13:39 Respiratory Rate 17 04/09/18 13:39 Blood Pressure 128/58 L 04/09/18 13:39 O2 Sat by Pulse Oximetry (%) 100 04/09/18 13:39 PE: NAD lying in bed trying to sleep RRR S1 S2 no murmur appreciated CTAB Soft mildly tender to palpation in epigastrium no lower extremity edema 04/05/18 04/09/18 04/09/18 12:52 05:30 05:30 WBC 7.4 RBC 3.48 L Hgb 9.3 L Hct 26.9 L MCV 77.4 L MCHC 34.7 RDW 27.0 H Plt Count 229 Sodium 142 Potassium 3.5 Chloride 113 H Carbon Dioxide 22 Anion Gap 7 L BUN 7 Creatinine 0.8 Blood Type A POSITIVE Antibody Screen Negative 04/06/18 15:00 Urine Culture - Final Urine - Urine Clean Catch Contaminated: Please Repeat A/P: 73F with multiple medical problems presents with weakness and general malaise found to be anemic Hb 2.5 s/p multiple units of PRBCs and s/p enteroscopy today with findings of a hiatal hernia 2 ulcers in the stomach and an 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 restart when ok by GI she will need a capsule endoscopy done as there is a high suspicion for multiple vascular ectasias of the small bowel Trend CBC Transfuse PRN Hb<7 Will follow
[2018-04-10] MEDS ORDERED: DEXTROSE 5%-WATER - 50 ML IVPB ONE (09:24)
[2018-04-10] MEDS ORDERED: cefTRIAXone SODIUM 1 GM VIAL ONE (09:24)
[2018-04-10] MEDS: CEFTRIAXONE 1 GM in DEXTROSE 5%-WATER - 50 ML IVPB SCH (09:44)
[2018-04-10] MEDS: PANTOPRAZOLE 40 MG TABLET (FP) PO SCH ×2 (09:44→21:45)
[2018-04-10 10:20] LABS: HGB SOLUBILITY Negative (Negative); Hgb C 0 % (0.0); Hgb F 0 % (0.0-2.0); Hgb S 0 % (0.0)
--- NOTE | 2018-04-10 11:53 | PN ---
Progress Note (short form) - Note Progress Note: no complaints no dark colored stools has lower abdominal pain no nausea tolerating diet s/p enteroscopy vitals stable labs noted S1 S2 RRR Lungs clear Abd- soft , obese, tender lower abdomen, BS+ No edema PLAN HCT better enteroscopy noted GI follow up xarelto in hold Problem List - Problems (1) Acute anemia Code(s): D64.9 - ANEMIA, UNSPECIFIED (2) Anemia Code(s): D64.9 - ANEMIA, UNSPECIFIED (3) Elevated INR Code(s): R79.1 - ABNORMAL COAGULATION PROFILE (4) GI bleeding Code(s): K92.2 - GASTROINTESTINAL HEMORRHAGE, UNSPECIFIED Qualifiers: GI bleed type/associated pathology: unspecified gastrointestinal hemorrhage type Qualified Code(s): K92.2 - Gastrointestinal hemorrhage, unspecified (5) HTN (hypertension) Code(s): I10 - ESSENTIAL (PRIMARY) HYPERTENSION
[2018-04-10] MEDS ORDERED: POLYETHYLENE GLYCOL 3350 119 GM BTL PO PRN (12:35)
[2018-04-10] MEDS: SODIUM CHLORIDE 0.45% 1,000 ML IV SCH (15:41)
--- NOTE | 2018-04-10 18:00 | PATH ---
Surgical Pathology Report Patient Name: SADIE CASAREZ Med. Rec. #: [id number] /Age/Gender: 1945 (Age: 73) / F Account: [id number] Location: 4 W TELEMETRY U Taken: 04/09/2018 Received: 04/09/2018 Reported: 04/10/2018 Physicians: Kristan Alejandre M.D. 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 IMMUNOHISTOCHEMICAL STAIN FOR H. PYLORI IS NEGATIVE. Electronically Signed Lexi Conway M.D. Gross Description Received in formalin, labeled "biopsy antrum" is a schaefer, irregular portion of soft tissue measuring 0.3 cm. in greatest dimension. The specimen is submitted in toto in one cassette. 04/09/201804/09/2018
--- NOTE | 2018-04-10 21:02 | PN ---
GI Progress Note Subjective: GI NOte: NO adverse effects since the EGD but Nicolette feels constipated and has not had a BM for 2 days. I explained that her bloating could be all the air that is infused during enteroscopy. Gastric biopsy negative for HP. - Objective Vital Signs: Vital Signs Temperature 98.6 F 04/10/18 18:00 Pulse Rate 86 04/10/18 18:00 Respiratory Rate 20 04/10/18 18:00 Blood Pressure 118/65 04/10/18 18:00 O2 Sat by Pulse Oximetry (%) 97 04/10/18 09:00 Constitutional: Calm ...Auscultate: Yes: Normoactive Bowel Sounds ...Palpate: Yes: Soft, Other (nontender) ...Percussion: Yes: Tympanitic Labs: CBC, BMP 04/09/18 05:30 04/09/18 05:30 INR, PTT INR 1.48 (0.83-1.09) H 04/07/18 05:30 Assessment/Plan Suspect small bowel AVM bleeding For capsule endoscopy as outpatient Miralax for constipation Continue PPI for gastric ulcer, Advised to avoid NSAIDs Problem List - Problems (1) GI bleeding Assessment/Plan: Suspect bleeding from small bowel vascular ectasia and again advised capsule endoscopy at [facility]. Code(s): K92.2 - GASTROINTESTINAL HEMORRHAGE, UNSPECIFIED Qualifiers: Qualified Code(s): K92.2 - Gastrointestinal hemorrhage, unspecified (2) Bariatric surgery status Code(s): Z98.84 - BARIATRIC SURGERY STATUS (3) Diverticula of colon Code(s): K57.30 - DVRTCLOS OF LG INT W/O PERFORATION OR ABSCESS W/O BLEEDING (4) Microcytic hypochromic anemia Code(s): D50.9 - IRON DEFICIENCY ANEMIA, UNSPECIFIED (5) Family history of colon cancer in father Code(s): Z80.0 - FAMILY HISTORY OF MALIGNANT NEOPLASM OF DIGESTIVE ORGANS
[2018-04-11] MEDS: SODIUM CHLORIDE 0.45% 1,000 ML IV SCH (08:52)
[2018-04-11 08:53] VITALS: PULSE 84
--- NOTE | 2018-04-11 09:04 | PN ---
Progress Note, Physician Chief Complaint: Pt A&Ox3; no chest pain or dizziness; no dyspnea. She says she made need to go for video endoscopy. History of Present Illness: This is a 73-year-old black woman with PMHx of history of gastric sleeve, overweight, CVA (?2015), HTN, diastolic CHF, AF, s/p PPM, nephrolithiasis, anemia, now presenting with left flank pain and abdominal pain. Patient reported that the pain is persisted with decreased appetite and started noticing dark stools. She denies chest pain or dyspnea. - Current Medication List Current Medications: Active Medications Acetaminophen (Tylenol -) 650 mg PO Q6H PRN PRN Reason: PAIN LEVEL 4 - 6 Last Admin: 04/09/18 01:41 Dose: 650 mg Ceftriaxone Sodium 1 gm/ (Dextrose) 50 mls @ 100 mls/hr IVPB DAILY [facility]; Protocol Last Admin: 04/10/18 09:44 Dose: 100 mls/hr Sodium Chloride (1/2 Normal Saline) 1,000 mls @ 75 mls/hr IV ASDIR [facility] Last Admin: 04/11/18 08:52 Dose: 75 mls/hr Pantoprazole Sodium (Protonix -) 40 mg PO BID [facility] Last Admin: 04/10/18 21:45 Dose: 40 mg Polyethylene Glycol (Miralax (For Daily Use) -) 17 gm PO DAILY PRN PRN Reason: CONSTIPATION Last Admin: 04/10/18 14:29 Dose: 17 gm - Objective Vital Signs: Vital Signs Temperature 97.5 F L 04/11/18 08:41 Pulse Rate 84 04/11/18 08:41 Respiratory Rate 20 04/11/18 08:41 Blood Pressure 128/64 04/11/18 08:41 O2 Sat by Pulse Oximetry (%) 98 04/11/18 08:41 Constitutional: Yes: Calm Eyes: Yes: WNL HENT: Yes: WNL Neck: Yes: WNL Cardiovascular: Yes: S1, S2 Respiratory: Yes: Regular Gastrointestinal: Yes: Soft, Abdomen, Obese ...Rectal Exam: Yes: Deferred Genitourinary: No: Anuria Musculoskeletal: Yes: Muscle Weakness Extremities: Yes: Cool Edema: No Peripheral Pulses WNL: Yes Integumentary: Yes: WNL Neurological: Yes: WNL Psychiatric: Yes: WNL Labs: CBC, BMP 04/09/18 05:30 04/09/18 05:30 INR, PTT INR 1.48 (0.83-1.09) H 04/07/18 05:30 - ....Imaging Other: Image Reviewed (telemetry: NSR) Problem List - Problems (1) Nephrolithiasis Code(s): N20.0 - CALCULUS OF KIDNEY (2) Acute anemia Assessment/Plan: Pt has had transfusion of FFP and PRBCs. 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 Pt was prescribed pantoprazole; for capsule video endoscopy in one month. Anticoagulant held. Code(s): D64.9 - ANEMIA, UNSPECIFIED (3) Elevated INR Code(s): R79.1 - ABNORMAL COAGULATION PROFILE (4) Abdominal tenderness Code(s): R10.819 - ABDOMINAL TENDERNESS, UNSPECIFIED SITE (5) Diastolic heart failure Code(s): I50.30 - UNSPECIFIED DIASTOLIC (CONGESTIVE) HEART FAILURE (6) HTN (hypertension) Assessment/Plan: On metoprolol. Code(s): I10 - ESSENTIAL (PRIMARY) HYPERTENSION (7) Atrial fibrillation Assessment/Plan: NOAC held until cleared by accounting administrative assistant. On metoprolol for HR conttrol. Code(s): I48.91 - UNSPECIFIED ATRIAL FIBRILLATION (8) History of permanent cardiac pacemaker placement Code(s): Z95.0 - PRESENCE OF CARDIAC PACEMAKER
[2018-04-11] MEDS ORDERED: cefTRIAXone SODIUM 1 GM VIAL ONE (10:30)
[2018-04-11] MEDS ORDERED: PT OWN MED DRAWER 7, Y5N ONE (10:30)
[2018-04-11] MEDS ORDERED: DEXTROSE 5%-WATER - 50 ML IVPB ONE (10:31)
[2018-04-11] MEDS: CEFTRIAXONE 1 GM in DEXTROSE 5%-WATER - 50 ML IVPB SCH (10:44)
[2018-04-11] MEDS: PANTOPRAZOLE 40 MG TABLET (FP) PO SCH (10:44)
--- NOTE | 2018-04-11 11:19 | PN ---
Progress Note, Physician History of Present Illness: This is a 73-year-old black woman with PMHx of history of gastric sleeve, overweight, CVA (?2015), HTN, diastolic CHF, AF, s/p PPM, nephrolithiasis, anemia, now presenting with left flank pain and abdominal pain. Patient reported that the pain is persisted with decreased appetite and started noticing dark stools. She denies chest pain or dyspnea. - Current Medication List Current Medications: Active Medications Acetaminophen (Tylenol -) 650 mg PO Q6H PRN PRN Reason: PAIN LEVEL 4 - 6 Last Admin: 04/09/18 01:41 Dose: 650 mg Ceftriaxone Sodium 1 gm/ (Dextrose) 50 mls @ 100 mls/hr IVPB DAILY REMY; Protocol Last Admin: 04/11/18 10:44 Dose: 100 mls/hr Sodium Chloride (1/2 Normal Saline) 1,000 mls @ 75 mls/hr IV ASDIR REMY Last Admin: 04/11/18 08:52 Dose: 75 mls/hr Pantoprazole Sodium (Protonix -) 40 mg PO BID REMY Last Admin: 04/11/18 10:44 Dose: 40 mg Polyethylene Glycol (Miralax (For Daily Use) -) 17 gm PO DAILY PRN PRN Reason: CONSTIPATION Last Admin: 04/10/18 14:29 Dose: 17 gm - Objective Vital Signs: Vital Signs Temperature 97.5 F L 04/11/18 08:41 Pulse Rate 84 04/11/18 08:41 Respiratory Rate 20 04/11/18 08:41 Blood Pressure 128/64 04/11/18 08:41 O2 Sat by Pulse Oximetry (%) 98 04/11/18 08:41 Eyes: Yes: WNL, Conjunctiva Clear, EOM Intact HENT: Yes: WNL, Atraumatic, Normocephalic Neck: Yes: WNL, Supple, Trachea Midline Cardiovascular: Yes: WNL, Regular Rate and Rhythm Respiratory: Yes: WNL, Regular, CTA Bilaterally Gastrointestinal: Yes: WNL, Normal Bowel Sounds Genitourinary: Yes: WNL Musculoskeletal: Yes: WNL Extremities: Yes: WNL Edema: No Integumentary: Yes: WNL Neurological: Yes: WNL, Alert, Oriented ...Motor Strength: WNL Psychiatric: Yes: WNL Labs: CBC, BMP 04/09/18 05:30 11/05/18 05:30 INR, PTT INR 1.48 (0.83-1.09) H 04/07/18 05:30 Assessment/Plan Problems (1) Nephrolithiasis Code(s): N20.0 - CALCULUS OF KIDNEY (2) Acute anemia Assessment/Plan: Pt has had transfusion of FFP and PRBCs. 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 Pt was prescribed pantoprazole; for capsule video endoscopy in one month. Anticoagulant held. capsule endoscopy at [facility] planned. Code(s): D64.9 - ANEMIA, UNSPECIFIED (3) Elevated INR Code(s): R79.1 - ABNORMAL COAGULATION PROFILE (4) Abdominal tenderness Code(s): R10.819 - ABDOMINAL TENDERNESS, UNSPECIFIED SITE (5) Diastolic heart failure Code(s): I50.30 - UNSPECIFIED DIASTOLIC (CONGESTIVE) HEART FAILURE (6) HTN (hypertension) Assessment/Plan: On metoprolol. Code(s): I10 - ESSENTIAL (PRIMARY) HYPERTENSION (7) Atrial fibrillation Assessment/Plan: NOAC held until cleared by metal mine inspector. On metoprolol for HR conttrol. Code(s): I48.91 - UNSPECIFIED ATRIAL FIBRILLATION (8) History of permanent cardiac pacemaker placement Code(s): Z95.0 - PRESENCE OF CARDIAC PACEMAKER
--- NOTE | 2018-04-11 12:19 | DS ---
Physical Examination Vital Signs: Vital Signs Temperature 97.5 F L 04/11/18 08:41 Pulse Rate 84 04/11/18 08:41 Respiratory Rate 20 04/11/18 08:41 Blood Pressure 128/64 04/11/18 08:41 O2 Sat by Pulse Oximetry (%) 98 04/11/18 08:41 Constitutional: Yes: No Distress, Calm Cardiovascular: Yes: Regular Rate and Rhythm Respiratory: Yes: CTA Bilaterally Gastrointestinal: Yes: Normal Bowel Sounds, Soft. No: Tenderness Edema: No Labs: CBC, BMP 04/09/18 05:30 04/09/18 05:30 Discharge Summary Reason For Visit: ANEMIA Current Active Problems Acute anemia (Acute) Anemia (Acute) Atrial fibrillation (Acute) Bariatric surgery status (Acute) Diverticula of colon (Acute) Elevated INR (Acute) Family history of colon cancer in father (Acute) Hemoglobin low (Acute) History of permanent cardiac pacemaker placement (Acute) Microcytic hypochromic anemia (Acute) Nephrolithiasis (Acute) Hospital Course: Admitted for severe anemia was in INCU Transfused PRBC, given FFP for elevated INR Xarelto on hold guiac positive stools Seen by GI- Dr Roe Pt was then transferred to telemetry vitals stable underwent push enteroscopy- hiatal hernia, vascular ectasia in jejunum,gastric erosions- pathology negative for H pylori Advised protonix Hold off Xarelto and capsule endoscopy as outpt- till then pt can not take ASA, NSAIDS, NOACs Stable for dc home antibiotics for UTI Condition: Stable - Instructions Referrals: Melanie Ramires MD, FACP, FACG [Staff Physician] - (capsule endoscopy ) Shekhar Barakat MD [Primary Care Provider] - Disposition: HOME - Home Medications Comprehensive Discharge Medication List: Ambulatory Orders Amlodipine Besylate 10 mg PO DAILY 08/17/17 Biotin 500 mg PO DAILY 08/17/17 Cholecalciferol (Vitamin D3) [Vitamin D3] 1,000 unit PO DAILY 08/17/17 Flaxseed Oil [Flaxseed] 1,200 mg PO DAILY 08/17/17 Metoprolol Succinate 100 mg PO DAILY 08/17/17 Multivitamin [One Daily] 1 each PO DAILY 08/17/17 Rivaroxaban [Xarelto -] 20 mg PO DAILY 08/17/17 Gabapentin [Neurontin] 600 mg PO DAILY PRN 04/05/18
[2018-04-11 15:33] VITALS: BP 124/57; TEMP 98.1
== END 2018-04-11 18:34 | disposition home or self-care (01) | DRG 378 ==
LOC: JER 12:03 → JERBED 14:30 → JICU 16:40 → J4W 04-07 02:25
PROVIDERS: ADMIT Internal Medicine; ATTEND Internal Medicine
PROC: 30233K1 Transfusion of Nonautologous Frozen Plasma into Peripheral Vein, Percutaneous Approach (ICD-10-PCS; 2018-04-05)
PROC: 30233N1 Transfusion of Nonautologous Red Blood Cells into Peripheral Vein, Percutaneous Approach (ICD-10-PCS; 2018-04-05)
PROC: 0DB88ZX Excision of Small Intestine, Via Natural or Artificial Opening Endoscopic, Diagnostic (ICD-10-PCS; principal; 2018-04-09 12:30)
DX: K31.811 Angiodysplasia of stomach and duodenum with bleeding (principal); I50.30 Unspecified diastolic (congestive) heart failure; D68.9 Coagulation defect, unspecified; N17.9 Acute kidney failure, unspecified; J98.11 Atelectasis; N13.6 Pyonephrosis; K92.2 Gastrointestinal hemorrhage, unspecified; D64.9 Anemia, unspecified; R79.1 Abnormal coagulation profile; R10.819 Abdominal tenderness, unspecified site; I48.91 Unspecified atrial fibrillation; I11.0 Hypertensive heart disease with heart failure; K59.00 Constipation, unspecified; E78.5 Hyperlipidemia, unspecified; J45.909 Unspecified asthma, uncomplicated; K25.9 Gastric ulcer, unspecified as acute or chronic, without hemorrhage or perforation; K29.70 Gastritis, unspecified, without bleeding; F41.9 Anxiety disorder, unspecified; Z87.891 Personal history of nicotine dependence; D50.9 Iron deficiency anemia, unspecified; K57.90 Diverticulosis of intestine, part unspecified, without perforation or abscess without bleeding; K44.9 Diaphragmatic hernia without obstruction or gangrene; M54.5 Low back pain; K64.8 Other hemorrhoids; I45.81 Long QT syndrome; E66.9 Obesity, unspecified; Z68.35 Body mass index [BMI] 35.0-35.9, adult; Z80.0 Family history of malignant neoplasm of digestive organs; Z95.0 Presence of cardiac pacemaker; Z98.84 Bariatric surgery status
CPT/HCPCS: 36415; 36430; 71045-TC-FY; 74176; 80048; 80053; 80061; 81003; 81015; 82272; 82550; 82607; 82728; 82747; 83010; 83021; 83540; 83550; 83615; 83690; 83721; 83735; 84100; 84439; 84443; 84466; 84484; 84550; 85014; 85025; 85027; 85044; 85610; 85660; 85730; 86850; 86880; 86900; 86901; 86922; 87086; 88305-TC; 93005; 93010; 97116-GP; 97162-GP; 99284-25; J1756; J7030; P9017; P9038; P9058

== ENCOUNTER 2019-03-22 09:31 | Inpatient (IN) | payer OTHER ==
--- NOTE | 2019-03-22 09:52 | PDOC ---
Attending Attestation - Resident Resident Name: YvonJarad - ED Attending Attestation I have performed the following: I have examined & evaluated the patient, The case was reviewed & discussed with the resident, I agree w/resident's findings & plan, Exceptions are as noted - HPI HPI: 03/22/19 10:35 Ms. Guzman is a 73 yo F h/o HTN, HLD, distolic CHF, Afib w/ PPM on Xeralto, asthma, kidney stone s/p lithotripsy, h/p severe GIB and anemia. Pt reports that she has had LLQ pain for several weeks, intermittently. Pain is now associated with post prandial vomiting. No fevers or chills PT also reports severe back pain (no flank pain) Last evening, she noted a worsening of her migraine She took Imitrex but this did not substantially improve her headache until now No diarrhea but admits to dark colored stools, no BRBPR. (+)occasional lightheadedness worse with movement, no CP, no SOB, no dizziness. NO fever/chills, no known sick contacts, no recent travel, no prior h/o similar symptoms. 03/22/19 10:43 - Physicial Exam PE: 03/22/19 09:52 GENERAL: The patient is in no acute distress, intermittently in severe pain in her back. ENT: Ears normal, nares patent, oropharynx clear without exudates. Dry mucous membranes. NECK: Normal range of motion, supple LUNGS: Breath sounds equal, clear to auscultation bilaterally. No wheezes, and no crackles. HEART:Regular rate and rhythm, normal S1 and S2 without murmur, rub or gallop. ABDOMEN: Soft, LLQ tenderness to palpation, no involuntary guarding or rebound EXTREMITIES: Normal range of motion, no edema. NEUROLOGICAL: Cranial nerves II through XII grossly intact. Normal speech. No focal neurological deficits. SKIN: Warm, Dry, normal turgor, no rashes or lesions noted. 03/22/19 10:45 - Medical Decision Making 03/22/19 10:46 73 yo F presenting with a complaint of abdominal pain, inability to tolerate po Pt has a h/o severe anemia 2/2 GIB Will do: Labs CT abd and pelvis Analgesia EKG Anticipate admission 03/22/19 10:52 EKG - NSR rate of 80 bpm , axis nml, no st elevation of depression t wave flattening Laboratory Tests 03/22/19 03/22/19 03/22/19 10:13 10:15 10:15 WBC 6.6 Hgb 11.0 Hct 34.4 D Plt Count 282 D INR BUN 16.6 Creatinine 0.9 Lactic Acid Creatine Kinase Troponin I Urine Blood 1+ H Urine Nitrite Positive H Ur Leukocyte Esterase 3+ H Urine WBC (Auto) 140 U Epithel Cells (Auto) 1.8 Urine Bacteria (Auto) 797.5 03/22/19 03/22/19 03/22/19 10:15 10:15 10:15 WBC Hgb Hct Plt Count INR 1.21 H BUN Creatinine Lactic Acid 1.5 Creatine Kinase 116 Troponin I < 0.02 Urine Blood Urine Nitrite Ur Leukocyte Esterase Urine WBC (Auto) U Epithel Cells (Auto) Urine Bacteria (Auto) CT performed No acute findings PO challenged with crackers which pt was able to tolerate Pt reports difficulty walking Will plan to admit to pt pmd
[2019-03-22 10:52] LABS: BASO % 0.4 % (0-2.0); EOS % 0.2 % (0-4.5); HEMATOCRIT 34.4 % (32.4-45.2); LYMPH % 16.5 % (8-40); MCH 24.8 pg (25.7-33.7); MCHC 32.1 g/dl (32.0-36.0); MEAN CELL VOLUME 77.4 fl (80-96); MONO % 4.4 % (3.8-10.2); NEUT % 78.5 % (42.8-82.8); PLATELET COUNT 282 K/MM3 (134-434); RBC 4.45 M/mm3 (3.60-5.2); RDW 19.9 % (11.6-15.6); WHITE BLOOD COUNT 6.6 K/mm3 (4.0-10.0)
[2019-03-22] MEDS ORDERED: METOCLOPRAMIDE HCL INJECTION 10 MG/2 ML VIAL IVPUSH ONE (10:54)
[2019-03-22] MEDS ORDERED: ACETAMINOPHEN 1000 MG/100 ML VIAL (NON FORMULARY) IVPB ONE (10:54)
--- NOTE | 2019-03-22 10:54 | PDOC ---
History of Present Illness - General Chief Complaint: Pain, Acute Stated Complaint: Pain Time Seen by Provider: 03/22/19 09:49 History Source: Patient Exam Limitations: No Limitations - History of Present Illness Initial Comments: 03/22/19 11:04 73 yo female pmh HTN, HLD, distolic CHF, Afib w/ PPM, asthma, anemia, kidney stone s/p lithotripsy 5 months ago, s/p gastric sleeve 5years presents to the ED for back pain and abdominal pain. Pt stats she has had LLQ abdominal pain with NB/NB vomiting after eating for the past 3 days 73 yo F w/ a h/o HTN, HLD, distolic CHF, Afib w/ PPM, asthma, kidney stone s/p lithotripsy 5 months ago, s/p gastric sleeve 5years, comes in for evaluation of generalized malaise for the past 2-3 days with associated fatigue,(+)diffuse abdominal pain worse in suprapubic regions. (+)mild L sided flank pain (+)loss of appetite, (+) nausea and 1-2 episodes a day of vomiting. No diarrhea but admits to dark colored stools, no BRBPR. (+)occasional lightheadedness worse with movement, no CP, no SOB, no dizziness. NO fever/chills, no known sick contacts, no recent travel, no prior h/o similar symptoms. Ms. Guzman is a 73 yo F h/o HTN, HLD, distolic CHF, Afib w/ PPM on Xeralto, asthma, kidney stone s/p lithotripsy, h/p severe GIB and anemia. Pt reports that she has had LLQ pain for several weeks, intermittently. Pain is now associated with post prandial vomiting. No fevers or chills PT also reports severe back pain (no flank pain) Last evening, she noted a worsening of her migraine She took Imitrex but this did not substantially improve her headache until now No diarrhea but admits to dark colored stools, no BRBPR. (+)occasional lightheadedness worse with movement, no CP, no SOB, no dizziness. NO fever/chills, no known sick contacts, no recent travel, no prior h/o similar symptoms. Past History - Past Medical History Allergies/Adverse Reactions: Allergies Allergy/AdvReac Type Severity Reaction Status Date / Time lisinopril Allergy Severe Swelling Verified 03/22/19 09:56 tomato Allergy Intermediate Itching Verified 03/22/19 09:56 aspirin AdvReac Intermediate Vomiting Verified 03/22/19 09:56 aspartame AdvReac Mild Verified 03/22/19 09:56 dark chocolated Allergy Intermediate Rash Uncoded 03/22/19 09:56 string beans Allergy Intermediate Rash Uncoded 03/22/19 09:56 Home Medications: Ambulatory Orders Cefuroxime Axetil [Ceftin -] 500 mg PO Q12H #8 tablet 04/11/18 Metoprolol Succinate 50 mg PO DAILY #0 tab 04/11/18 Pantoprazole Sodium [Protonix -] 40 mg PO BID #60 tablet.ec 04/11/18 Polyethylene Glycol 3350 [Miralax 119 gm Btl -] 17 gm PO DAILY PRN #1 bottle 12/20 Anemia: No Asthma: Yes Cancer: No Cardiac Disorders: Yes (afib) CVA: Yes (LEFT SIDE WEAK) COPD: No CHF: No Dementia: No Diabetes: No GI Disorders: No Disorders: No HTN: Yes Hypercholesterolemia: Yes Liver Disease: No Seizures: No Thyroid Disease: No - Surgical History Abdominal Surgery: Yes (SLEEVE (STOMACH)) Appendectomy: Yes Cholecystectomy: Yes Orthopedic Surgery: Yes - Immunization History Immunization Up to Date: Yes - Psycho Social/Smoking Cessation Hx Smoking History: Unknown if ever smoked Have you smoked in the past 12 months: No Number of Cigarettes Smoked Daily: 6 If you are a former smoker, when did you quit?: 02/2015 Information on smoking cessation initiated: No 'Breaking Loose' booklet given: 01/14/15 Hx Alcohol Use: No Drug/Substance Use Hx: No Substance Use Type: None Hx Substance Use Treatment: No *Physical Exam - Vital Signs Last Vital Signs Temp Pulse Resp BP Pulse Ox 97.5 F L 85 16 135/50 L 98 03/22/19 09:50 03/22/19 09:50 03/22/19 09:50 03/22/19 09:50 03/22/19 09:50 ED Treatment Course - LABORATORY CBC & Chemistry Diagram: 03/22/19 10:15 03/22/19 10:15 - RADIOLOGY Radiology Studies Ordered: Category Date Time Status CHEST X-RAY PORTABLE* [RAD] Stat Radiology 03/22/19 10:11 Completed Medical Decision Making - Medical Decision Making 03/22/19 18:00 Pt denies recent trauma to the back, denies incontinence of bowel or bladder, or new neuro symptoms Discussed case with Dr. Barakat, agrees to have pt admitted for intractable pain in the back pt agrees to try morphine for pain control, will give 2 mg IV Discharge - Discharge Information Problems reviewed: Yes Clinical Impression/Diagnosis: Back pain, Abdominal pain Condition: Stable - Admission Yes - Follow up/Referral Referrals: Shekhar Barakat MD [Primary Care Provider] - - Patient Discharge Instructions - Post Discharge Activity
[2019-03-22] MEDS ORDERED: METOCLOPRAMIDE HCL INJECTION 10 MG/2 ML VIAL ONE (11:04)
[2019-03-22] MEDS ORDERED: ACETAMINOPHEN INJECTION 100 ML IVPB ONE (11:04)
[2019-03-22 11:05] LABS: INR 1.21 (0.83-1.09); PROTHROMBIN TIME (PATIENT) 14.3 SEC (9.7-13.0)
[2019-03-22 11:11] LABS: ALBUMIN 3.8 g/dl (3.4-5.0); BILIRUBIN,TOTAL 0.4 mg/dL (0.2-1); BLOOD UREA NITROGEN 16.6 mg/dL (7-18); CALCIUM 9.1 mg/dL (8.5-10.1); CREATININE 0.9 mg/dL (0.55-1.3); POTASSIUM 4.4 mmol/L (3.5-5.1); TOT PROT 7.8 g/dl (6.4-8.2)
[2019-03-22 11:12] LABS: LIPASE 42 U/L (73-393)
[2019-03-22 12:38] LABS: EPI CELLS 1.8 /HPF (0-5/HPF); HYALINE CASTS 12 /lpf (0-8); PH,URINE 6.5 (5.0-8.0); URINE APPEARANCE CLOUDY; URINE BACTERIA 797.5 /hpf (NEGATIVE); URINE BILIRUBIN NEGATIVE (NEGATIVE); URINE COLOR YELLOW; URINE GLUCOSE (UA) NEGATIVE (NEGATIVE); URINE KETONE NEGATIVE (NEGATIVE); URINE LEUK ESTERASE 3+ (NEGATIVE); URINE NITRITE POSITIVE (NEGATIVE); URINE PROTEIN NEGATIVE (NEGATIVE); URINE RBC 3 /hpf (0-4); URINE UROBILINOGEN 0.2 mg/dL (0.2-1.0); URINE WBC 140 /hpf (0-5)
[2019-03-22] MEDS ORDERED: LIDOCAINE 5% TOPICAL PATCH TP ONE (14:52)
[2019-03-22] MEDS ORDERED: CYCLOBENZAPRINE HCL 10 MG TABLET (FP) PO ONE (14:52)
[2019-03-22] MEDS ORDERED: KETOROLAC TROMETHAMINE 15 MG/ML VIAL IVPUSH ONE (14:52)
[2019-03-22] MEDS ORDERED: CYCLOBENZAPRINE HCL 10 MG TABLET (FP) ONE (14:58)
[2019-03-22] MEDS ORDERED: LIDOCAINE 5% TOPICAL PATCH ONE (14:59)
[2019-03-22] MEDS ORDERED: KETOROLAC TROMETHAMINE 15 MG/ML VIAL ONE (14:59)
[2019-03-22] MEDS ORDERED: diazePAM 2 MG TABLET PO ONE (16:17)
[2019-03-22] MEDS ORDERED: diazePAM 2 MG TABLET ONE (16:23)
[2019-03-22] MEDS ORDERED: morphine CARPU-JECT 2 MG/1 ML DISP.SYRIN IVPUSH ONE (19:17)
[2019-03-22] MEDS ORDERED: MORPHINE SULFATE 2 MG/ML VIAL ONE (19:19)
[2019-03-22] MEDS ORDERED: CEFTRIAXONE 1,000 MG in DEXTROSE 5%-WATER - 50 ML IVPB ONE (19:32)
[2019-03-22] MEDS ORDERED: CEFTRIAXONE 1 GM/50 ML BAG ONE ×2 (19:36→19:39)
[2019-03-22 20:56] VITALS: BMI 39.1
[2019-03-22] MEDS: LIDOCAINE PATCH REMOVAL MC SCH (21:32)
--- NOTE | 2019-03-22 22:17 | EKG ---
Test Reason : Blood Pressure : / mmHG Vent. Rate : 080 BPM Atrial Rate : 080 BPM P-R Int : 158 ms QRS Dur : 092 ms QT Int : 422 ms P-R-T Axes : 040 -18 047 degrees QTc Int : 486 ms NORMAL SINUS RHYTHM ANTERIOR INFARCT , AGE UNDETERMINED ABNORMAL ECG WHEN COMPARED WITH ECG OF 07-APR-2018 09:47, SINUS RHYTHM HAS REPLACED ELECTRONIC VENTRICULAR PACEMAKER Confirmed by MD DEIRDRE, SASKIA ([id number]) on 03/22/2019 10:16:39 PM Referred By: Confirmed By:SASKIA GILMORE MD
[2019-03-22] MEDS: ACETAMINOPHEN 1000 MG/100 ML VIAL (NON FORMULARY) IVPB PRN (23:22)
[2019-03-23] MEDS ORDERED: MORPHINE SULFATE 2 MG/ML VIAL IM ONE (04:13)
[2019-03-23] MEDS ORDERED: MORPHINE SULFATE 2 MG/ML VIAL IVPUSH ONE (05:03)
[2019-03-23] MEDS: ACETAMINOPHEN 1000 MG/100 ML VIAL (NON FORMULARY) IVPB PRN (10:05)
[2019-03-23] MEDS: GABAPENTIN 300 MG CAPSULE (FP) PO SCH (10:06)
[2019-03-23] MEDS: amLODIPine BESYLATE 10 MG TABLET (FP) PO SCH (10:06)
[2019-03-23] MEDS: RIVAROXABAN 20 MG TABLET PO SCH (10:06)
[2019-03-23] MEDS ORDERED: METOCLOPRAMIDE HCL INJECTION 10 MG/2 ML VIAL IVPUSH PRN (12:32)
[2019-03-23] MEDS ORDERED: CYCLOBENZAPRINE HCL 10 MG TABLET (FP) PO PRN (12:35)
--- NOTE | 2019-03-23 12:40 | HP ---
Admitting History and Physical - Primary Care Physician PCP: Shekhar Barakat - Admission History of Present Illness: Pt seen/ examined chart reviewed/ case was d/w er resident yesterday In summary 73 yo female pmh of Back pain , HTN, HLD, distolic CHF, Afib w/ PPM, asthma, anemia, kidney stone s/p lithotripsy 5 months ago, s/p gastric sleeve 5years presents to the ED for back pain and abdominal pain ct scan - abd- no acute pathology Given Morphine for pain Admitted due to Intractable pain Uti + given abx also Slight improvement today Pt seen / examined History Source: Patient - Past Medical History 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 Cardiovascular: Yes: AFIB, CHF (diastolic), HTN Pulmonary: Yes: Asthma Gastrointestinal: Yes: Gastritis Renal/: Yes: Renal Inusuff Heme/Onc: Yes: Anemia Psych: Yes: Anxiety Musculoskeletal: Yes: Chronic low back pain (spinal stenosis and lower extremity weakness) - Past Surgical History Past Surgical History: Yes: Permanent Pacemaker - Smoking History Smoking history: Unknown if ever smoked Have you smoked in the past 12 months: No Aproximately how many cigarettes per day: 6 If you are a former smoker, when did you quit?: 02/2015 - Alcohol/Substance Use Hx Alcohol Use: No History of Substance Use: reports: None - Social History 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 History of Recent Travel: No Home Medications - Allergies Allergies/Adverse Reactions: Allergies Allergy/AdvReac Type Severity Reaction Status Date / Time lisinopril Allergy Severe Swelling Verified 03/22/19 09:56 tomato Allergy Intermediate Itching Verified 03/22/19 09:56 aspirin AdvReac Intermediate Vomiting Verified 03/22/19 09:56 aspartame AdvReac Mild Verified 03/22/19 09:56 dark chocolated Allergy Intermediate Rash Uncoded 03/22/19 09:56 string beans Allergy Intermediate Rash Uncoded 03/22/19 09:56 - Home Medications Home Medications: Ambulatory Orders Amlodipine Besylate [Norvasc -] 10 mg PO DAILY 03/22/19 Atorvastatin Ca [Lipitor] 20 mg PO HS 03/22/19 Biotin 500 mg PO DAILY 03/22/19 Cholecalciferol (Vitamin D3) [Vitamin D3] 1,000 unit PO DAILY 03/22/19 Flaxseed Oil [Flaxseed] 1,000 mg PO DAILY 03/22/19 Gabapentin 600 mg PO DAILY 03/22/19 Metoprolol Succinate 100 mg PO DAILY 03/22/19 Multivitamin [One-Daily Multi-Vitamin] 1 each PO DAILY 03/22/19 Rivaroxaban [Xarelto -] 20 mg PO DAILY 03/22/19 Thiamine HCl [Vitamin B-1] 250 mg PO DAILY 03/22/19 Physical Examination Vital Signs: Vital Signs Temperature 98.6 F 03/23/19 09:00 Pulse Rate 102 H 03/23/19 09:00 Respiratory Rate 18 03/23/19 09:00 Blood Pressure 105/66 03/23/19 09:00 O2 Sat by Pulse Oximetry (%) 98 03/22/19 20:56 Constitutional: Yes: No Distress, Calm, Obese Eyes: Yes: Conjunctiva Clear, PERRL HENT: Yes: WNL Neck: Yes: Supple Cardiovascular: Yes: Regular Rate and Rhythm Respiratory: Yes: CTA Bilaterally Gastrointestinal: Yes: Soft Musculoskeletal: Yes: Back Pain Edema: No Peripheral Pulses WNL: Yes Neurological: Yes: Alert ...Motor Strength: WNL Psychiatric: Yes: Alert Labs: CBC, BMP 03/22/19 10:15 03/22/19 10:15 Imaging - Results Chest X-ray: Report Reviewed Cat Scan: Report Reviewed EKG: Report Reviewed Problem List - Problems (1) Intractable low back pain Code(s): M54.5 - LOW BACK PAIN (2) Abdominal pain Code(s): R10.9 - UNSPECIFIED ABDOMINAL PAIN (3) Atrial fibrillation Code(s): I48.91 - UNSPECIFIED ATRIAL FIBRILLATION (4) Bariatric surgery status Code(s): Z98.84 - BARIATRIC SURGERY STATUS (5) History of permanent cardiac pacemaker placement Code(s): Z95.0 - PRESENCE OF CARDIAC PACEMAKER (6) Morbid obesity Code(s): E66.01 - MORBID (SEVERE) OBESITY DUE TO EXCESS CALORIES (7) UTI (urinary tract infection) Code(s): N39.0 - URINARY TRACT INFECTION, SITE NOT SPECIFIED Qualifiers: Urinary tract infection type: site unspecified Hematuria presence: without hematuria Qualified Code(s): N39.0 - Urinary tract infection, site not specified Assessment/Plan Pain control Laxatives PT Ct - LS spine Pain management consult Abx for uti Will follow d/w RN also
[2019-03-23] MEDS ORDERED: DEXTROSE 5%-WATER - 50 ML IVPB ONE (14:48)
[2019-03-23] MEDS ORDERED: cefTRIAXone SODIUM 1 GM VIAL ONE (14:48)
[2019-03-23] MEDS: MORPHINE SULFATE 2 MG/ML VIAL IVPUSH PRN (14:50)
[2019-03-23] MEDS: CEFTRIAXONE 1 GM in DEXTROSE 5%-WATER - 50 ML IVPB SCH (14:53)
[2019-03-23] MEDS: DOCUSATE SODIUM 100 MG CAPSULE (FP) PO SCH ×2 (14:53→21:21)
[2019-03-23] MEDS: ATORVASTATIN CA 20 MG TABLET (FP) PO SCH (21:21)
[2019-03-23] MEDS: LIDOCAINE PATCH REMOVAL MC SCH (21:21)
[2019-03-24] MEDS ORDERED: MAG HYDROX/AL HYDROX/SIMETH 30 ML UNIT-DOSE CUP PO ONE (02:46)
[2019-03-24] MEDS: DOCUSATE SODIUM 100 MG CAPSULE (FP) PO SCH ×3 (05:58→21:11)
[2019-03-24 06:22] LABS: BASO % 0.5 % (0-2.0); EOS % 5.1 % (0-4.5); HEMATOCRIT 30.8 % (32.4-45.2); LYMPH % 26.6 % (8-40); MCH 25.2 pg (25.7-33.7); MCHC 32.5 g/dl (32.0-36.0); MEAN CELL VOLUME 77.5 fl (80-96); MEAN PLT VOLUME 7.8 fl (7.5-11.1); MONO % 10.6 % (3.8-10.2); NEUT % 57.2 % (42.8-82.8); PLATELET COUNT 251 K/MM3 (134-434); RBC 3.97 M/mm3 (3.60-5.2); RDW 19.9 % (11.6-15.6); WHITE BLOOD COUNT 5.8 K/mm3 (4.0-10.0)
[2019-03-24 07:04] LABS: BILIRUBIN,TOTAL 0.3 mg/dL (0.2-1); BLOOD UREA NITROGEN 23.6 mg/dL (7-18); CALCIUM 8.6 mg/dL (8.5-10.1); POTASSIUM 4.3 mmol/L (3.5-5.1); TOT PROT 6.4 g/dl (6.4-8.2)
[2019-03-24] MEDS ORDERED: DEXTROSE 5%-WATER - 50 ML IVPB ONE (09:48)
[2019-03-24] MEDS ORDERED: cefTRIAXone SODIUM 1 GM VIAL ONE (09:48)
[2019-03-24] MEDS: oxyCODONE HCL 5 MG TABLET PO PRN ×2 (09:59→17:16)
[2019-03-24] MEDS: RIVAROXABAN 20 MG TABLET PO SCH (09:59)
[2019-03-24] MEDS: amLODIPine BESYLATE 10 MG TABLET (FP) PO SCH (10:00)
[2019-03-24] MEDS: CEFTRIAXONE 1 GM in DEXTROSE 5%-WATER - 50 ML IVPB SCH (10:00)
[2019-03-24] MEDS: GABAPENTIN 300 MG CAPSULE (FP) PO SCH (10:00)
--- NOTE | 2019-03-24 13:53 | PN ---
Progress Note (short form) - Note Progress Note: looks and feels better pain improved denies being constipated Vital Signs Temp 98.6 F 03/24/19 10:00 Pulse 78 03/24/19 10:00 Resp 18 03/24/19 10:00 BP 122/75 03/24/19 10:00 Pulse Ox 98 03/23/19 21:00 Intake & Output 03/23/19 03/24/19 03/24/19 23:59 11:59 23:59 Intake Total 750 250 Balance 750 250 Intake: IVPB 50 Oral 700 250 Other: Voiding Method Toilet Toilet Toilet # Unmeasured Voids Void 1 2 Bowel Movement Yes # Bowel Movements 1 Weight Measurement Method Built in [facility] Active Medications Amlodipine Besylate (Norvasc -) 10 mg PO DAILY [facility] Last Admin: 03/24/19 10:00 Dose: 10 mg Atorvastatin Calcium (Lipitor -) 20 mg PO HS [facility] Last Admin: 03/23/19 21:21 Dose: 20 mg Cyclobenzaprine HCl (Flexeril -) 10 mg PO Q8H PRN PRN Reason: MUSCLE SPASMS Diazepam (Valium -) 2 mg PO DAILY PRN PRN Reason: BACK PAIN Docusate Sodium (Colace -) 100 mg PO TID [facility] Last Admin: 03/24/19 05:58 Dose: 100 mg Gabapentin (Neurontin -) 600 mg PO DAILY [facility] Last Admin: 03/24/19 10:00 Dose: 600 mg Ceftriaxone Sodium 1 gm/ (Dextrose) 50 mls @ 100 mls/hr IVPB DAILY [facility]; Protocol Last Admin: 03/24/19 10:00 Dose: 100 mls/hr Metoclopramide HCl (Reglan Injection -) 10 mg IVPUSH Q6H PRN PRN Reason: NAUSEA AND/OR VOMITING Metoprolol Succinate (Toprol Xl -) 100 mg PO DAILY [facility] Last Admin: 03/24/19 10:00 Dose: 100 mg Miscellaneous (Lidoderm Patch Removal) 1 each MC DAILY@2200 [facility] Last Admin: 03/23/19 21:21 Dose: 1 each Morphine Sulfate (Morphine Sulfate) 1 mg IVPUSH Q4H PRN PRN Reason: PAIN LEVEL 7 - 10 Last Admin: 03/23/19 14:50 Dose: 1 mg Oxycodone HCl (Roxicodone -) 10 mg PO Q6H PRN PRN Reason: PAIN LEVEL 4 - 6 Last Admin: 03/24/19 09:59 Dose: 10 mg Rivaroxaban (Xarelto) 20 mg PO DAILY@0800 [facility] Last Admin: 03/24/19 09:59 Dose: 20 mg CBC,CMP WBC 5.8 K/mm3 (4.0-10.0) 03/24/19 05:30 RBC 3.97 M/mm3 (3.60-5.2) 03/24/19 05:30 Hgb 10.0 GM/dL (10.7-15.3) L 03/24/19 05:30 Hct 30.8 % (32.4-45.2) L 03/24/19 05:30 MCV 77.5 fl (80-96) L 03/24/19 05:30 MCH 25.2 pg (25.7-33.7) L 03/24/19 05:30 MCHC 32.5 g/dl (32.0-36.0) 03/24/19 05:30 RDW 19.9 % (11.6-15.6) H 03/24/19 05:30 Plt Count 251 K/MM3 (134-434) 03/24/19 05:30 MPV 7.8 fl (7.5-11.1) 03/24/19 05:30 Absolute Neuts (auto) 3.3 K/mm3 (1.5-8.0) 03/24/19 05:30 Neutrophils % 57.2 % (42.8-82.8) D 03/24/19 05:30 Lymphocytes % 26.6 % (8-40) D 03/24/19 05:30 Monocytes % 10.6 % (3.8-10.2) H D 03/24/19 05:30 Eosinophils % 5.1 % (0-4.5) H D 03/24/19 05:30 Basophils % 0.5 % (0-2.0) 03/24/19 05:30 Nucleated RBC % 0 % (0-0) 03/24/19 05:30 Sodium 142 mmol/L (136-145) 03/24/19 05:30 Potassium 4.3 mmol/L (3.5-5.1) 03/24/19 05:30 Chloride 110 mmol/L (98-107) H 03/24/19 05:30 Carbon Dioxide 25 mmol/L (21-32) 03/24/19 05:30 Anion Gap 8 MMOL/L (8-16) 03/24/19 05:30 BUN 23.6 mg/dL (7-18) H 03/24/19 05:30 Creatinine 1.0 mg/dL (0.55-1.3) 03/24/19 05:30 Est GFR (CKD-EPI)AfAm 64.73 03/24/19 05:30 Est GFR (CKD-EPI)NonAf 55.85 03/24/19 05:30 Random Glucose 81 mg/dL (74-106) 03/24/19 05:30 Lactic Acid 1.5 mmol/L (0.4-2.0) 03/22/19 10:15 Calcium 8.6 mg/dL (8.5-10.1) 03/24/19 05:30 Total Bilirubin 0.3 mg/dL (0.2-1) 03/24/19 05:30 AST 12 U/L (15-37) L 03/24/19 05:30 ALT 14 U/L (13-61) 03/24/19 05:30 Alkaline Phosphatase 91 U/L (45-117) 03/24/19 05:30 Creatine Kinase 116 U/L (26-192) 03/22/19 10:15 Troponin I < 0.02 ng/ml (0.00-0.05) 03/22/19 10:15 Total Protein 6.4 g/dl (6.4-8.2) 03/24/19 05:30 Albumin 3.0 g/dl (3.4-5.0) L 03/24/19 05:30 Lipase 42 U/L (73-393) L 03/22/19 10:15 TSH 2.22 uIU/ml (0.358-3.74) 03/24/19 05:30 CBC, BMP 03/24/19 05:30 03/24/19 05:30 ct scan-- LS Spine pending Physical Examination Constitutional: Yes: No Distress, Calm, Obese Eyes: Yes: Conjunctiva Clear, PERRL HENT: Yes: WNL Neck: Yes: Supple Cardiovascular: Yes: Regular Rate and Rhythm Respiratory: Yes: CTA Bilaterally Gastrointestinal: Yes: Soft Musculoskeletal: Yes: Back Pain-- Improved Edema: No Peripheral Pulses WNL: Yes Neurological: Yes: Alert ...Motor Strength: WNL Psychiatric: Yes: Alert Assessment/Plan Pain control-- Better Laxatives PT Ct - LS spine Pain management consult pending Abx for uti Will follow d/w RN also Problem List - Problems (1) Intractable low back pain Code(s): M54.5 - LOW BACK PAIN (2) Abdominal pain Code(s): R10.9 - UNSPECIFIED ABDOMINAL PAIN (3) Atrial fibrillation Code(s): I48.91 - UNSPECIFIED ATRIAL FIBRILLATION (4) Bariatric surgery status Code(s): Z98.84 - BARIATRIC SURGERY STATUS (5) History of permanent cardiac pacemaker placement Code(s): Z95.0 - PRESENCE OF CARDIAC PACEMAKER (6) Morbid obesity Code(s): E66.01 - MORBID (SEVERE) OBESITY DUE TO EXCESS CALORIES (7) UTI (urinary tract infection) Code(s): N39.0 - URINARY TRACT INFECTION, SITE NOT SPECIFIED Qualifiers: Urinary tract infection type: site unspecified Hematuria presence: without hematuria Qualified Code(s): N39.0 - Urinary tract infection, site not specified
[2019-03-24] MEDS: diazePAM 2 MG TABLET PO PRN (21:11)
[2019-03-24] MEDS: ATORVASTATIN CA 20 MG TABLET (FP) PO SCH (21:11)
[2019-03-24] MEDS: MORPHINE SULFATE 2 MG/ML VIAL IVPUSH PRN (21:12)
[2019-03-24] MEDS: LIDOCAINE PATCH REMOVAL MC SCH (21:13)
[2019-03-25] MEDS: oxyCODONE HCL 5 MG TABLET PO PRN ×2 (05:00→18:01)
[2019-03-25] MEDS: DOCUSATE SODIUM 100 MG CAPSULE (FP) PO SCH ×3 (06:04→21:03)
[2019-03-25] MEDS: RIVAROXABAN 20 MG TABLET PO SCH ×2 (08:32→17:56)
[2019-03-25] MEDS ORDERED: PT OWN MED DRAWER 7, Y5N ONE (09:24)
[2019-03-25] MEDS ORDERED: cefTRIAXone SODIUM 1 GM VIAL ONE (09:25)
[2019-03-25] MEDS ORDERED: DEXTROSE 5%-WATER - 50 ML IVPB ONE (09:25)
[2019-03-25] MEDS: amLODIPine BESYLATE 10 MG TABLET (FP) PO SCH (09:54)
[2019-03-25] MEDS: GABAPENTIN 300 MG CAPSULE (FP) PO SCH (09:54)
[2019-03-25] MEDS: CEFTRIAXONE 1 GM in DEXTROSE 5%-WATER - 50 ML IVPB SCH (09:55)
--- NOTE | 2019-03-25 13:26 | PN ---
Progress Note (short form) - Note Progress Note: Pt seen/ examined today still having pain issues Vital Signs Temp 97.9 F 03/25/19 07:03 Pulse 75 03/25/19 07:03 Resp 20 03/25/19 07:03 BP 90/56 L 03/25/19 07:03 Pulse Ox 98 03/24/19 21:00 Intake & Output 03/24/19 03/25/19 03/25/19 23:59 11:59 23:59 Intake Total 1350 500 Balance 1350 500 Intake: Oral 1350 500 Other: Voiding Method Toilet Toilet # Unmeasured Voids Void 1 2 Bowel Movement Yes # Bowel Movements 1 Active Medications Amlodipine Besylate (Norvasc -) 10 mg PO DAILY [facility] Last Admin: 03/25/19 09:54 Dose: 10 mg Atorvastatin Calcium (Lipitor -) 20 mg PO HS [facility] Last Admin: 03/24/19 21:11 Dose: 20 mg Cyclobenzaprine HCl (Flexeril -) 10 mg PO Q8H [facility] Diazepam (Valium -) 2 mg PO DAILY PRN PRN Reason: BACK PAIN Last Admin: 03/24/19 21:11 Dose: 2 mg Docusate Sodium (Colace -) 100 mg PO TID [facility] Last Admin: 03/25/19 06:04 Dose: 100 mg Gabapentin (Neurontin -) 600 mg PO DAILY [facility] Last Admin: 03/25/19 09:54 Dose: 600 mg Ceftriaxone Sodium 1 gm/ (Dextrose) 50 mls @ 100 mls/hr IVPB DAILY [facility]; Protocol Last Admin: 03/25/19 09:55 Dose: 100 mls/hr Metoclopramide HCl (Reglan Injection -) 10 mg IVPUSH Q6H PRN PRN Reason: NAUSEA AND/OR VOMITING Metoprolol Succinate (Toprol Xl -) 100 mg PO DAILY [facility] Last Admin: 03/25/19 09:54 Dose: 100 mg Miscellaneous (Lidoderm Patch Removal) 1 each MC DAILY@2200 [facility] Last Admin: 03/24/19 21:13 Dose: 1 each Morphine Sulfate (Morphine Sulfate) 1 mg IVPUSH Q4H PRN PRN Reason: PAIN LEVEL 7 - 10 Last Admin: 03/24/19 21:12 Dose: 1 mg Oxycodone HCl (Roxicodone -) 10 mg PO Q6H PRN PRN Reason: PAIN LEVEL 4 - 6 Last Admin: 03/25/19 05:00 Dose: 10 mg Rivaroxaban (Xarelto) 20 mg PO DAILY@1800 [facility] CBC, BMP 03/24/19 05:30 03/24/19 05:30 Microbiology 03/22/19 10:13 Urine Culture - Final Urine - Urine Clean Catch Escherichia Coli Physical Examination Constitutional: Yes: No Distress, Calm, Obese Eyes: Yes: Conjunctiva Clear, PERRL HENT: Yes: WNL Neck: Yes: Supple Cardiovascular: Yes: Regular Rate and Rhythm Respiratory: Yes: CTA Bilaterally Gastrointestinal: Yes: Soft Musculoskeletal: Yes: Back Pain-- Improved Edema: No Peripheral Pulses WNL: Yes Neurological: Yes: Alert ...Motor Strength: WNL Psychiatric: Yes: Alert Assessment/Plan Pain control-- Better Laxatives PT Ct - LS spine--noted Pain management consult pending Abx for uti Physical therapy Will follow d/w RN also If better - consider d/c in am Problem List - Problems (1) Intractable low back pain Code(s): M54.5 - LOW BACK PAIN (2) Abdominal pain Code(s): R10.9 - UNSPECIFIED ABDOMINAL PAIN (3) Atrial fibrillation Code(s): I48.91 - UNSPECIFIED ATRIAL FIBRILLATION (4) Bariatric surgery status Code(s): Z98.84 - BARIATRIC SURGERY STATUS (5) History of permanent cardiac pacemaker placement Code(s): Z95.0 - PRESENCE OF CARDIAC PACEMAKER (6) Morbid obesity Code(s): E66.01 - MORBID (SEVERE) OBESITY DUE TO EXCESS CALORIES (7) UTI (urinary tract infection) Code(s): N39.0 - URINARY TRACT INFECTION, SITE NOT SPECIFIED Qualifiers: Urinary tract infection type: site unspecified Hematuria presence: without hematuria Qualified Code(s): N39.0 - Urinary tract infection, site not specified
[2019-03-25] MEDS: CYCLOBENZAPRINE HCL 10 MG TABLET (FP) PO SCH ×2 (14:47→21:03)
[2019-03-25] MEDS: ATORVASTATIN CA 20 MG TABLET (FP) PO SCH (21:03)
[2019-03-26] MEDS: oxyCODONE HCL 5 MG TABLET PO PRN ×2 (00:17→09:39)
[2019-03-26] MEDS: CYCLOBENZAPRINE HCL 10 MG TABLET (FP) PO SCH ×2 (05:44→13:33)
[2019-03-26] MEDS: DOCUSATE SODIUM 100 MG CAPSULE (FP) PO SCH ×2 (05:45→13:33)
[2019-03-26] MEDS ORDERED: DEXTROSE 5%-WATER - 50 ML IVPB ONE (09:34)
[2019-03-26] MEDS ORDERED: cefTRIAXone SODIUM 1 GM VIAL ONE (09:34)
[2019-03-26] MEDS ORDERED: PT OWN MED DRAWER 7, Y5N ONE ×2 (09:34→10:53)
[2019-03-26] MEDS: amLODIPine BESYLATE 10 MG TABLET (FP) PO SCH (09:39)
[2019-03-26] MEDS: CEFTRIAXONE 1 GM in DEXTROSE 5%-WATER - 50 ML IVPB SCH (09:39)
[2019-03-26] MEDS: GABAPENTIN 300 MG CAPSULE (FP) PO SCH (09:39)
[2019-03-26] MEDS: diazePAM 2 MG TABLET PO PRN (10:24)
--- NOTE | 2019-03-26 11:18 | DS ---
Physical Examination Vital Signs: Vital Signs Temperature 97.8 F 03/26/19 06:17 Pulse Rate 72 03/26/19 06:17 Respiratory Rate 20 03/26/19 06:17 Blood Pressure 106/65 03/26/19 06:17 O2 Sat by Pulse Oximetry (%) 95 03/25/19 21:00 Constitutional: Yes: No Distress Cardiovascular: Yes: Regular Rate and Rhythm Respiratory: Yes: CTA Bilaterally Gastrointestinal: Yes: Normal Bowel Sounds, Soft, Abdomen, Obese. No: Tenderness Edema: Yes Edema: LLE: Trace, RLE: Trace Labs: CBC, BMP 03/24/19 05:30 03/24/19 05:30 Discharge Summary Problems reviewed: Yes Reason For Visit: BACK PAIN ABDOMINAL PAIN Current Active Problems Abdominal pain (Acute) Back pain (Acute) Intractable low back pain (Acute) Hospital Course: - Admission History of Present Illness: Pt seen/ examined chart reviewed/ case was d/w er resident yesterday In summary 73 yo female pmh of Back pain , HTN, HLD, distolic CHF, Afib w/ PPM, asthma, anemia, kidney stone s/p lithotripsy 5 months ago, s/p gastric sleeve 5years presents to the ED for back pain and abdominal pain ct scan - abd- no acute pathology Given Morphine for pain Admitted due to Intractable pain Uti + given abx also HOSPITAL COURSE She was admitted for intractable back pain and UTI CT spine-- degenerative disease Started on flexeril valium and oxycodone as needed for pain -- pt is ambulating better with walker Needs outpt PT she will be going for out patient physical therapy in [place]-- already has the script Complete antibiotics course pain management eval as an outpt stable for al home meds sent to pharmacy Condition: Stable - Instructions Referrals: Christopher Johnson MD [Staff Physician] - Shekhar Barakat MD [Primary Care Provider] - Disposition: HOME - Home Medications Comprehensive Discharge Medication List: Ambulatory Orders Amlodipine Besylate [Norvasc -] 10 mg PO DAILY 03/22/19 Atorvastatin Ca [Lipitor] 20 mg PO HS 03/22/19 Biotin 500 mg PO DAILY 03/22/19 Cholecalciferol (Vitamin D3) [Vitamin D3] 1,000 unit PO DAILY 03/22/19 Flaxseed Oil [Flaxseed] 1,000 mg PO DAILY 03/22/19 Gabapentin 600 mg PO DAILY 03/22/19 Metoprolol Succinate 100 mg PO DAILY 03/22/19 Multivitamin [One-Daily Multi-Vitamin] 1 each PO DAILY 03/22/19 Rivaroxaban [Xarelto -] 20 mg PO DAILY 03/22/19 Thiamine HCl [Vitamin B-1] 250 mg PO DAILY 03/22/19 Cephalexin [Keflex] 500 mg PO BID #8 capsule 03/26/19 Cyclobenzaprine HCl [Flexeril -] 10 mg PO Q8H PRN #60 tablet 03/26/19 Diazepam [Valium] 2 mg PO DAILY PRN #30 tablet MDD 1 03/26/19 oxyCODONE HCL [Roxicodone -] 10 mg PO Q6H PRN #30 tablet MDD 4 03/26/19
[2019-03-26] MEDS ORDERED: MAG HYDROX/AL HYDROX/SIMETH 30 ML UNIT-DOSE CUP PO PRN (12:36)
[2019-03-26] MEDS ORDERED: SODIUM CHLORIDE 500 ML IV ONE (15:30)
[2019-03-26] MEDS: RIVAROXABAN 20 MG TABLET PO SCH (17:16)
[2019-03-26 17:30] VITALS: BP 122/65; PULSE 74; TEMP 97.9
== END 2019-03-26 18:28 | disposition home or self-care (01) | DRG 552 ==
LOC: JER 09:31 → JERBED 18:02 → J8W 20:15
PROVIDERS: ADMIT Internal Medicine; ATTEND Internal Medicine
DX: M51.36 Other intervertebral disc degeneration, lumbar region (principal); N39.0 Urinary tract infection, site not specified; I50.30 Unspecified diastolic (congestive) heart failure; I11.0 Hypertensive heart disease with heart failure; E78.5 Hyperlipidemia, unspecified; M54.5 Low back pain; K29.70 Gastritis, unspecified, without bleeding; J45.909 Unspecified asthma, uncomplicated; I48.91 Unspecified atrial fibrillation; R10.9 Unspecified abdominal pain; F41.9 Anxiety disorder, unspecified; E66.8 Other obesity; D64.9 Anemia, unspecified; Z95.0 Presence of cardiac pacemaker; Z98.84 Bariatric surgery status; Z86.73 Personal history of transient ischemic attack (TIA), and cerebral infarction without residual deficits; Z68.39 Body mass index [BMI] 39.0-39.9, adult
CPT/HCPCS: 36415; 71045-TC-FY; 72131-TC; 74177-TC; 80053; 81003; 82550; 83605; 83690; 84443; 84484; 85025; 85610; 86850; 86900; 86901; 87086; 87186; 93005; 93010; 97116-GP; 97162-GP; 99285-25; J0131

== ENCOUNTER 2021-07-02 15:29 | Inpatient (IN) | payer OTHER ==
[2021-07-02] MEDS ORDERED: PANTOPRAZOLE SODIUM 40 MG VIAL IVPUSH ONE (17:41)
[2021-07-02 17:51] LABS: BASO % 0.6 % (0-2.0); EOS % 0.8 % (0-4.5); LYMPH % 40.1 % (8-40); MCHC 27.6 g/dl (32.0-36.0); MEAN CELL VOLUME 68.1 fl (80-96); MEAN PLT VOLUME 8.7 fl (7.5-11.1); MONO % 10.1 % (3.8-10.2); NEUT % 48.4 % (42.8-82.8); PLATELET COUNT 270 10^3/uL (134-434); WHITE BLOOD COUNT 4.7 K/mm3 (4.0-10.0)
[2021-07-02 17:52] LABS: MCH 18.8 pg (25.7-33.7)
[2021-07-02 17:53] LABS: HEMOGLOBIN 4.7 GM/dL (10.7-15.3)
[2021-07-02 18:11] LABS: CHLORIDE 110 mmol/L (98-107); SODIUM 134 mmol/L (136-145)
[2021-07-02 18:13] LABS: BLOOD UREA NITROGEN 15.2 mg/dL (7-18); CALCIUM 8.4 mg/dL (8.5-10.1); CO2 24 mmol/L (21-32); GLUCOSE,RANDOM 87 mg/dL (74-106)
[2021-07-02 18:16] LABS: ANISOCYTOSIS 3+; MACROCYTOSIS 0; OVALOCYTE 1+; PLATELET ESTIMATE NORMAL; SGOT/AST 107 U/L (15-37); TARGET CELLS 2+
[2021-07-02 18:18] LABS: BILIRUBIN,TOTAL 0.3 mg/dL (0.2-1); TOT PROT 7.2 g/dl (6.4-8.2)
[2021-07-02] MEDS ORDERED: PANTOPRAZOLE SODIUM 40 MG VIAL ONE (18:18)
[2021-07-02 18:19] LABS: ALK PHOS 82 U/L (45-117)
[2021-07-02 18:26] LABS: INR 1.81 (0.83-1.09); PROTHROMBIN TIME (PATIENT) 20.9 SEC (9.7-13.0)
[2021-07-02 18:29] LABS: ACTIVATED PTT 32.9 SECONDS (25.2-36.5)
[2021-07-02 18:52] LABS: ANION GAP 0 MMOL/L (8-16); SGPT/ALT 20 U/L (13-61)
[2021-07-02 19:02] LABS: BLOOD UREA NITROGEN 15.9 mg/dL (7-18); CALCIUM 8.6 mg/dL (8.5-10.1)
[2021-07-02 19:06] LABS: CREATININE 0.9 mg/dL (0.55-1.3)
[2021-07-03 01:34] VITALS: BMI 30.1
[2021-07-03] MEDS ORDERED: ACETAMINOPHEN 1000 MG/100 ML BAG IVPB ONE (02:25)
[2021-07-03 04:52] LABS: EPI CELLS 2 /uL (0-25.1); HYALINE CASTS 3 /uL (0-3.1); PH,URINE 7.5 (5.0-8.0); URINE APPEARANCE TURBID; URINE BACTERIA >9,000 /uL (0-1359); URINE BILIRUBIN NEGATIVE (NEGATIVE); URINE COLOR YELLOW; URINE GLUCOSE (UA) NEGATIVE (NEGATIVE); URINE KETONE NEGATIVE (NEGATIVE); URINE LEUK ESTERASE 3+ (NEGATIVE); URINE NITRITE NEGATIVE (NEGATIVE); URINE PROTEIN 2+ (NEGATIVE); URINE RBC 15 /uL (0-23.9); URINE WBC 1622 /uL (0-25.8)
[2021-07-03 08:48] LABS: BASO % 0.9 % (0-2.0); EOS % 1.6 % (0-4.5); LYMPH % 38.8 % (8-40); MCH 20.7 pg (25.7-33.7); MCHC 31.5 g/dl (32.0-36.0); MEAN CELL VOLUME 65.9 fl (80-96); MEAN PLT VOLUME 7.8 fl (7.5-11.1); MONO % 11.2 % (3.8-10.2); NEUT % 47.5 % (42.8-82.8); PLATELET COUNT 220 10^3/uL (134-434); RBC 2.58 M/mm3 (3.60-5.2); RDW 21.3 % (11.6-15.6); WHITE BLOOD COUNT 3.9 K/mm3 (4.0-10.0)
[2021-07-03 08:56] LABS: HEMOGLOBIN 5.4 GM/dL (10.7-15.3)
[2021-07-03 09:14] LABS: ALBUMIN 2.9 g/dl (3.4-5.0); CALCIUM 8.6 mg/dL (8.5-10.1)
[2021-07-03 09:15] LABS: BILIRUBIN,TOTAL 0.8 mg/dL (0.2-1); TOT PROT 5.8 g/dl (6.4-8.2)
[2021-07-03 09:16] LABS: CREATININE 0.9 mg/dL (0.55-1.3)
[2021-07-03 10:39] LABS: HEMATOCRIT 17.9 % (32.4-45.2); MCH 20.7 pg (25.7-33.7); MCHC 31.2 g/dl (32.0-36.0); MEAN CELL VOLUME 66.4 fl (80-96); MEAN PLT VOLUME 8.5 fl (7.5-11.1); PLATELET COUNT 225 10^3/uL (134-434); RDW 21.3 % (11.6-15.6)
[2021-07-03] MEDS ORDERED: oxyCODONE HCL 5 MG TABLET PO PRN (10:40)
[2021-07-03] MEDS ORDERED: CYCLOBENZAPRINE HCL 10 MG TABLET (FP) PO PRN (10:40)
[2021-07-03 10:42] LABS: CALCIUM 8.5 mg/dL (8.5-10.1)
[2021-07-03] MEDS: PANTOPRAZOLE SODIUM 40 MG VIAL IVPUSH SCH (10:42)
[2021-07-03 10:43] LABS: BLOOD UREA NITROGEN 14.8 mg/dL (7-18)
[2021-07-03] MEDS ORDERED: FUROSEMIDE 40 MG/4 ML INJECTABLE VIAL IVPUSH SCH (10:43)
[2021-07-03 10:55] LABS: HEMOGLOBIN 5.6 GM/dL (10.7-15.3)
[2021-07-03] MEDS ORDERED: BISACODYL 5 MG TABLET.DR (FP) PO ONE (15:36)
[2021-07-03] MEDS: ATORVASTATIN CA 20 MG TABLET (FP) PO SCH (21:48)
[2021-07-04 08:16] LABS: BASO % 1.1 % (0-2.0); EOS % 3.1 % (0-4.5); HEMATOCRIT 21.4 % (32.4-45.2); LYMPH % 35.2 % (8-40); MCHC 31.1 g/dl (32.0-36.0); MEAN CELL VOLUME 67.5 fl (80-96); MEAN PLT VOLUME 8.2 fl (7.5-11.1); MONO % 11.7 % (3.8-10.2); NEUT % 48.9 % (42.8-82.8); PLATELET COUNT 223 10^3/uL (134-434); RBC 3.17 M/mm3 (3.60-5.2); RDW 21.1 % (11.6-15.6); WHITE BLOOD COUNT 4.9 K/mm3 (4.0-10.0)
[2021-07-04 08:37] LABS: HEMOGLOBIN 6.7 GM/dL (10.7-15.3)
[2021-07-04] MEDS: CHOLECALCIFEROL (VIT D3) 1,000 UNIT (25 MCG) TABLET PO SCH (09:23)
[2021-07-04] MEDS: THIAMINE HCL 100 MG TABLET (FP) PO SCH (09:23)
[2021-07-04] MEDS: MULTIVITAMINS (DAILY MVI) TABLET (FP) PO SCH (09:23)
[2021-07-04] MEDS: PANTOPRAZOLE SODIUM 40 MG VIAL IVPUSH SCH (09:23)
[2021-07-04] MEDS ORDERED: BIOTIN 500 MG PO SCH (10:00)
[2021-07-04] MEDS ORDERED: FUROSEMIDE 40 MG/4 ML INJECTABLE VIAL IVPUSH SCH (11:53)
[2021-07-04] MEDS ORDERED: PEG 3350/NA SULF BICARB CL/KCL 4000 ML SOLN.RECON PO ONE (14:00)
[2021-07-04] MEDS: ATORVASTATIN CA 20 MG TABLET (FP) PO SCH (22:27)
[2021-07-05 07:32] LABS: BASO % 0.8 % (0-2.0); EOS % 4.5 % (0-4.5); HEMOGLOBIN 8.4 GM/dL (10.7-15.3); LYMPH % 27.2 % (8-40); MCH 22.8 pg (25.7-33.7); MCHC 32.2 g/dl (32.0-36.0); MONO % 12.3 % (3.8-10.2); NEUT % 55.2 % (42.8-82.8); PLATELET COUNT 215 10^3/uL (134-434); RBC 3.66 M/mm3 (3.60-5.2); RDW 24.8 % (11.6-15.6); WHITE BLOOD COUNT 5.7 K/mm3 (4.0-10.0)
[2021-07-05] MEDS: PANTOPRAZOLE SODIUM 40 MG VIAL IVPUSH SCH (09:28)
[2021-07-05] MEDS: MULTIVITAMINS (DAILY MVI) TABLET (FP) PO SCH (12:23)
[2021-07-05] MEDS: CHOLECALCIFEROL (VIT D3) 1,000 UNIT (25 MCG) TABLET PO SCH (12:23)
[2021-07-05] MEDS: THIAMINE HCL 100 MG TABLET (FP) PO SCH (12:24)
[2021-07-05] MEDS: PANTOPRAZOLE 40 MG TABLET PO SCH (12:29)
[2021-07-05] MEDS: GABAPENTIN 300 MG CAPSULE PO SCH ×2 (12:32→23:01)
[2021-07-05] MEDS: CLOTRIMAZOLE 1% CREAM TP SCH ×2 (15:42→23:01)
[2021-07-05] MEDS: ATORVASTATIN CA 20 MG TABLET (FP) PO SCH (23:01)
[2021-07-06 07:34] LABS: BASO % 0.5 % (0-2.0); EOS % 4.1 % (0-4.5); HEMOGLOBIN 7.9 GM/dL (10.7-15.3); LYMPH % 22.2 % (8-40); MCH 22.3 pg (25.7-33.7); MCHC 30.5 g/dl (32.0-36.0); MEAN PLT VOLUME 8.4 fl (7.5-11.1); MONO % 11.5 % (3.8-10.2); NEUT % 61.7 % (42.8-82.8); PLATELET COUNT 206 10^3/uL (134-434); RBC 3.56 M/mm3 (3.60-5.2); RDW 25.2 % (11.6-15.6); WHITE BLOOD COUNT 5.6 K/mm3 (4.0-10.0)
[2021-07-06 10:03] LABS: ANISOCYTOSIS 1+; MACROCYTOSIS 0; PLATELET ESTIMATE NORMAL
[2021-07-06] MEDS: THIAMINE HCL 100 MG TABLET (FP) PO SCH (10:28)
[2021-07-06] MEDS: GABAPENTIN 300 MG CAPSULE PO SCH ×2 (10:29→21:49)
[2021-07-06] MEDS: MULTIVITAMINS (DAILY MVI) TABLET (FP) PO SCH (10:29)
[2021-07-06] MEDS: CHOLECALCIFEROL (VIT D3) 1,000 UNIT (25 MCG) TABLET PO SCH (10:30)
[2021-07-06] MEDS: PANTOPRAZOLE 40 MG TABLET PO SCH (10:30)
[2021-07-06] MEDS: CLOTRIMAZOLE 1% CREAM TP SCH ×2 (10:40→21:49)
[2021-07-06] MEDS ORDERED: IRON SUCROSE INJECTION 200 MG in SODIUM CHLORIDE 90 ML IVPB ONE (11:00)
[2021-07-06] MEDS: APIXABAN 5 MG TABLET PO SCH ×2 (11:12→21:49)
[2021-07-06] MEDS: ATORVASTATIN CA 20 MG TABLET (FP) PO SCH (21:49)
[2021-07-07] MEDS: oxyCODONE HCL 5 MG TABLET PO PRN (06:53)
[2021-07-07 07:34] LABS: BASO % 0.5 % (0-2.0); EOS % 5.6 % (0-4.5); HEMATOCRIT 26.4 % (32.4-45.2); HEMOGLOBIN 8.3 GM/dL (10.7-15.3); LYMPH % 17.8 % (8-40); MCHC 31.3 g/dl (32.0-36.0); MEAN CELL VOLUME 73.5 fl (80-96); MEAN PLT VOLUME 8.2 fl (7.5-11.1); MONO % 12.8 % (3.8-10.2); NEUT % 63.3 % (42.8-82.8); PLATELET COUNT 182 10^3/uL (134-434); RBC 3.59 M/mm3 (3.60-5.2); RDW 25.7 % (11.6-15.6); WHITE BLOOD COUNT 4.9 K/mm3 (4.0-10.0)
[2021-07-07 08:06] LABS: BILIRUBIN,TOTAL 0.6 mg/dL (0.2-1); CALCIUM 8.6 mg/dL (8.5-10.1)
[2021-07-07 08:07] LABS: ALBUMIN 2.7 g/dl (3.4-5.0); BLOOD UREA NITROGEN 12.4 mg/dL (7-18)
[2021-07-07 08:10] LABS: CREATININE 0.9 mg/dL (0.55-1.3)
[2021-07-07 08:12] LABS: TOT PROT 5.9 g/dl (6.4-8.2)
[2021-07-07] MEDS: PANTOPRAZOLE 40 MG TABLET PO SCH (09:15)
[2021-07-07] MEDS: GABAPENTIN 300 MG CAPSULE PO SCH ×3 (09:15→21:36)
[2021-07-07] MEDS: CLOTRIMAZOLE 1% CREAM TP SCH ×2 (09:16→21:39)
[2021-07-07] MEDS: APIXABAN 5 MG TABLET PO SCH ×2 (09:16→21:36)
[2021-07-07] MEDS: THIAMINE HCL 100 MG TABLET (FP) PO SCH (09:16)
[2021-07-07] MEDS: CHOLECALCIFEROL (VIT D3) 1,000 UNIT (25 MCG) TABLET PO SCH (09:16)
[2021-07-07] MEDS: MULTIVITAMINS (DAILY MVI) TABLET (FP) PO SCH (09:16)
[2021-07-07] MEDS ORDERED: ALBUTEROL SO4 HFA INHALER IH PRN (10:40)
[2021-07-07] MEDS: FUROSEMIDE 40 MG/4 ML INJECTABLE VIAL IVPUSH SCH (12:13)
[2021-07-07] MEDS: BUDESONIDE/FORMETEROL FUMARATE 160/4.5 mcg INHALER IH SCH ×2 (12:13→21:38)
[2021-07-07] MEDS ORDERED: SUMAtriptan SUCCINATE 25 MG TABLET PO ONE (15:47)
[2021-07-07] MEDS: ATORVASTATIN CA 20 MG TABLET (FP) PO SCH (21:36)
[2021-07-08] MEDS: oxyCODONE HCL 5 MG TABLET PO PRN (01:06)
[2021-07-08] MEDS: GABAPENTIN 300 MG CAPSULE PO SCH ×3 (06:06→21:30)
[2021-07-08 07:34] LABS: BASO % 0.2 % (0-2.0); HEMATOCRIT 28.9 % (32.4-45.2); HEMOGLOBIN 8.8 GM/dL (10.7-15.3); LYMPH % 11.2 % (8-40); MCH 22.7 pg (25.7-33.7); MCHC 30.5 g/dl (32.0-36.0); MEAN CELL VOLUME 74.5 fl (80-96); MEAN PLT VOLUME 8.6 fl (7.5-11.1); MONO % 4.1 % (3.8-10.2); NEUT % 84.5 % (42.8-82.8); PLATELET COUNT 203 10^3/uL (134-434); RBC 3.88 M/mm3 (3.60-5.2); WHITE BLOOD COUNT 7.2 K/mm3 (4.0-10.0)
[2021-07-08 08:14] LABS: ALBUMIN 3.2 g/dl (3.4-5.0); BLOOD UREA NITROGEN 10.4 mg/dL (7-18)
[2021-07-08 08:15] LABS: CALCIUM 8.5 mg/dL (8.5-10.1)
[2021-07-08 08:16] LABS: CREATININE 0.7 mg/dL (0.55-1.3)
[2021-07-08 08:17] LABS: BILIRUBIN,TOTAL 0.8 mg/dL (0.2-1)
[2021-07-08 08:18] LABS: TOT PROT 6.6 g/dl (6.4-8.2)
[2021-07-08] MEDS ORDERED: ACETAMINOPHEN 325 MG TABLET (FP) ONE (09:31)
[2021-07-08] MEDS: FUROSEMIDE 40 MG/4 ML INJECTABLE VIAL IVPUSH SCH (10:21)
[2021-07-08] MEDS: APIXABAN 5 MG TABLET PO SCH ×2 (10:22→21:30)
[2021-07-08] MEDS: THIAMINE HCL 100 MG TABLET (FP) PO SCH (10:22)
[2021-07-08] MEDS: PANTOPRAZOLE 40 MG TABLET PO SCH (10:22)
[2021-07-08] MEDS: MULTIVITAMINS (DAILY MVI) TABLET (FP) PO SCH (10:22)
[2021-07-08] MEDS: POTASSIUM CHLORIDE TABS 20 MEQ TABLET.ER (FP) PO SCH (10:24)
[2021-07-08] MEDS: BUDESONIDE/FORMETEROL FUMARATE 160/4.5 mcg INHALER IH SCH ×2 (10:24→21:33)
[2021-07-08] MEDS: CHOLECALCIFEROL (VIT D3) 1,000 UNIT (25 MCG) TABLET PO SCH (10:25)
[2021-07-08] MEDS: CLOTRIMAZOLE 1% CREAM TP SCH ×2 (10:25→21:33)
[2021-07-08] MEDS: ACETAMINOPHEN/CAFFEINE/BUTALBITAL 1 TAB PO PRN ×2 (11:37→21:31)
[2021-07-08] MEDS: ATORVASTATIN CA 20 MG TABLET (FP) PO SCH (21:30)
[2021-07-09] MEDS: GABAPENTIN 300 MG CAPSULE PO SCH ×3 (05:44→21:26)
[2021-07-09] MEDS: MULTIVITAMINS (DAILY MVI) TABLET (FP) PO SCH (09:26)
[2021-07-09] MEDS: THIAMINE HCL 100 MG TABLET (FP) PO SCH (09:26)
[2021-07-09] MEDS: POTASSIUM CHLORIDE TABS 20 MEQ TABLET.ER (FP) PO SCH (09:26)
[2021-07-09] MEDS: PANTOPRAZOLE 40 MG TABLET PO SCH (09:26)
[2021-07-09] MEDS: APIXABAN 5 MG TABLET PO SCH ×2 (09:26→21:26)
[2021-07-09] MEDS: CHOLECALCIFEROL (VIT D3) 1,000 UNIT (25 MCG) TABLET PO SCH (09:26)
[2021-07-09] MEDS: FUROSEMIDE 40 MG/4 ML INJECTABLE VIAL IVPUSH SCH (09:27)
[2021-07-09] MEDS: BUDESONIDE/FORMETEROL FUMARATE 160/4.5 mcg INHALER IH SCH ×2 (09:31→21:26)
[2021-07-09] MEDS: CLOTRIMAZOLE 1% CREAM TP SCH ×2 (09:34→21:27)
[2021-07-09] MEDS: ACETAMINOPHEN/CAFFEINE/BUTALBITAL 1 TAB PO PRN (13:17)
[2021-07-09] MEDS: oxyCODONE HCL 5 MG TABLET PO PRN (19:54)
[2021-07-09] MEDS: ATORVASTATIN CA 20 MG TABLET (FP) PO SCH (21:26)
[2021-07-10] MEDS: GABAPENTIN 300 MG CAPSULE PO SCH ×3 (06:01→22:04)
[2021-07-10] MEDS: ACETAMINOPHEN/CAFFEINE/BUTALBITAL 1 TAB PO PRN ×2 (06:06→09:56)
[2021-07-10 07:08] LABS: BASO % 0.7 % (0-2.0); EOS % 1.1 % (0-4.5); HEMATOCRIT 30.6 % (32.4-45.2); HEMOGLOBIN 9.3 GM/dL (10.7-15.3); LYMPH % 28.8 % (8-40); MCH 22.7 pg (25.7-33.7); MCHC 30.3 g/dl (32.0-36.0); MEAN CELL VOLUME 74.8 fl (80-96); MEAN PLT VOLUME 8.7 fl (7.5-11.1); MONO % 13.9 % (3.8-10.2); NEUT % 55.5 % (42.8-82.8); PLATELET COUNT 238 10^3/uL (134-434); RDW 28.1 % (11.6-15.6); WHITE BLOOD COUNT 6.3 K/mm3 (4.0-10.0)
[2021-07-10 07:33] LABS: CALCIUM 9.6 mg/dL (8.5-10.1)
[2021-07-10 07:34] LABS: ALBUMIN 3.2 g/dl (3.4-5.0); BLOOD UREA NITROGEN 16.9 mg/dL (7-18)
[2021-07-10 07:38] LABS: TOT PROT 6.7 g/dl (6.4-8.2)
[2021-07-10 07:39] LABS: BILIRUBIN,TOTAL 0.6 mg/dL (0.2-1)
[2021-07-10] MEDS: FUROSEMIDE 40 MG/4 ML INJECTABLE VIAL IVPUSH SCH (09:54)
[2021-07-10] MEDS: THIAMINE HCL 100 MG TABLET (FP) PO SCH (09:55)
[2021-07-10] MEDS: PANTOPRAZOLE 40 MG TABLET PO SCH (09:55)
[2021-07-10] MEDS: APIXABAN 5 MG TABLET PO SCH ×2 (09:56→22:03)
[2021-07-10] MEDS: CHOLECALCIFEROL (VIT D3) 1,000 UNIT (25 MCG) TABLET PO SCH (09:56)
[2021-07-10] MEDS: MULTIVITAMINS (DAILY MVI) TABLET (FP) PO SCH (09:56)
[2021-07-10] MEDS: BUDESONIDE/FORMETEROL FUMARATE 160/4.5 mcg INHALER IH SCH ×2 (09:57→22:05)
[2021-07-10] MEDS: CLOTRIMAZOLE 1% CREAM TP SCH (09:58)
[2021-07-10] MEDS: POTASSIUM CHLORIDE TABS 20 MEQ TABLET.ER (FP) PO SCH (10:00)
[2021-07-10 10:42] LABS: ANISOCYTOSIS 2+; MACROCYTOSIS 0; PLATELET ESTIMATE NORMAL
[2021-07-10] MEDS: ATORVASTATIN CA 20 MG TABLET (FP) PO SCH (22:03)
[2021-07-11] MEDS: GABAPENTIN 300 MG CAPSULE PO SCH ×3 (05:52→21:12)
[2021-07-11] MEDS: CLOTRIMAZOLE 1% CREAM TP SCH ×3 (05:52→22:50)
[2021-07-11] MEDS: APIXABAN 5 MG TABLET PO SCH ×2 (09:31→21:11)
[2021-07-11] MEDS: PANTOPRAZOLE 40 MG TABLET PO SCH (09:31)
[2021-07-11] MEDS: ACETAMINOPHEN/CAFFEINE/BUTALBITAL 1 TAB PO PRN ×2 (09:31→17:54)
[2021-07-11] MEDS: MULTIVITAMINS (DAILY MVI) TABLET (FP) PO SCH (09:31)
[2021-07-11] MEDS: CHOLECALCIFEROL (VIT D3) 1,000 UNIT (25 MCG) TABLET PO SCH (09:32)
[2021-07-11] MEDS: FUROSEMIDE 40 MG TABLET (FP) PO SCH (09:32)
[2021-07-11] MEDS: THIAMINE HCL 100 MG TABLET (FP) PO SCH (09:33)
[2021-07-11] MEDS: POTASSIUM CHLORIDE TABS 20 MEQ TABLET.ER (FP) PO SCH (09:33)
[2021-07-11] MEDS: BUDESONIDE/FORMETEROL FUMARATE 160/4.5 mcg INHALER IH SCH ×2 (09:39→22:50)
[2021-07-11 15:34] LABS: EPI CELLS 2 /uL (0-25.1); HYALINE CASTS 4 /uL (0-3.1); PH,URINE 7.5 (5.0-8.0); URINE APPEARANCE CLOUDY; URINE BACTERIA 3417 /uL (0-1359); URINE BILIRUBIN NEGATIVE (NEGATIVE); URINE COLOR YELLOW; URINE GLUCOSE (UA) NEGATIVE (NEGATIVE); URINE KETONE NEGATIVE (NEGATIVE); URINE LEUK ESTERASE 3+ (NEGATIVE); URINE NITRITE POSITIVE (NEGATIVE); URINE PROTEIN NEGATIVE (NEGATIVE); URINE RBC 2 /uL (0-23.9); URINE UROBILINOGEN 0.2 mg/dL (0.2-1.0); URINE WBC 372 /uL (0-25.8)
[2021-07-11] MEDS: CEFUROXIME AXETIL 500 MG TABLET PO SCH (21:11)
[2021-07-11] MEDS: ATORVASTATIN CA 20 MG TABLET (FP) PO SCH (21:11)
[2021-07-12] MEDS: GABAPENTIN 300 MG CAPSULE PO SCH ×2 (05:17→14:27)
[2021-07-12 10:30] LABS: BASO % 0.9 % (0-2.0); HEMATOCRIT 31.2 % (32.4-45.2); HEMOGLOBIN 9.6 GM/dL (10.7-15.3); MCH 23.3 pg (25.7-33.7); MCHC 30.6 g/dl (32.0-36.0); MEAN CELL VOLUME 76.3 fl (80-96); MEAN PLT VOLUME 8.3 fl (7.5-11.1); MONO % 4.5 % (3.8-10.2); NEUT % 67.6 % (42.8-82.8); PLATELET COUNT 216 10^3/uL (134-434); RBC 4.09 M/mm3 (3.60-5.2); RDW 28.9 % (11.6-15.6)
[2021-07-12] MEDS: THIAMINE HCL 100 MG TABLET (FP) PO SCH (10:52)
[2021-07-12] MEDS: FUROSEMIDE 40 MG TABLET (FP) PO SCH (10:52)
[2021-07-12] MEDS: CEFUROXIME AXETIL 500 MG TABLET PO SCH (10:52)
[2021-07-12] MEDS: CHOLECALCIFEROL (VIT D3) 1,000 UNIT (25 MCG) TABLET PO SCH (10:53)
[2021-07-12] MEDS: POTASSIUM CHLORIDE TABS 20 MEQ TABLET.ER (FP) PO SCH (10:53)
[2021-07-12] MEDS: MULTIVITAMINS (DAILY MVI) TABLET (FP) PO SCH (10:53)
[2021-07-12] MEDS: PANTOPRAZOLE 40 MG TABLET PO SCH (10:53)
[2021-07-12] MEDS: APIXABAN 5 MG TABLET PO SCH (10:53)
[2021-07-12] MEDS: CLOTRIMAZOLE 1% CREAM TP SCH (10:54)
[2021-07-12] MEDS: BUDESONIDE/FORMETEROL FUMARATE 160/4.5 mcg INHALER IH SCH (10:54)
[2021-07-12 10:55] LABS: ALBUMIN 3.2 g/dl (3.4-5.0); BLOOD UREA NITROGEN 28.2 mg/dL (7-18); CALCIUM 9.1 mg/dL (8.5-10.1)
[2021-07-12 10:56] LABS: CREATININE 1.2 mg/dL (0.55-1.3)
[2021-07-12 10:58] LABS: TOT PROT 6.7 g/dl (6.4-8.2)
[2021-07-12 10:59] LABS: BILIRUBIN,TOTAL 0.6 mg/dL (0.2-1)
[2021-07-12 15:59] VITALS: BP 105/51; PULSE 86; TEMP 98.5
== END 2021-07-12 17:04 | disposition home or self-care (01) | DRG 378 ==
LOC: JER 15:29 → JERBED 19:34 → J4W 23:21 → J5S 07-10 18:45
PROVIDERS: ADMIT Internal Medicine; ATTEND Internal Medicine
PROC: 30233N1 Transfusion of Nonautologous Red Blood Cells into Peripheral Vein, Percutaneous Approach (ICD-10-PCS; 2021-07-02)
PROC: 0DB98ZX Excision of Duodenum, Via Natural or Artificial Opening Endoscopic, Diagnostic (ICD-10-PCS; 2021-07-05)
PROC: 0DB58ZX Excision of Esophagus, Via Natural or Artificial Opening Endoscopic, Diagnostic (ICD-10-PCS; 2021-07-05)
PROC: 0DJD8ZZ Inspection of Lower Intestinal Tract, Via Natural or Artificial Opening Endoscopic (ICD-10-PCS; principal; 2021-07-05 09:57)
DX: K57.91 Diverticulosis of intestine, part unspecified, without perforation or abscess with bleeding (principal); I50.32 Chronic diastolic (congestive) heart failure; I69.354 Hemiplegia and hemiparesis following cerebral infarction affecting left non-dominant side; I11.0 Hypertensive heart disease with heart failure; E78.5 Hyperlipidemia, unspecified; J45.909 Unspecified asthma, uncomplicated; I25.119 Atherosclerotic heart disease of native coronary artery with unspecified angina pectoris; E78.00 Pure hypercholesterolemia, unspecified; D50.9 Iron deficiency anemia, unspecified; R79.1 Abnormal coagulation profile; I48.0 Paroxysmal atrial fibrillation; K44.9 Diaphragmatic hernia without obstruction or gangrene; M54.50 Low back pain, unspecified; K25.4 Chronic or unspecified gastric ulcer with hemorrhage; Q27.33 Arteriovenous malformation of digestive system vessel; F41.9 Anxiety disorder, unspecified; E66.9 Obesity, unspecified; Z68.31 Body mass index [BMI] 31.0-31.9, adult; E86.1 Hypovolemia; K21.00 Gastro-esophageal reflux disease with esophagitis, without bleeding; K57.90 Diverticulosis of intestine, part unspecified, without perforation or abscess without bleeding; K64.8 Other hemorrhoids; Z98.84 Bariatric surgery status; Z95.0 Presence of cardiac pacemaker
CPT/HCPCS: 36415; 36430; 70450-TC; 71045-TC-FY; 76937; 80048; 80053; 81003; 82272; 82550; 82553; 84484; 85025; 85027; 85610; 85730; 86078; 86850; 86900; 86901; 86922; 87086; 88305-TC; 93005; 93010; 93306-TC; 94761; 97116-GP; 97161-GP; 99285-25; C9803; J0131; J1756; P9038; P9058; U0003; U0005

== ENCOUNTER 2022-03-23 20:07 | Inpatient (IN) | payer OTHER ==
[2022-03-23 20:19] VITALS: BMI 35.9
[2022-03-23] MEDS ORDERED: ACETAMINOPHEN 1000 MG/100 ML BAG IVPB ONE (21:28)
[2022-03-23] MEDS ORDERED: ACETAMINOPHEN INJECTION 100 ML IVPB ONE (21:28)
[2022-03-23 21:38] LABS: BASO % 0.3 % (0-2.0); HEMOGLOBIN 12.9 GM/dL (10.7-15.3); LYMPH % 9.8 % (8-40); MCH 28.9 pg (25.7-33.7); MCHC 32.3 g/dl (32.0-36.0); MEAN CELL VOLUME 89.6 fl (80-96); MEAN PLT VOLUME 8.5 fl (7.5-11.1); MONO % 9.3 % (3.8-10.2); NEUT % 80.6 % (42.8-82.8); PLATELET COUNT 207 10^3/uL (134-434); RBC 4.46 M/mm3 (3.60-5.2); RDW 16.6 % (11.6-15.6)
[2022-03-23 21:42] LABS: EPI CELLS >36 /uL (0-25.1); HYALINE CASTS 22 /uL (0-3.1); URINE APPEARANCE TURBID; URINE BACTERIA >9,000 /uL (0-1359); URINE BILIRUBIN NEGATIVE (NEGATIVE); URINE COLOR DK YELLOW; URINE GLUCOSE (UA) NEGATIVE (NEGATIVE); URINE KETONE TRACE (NEGATIVE); URINE LEUK ESTERASE 3+ (NEGATIVE); URINE NITRITE NEGATIVE (NEGATIVE); URINE PROTEIN 3+ (NEGATIVE); URINE WBC 17588 /uL (0-25.8)
[2022-03-23] MEDS ORDERED: CEFTRIAXONE 1 GM in DEXTROSE 5%-WATER - 100 ML IVPB ONE (22:04)
[2022-03-23 22:05] LABS: CALCIUM 9.1 mg/dL (8.5-10.1)
[2022-03-23 22:06] LABS: ALBUMIN 3.2 g/dl (3.4-5.0); BLOOD UREA NITROGEN 24.3 mg/dL (7-18)
[2022-03-23 22:09] LABS: CREATININE 1.3 mg/dL (0.55-1.3)
[2022-03-23 22:10] LABS: BILIRUBIN,TOTAL 0.6 mg/dL (0.2-1)
[2022-03-23 22:11] LABS: TOT PROT 6.9 g/dl (6.4-8.2)
[2022-03-23 22:19] LABS: URINE RBC 617 /uL (0-23.9)
[2022-03-23] MEDS ORDERED: CEFTRIAXONE 1 GM/50 ML BAG ONE (23:22)
[2022-03-24] MEDS ORDERED: ALBUTEROL SO4 HFA INHALER IH PRN (07:10)
[2022-03-24] MEDS: FERROUS SO4 325 MG TABLET (FP) PO SCH ×2 (07:58→17:20)
[2022-03-24] MEDS: ACETAMINOPHEN 1000 MG/100 ML BAG IVPB PRN (07:58)
[2022-03-24] MEDS: amLODIPine BESYLATE 10 MG TABLET (FP) PO SCH (09:09)
[2022-03-24] MEDS: BACLOFEN 10 MG TABLET (FP) PO PRN (09:09)
[2022-03-24] MEDS: PANTOPRAZOLE 40 MG TABLET PO SCH (09:09)
[2022-03-24] MEDS ORDERED: DABIGATRAN ETEXILATE MESYLATE 75 MG CAPSULE PO SCH (10:00)
[2022-03-24] MEDS: CEFTRIAXONE 1 GM in DEXTROSE 5%-WATER - 50 ML IVPB SCH (14:10)
[2022-03-24] MEDS: DABIGATRAN ETEXILATE MESYLATE 150 MG CAPSULE PO SCH (21:19)
[2022-03-24] MEDS: ATORVASTATIN CA 20 MG TABLET (FP) PO SCH (21:19)
[2022-03-24] MEDS: GABAPENTIN 300 MG CAPSULE PO SCH (21:19)
[2022-03-25] MEDS: BACLOFEN 10 MG TABLET (FP) PO PRN ×2 (05:42→15:48)
[2022-03-25] MEDS: ACETAMINOPHEN 1000 MG/100 ML BAG IVPB PRN (06:28)
[2022-03-25] MEDS: FERROUS SO4 325 MG TABLET (FP) PO SCH ×2 (08:42→17:08)
[2022-03-25] MEDS: CEFTRIAXONE 1 GM in DEXTROSE 5%-WATER - 50 ML IVPB SCH (09:00)
[2022-03-25] MEDS: DABIGATRAN ETEXILATE MESYLATE 150 MG CAPSULE PO SCH ×2 (09:00→22:00)
[2022-03-25] MEDS: amLODIPine BESYLATE 10 MG TABLET (FP) PO SCH (09:00)
[2022-03-25] MEDS: PANTOPRAZOLE 40 MG TABLET PO SCH (09:00)
[2022-03-25] MEDS: GABAPENTIN 100 MG CAPSULE PO SCH (09:06)
[2022-03-25] MEDS: ACETAMINOPHEN 325 MG TABLET (FP) PO PRN ×2 (09:54→16:21)
[2022-03-25 10:33] LABS: BASO % 0.4 % (0-2.0); EOS % 4.4 % (0-4.5); HEMATOCRIT 38.1 % (32.4-45.2); HEMOGLOBIN 12.3 GM/dL (10.7-15.3); LYMPH % 18.5 % (8-40); MCH 28.7 pg (25.7-33.7); MCHC 32.2 g/dl (32.0-36.0); MEAN CELL VOLUME 89.3 fl (80-96); MEAN PLT VOLUME 8.8 fl (7.5-11.1); MONO % 11.7 % (3.8-10.2); PLATELET COUNT 208 10^3/uL (134-434); RBC 4.26 M/mm3 (3.60-5.2); RDW 16.3 % (11.6-15.6); WHITE BLOOD COUNT 5.4 K/mm3 (4.0-10.0)
[2022-03-25 11:03] LABS: BLOOD UREA NITROGEN 27.7 mg/dL (7-18); CALCIUM 8.1 mg/dL (8.5-10.1); CREATININE 1.3 mg/dL (0.55-1.3)
[2022-03-25 11:04] LABS: ALBUMIN 2.7 g/dl (3.4-5.0)
[2022-03-25 11:06] LABS: BILIRUBIN,TOTAL 0.4 mg/dL (0.2-1); TOT PROT 5.9 g/dl (6.4-8.2)
[2022-03-25] MEDS: ATORVASTATIN CA 20 MG TABLET (FP) PO SCH (22:00)
[2022-03-25] MEDS: GABAPENTIN 300 MG CAPSULE PO SCH (22:00)
[2022-03-26] MEDS: ACETAMINOPHEN 325 MG TABLET (FP) PO PRN (05:48)
[2022-03-26] MEDS: FERROUS SO4 325 MG TABLET (FP) PO SCH ×2 (08:20→17:10)
[2022-03-26] MEDS: CEFTRIAXONE 1 GM in DEXTROSE 5%-WATER - 50 ML IVPB SCH (09:15)
[2022-03-26] MEDS: PANTOPRAZOLE 40 MG TABLET PO SCH (09:15)
[2022-03-26] MEDS: GABAPENTIN 100 MG CAPSULE PO SCH (09:15)
[2022-03-26] MEDS: DABIGATRAN ETEXILATE MESYLATE 150 MG CAPSULE PO SCH ×2 (09:15→21:44)
[2022-03-26] MEDS: amLODIPine BESYLATE 10 MG TABLET (FP) PO SCH (09:15)
[2022-03-26] MEDS ORDERED: POTASSIUM CHLORIDE ORAL LIQUID 20 MEQ/15 ML PO ONE (11:51)
[2022-03-26] MEDS: ATORVASTATIN CA 20 MG TABLET (FP) PO SCH (21:44)
[2022-03-26] MEDS: GABAPENTIN 300 MG CAPSULE PO SCH (21:44)
[2022-03-27] MEDS: BACLOFEN 10 MG TABLET (FP) PO PRN (06:09)
[2022-03-27] MEDS: FERROUS SO4 325 MG TABLET (FP) PO SCH ×2 (08:11→16:44)
[2022-03-27] MEDS: DABIGATRAN ETEXILATE MESYLATE 150 MG CAPSULE PO SCH ×2 (09:08→22:18)
[2022-03-27] MEDS: CEFTRIAXONE 1 GM in DEXTROSE 5%-WATER - 50 ML IVPB SCH (09:08)
[2022-03-27] MEDS: amLODIPine BESYLATE 10 MG TABLET (FP) PO SCH (09:08)
[2022-03-27] MEDS: PANTOPRAZOLE 40 MG TABLET PO SCH (09:08)
[2022-03-27] MEDS: GABAPENTIN 100 MG CAPSULE PO SCH (09:08)
[2022-03-27 11:33] VITALS: RESP 18
[2022-03-27] MEDS: ATORVASTATIN CA 20 MG TABLET (FP) PO SCH (22:18)
[2022-03-27] MEDS: GABAPENTIN 300 MG CAPSULE PO SCH (22:18)
[2022-03-28] MEDS: FERROUS SO4 325 MG TABLET (FP) PO SCH (07:57)
[2022-03-28] MEDS: amLODIPine BESYLATE 10 MG TABLET (FP) PO SCH (09:12)
[2022-03-28] MEDS: GABAPENTIN 100 MG CAPSULE PO SCH (09:12)
[2022-03-28] MEDS: PANTOPRAZOLE 40 MG TABLET PO SCH (09:12)
[2022-03-28] MEDS: DABIGATRAN ETEXILATE MESYLATE 150 MG CAPSULE PO SCH (09:12)
[2022-03-28] MEDS: CEFTRIAXONE 1 GM in DEXTROSE 5%-WATER - 50 ML IVPB SCH (10:18)
[2022-03-28 12:09] VITALS: BP 119/79; PULSE 68; TEMP 99
== END 2022-03-28 16:35 | disposition home or self-care (01) | DRG 690 ==
LOC: JER 20:07 → JERBED 03-24 02:28 → J6S 03-24 04:18
PROVIDERS: ADMIT Internal Medicine; ATTEND Internal Medicine
DX: N39.0 Urinary tract infection, site not specified (principal); I50.32 Chronic diastolic (congestive) heart failure; I69.354 Hemiplegia and hemiparesis following cerebral infarction affecting left non-dominant side; I48.91 Unspecified atrial fibrillation; Z79.01 Long term (current) use of anticoagulants; I11.0 Hypertensive heart disease with heart failure; E78.5 Hyperlipidemia, unspecified; D64.9 Anemia, unspecified; E03.9 Hypothyroidism, unspecified; Z86.16 Personal history of COVID-19; M54.30 Sciatica, unspecified side; Z95.0 Presence of cardiac pacemaker
CPT/HCPCS: 36415; 71045-TC-FY; 74178-TC; 80048; 80053; 81003; 83605; 84484; 85025; 87086; 87186; 93005; 93010; 97116-GP; 97161-GP; 99285-25; C9803-CS; J0475; U0003; U0005

== ENCOUNTER 2022-06-30 18:54 | Emergency (ER) | payer OTHER ==
[2022-06-30 19:03] VITALS: BP 154/73; PULSE 88; RESP 16; TEMP 98.8; BMI 35.9
[2022-06-30] MEDS ORDERED: ACETAMINOPHEN 500 MG TABLET (FP) PO ONE (19:34)
[2022-06-30] MEDS ORDERED: ACETAMINOPHEN 500 MG TABLET (FP) ONE (19:45)
[2022-06-30] MEDS ORDERED: KETOROLAC TROMETHAMINE 30 MG/1 ML VIAL IM ONE (21:25)
[2022-06-30] MEDS ORDERED: KETOROLAC TROMETHAMINE 30 MG/1 ML VIAL ONE (21:55)
== END 2022-06-30 22:03 | disposition home or self-care (01) ==
LOC: JERFT 18:54
PROC: 3E023GC Introduction of Other Therapeutic Substance into Muscle, Percutaneous Approach (ICD-10-PCS; principal; 2022-06-30)
DX: M79.601 Pain in right arm (principal); M25.561 Pain in right knee; W19.XXXA Unspecified fall, initial encounter
CPT/HCPCS: 73030-TC-RT-FY; 73060-TC-RT-FY; 73070-TC-RT-FY; 73090-TC-RT-FY; 73110-TC-RT-FY; 73130-TC-RT-FY; 73502-TC-RT-FY; 73562-TC-RT-FY; 99284-25

== ENCOUNTER 2023-05-27 04:44 | Inpatient (IN) | payer OTHER ==
[2023-05-27 05:05] VITALS: BMI 34.0
[2023-05-27] MEDS ORDERED: ONDANSETRON 4 MG/2 ML VIAL ONE (05:26)
[2023-05-27] MEDS ORDERED: ACETAMINOPHEN INJECTION 100 ML IVPB ONE (05:26)
[2023-05-27] MEDS ORDERED: MAG HYDROX/AL HYDROX/SIMETH 30 ML UNIT-DOSE CUP ONE (05:26)
[2023-05-27] MEDS: ACETAMINOPHEN 1000 MG/100 ML BAG IVPB ONE (05:32)
[2023-05-27] MEDS: ONDANSETRON 4 MG/2 ML VIAL IVPUSH ONE (05:32)
[2023-05-27] MEDS: SODIUM CHLORIDE 500 ML IV STA (05:32)
[2023-05-27] MEDS: MAG HYDROX/AL HYDROX/SIMETH 30 ML UNIT-DOSE CUP PO ONE (05:32)
[2023-05-27] MEDS ORDERED: FAMOTIDINE 20 MG/50 ML IVPB 20 MG/50 ML MG IVPB ONE (05:42)
[2023-05-27] MEDS: FAMOTIDINE 20 MG/50 ML IVPB 20 MG/50 ML MG IVPB ONE (05:51)
[2023-05-27 06:20] LABS: INR 1.24 (0.83-1.09); PROTHROMBIN TIME (PATIENT) 14.3 SEC (9.7-13.0)
[2023-05-27 06:21] LABS: BASO % 0.5 % (0-2.0); EOS % 0.2 % (0-4.5); HEMATOCRIT 44.3 % (32.4-45.2); HEMOGLOBIN 14.9 GM/dL (10.7-15.3); LYMPH % 11.5 % (8-40); MCH 30.4 pg (25.7-33.7); MCHC 33.6 g/dl (32.0-36.0); MEAN CELL VOLUME 90.5 fl (80-96); MONO % 6.5 % (3.8-10.2); NEUT % 81.3 % (42.8-82.8); PLATELET COUNT 257 10^3/uL (134-434); RBC 4.89 M/mm3 (3.60-5.2); RDW 15.3 % (11.6-15.6); WHITE BLOOD COUNT 10.8 K/mm3 (4.0-10.0)
[2023-05-27 06:22] LABS: POTASSIUM 4.4 mmol/L (3.5-5.1)
[2023-05-27 06:22] LABS: EPI CELLS 24 /uL (0-25.1); HYALINE CASTS 8 /uL (0-3.1); PH,URINE 6.5 (5.0-8.0); URINE APPEARANCE TURBID; URINE BACTERIA >9,000 /uL (0-1359); URINE BILIRUBIN 1+ (NEGATIVE); URINE COLOR RED; URINE GLUCOSE (UA) TRACE (NEGATIVE); URINE KETONE NEGATIVE (NEGATIVE); URINE LEUK ESTERASE 2+ (NEGATIVE); URINE NITRITE POSITIVE (NEGATIVE); URINE PROTEIN 4+ (NEGATIVE); URINE UROBILINOGEN 0.2 mg/dL (0.2-1.0); URINE WBC 1428 /uL (0-25.8)
[2023-05-27 06:23] LABS: ACTIVATED PTT 47.2 SECONDS (25.2-36.5)
[2023-05-27 06:24] LABS: ALBUMIN 3.2 g/dl (3.4-5.0); CALCIUM 9.2 mg/dL (8.5-10.1)
[2023-05-27 06:29] LABS: CREATININE 1.1 mg/dL (0.55-1.3)
[2023-05-27 06:43] LABS: BILIRUBIN,TOTAL 0.3 mg/dL (0.2-1)
[2023-05-27] MEDS ORDERED: CEFTRIAXONE 1 GM/50 ML BAG ONE ×2 (06:44→07:39)
[2023-05-27] MEDS: CEFTRIAXONE 1 GM in DEXTROSE 5%-WATER - 100 ML IVPB ONE (06:49)
[2023-05-27] MEDS: CEFTRIAXONE 1,000 MG in DEXTROSE 5%-WATER - 50 ML IVPB ONE (08:05)
[2023-05-27 09:05] LABS: URINE RBC 24201 /uL (0-23.9); YEAST NEGATIVE (NEGATIVE)
[2023-05-27] MEDS: KETOROLAC TROMETHAMINE 15 MG/ML VIAL IVPUSH ONE (09:22)
[2023-05-27] MEDS ORDERED: morphine SULFATE 4 MG/ML VIAL ONE (09:25)
[2023-05-27] MEDS: morphine CARPU-JECT 4 MG/1 ML DISP.SYRIN IVPUSH ONE (09:35)
[2023-05-27] MEDS ORDERED: ALBUTEROL SO4 HFA INHALER IH PRN (12:11)
[2023-05-27] MEDS ORDERED: METOPROLOL TARTRATE 50 MG TABLET (FP) ONE (19:47)
[2023-05-27] MEDS: METOPROLOL TARTRATE 50 MG TABLET (FP) PO ONE (19:52)
[2023-05-27] MEDS ORDERED: ATORVASTATIN CA 20 MG TABLET (FP) ONE (21:18)
[2023-05-27] MEDS: ATORVASTATIN CA 20 MG TABLET (FP) PO SCH (21:22)
[2023-05-27] MEDS ORDERED: DABIGATRAN ETEXILATE MESYLATE 75 MG CAPSULE PO SCH (22:00)
[2023-05-28 05:45] LABS: BASO % 0.6 % (0-2.0); EOS % 1.2 % (0-4.5); HEMATOCRIT 40.6 % (32.4-45.2); HEMOGLOBIN 13.4 GM/dL (10.7-15.3); LYMPH % 9.9 % (8-40); MCH 29.9 pg (25.7-33.7); MEAN CELL VOLUME 90.6 fl (80-96); MEAN PLT VOLUME 8.3 fl (7.5-11.1); MONO % 5.7 % (3.8-10.2); NEUT % 82.6 % (42.8-82.8); PLATELET COUNT 224 10^3/uL (134-434); RBC 4.48 M/mm3 (3.60-5.2); RDW 15.3 % (11.6-15.6); WHITE BLOOD COUNT 8.3 K/mm3 (4.0-10.0)
[2023-05-28 06:03] LABS: POTASSIUM 4.5 mmol/L (3.5-5.1)
[2023-05-28 06:06] LABS: CALCIUM 8.7 mg/dL (8.5-10.1)
[2023-05-28 06:07] LABS: ALBUMIN 2.7 g/dl (3.4-5.0); BLOOD UREA NITROGEN 13.1 mg/dL (7-18)
[2023-05-28 06:11] LABS: TOT PROT 5.9 g/dl (6.4-8.2)
[2023-05-28 06:50] LABS: BILIRUBIN,TOTAL 0.8 mg/dL (0.2-1)
[2023-05-28 09:03] LABS: MAGNESIUM 2.1 mg/dL (1.8-2.4)
[2023-05-28] MEDS: PANTOPRAZOLE 40 MG TABLET PO SCH (09:12)
[2023-05-28] MEDS: amLODIPine BESYLATE 10 MG TABLET (FP) PO SCH (09:12)
[2023-05-28] MEDS ORDERED: CEFTRIAXONE 1,000 MG in DEXTROSE 5%-WATER - 50 ML IVPB SCH (09:45)
[2023-05-28] MEDS ORDERED: ALBUTEROL SO4 HFA INHALER IH SCH (10:00)
[2023-05-28] MEDS: ERTAPENEM SODIUM 1 GM in SODIUM CHLORIDE 50 ML IVPB SCH (10:36)
[2023-05-29 16:58] LABS: N-TERMINAL BNP 815.4 pg/ml (5-450)
[2023-05-30 09:38] LABS: N-TERMINAL BNP 1227.4 pg/ml (5-450)
[2023-05-30] MEDS: ENOXAPARIN NA (PORCINE) 80 MG/0.8 ML DISP.SYRIN SQ SCH (14:28)
[2023-05-31] MEDS ORDERED: LIDOCAINE HCL/PF 2% SDV 5ML VIAL ONE (15:38)
[2023-05-31] MEDS ORDERED: ONDANSETRON 4 MG/2 ML VIAL IVPUSH PRN ×2 (16:10→16:29)
[2023-05-31] MEDS ORDERED: PROMETHAZINE HCL 25 MG/1 ML VIAL IVPB PRN ×2 (16:10→16:29)
[2023-05-31] MEDS ORDERED: LACTATED RINGERS SOLUTION 1,000 ML IV SCH ×2 (16:15→16:29)
[2023-05-31] MEDS ORDERED: ALBUTEROL SO4 HFA INHALER IH PRN (16:29)
[2023-05-31] MEDS ORDERED: SODIUM CHLORIDE 1,000 ML IV SCH (16:29)
[2023-05-31] MEDS: SODIUM CHLORIDE 1,000 ML IV SCH (17:15)
[2023-05-31] MEDS ORDERED: ENOXAPARIN NA (PORCINE) 80 MG/0.8 ML DISP.SYRIN SQ SCH (22:00)
[2023-05-31] MEDS: ATORVASTATIN CA 20 MG TABLET (FP) PO SCH (22:03)
[2023-06-01 07:57] LABS: BASO % 0.5 % (0-2.0); EOS % 3.5 % (0-4.5); HEMATOCRIT 42.3 % (32.4-45.2); HEMOGLOBIN 13.9 GM/dL (10.7-15.3); LYMPH % 27.4 % (8-40); MCH 29.6 pg (25.7-33.7); MCHC 32.9 g/dl (32.0-36.0); MEAN PLT VOLUME 8.8 fl (7.5-11.1); MONO % 11.1 % (3.8-10.2); NEUT % 57.5 % (42.8-82.8); PLATELET COUNT 229 10^3/uL (134-434); WHITE BLOOD COUNT 6.2 K/mm3 (4.0-10.0)
[2023-06-01 08:32] LABS: POTASSIUM 4.2 mmol/L (3.5-5.1)
[2023-06-01 08:41] LABS: ALBUMIN 2.7 g/dl (3.4-5.0); BLOOD UREA NITROGEN 14.5 mg/dL (7-18); CREATININE 0.8 mg/dL (0.55-1.3)
[2023-06-01 08:52] LABS: BILIRUBIN,TOTAL 0.5 mg/dL (0.2-1)
[2023-06-01] MEDS: amLODIPine BESYLATE 10 MG TABLET (FP) PO SCH (10:31)
[2023-06-01] MEDS: PANTOPRAZOLE 40 MG TABLET PO SCH (10:32)
[2023-06-01] MEDS: ENOXAPARIN NA (PORCINE) 80 MG/0.8 ML DISP.SYRIN SQ SCH (10:37)
[2023-06-01] MEDS: ERTAPENEM SODIUM 1 GM in SODIUM CHLORIDE 50 ML IVPB SCH (11:43)
[2023-06-03] MEDS ORDERED: DABIGATRAN ETEXILATE MESYLATE 110 MG PO SCH (22:00)
[2023-06-04 11:56] VITALS: RESP 16
[2023-06-04 15:35] VITALS: BP 98/50; PULSE 60; TEMP 97.8
== END 2023-06-04 18:43 | disposition home or self-care (01) | DRG 669 ==
LOC: JER 04:44 → JERBED 06:38 → J4S 05-28 09:38
PROVIDERS: ADMIT Internal Medicine; ATTEND Internal Medicine
PROC: 0TBB8ZX Excision of Bladder, Via Natural or Artificial Opening Endoscopic, Diagnostic (ICD-10-PCS; principal; 2023-05-31 17:30)
PROC: 0WBH3ZX Excision of Retroperitoneum, Percutaneous Approach, Diagnostic (ICD-10-PCS; 2023-06-02)
DX: N39.0 Urinary tract infection, site not specified (principal); I48.20 Chronic atrial fibrillation, unspecified; I50.32 Chronic diastolic (congestive) heart failure; I69.354 Hemiplegia and hemiparesis following cerebral infarction affecting left non-dominant side; N30.90 Cystitis, unspecified without hematuria; E78.5 Hyperlipidemia, unspecified; J45.909 Unspecified asthma, uncomplicated; I11.0 Hypertensive heart disease with heart failure; R59.9 Enlarged lymph nodes, unspecified; B96.1 Klebsiella pneumoniae [K. pneumoniae] as the cause of diseases classified elsewhere
CPT/HCPCS: 0241U-QW; 36415; 71045-TC-FY; 71250-TC; 74177-TC; 76942-TC; 80053; 80061; 81003; 82962; 83605; 83690; 83735; 83880; 84439; 84443; 84484; 85025; 85610; 85730; 87040; 87086; 87186; 88108; 88305-TC; 88341-TC; 93005; 93010; 94760; 99285-25; J0131; Q9967

== ENCOUNTER 2023-10-09 13:45 | Day surgery (SDC) | payer OTHER ==
[2023-10-06 15:23] VITALS: BMI 31.8
[2023-10-09 08:56] LABS: INR 1.02 (0.83-1.09); PROTHROMBIN TIME (PATIENT) 11.5 SEC (9.7-13.0)
[2023-10-09 08:57] LABS: BASO % 0.2 % (0-2.0); HEMATOCRIT 40.7 % (32.4-45.2); HEMOGLOBIN 13.5 GM/dL (10.7-15.3); LYMPH % 11.4 % (8-40); MCH 29.6 pg (25.7-33.7); MCHC 33.2 g/dl (32.0-36.0); MEAN CELL VOLUME 89.2 fl (80-96); MEAN PLT VOLUME 8.4 fl (7.5-11.1); MONO % 1.1 % (3.8-10.2); NEUT % 87.3 % (42.8-82.8); PLATELET COUNT 235 10^3/uL (134-434); RBC 4.57 M/mm3 (3.60-5.2); RDW 15.2 % (11.6-15.6)
[2023-10-09 09:08] LABS: CALCIUM 9.3 mg/dL (8.5-10.1)
[2023-10-09 09:09] LABS: BLOOD UREA NITROGEN 16.1 mg/dL (7-18)
[2023-10-09] MEDS: FENTANYL CITRATE/PF 50 MCG/ML VIAL IVPUSH ONE ×2 (10:50→11:00)
[2023-10-09] MEDS: MIDAZOLAM HCL 2 MG/2 ML SINGLE DOSE VIAL IVPUSH ONE ×2 (10:50→11:00)
[2023-10-09 12:08] VITALS: RESP 20
[2023-10-09] MEDS: FOSAPREPITANT DIMEGLUMINE 150 MG in SODIUM CHLORIDE 145 ML IVPB ONE (13:29)
[2023-10-09] MEDS: SODIUM CHLORIDE 250 ML IV ONE (13:30)
[2023-10-09] MEDS: PORTA CATH FLUSH 10 ML IVPUSH PRN (13:32)
[2023-10-09] MEDS: DEXAMETHASONE SODIUM PHOSPHATE 10 MG, DIPHENHYDRAMINE 25 MG in SODIUM CHLORIDE 100 ML IVPB ONE (14:05)
[2023-10-09] MEDS: FAMOTIDINE/PF 20 MG in SODIUM CHLORIDE 50 ML IVPB ONE (14:36)
[2023-10-09] MEDS: SODIUM CHLORIDE 0.9% IVPB ONE (15:09)
[2023-10-09] MEDS: PALONOSETRON HCL 0.25 MG/5 ML VIAL IVPUSH ONE (15:09)
[2023-10-09] MEDS: PACLITAXEL IVPB ONE (15:09)
[2023-10-09] MEDS: SODIUM CHLORIDE IVPB ONE (18:26)
[2023-10-09] MEDS: CARBOPLATIN IVPB ONE (18:26)
[2023-10-09] MEDS ORDERED: PORTA CATH FLUSH 10 ML IVPUSH PRN (18:47)
[2023-10-09 19:00] VITALS: BP 136/58; PULSE 81; TEMP 98.5
== END 2023-10-09 19:21 | disposition home or self-care (01) ==
LOC: JONCCHEMO 13:45 → J7W 13:46 → JONCCHEMO 19:21
PROVIDERS: ATTEND Internal Medicine Hematology & Oncology
PROC: 0JH63WZ Insertion of Totally Implantable Vascular Access Device into Chest Subcutaneous Tissue and Fascia, Percutaneous Approach (ICD-10-PCS; principal; 2023-10-09)
PROC: 3E04305 Introduction of Other Antineoplastic into Central Vein, Percutaneous Approach (ICD-10-PCS; 2023-10-09)
DX: C57.9 Malignant neoplasm of female genital organ, unspecified (principal)
CPT/HCPCS: 36415; 36561; 80048; 85025; 85610; 96367; 96375; 96413; 96415; 96417; J1453; J2469

== ENCOUNTER 2023-10-10 18:30 | Day surgery (SDC) | payer OTHER ==
[2023-10-10] MEDS: PEGFILGRASTIM-CBQV (UDENYCA) 6 MG/0.6 ML SYRINGE SQ ONE (18:38)
[2023-10-10 18:53] VITALS: BP 117/69; PULSE 42; RESP 20; TEMP 98.1
== END 2023-10-10 18:53 | disposition home or self-care (01) ==
LOC: J7W 18:30 → JONCCHEMO 18:30
PROVIDERS: ATTEND Internal Medicine Hematology & Oncology
PROC: 3E013GC Introduction of Other Therapeutic Substance into Subcutaneous Tissue, Percutaneous Approach (ICD-10-PCS; principal; 2023-10-10)
DX: C57.9 Malignant neoplasm of female genital organ, unspecified (principal); Z76.89 Persons encountering health services in other specified circumstances
CPT/HCPCS: 96372; Q5111

== ENCOUNTER 2023-10-17 11:57 | Day surgery (SDC) | payer OTHER ==
[2023-10-17 12:41] LABS: HEMATOCRIT 37.1 % (32.4-45.2); HEMOGLOBIN 12.2 GM/dL (10.7-15.3); MCH 29.2 pg (25.7-33.7); MCHC 32.9 g/dl (32.0-36.0); MEAN CELL VOLUME 88.8 fl (80-96); MEAN PLT VOLUME 9.6 fl (7.5-11.1); PLATELET COUNT 40 10^3/uL (134-434); RBC 4.18 M/mm3 (3.60-5.2); RDW 15.3 % (11.6-15.6); WHITE BLOOD COUNT 2.7 K/mm3 (4.0-10.0)
[2023-10-17] MEDS: D5-NS + 20 MEQ KCL - 20 MEQ/1,000 ML INFUS.BAG IV ONE (12:47)
[2023-10-17 12:57] LABS: CHLORIDE 102 mmol/L (98-107); POTASSIUM 3.6 mmol/L (3.5-5.1); SODIUM 134 mmol/L (136-145)
[2023-10-17 13:00] LABS: ALBUMIN 2.2 g/dl (3.4-5.0); AMYLASE 18 U/L (25-115); ANION GAP 9 mmol/L (4-13); CALCIUM 8.6 mg/dL (8.5-10.1); CO2 23 mmol/L (21-32); GLUCOSE,RANDOM 86 mg/dL (74-106); MAGNESIUM 1.8 mg/dL (1.8-2.4)
[2023-10-17 13:02] LABS: CREATININE 1.5 mg/dL (0.55-1.3); SGOT/AST 8 U/L (15-37)
[2023-10-17 13:04] LABS: BILIRUBIN,TOTAL 2.5 mg/dL (0.2-1); SGPT/ALT 16 U/L (13-61); TOT PROT 5.3 g/dl (6.4-8.2)
[2023-10-17 13:05] LABS: ALK PHOS 96 U/L (45-117)
[2023-10-17] MEDS: FAMOTIDINE/PF 20 MG in SODIUM CHLORIDE 50 ML IVPB ONE (13:09)
[2023-10-17] MEDS: FAMOTIDINE 20 MG/50 ML IVPB 20 MG/50 ML MG IVPB ONE (14:09)
[2023-10-17 14:18] LABS: ANISOCYTOSIS 0; MACROCYTOSIS 0
[2023-10-17] MEDS: PORTA CATH FLUSH 10 ML IVPUSH PRN (15:47)
[2023-10-17 17:06] VITALS: RESP 20; TEMP 98.5
[2023-10-18 07:23] VITALS: BP 96/49; PULSE 102
== END 2023-10-17 16:10 | disposition home or self-care (01) ==
LOC: JONCNONCHE 11:57 → J7W 12:03 → JONCNONCHE 16:10
PROVIDERS: ATTEND Internal Medicine Hematology & Oncology
PROC: 3E043GC Introduction of Other Therapeutic Substance into Central Vein, Percutaneous Approach (ICD-10-PCS; principal; 2023-10-17)
DX: C57.9 Malignant neoplasm of female genital organ, unspecified (principal); Z76.89 Persons encountering health services in other specified circumstances
CPT/HCPCS: 36415; 74018-TC-FY; 80053; 82150; 83690; 83735; 85025; 96361; 96365

== ENCOUNTER 2023-10-18 16:00 | Day surgery (SDC) | payer OTHER ==
[2023-10-18] MEDS: PORTA CATH FLUSH 10 ML IVPUSH PRN (16:19)
[2023-10-18] MEDS: FAMOTIDINE/PF 20 MG in SODIUM CHLORIDE 50 ML IVPB ONE (16:19)
[2023-10-18] MEDS: D5-1/2NS+20 MEQ KCL - 20 MEQ/1,000 ML INFUS.BAG IV ONE (16:19)
[2023-10-18 16:32] VITALS: RESP 20; TEMP 98.7
[2023-10-18] MEDS: MAGNESIUM 1GM/D5W - 1 GM/100 ML IVPB IVPB ONE (16:54)
[2023-10-18 18:50] VITALS: BP 107/52; PULSE 95
== END 2023-10-18 19:14 | disposition home or self-care (01) ==
LOC: J7W 16:00 → JONCNONCHE 16:00
PROVIDERS: ATTEND Internal Medicine Hematology & Oncology
PROC: 3E043GC Introduction of Other Therapeutic Substance into Central Vein, Percutaneous Approach (ICD-10-PCS; principal; 2023-10-18)
DX: C57.9 Malignant neoplasm of female genital organ, unspecified (principal); Z76.89 Persons encountering health services in other specified circumstances
CPT/HCPCS: 96361; 96365; 96367

== ENCOUNTER 2023-10-31 11:49 | Day surgery (SDC) | payer OTHER ==
[2023-10-31] MEDS: SODIUM CHLORIDE 250 ML IV ONE (12:53)
[2023-10-31 12:58] LABS: BASO % 0.2 % (0-2.0); HEMATOCRIT 34.3 % (32.4-45.2); HEMOGLOBIN 11.5 GM/dL (10.7-15.3); LYMPH % 15.4 % (8-40); MCH 29.4 pg (25.7-33.7); MCHC 33.4 g/dl (32.0-36.0); MEAN CELL VOLUME 87.9 fl (80-96); MEAN PLT VOLUME 7.5 fl (7.5-11.1); MONO % 0.9 % (3.8-10.2); NEUT % 83.5 % (42.8-82.8); PLATELET COUNT 413 10^3/uL (134-434); RDW 15.2 % (11.6-15.6); WHITE BLOOD COUNT 5.1 K/mm3 (4.0-10.0)
[2023-10-31] MEDS ORDERED: CARBOPLATIN IVPB ONE (13:30)
[2023-10-31] MEDS ORDERED: SODIUM CHLORIDE IVPB ONE (13:30)
[2023-10-31 13:59] LABS: POTASSIUM 4.6 mmol/L (3.5-5.1)
[2023-10-31 14:01] LABS: ALBUMIN 2.5 g/dl (3.4-5.0); BLOOD UREA NITROGEN 12.9 mg/dL (7-18); CALCIUM 8.9 mg/dL (8.5-10.1)
[2023-10-31 14:04] LABS: CREATININE 0.8 mg/dL (0.55-1.3)
[2023-10-31 14:06] LABS: BILIRUBIN,TOTAL 0.7 mg/dL (0.2-1)
[2023-10-31 14:07] LABS: TOT PROT 6.6 g/dl (6.4-8.2)
[2023-10-31] MEDS: FOSAPREPITANT DIMEGLUMINE 150 MG in SODIUM CHLORIDE 145 ML IVPB ONE (14:43)
[2023-10-31 15:05] LABS: EPI CELLS 2 /uL (0-25.1); HYALINE CASTS 1 /uL (0-3.1); URINE APPEARANCE CLOUDY; URINE BACTERIA >9,000 /uL (0-1359); URINE BILIRUBIN NEGATIVE (NEGATIVE); URINE COLOR YELLOW; URINE GLUCOSE (UA) NEGATIVE (NEGATIVE); URINE KETONE NEGATIVE (NEGATIVE); URINE LEUK ESTERASE 3+ (NEGATIVE); URINE NITRITE NEGATIVE (NEGATIVE); URINE PROTEIN 1+ (NEGATIVE); URINE RBC 52 /uL (0-23.9); URINE WBC 690 /uL (0-25.8)
[2023-10-31] MEDS: FAMOTIDINE 20 MG/50 ML IVPB 20 MG/50 ML MG IVPB ONE (15:24)
[2023-10-31] MEDS: PALONOSETRON HCL 0.25 MG/5 ML VIAL IVPUSH ONE (15:32)
[2023-10-31] MEDS: DEXAMETHASONE SODIUM PHOSPHATE 10 MG, DIPHENHYDRAMINE 25 MG in SODIUM CHLORIDE 100 ML IVPB ONE (16:01)
[2023-10-31] MEDS: PACLITAXEL IVPB ONE (16:34)
[2023-10-31] MEDS: SODIUM CHLORIDE 0.9% IVPB ONE (16:34)
[2023-10-31 17:01] VITALS: RESP 20; TEMP 98.4
[2023-10-31] MEDS: SODIUM CHLORIDE IVPB ONE (19:46)
[2023-10-31] MEDS: CARBOPLATIN IVPB ONE (19:46)
[2023-10-31 20:33] VITALS: BP 155/86; PULSE 88
== END 2023-10-31 20:34 | disposition home or self-care (01) ==
LOC: J7W 11:49 → JONCCHEMO 11:49
PROVIDERS: ATTEND Internal Medicine Hematology & Oncology
DX: Z51.11 Encounter for antineoplastic chemotherapy (principal); C57.9 Malignant neoplasm of female genital organ, unspecified
CPT/HCPCS: 36415; 80053; 81003; 83735; 85025; 87086; 87186; 96367; 96375; 96413; 96415; 96417; J1453; J2469

== ENCOUNTER 2023-11-01 15:30 | Day surgery (SDC) | payer OTHER ==
[2023-11-01] MEDS: FAMOTIDINE 20 MG/50 ML IVPB 20 MG/50 ML MG IVPB ONE (15:50)
[2023-11-01] MEDS: D5-NS + 20 MEQ KCL - 20 MEQ/1,000 ML INFUS.BAG IV ONE (16:08)
[2023-11-01 17:05] VITALS: TEMP 98.7
[2023-11-01] MEDS: PEGFILGRASTIM-CBQV (UDENYCA) 6 MG/0.6 ML SYRINGE SQ ONE (18:16)
[2023-11-01 18:52] VITALS: BP 116/46; PULSE 20; RESP 73
[2023-11-01] MEDS: PORTA CATH FLUSH 10 ML IVPUSH PRN (18:53)
== END 2023-11-01 18:55 | disposition home or self-care (01) ==
LOC: J7W 15:30 → JONCCHEMO 15:30
PROVIDERS: ATTEND Internal Medicine Hematology & Oncology
PROC: 3E043GC Introduction of Other Therapeutic Substance into Central Vein, Percutaneous Approach (ICD-10-PCS; principal; 2023-11-01)
PROC: 3E013GC Introduction of Other Therapeutic Substance into Subcutaneous Tissue, Percutaneous Approach (ICD-10-PCS; 2023-11-01)
DX: Z76.89 Persons encountering health services in other specified circumstances (principal); C57.9 Malignant neoplasm of female genital organ, unspecified
CPT/HCPCS: 96365; 96366; 96367; 96372; Q5111

== ENCOUNTER 2023-11-02 15:04 | Day surgery (SDC) | payer OTHER ==
[2023-11-02] MEDS: FAMOTIDINE 20 MG/50 ML IVPB 20 MG/50 ML MG IVPB ONE (14:29)
[2023-11-02] MEDS: D5-NS + 20 MEQ KCL - 20 MEQ/1,000 ML INFUS.BAG IV ONE (14:29)
[2023-11-02 15:52] VITALS: RESP 20; TEMP 97.6
[2023-11-02] MEDS: PORTA CATH FLUSH 10 ML IVPUSH PRN (17:51)
[2023-11-02 17:52] VITALS: BP 145/51; PULSE 70
== END 2023-11-02 18:08 | disposition home or self-care (01) ==
LOC: JONCCHEMO 15:04 → J7W 15:05 → JONCCHEMO 18:08
PROVIDERS: ATTEND Internal Medicine Hematology & Oncology
PROC: 3E033GC Introduction of Other Therapeutic Substance into Peripheral Vein, Percutaneous Approach (ICD-10-PCS; principal; 2023-11-02)
PROC: 3E0337Z Introduction of Electrolytic and Water Balance Substance into Peripheral Vein, Percutaneous Approach (ICD-10-PCS; 2023-11-02)
DX: Z76.89 Persons encountering health services in other specified circumstances (principal); C57.9 Malignant neoplasm of female genital organ, unspecified
CPT/HCPCS: 96361; 96365

== ENCOUNTER 2023-11-27 12:42 | Day surgery (SDC) | payer OTHER ==
[2023-11-27 13:37] LABS: BASO % 0.6 % (0-2.0); HEMATOCRIT 29.5 % (32.4-45.2); HEMOGLOBIN 9.5 GM/dL (10.7-15.3); LYMPH % 28.6 % (8-40); MCH 30.8 pg (25.7-33.7); MCHC 32.4 g/dl (32.0-36.0); MEAN CELL VOLUME 95.1 fl (80-96); MEAN PLT VOLUME 7.8 fl (7.5-11.1); MONO % 10.7 % (3.8-10.2); NEUT % 59.1 % (42.8-82.8); PLATELET COUNT 265 10^3/uL (134-434); RDW 24.8 % (11.6-15.6); WHITE BLOOD COUNT 5.8 K/mm3 (4.0-10.0)
[2023-11-27] MEDS: SODIUM CHLORIDE 250 ML IV ONE (13:53)
[2023-11-27 13:59] LABS: CHLORIDE 115 mmol/L (98-107); POTASSIUM 3.8 mmol/L (3.5-5.1); SODIUM 145 mmol/L (136-145)
[2023-11-27 14:01] LABS: ALBUMIN 2.8 g/dl (3.4-5.0); BLOOD UREA NITROGEN 15.5 mg/dL (7-18); CALCIUM 8.6 mg/dL (8.5-10.1); GLUCOSE,RANDOM 85 mg/dL (74-106)
[2023-11-27 14:02] LABS: ANION GAP 5 mmol/L (4-13); CO2 26 mmol/L (21-32); MAGNESIUM 1.8 mg/dL (1.8-2.4)
[2023-11-27 14:05] LABS: CREATININE 0.9 mg/dL (0.55-1.3)
[2023-11-27 14:06] LABS: SGOT/AST 4 U/L (15-37); SGPT/ALT 10 U/L (13-61)
[2023-11-27 14:07] LABS: BILIRUBIN,TOTAL 0.3 mg/dL (0.2-1); TOT PROT 5.9 g/dl (6.4-8.2)
[2023-11-27 14:08] LABS: ALK PHOS 83 U/L (45-117)
[2023-11-27] MEDS: DEXAMETHASONE SODIUM PHOSPHATE 10 MG, DIPHENHYDRAMINE 25 MG in SODIUM CHLORIDE 100 ML IVPB ONE (14:12)
[2023-11-27] MEDS: PALONOSETRON HCL 0.25 MG/5 ML VIAL IVPUSH ONE (14:45)
[2023-11-27] MEDS: FAMOTIDINE 20 MG/50 ML IVPB 20 MG/50 ML MG IVPB ONE (14:47)
[2023-11-27] MEDS: LIDOCAINE 2.5%/PRILOCAINE 2.5% (5 Gram/TUBE) TP ONE (14:58)
[2023-11-27] MEDS: PACLITAXEL 102 MG in SODIUM CHLORIDE 250 ML IVPB ONE (15:29)
[2023-11-27] MEDS: PACLITAXEL 108 MG in SODIUM CHLORIDE 250 ML IVPB ONE (15:47)
[2023-11-27] MEDS: CARBOPLATIN IVPB ONE (16:35)
[2023-11-27] MEDS: SODIUM CHLORIDE IVPB ONE (16:35)
[2023-11-27 16:52] LABS: ANISOCYTOSIS 0; MACROCYTOSIS 0
[2023-11-27 16:57] VITALS: RESP 20; TEMP 98
[2023-11-27] MEDS: PORTA CATH FLUSH 10 ML IVPUSH PRN (17:20)
[2023-11-27 17:21] VITALS: BP 126/79; PULSE 75
== END 2023-11-27 17:22 | disposition home or self-care (01) ==
LOC: JONCCHEMO 12:42
PROVIDERS: ATTEND Internal Medicine Hematology & Oncology
DX: Z51.11 Encounter for antineoplastic chemotherapy (principal); C57.9 Malignant neoplasm of female genital organ, unspecified
CPT/HCPCS: 36415; 80053; 83735; 85025; 96367; 96375; 96413; 96417; J2469

== ENCOUNTER 2023-12-04 11:37 | Day surgery (SDC) | payer OTHER ==
[2023-12-04] MEDS: SODIUM CHLORIDE 250 ML IV ONE (12:06)
[2023-12-04 12:13] LABS: BASO % 0.7 % (0-2.0); EOS % 2.2 % (0-4.5); HEMATOCRIT 26.6 % (32.4-45.2); HEMOGLOBIN 8.9 GM/dL (10.7-15.3); MCH 31.7 pg (25.7-33.7); MCHC 33.3 g/dl (32.0-36.0); MEAN PLT VOLUME 8.7 fl (7.5-11.1); MONO % 5.1 % (3.8-10.2); PLATELET COUNT 211 10^3/uL (134-434); RDW 23.6 % (11.6-15.6); WHITE BLOOD COUNT 4.5 K/mm3 (4.0-10.0)
[2023-12-04 12:29] LABS: POTASSIUM 3.9 mmol/L (3.5-5.1)
[2023-12-04 12:31] LABS: CALCIUM 8.8 mg/dL (8.5-10.1)
[2023-12-04 12:32] LABS: ALBUMIN 2.8 g/dl (3.4-5.0); BLOOD UREA NITROGEN 11.1 mg/dL (7-18); MAGNESIUM 1.7 mg/dL (1.8-2.4)
[2023-12-04 12:35] LABS: CREATININE 0.9 mg/dL (0.55-1.3)
[2023-12-04 12:36] LABS: BILIRUBIN,TOTAL 0.5 mg/dL (0.2-1)
[2023-12-04 12:37] LABS: TOT PROT 5.8 g/dl (6.4-8.2)
[2023-12-04 12:54] LABS: ANISOCYTOSIS 2+; MACROCYTOSIS 1+
[2023-12-04] MEDS: DEXAMETHASONE SODIUM PHOSPHATE 10 MG, DIPHENHYDRAMINE 25 MG in SODIUM CHLORIDE 100 ML IVPB ONE (13:26)
[2023-12-04] MEDS: MAGNESIUM OXIDE 400 MG TABLET (FP) PO ONE (13:48)
[2023-12-04] MEDS: FAMOTIDINE 20 MG/50 ML IVPB 20 MG/50 ML MG IVPB ONE (14:09)
[2023-12-04] MEDS: PALONOSETRON HCL 0.25 MG/5 ML VIAL IVPUSH ONE (14:19)
[2023-12-04] MEDS: PACLITAXEL 102 MG in SODIUM CHLORIDE 250 ML IVPB ONE (14:42)
[2023-12-04] MEDS: CARBOPLATIN IVPB ONE (15:43)
[2023-12-04] MEDS: SODIUM CHLORIDE IVPB ONE (15:43)
[2023-12-04 16:02] VITALS: RESP 20; TEMP 98.2
[2023-12-04 16:39] VITALS: BP 152/83; PULSE 85
[2023-12-04] MEDS ORDERED: PORTA CATH FLUSH 10 ML IVPUSH PRN (16:39)
[2023-12-04] MEDS: PORTA CATH FLUSH 10 ML IVPUSH PRN (16:40)
[2023-12-04 17:35] LABS: EPI CELLS 4 /uL (0-25.1); HYALINE CASTS 0 /uL (0-3.1); PH,URINE 7.5 (5.0-8.0); URINE APPEARANCE CLEAR; URINE BACTERIA 381 /uL (0-1359); URINE BILIRUBIN NEGATIVE (NEGATIVE); URINE COLOR YELLOW; URINE GLUCOSE (UA) NEGATIVE (NEGATIVE); URINE KETONE NEGATIVE (NEGATIVE); URINE LEUK ESTERASE 1+ (NEGATIVE); URINE NITRITE NEGATIVE (NEGATIVE); URINE PROTEIN NEGATIVE (NEGATIVE); URINE RBC 12 /uL (0-23.9); URINE WBC 89 /uL (0-25.8)
== END 2023-12-04 17:48 | disposition home or self-care (01) ==
LOC: JONCCHEMO 11:37 → J7W 11:38 → JONCCHEMO 17:48
PROVIDERS: ATTEND Internal Medicine Hematology & Oncology
DX: Z51.11 Encounter for antineoplastic chemotherapy (principal); C57.9 Malignant neoplasm of female genital organ, unspecified
CPT/HCPCS: 36415; 80053; 81003; 83735; 85025; 87086; 96367; 96375; 96413; 96417; J2469

== ENCOUNTER 2023-12-11 10:40 | Day surgery (SDC) | payer OTHER ==
[~2023-12-11 10:40] MED LIST: DEXAMETHASONE SODIUM PHOSPHATE 10 MG, DIPHENHYDRAMINE 25 MG in SODIUM CHLORIDE 100 ML IVPB ONE; FAMOTIDINE 20 MG/50 ML IVPB 20 MG/50 ML MG IVPB ONE; PACLITAXEL 102 MG in SODIUM CHLORIDE 250 ML IVPB ONE; PALONOSETRON HCL 0.25 MG/5 ML VIAL IVPUSH ONE
[2023-12-11] MEDS ORDERED: SODIUM CHLORIDE IVPB ONE (11:30)
[2023-12-11] MEDS ORDERED: CARBOPLATIN IVPB ONE (11:30)
[2023-12-11 11:34] LABS: HEMATOCRIT 27.5 % (32.4-45.2); HEMOGLOBIN 9.2 GM/dL (10.7-15.3); MCH 31.9 pg (25.7-33.7); MCHC 33.3 g/dl (32.0-36.0); MEAN CELL VOLUME 95.6 fl (80-96); MEAN PLT VOLUME 8.8 fl (7.5-11.1); PLATELET COUNT 179 10^3/uL (134-434); RBC 2.88 M/mm3 (3.60-5.2); RDW 23.8 % (11.6-15.6)
[2023-12-11 11:36] LABS: WHITE BLOOD COUNT 1.8 K/mm3 (4.0-10.0)
[2023-12-11] MEDS: SODIUM CHLORIDE 250 ML IV ONE (11:45)
[2023-12-11 11:59] LABS: ANISOCYTOSIS 0; MACROCYTOSIS 0
[2023-12-11 12:36] LABS: POTASSIUM 4.5 mmol/L (3.5-5.1)
[2023-12-11] MEDS: TBO-FILGRASTIM 300 MCG/0.5 ML DISP.SYRINGE SQ ONE (12:43)
[2023-12-11 12:44] LABS: CALCIUM 8.9 mg/dL (8.5-10.1)
[2023-12-11 12:45] LABS: ALBUMIN 3.1 g/dl (3.4-5.0); BLOOD UREA NITROGEN 15.8 mg/dL (7-18); MAGNESIUM 1.9 mg/dL (1.8-2.4)
[2023-12-11 12:46] LABS: TOT PROT 6.4 g/dl (6.4-8.2)
[2023-12-11 12:48] LABS: BILIRUBIN,TOTAL 0.6 mg/dL (0.2-1)
[2023-12-11 12:53] VITALS: RESP 20; TEMP 98.2
[2023-12-11] MEDS: PORTA CATH FLUSH 10 ML IVPUSH PRN (12:55)
[2023-12-11 13:01] VITALS: BP 142/72; PULSE 83
== END 2023-12-11 13:40 | disposition home or self-care (01) ==
LOC: JONCCHEMO 10:40 → J7W 10:41 → JONCCHEMO 13:40
PROVIDERS: ATTEND Internal Medicine Hematology & Oncology
PROC: 3E0437Z Introduction of Electrolytic and Water Balance Substance into Central Vein, Percutaneous Approach (ICD-10-PCS; principal; 2023-12-11)
PROC: 3E013GC Introduction of Other Therapeutic Substance into Subcutaneous Tissue, Percutaneous Approach (ICD-10-PCS; 2023-12-11)
DX: C57.9 Malignant neoplasm of female genital organ, unspecified (principal)
CPT/HCPCS: 36415; 80053; 83735; 85025; 96360; 96372; J1447

== ENCOUNTER 2023-12-12 09:44 | Day surgery (SDC) | payer OTHER ==
[2023-12-12] MEDS: TBO-FILGRASTIM 300 MCG/0.5 ML DISP.SYRINGE SQ ONE (10:29)
[2023-12-12 11:18] VITALS: BP 121/49; PULSE 100; RESP 20; TEMP 98.4
== END 2023-12-12 10:45 | disposition home or self-care (01) ==
LOC: JONCCHEMO 09:44 → J7W 09:45 → JONCCHEMO 10:45
PROVIDERS: ATTEND Internal Medicine Hematology & Oncology
PROC: 3E013GC Introduction of Other Therapeutic Substance into Subcutaneous Tissue, Percutaneous Approach (ICD-10-PCS; principal; 2023-12-12)
DX: C57.9 Malignant neoplasm of female genital organ, unspecified (principal); Z76.89 Persons encountering health services in other specified circumstances
CPT/HCPCS: 96372; J1447

== ENCOUNTER 2023-12-18 11:19 | Day surgery (SDC) | payer OTHER ==
[2023-12-18 11:56] LABS: HEMATOCRIT 31.4 % (32.4-45.2); HEMOGLOBIN 10.4 GM/dL (10.7-15.3); MEAN CELL VOLUME 96.8 fl (80-96); MEAN PLT VOLUME 8.4 fl (7.5-11.1); PLATELET COUNT 144 10^3/uL (134-434); RBC 3.24 M/mm3 (3.60-5.2); WHITE BLOOD COUNT 4.1 K/mm3 (4.0-10.0)
[2023-12-18 12:28] LABS: POTASSIUM 3.7 mmol/L (3.5-5.1)
[2023-12-18 12:33] LABS: CALCIUM 9.1 mg/dL (8.5-10.1)
[2023-12-18 12:34] LABS: ALBUMIN 3.2 g/dl (3.4-5.0); MAGNESIUM 2.1 mg/dL (1.8-2.4)
[2023-12-18] MEDS: SODIUM CHLORIDE 250 ML IV ONE (12:35)
[2023-12-18 12:38] LABS: BILIRUBIN,TOTAL 0.5 mg/dL (0.2-1); TOT PROT 6.2 g/dl (6.4-8.2)
[2023-12-18 13:19] LABS: ANISOCYTOSIS 1+; MACROCYTOSIS 1+
[2023-12-18] MEDS: FAMOTIDINE 20 MG/50 ML IVPB 20 MG/50 ML MG IVPB ONE (13:37)
[2023-12-18] MEDS: PALONOSETRON HCL 0.25 MG/5 ML VIAL IVPUSH ONE (13:37)
[2023-12-18] MEDS: DEXAMETHASONE SODIUM PHOSPHATE 10 MG, DIPHENHYDRAMINE 25 MG in SODIUM CHLORIDE 100 ML IVPB ONE (14:07)
[2023-12-18] MEDS: PACLITAXEL 102 MG in SODIUM CHLORIDE 250 ML IVPB ONE (14:42)
[2023-12-18] MEDS: CARBOPLATIN IVPB ONE (15:51)
[2023-12-18] MEDS: SODIUM CHLORIDE IVPB ONE (15:51)
[2023-12-18] MEDS: PORTA CATH FLUSH 10 ML IVPUSH PRN (16:30)
[2023-12-18 17:52] VITALS: BP 118/43; PULSE 78; RESP 20; TEMP 98.6
== END 2023-12-18 17:15 | disposition home or self-care (01) ==
LOC: JONCCHEMO 11:19 → J7W 11:20 → JONCCHEMO 17:15
PROVIDERS: ATTEND Internal Medicine Hematology & Oncology
DX: Z51.11 Encounter for antineoplastic chemotherapy (principal); C57.9 Malignant neoplasm of female genital organ, unspecified
CPT/HCPCS: 36415; 80053; 83735; 85025; 96367; 96375; 96413; 96417; J2469

== ENCOUNTER 2023-12-25 12:00 | Day surgery (SDC) | payer OTHER ==
[~2023-12-25 12:00] MED LIST changes: +CARBOPLATIN IVPB ONE; +SODIUM CHLORIDE IVPB ONE
[2023-12-25 12:10] LABS: BASO % 0.2 % (0-2.0); EOS % 0.2 % (0-4.5); HEMATOCRIT 25.1 % (32.4-45.2); HEMOGLOBIN 8.3 GM/dL (10.7-15.3); MCH 32.4 pg (25.7-33.7); MCHC 33.1 g/dl (32.0-36.0); MEAN CELL VOLUME 97.8 fl (80-96); MEAN PLT VOLUME 11.5 fl (7.5-11.1); MONO % 4.5 % (3.8-10.2); NEUT % 81.1 % (42.8-82.8); RBC 2.57 M/mm3 (3.60-5.2); RDW 21.9 % (11.6-15.6); WHITE BLOOD COUNT 4.6 K/mm3 (4.0-10.0)
[2023-12-25 12:28] LABS: CHLORIDE 111 mmol/L (98-107); SODIUM 142 mmol/L (136-145)
[2023-12-25 12:31] LABS: ALBUMIN 2.6 g/dl (3.4-5.0); ANION GAP 6 mmol/L (4-13); BLOOD UREA NITROGEN 13.4 mg/dL (7-18); CALCIUM 8.6 mg/dL (8.5-10.1); CO2 25 mmol/L (21-32); GLUCOSE,RANDOM 83 mg/dL (74-106); MAGNESIUM 1.9 mg/dL (1.8-2.4)
[2023-12-25 12:34] LABS: CREATININE 0.8 mg/dL (0.55-1.3); SGOT/AST 9 U/L (15-37); SGPT/ALT 10 U/L (13-61)
[2023-12-25 12:36] LABS: BILIRUBIN,TOTAL 0.9 mg/dL (0.2-1); TOT PROT 5.6 g/dl (6.4-8.2)
[2023-12-25 12:37] LABS: ALK PHOS 68 U/L (45-117)
[2023-12-25 13:23] LABS: PLATELET COUNT 32 10^3/uL (134-434)
[2023-12-25] MEDS: SODIUM CHLORIDE 250 ML IV ONE (13:30)
[2023-12-25] MEDS: PORTA CATH FLUSH 10 ML IVPUSH PRN (14:25)
[2023-12-25 18:17] VITALS: BP 120/49; PULSE 94; RESP 20; TEMP 98.3
[2023-12-25 20:11] LABS: IRON SERUM 9 ug/dL (50-175); RETICULOCYTES 0.12 % (0.5-1.5); TOTAL IRON BINDING CAPACITY 126 ug/dL (250-450)
== END 2023-12-25 14:45 | disposition home or self-care (01) ==
LOC: JONCCHEMO 12:00
PROVIDERS: ATTEND Internal Medicine Hematology & Oncology
PROC: 3E0437Z Introduction of Electrolytic and Water Balance Substance into Central Vein, Percutaneous Approach (ICD-10-PCS; principal; 2023-12-25)
DX: Z51.11 Encounter for antineoplastic chemotherapy (principal); C57.9 Malignant neoplasm of female genital organ, unspecified; Z53.8 Procedure and treatment not carried out for other reasons
CPT/HCPCS: 36415; 80053; 82728; 83540; 83550; 83735; 85025; 85045; 96360

== ENCOUNTER 2023-12-29 08:47 | Day surgery (SDC) | payer OTHER ==
[2023-12-29] MEDS: FUROSEMIDE 40 MG TABLET (FP) PO ONE (17:23)
[2023-12-29 17:52] VITALS: BP 149/48
[2023-12-29] MEDS ORDERED: PORTA CATH FLUSH 10 ML IVPUSH PRN (18:15)
[2023-12-29 18:33] VITALS: PULSE 87; RESP 18; TEMP 98.6
[2023-12-29] MEDS: TBO-FILGRASTIM 300 MCG/0.5 ML DISP.SYRINGE SQ ONE (18:55)
[2023-12-29] MEDS: PORTA CATH FLUSH 10 ML IVPUSH PRN (18:56)
[2023-12-29 18:59] LABS: BASO % 0.6 % (0-2.0); EOS % 1.4 % (0-4.5); HEMOGLOBIN 12.5 GM/dL (10.7-15.3); LYMPH % 53.1 % (8-40); MCH 31.4 pg (25.7-33.7); MCHC 33.9 g/dl (32.0-36.0); MEAN CELL VOLUME 92.8 fl (80-96); MEAN PLT VOLUME 9.5 fl (7.5-11.1); MONO % 14.8 % (3.8-10.2); NEUT % 30.1 % (42.8-82.8); PLATELET COUNT 57 10^3/uL (134-434); RBC 3.99 M/mm3 (3.60-5.2); WHITE BLOOD COUNT 2.9 K/mm3 (4.0-10.0)
== END 2023-12-29 19:00 | disposition home or self-care (01) ==
LOC: JONCBLOOD 08:47 → JONCCHEMO 08:47 → J7W 08:49 → JONCBLOOD 19:00
PROVIDERS: ATTEND Internal Medicine Hematology & Oncology
PROC: 30233N1 Transfusion of Nonautologous Red Blood Cells into Peripheral Vein, Percutaneous Approach (ICD-10-PCS; principal; 2023-12-29)
DX: C57.9 Malignant neoplasm of female genital organ, unspecified (principal); D69.6 Thrombocytopenia, unspecified
CPT/HCPCS: 36415; 36430; 85025; 86850; 86900; 86901; 86922; J1447; P9038; P9058

== ENCOUNTER 2023-12-30 11:06 | Inpatient (IN) | payer OTHER ==
[2023-12-30] MEDS ORDERED: ACETAMINOPHEN INJECTION 100 ML IVPB ONE (12:13)
[2023-12-30] MEDS: ACETAMINOPHEN 1000 MG/100 ML BAG IVPB ONE (12:35)
[2023-12-30] MEDS: SODIUM CHLORIDE 0.9% 500 ML INFUS.BAG IV ONE (12:35)
[2023-12-30 12:46] LABS: BASO % 0.6 % (0-2.0); EOS % 0.2 % (0-4.5); HEMATOCRIT 37.1 % (32.4-45.2); HEMOGLOBIN 12.4 GM/dL (10.7-15.3); LYMPH % 13.6 % (8-40); MCH 30.7 pg (25.7-33.7); MCHC 33.4 g/dl (32.0-36.0); MEAN CELL VOLUME 91.9 fl (80-96); MEAN PLT VOLUME 9.6 fl (7.5-11.1); MONO % 13.7 % (3.8-10.2); NEUT % 71.9 % (42.8-82.8); PLATELET COUNT 64 10^3/uL (134-434); RBC 4.03 M/mm3 (3.60-5.2); RDW 20.4 % (11.6-15.6); WHITE BLOOD COUNT 5.8 K/mm3 (4.0-10.0)
[2023-12-30 12:48] LABS: INR 1.07 (0.83-1.09); PROTHROMBIN TIME (PATIENT) 12.1 SEC (9.7-13.0)
[2023-12-30 12:51] LABS: ACTIVATED PTT 29.2 SECONDS (25.2-36.5)
[2023-12-30 13:00] LABS: POTASSIUM 4.1 mmol/L (3.5-5.1)
[2023-12-30 13:02] LABS: ALBUMIN 2.6 g/dl (3.4-5.0); CALCIUM 8.9 mg/dL (8.5-10.1)
[2023-12-30 13:07] LABS: BILIRUBIN,TOTAL 1.3 mg/dL (0.2-1); TOT PROT 6.2 g/dl (6.4-8.2)
[2023-12-30] MEDS ORDERED: ONDANSETRON 4 MG/2 ML VIAL ONE (13:21)
[2023-12-30] MEDS ORDERED: FAMOTIDINE 20 MG/50 ML IVPB 20 MG/50 ML MG IVPB ONE (13:21)
[2023-12-30] MEDS: FAMOTIDINE 20 MG/50 ML IVPB 20 MG/50 ML MG IVPB ONE (13:27)
[2023-12-30] MEDS: ONDANSETRON 4 MG/2 ML VIAL IVPUSH ONE (13:27)
[2023-12-30 14:58] LABS: EPI CELLS 8 /uL (0-25.1); HYALINE CASTS 1 /uL (0-3.1); PH,URINE 7.5 (5.0-8.0); URINE APPEARANCE CLOUDY; URINE BACTERIA >9,000 /uL (0-1359); URINE BILIRUBIN NEGATIVE (NEGATIVE); URINE COLOR ORANGE; URINE GLUCOSE (UA) NEGATIVE (NEGATIVE); URINE KETONE NEGATIVE (NEGATIVE); URINE LEUK ESTERASE 1+ (NEGATIVE); URINE NITRITE NEGATIVE (NEGATIVE); URINE PROTEIN 1+ (NEGATIVE); URINE RBC 2969 /uL (0-23.9); URINE UROBILINOGEN 0.2 mg/dL (0.2-1.0); URINE WBC 668 /uL (0-25.8)
[2023-12-30] MEDS ORDERED: PIPERACILLIN/TAZOB 4.5 GM 4.5 GM/100 ML BAG IVPB ONE (15:35)
[2023-12-30] MEDS: PIPERACILLIN/TAZOB 4.5 GM 4.5 GM in DEXTROSE 5%-WATER 100 ML IVPB ONE (15:48)
[2023-12-30] MEDS ORDERED: ALBUTEROL SO4 HFA INHALER IH PRN (18:49)
[2023-12-30] MEDS: ACETAMINOPHEN 325 MG TABLET (FP) PO PRN (20:50)
[2023-12-30] MEDS: ATORVASTATIN CA 20 MG TABLET (FP) PO SCH (21:23)
[2023-12-30] MEDS ORDERED: DABIGATRAN ETEXILATE MESYLATE 110 MG PO SCH (22:00)
[2023-12-30 23:43] VITALS: BMI 29.2
[2023-12-31] MEDS: oxyCODONE HCL 5 MG TABLET PO ONE (00:16)
[2023-12-31] MEDS: CEFTRIAXONE 1 GM in DEXTROSE 5%-WATER - 50 ML IVPB SCH ×2 (10:07→11:58)
[2023-12-31] MEDS: MULTIVITAMINS (DAILY MVI) TABLET (FP) PO SCH (10:08)
[2023-12-31] MEDS: CYANOCOBALAMIN 1,000 MCG TABLET (FP) PO SCH (10:08)
[2023-12-31] MEDS: CHOLECALCIFEROL (VIT D3) 1,000 UNIT (25 MCG) TABLET PO SCH (10:08)
[2023-12-31] MEDS: ASCORBIC ACID 500 MG TABLET (FP) PO SCH (10:08)
[2023-12-31] MEDS: PANTOPRAZOLE 40 MG TABLET PO SCH (10:08)
[2023-12-31 10:14] LABS: BASO % 0.4 % (0-2.0); EOS % 0.4 % (0-4.5); HEMATOCRIT 36.1 % (32.4-45.2); HEMOGLOBIN 12.3 GM/dL (10.7-15.3); MCH 30.9 pg (25.7-33.7); MEAN PLT VOLUME 9.5 fl (7.5-11.1); MONO % 8.4 % (3.8-10.2); NEUT % 79.8 % (42.8-82.8); PLATELET COUNT 77 10^3/uL (134-434); RBC 3.96 M/mm3 (3.60-5.2); RDW 20.7 % (11.6-15.6); WHITE BLOOD COUNT 10.1 K/mm3 (4.0-10.0)
[2023-12-31 10:23] LABS: POTASSIUM 3.6 mmol/L (3.5-5.1)
[2023-12-31 10:25] LABS: ALBUMIN 2.3 g/dl (3.4-5.0); BLOOD UREA NITROGEN 10.1 mg/dL (7-18); CALCIUM 8.4 mg/dL (8.5-10.1)
[2023-12-31 10:30] LABS: BILIRUBIN,TOTAL 0.8 mg/dL (0.2-1); TOT PROT 5.6 g/dl (6.4-8.2)
[2024-01-02] MEDS: BIOTIN 1000 MCG PO SCH (10:08)
[2024-01-02] MEDS: PATIENT'S OWN MEDICATION (NON-FORMULARY) (Omega-3 Fatty Acids [Omega-3] 1,000 MG Capsule) PO SCH (10:08)
[2024-01-02 15:09] VITALS: BP 107/78; PULSE 94; RESP 20; TEMP 99.1
== END 2024-01-02 18:50 | disposition home or self-care (01) | DRG 690 ==
LOC: JER 11:06 → JERBED 17:45 → J5S 20:35
PROVIDERS: ADMIT Internal Medicine; ATTEND Internal Medicine
DX: N39.0 Urinary tract infection, site not specified (principal); I50.32 Chronic diastolic (congestive) heart failure; I11.0 Hypertensive heart disease with heart failure; I25.10 Atherosclerotic heart disease of native coronary artery without angina pectoris; I49.5 Sick sinus syndrome; Z95.0 Presence of cardiac pacemaker; E78.5 Hyperlipidemia, unspecified; I48.0 Paroxysmal atrial fibrillation; J44.9 Chronic obstructive pulmonary disease, unspecified; G43.909 Migraine, unspecified, not intractable, without status migrainosus
CPT/HCPCS: 36415; 74177-TC; 76830-TC; 80053; 81003; 83605; 83690; 85025; 85610; 85730; 87086; 87186; 93005; 93010; 97116-GP; 97161-GP; 99285-25; J0131; Q9967

== ENCOUNTER 2024-01-08 12:12 | Day surgery (SDC) | payer OTHER ==
[2024-01-08] MEDS: SODIUM CHLORIDE 250 ML IV ONE (12:51)
[2024-01-08 12:53] LABS: BASO % 0.5 % (0-2.0); EOS % 0.5 % (0-4.5); HEMATOCRIT 37.7 % (32.4-45.2); HEMOGLOBIN 12.2 GM/dL (10.7-15.3); LYMPH % 31.1 % (8-40); MCH 30.5 pg (25.7-33.7); MCHC 32.4 g/dl (32.0-36.0); MEAN CELL VOLUME 94.2 fl (80-96); MEAN PLT VOLUME 8.3 fl (7.5-11.1); MONO % 8.6 % (3.8-10.2); NEUT % 59.3 % (42.8-82.8); PLATELET COUNT 244 10^3/uL (134-434); RBC 4.01 M/mm3 (3.60-5.2); RDW 20.9 % (11.6-15.6); WHITE BLOOD COUNT 6.1 K/mm3 (4.0-10.0)
[2024-01-08 13:08] VITALS: RESP 20; TEMP 98.5
[2024-01-08 13:08] LABS: CHLORIDE 110 mmol/L (98-107); POTASSIUM 4.2 mmol/L (3.5-5.1); SODIUM 142 mmol/L (136-145)
[2024-01-08 13:10] LABS: ANION GAP 5 mmol/L (4-13); CALCIUM 8.9 mg/dL (8.5-10.1); CO2 27 mmol/L (21-32)
[2024-01-08 13:11] LABS: ALBUMIN 2.6 g/dl (3.4-5.0); BLOOD UREA NITROGEN 13.7 mg/dL (7-18); GLUCOSE,RANDOM 76 mg/dL (74-106)
[2024-01-08 13:13] LABS: SGPT/ALT 11 U/L (13-61)
[2024-01-08 13:14] LABS: SGOT/AST 11 U/L (15-37)
[2024-01-08 13:15] LABS: BILIRUBIN,TOTAL 0.4 mg/dL (0.2-1); TOT PROT 6.1 g/dl (6.4-8.2)
[2024-01-08 13:17] LABS: ALK PHOS 78 U/L (45-117)
[2024-01-08] MEDS: FAMOTIDINE 20 MG/50 ML IVPB 20 MG/50 ML MG IVPB ONE (13:22)
[2024-01-08 13:48] LABS: ANISOCYTOSIS 1+; MACROCYTOSIS 0; OVALOCYTE 1+
[2024-01-08] MEDS: DEXAMETHASONE SODIUM PHOSPHATE 10 MG, DIPHENHYDRAMINE 25 MG in SODIUM CHLORIDE 100 ML IVPB ONE (13:58)
[2024-01-08] MEDS: PALONOSETRON HCL 0.25 MG/5 ML VIAL IVPUSH ONE (14:04)
[2024-01-08] MEDS: PACLITAXEL 102 MG in SODIUM CHLORIDE 250 ML IVPB ONE (14:40)
[2024-01-08] MEDS: CARBOPLATIN IVPB ONE (15:41)
[2024-01-08] MEDS: SODIUM CHLORIDE IVPB ONE (15:41)
[2024-01-08 16:30] VITALS: BP 137/72; PULSE 75
[2024-01-08] MEDS: PORTA CATH FLUSH 10 ML IVPUSH PRN (16:30)
[2024-01-08 17:01] LABS: EPI CELLS 20 /uL (0-25.1); HYALINE CASTS 1 /uL (0-3.1); PH,URINE 5.5 (5.0-8.0); URINE APPEARANCE CLOUDY; URINE BACTERIA 33 /uL (0-1359); URINE BILIRUBIN NEGATIVE (NEGATIVE); URINE COLOR YELLOW; URINE GLUCOSE (UA) NEGATIVE (NEGATIVE); URINE KETONE NEGATIVE (NEGATIVE); URINE LEUK ESTERASE 2+ (NEGATIVE); URINE NITRITE NEGATIVE (NEGATIVE); URINE PROTEIN 1+ (NEGATIVE); URINE RBC 35 /uL (0-23.9); URINE UROBILINOGEN 0.2 mg/dL (0.2-1.0); URINE WBC 1510 /uL (0-25.8)
== END 2024-01-08 17:29 | disposition home or self-care (01) ==
LOC: JONCCHEMO 12:12 → J7W 12:28 → JONCCHEMO 17:29
PROVIDERS: ATTEND Internal Medicine Hematology & Oncology
DX: Z51.11 Encounter for antineoplastic chemotherapy (principal); C57.9 Malignant neoplasm of female genital organ, unspecified
CPT/HCPCS: 36415; 80053; 81003; 83735; 85025; 87077; 87086; 96367; 96375; 96413; 96417; J2469

== ENCOUNTER 2024-01-29 11:57 | Day surgery (SDC) | payer OTHER ==
[~2024-01-29 11:57] MED LIST changes: +SODIUM CHLORIDE 250 ML IV ONE
[2024-01-29 12:26] LABS: BASO % 0.6 % (0-2.0); HEMATOCRIT 36.3 % (32.4-45.2); HEMOGLOBIN 11.8 GM/dL (10.7-15.3); LYMPH % 31.2 % (8-40); MCH 30.7 pg (25.7-33.7); MCHC 32.4 g/dl (32.0-36.0); MEAN CELL VOLUME 94.6 fl (80-96); MONO % 17.2 % (3.8-10.2); PLATELET COUNT 168 10^3/uL (134-434); RBC 3.84 M/mm3 (3.60-5.2); RDW 19.8 % (11.6-15.6); WHITE BLOOD COUNT 5.1 K/mm3 (4.0-10.0)
[2024-01-29 13:00] LABS: POTASSIUM 4.4 mmol/L (3.5-5.1)
[2024-01-29 13:03] LABS: ALBUMIN 2.9 g/dl (3.4-5.0); BLOOD UREA NITROGEN 15.5 mg/dL (7-18); CALCIUM 9.2 mg/dL (8.5-10.1); MAGNESIUM 1.9 mg/dL (1.8-2.4)
[2024-01-29 13:06] LABS: CREATININE 1.1 mg/dL (0.55-1.3)
[2024-01-29 13:08] LABS: BILIRUBIN,TOTAL 0.4 mg/dL (0.2-1)
[2024-01-29] MEDS: SODIUM CHLORIDE 250 ML IV ONE (13:25)
[2024-01-29 13:39] LABS: EPI CELLS 3 /uL (0-25.1); HYALINE CASTS 0 /uL (0-3.1); PH,URINE 5.5 (5.0-8.0); URINE APPEARANCE CLOUDY; URINE BACTERIA 187 /uL (0-1359); URINE BILIRUBIN NEGATIVE (NEGATIVE); URINE COLOR YELLOW; URINE GLUCOSE (UA) NEGATIVE (NEGATIVE); URINE KETONE NEGATIVE (NEGATIVE); URINE LEUK ESTERASE 3+ (NEGATIVE); URINE NITRITE NEGATIVE (NEGATIVE); URINE PROTEIN 2+ (NEGATIVE); URINE RBC 87 /uL (0-23.9); URINE UROBILINOGEN 0.2 mg/dL (0.2-1.0); URINE WBC 1440 /uL (0-25.8)
[2024-01-29] MEDS: DEXAMETHASONE SODIUM PHOSPHATE 10 MG, DIPHENHYDRAMINE 25 MG in SODIUM CHLORIDE 100 ML IVPB ONE (13:45)
[2024-01-29] MEDS: FAMOTIDINE 20 MG/50 ML IVPB 20 MG/50 ML MG IVPB ONE (14:24)
[2024-01-29] MEDS: PALONOSETRON HCL 0.25 MG/5 ML VIAL IVPUSH ONE (14:58)
[2024-01-29] MEDS: PACLITAXEL 96 MG in SODIUM CHLORIDE 250 ML IVPB ONE (14:59)
[2024-01-29] MEDS: CARBOPLATIN IVPB ONE (16:10)
[2024-01-29] MEDS: SODIUM CHLORIDE IVPB ONE (16:10)
[2024-01-29] MEDS: PORTA CATH FLUSH 10 ML IVPUSH PRN (16:50)
[2024-01-29 17:15] VITALS: BP 159/84; PULSE 87; RESP 18; TEMP 98.5
== END 2024-01-29 17:00 | disposition home or self-care (01) ==
LOC: JONCCHEMO 11:57 → J7W 11:59 → JONCCHEMO 17:00
PROVIDERS: ATTEND Internal Medicine Hematology & Oncology
DX: Z51.11 Encounter for antineoplastic chemotherapy (principal); C57.9 Malignant neoplasm of female genital organ, unspecified
CPT/HCPCS: 36415; 80053; 81003; 83735; 85025; 87086; 96367; 96375; 96413; 96417; J2469

== ENCOUNTER 2024-02-12 12:20 | Day surgery (SDC) | payer OTHER ==
[2024-02-12 13:17] LABS: BASO % 0.6 % (0-2.0); EOS % 3.3 % (0-4.5); HEMATOCRIT 35.8 % (32.4-45.2); HEMOGLOBIN 11.6 GM/dL (10.7-15.3); LYMPH % 39.8 % (8-40); MCH 30.9 pg (25.7-33.7); MCHC 32.5 g/dl (32.0-36.0); MEAN CELL VOLUME 94.9 fl (80-96); MEAN PLT VOLUME 9.1 fl (7.5-11.1); MONO % 17.4 % (3.8-10.2); NEUT % 38.9 % (42.8-82.8); PLATELET COUNT 150 10^3/uL (134-434); RBC 3.77 M/mm3 (3.60-5.2); RDW 18.8 % (11.6-15.6); WHITE BLOOD COUNT 3.9 K/mm3 (4.0-10.0)
[2024-02-12 13:43] LABS: POTASSIUM 4.3 mmol/L (3.5-5.1)
[2024-02-12 13:45] LABS: ALBUMIN 2.8 g/dl (3.4-5.0); BLOOD UREA NITROGEN 10.7 mg/dL (7-18); CALCIUM 9.2 mg/dL (8.5-10.1); MAGNESIUM 1.9 mg/dL (1.8-2.4)
[2024-02-12 13:49] LABS: CREATININE 0.9 mg/dL (0.55-1.3)
[2024-02-12 13:50] LABS: BILIRUBIN,TOTAL 0.4 mg/dL (0.2-1); TOT PROT 5.8 g/dl (6.4-8.2)
[2024-02-12] MEDS: SODIUM CHLORIDE 250 ML IV ONE (14:07)
[2024-02-12] MEDS: DEXAMETHASONE SODIUM PHOSPHATE 10 MG, DIPHENHYDRAMINE 25 MG in SODIUM CHLORIDE 100 ML IVPB ONE (14:23)
[2024-02-12] MEDS: PALONOSETRON HCL 0.25 MG/5 ML VIAL IVPUSH ONE (14:58)
[2024-02-12] MEDS: FAMOTIDINE 20 MG/50 ML IVPB 20 MG/50 ML MG IVPB ONE (14:59)
[2024-02-12] MEDS: PACLITAXEL 96 MG in SODIUM CHLORIDE 250 ML IVPB ONE (15:32)
[2024-02-12] MEDS: CARBOPLATIN IVPB ONE (16:34)
[2024-02-12] MEDS: SODIUM CHLORIDE IVPB ONE (16:34)
[2024-02-12] MEDS: PORTA CATH FLUSH 10 ML IVPUSH PRN (17:10)
[2024-02-12 18:08] VITALS: RESP 18
[2024-02-12 18:14] VITALS: BP 157/59; PULSE 80; TEMP 98.6
== END 2024-02-12 17:15 | disposition home or self-care (01) ==
LOC: J7W 12:20 → JONCCHEMO 12:20
PROVIDERS: ATTEND Internal Medicine Hematology & Oncology
PROC: 3E04305 Introduction of Other Antineoplastic into Central Vein, Percutaneous Approach (ICD-10-PCS; principal; 2024-02-12)
PROC: 3E0437Z Introduction of Electrolytic and Water Balance Substance into Central Vein, Percutaneous Approach (ICD-10-PCS; 2024-02-12)
DX: Z51.11 Encounter for antineoplastic chemotherapy (principal); C57.9 Malignant neoplasm of female genital organ, unspecified
CPT/HCPCS: 36415; 80053; 83735; 85025; 96367; 96375; 96413; 96417; J2469

== ENCOUNTER 2024-02-19 13:16 | Day surgery (SDC) | payer OTHER ==
[~2024-02-19 13:16] MED LIST changes: -PACLITAXEL 102 MG in SODIUM CHLORIDE 250 ML IVPB ONE; +PACLITAXEL 96 MG in SODIUM CHLORIDE 250 ML IVPB ONE
[2024-02-19 15:06] LABS: BASO % 0.6 % (0-2.0); EOS % 1.2 % (0-4.5); HEMOGLOBIN 10.8 GM/dL (10.7-15.3); LYMPH % 39.7 % (8-40); MCH 30.6 pg (25.7-33.7); MCHC 31.8 g/dl (32.0-36.0); MEAN CELL VOLUME 96.1 fl (80-96); MEAN PLT VOLUME 9.6 fl (7.5-11.1); MONO % 4.5 % (3.8-10.2); PLATELET COUNT 112 10^3/uL (134-434); RBC 3.54 M/mm3 (3.60-5.2); RDW 17.9 % (11.6-15.6); WHITE BLOOD COUNT 3.9 K/mm3 (4.0-10.0)
[2024-02-19] MEDS: SODIUM CHLORIDE 250 ML IV ONE (15:26)
[2024-02-19 15:29] LABS: POTASSIUM 4.6 mmol/L (3.5-5.1)
[2024-02-19 15:31] LABS: CALCIUM 9.2 mg/dL (8.5-10.1)
[2024-02-19 15:32] LABS: ALBUMIN 2.9 g/dl (3.4-5.0); BLOOD UREA NITROGEN 14.8 mg/dL (7-18); MAGNESIUM 1.9 mg/dL (1.8-2.4)
[2024-02-19 15:35] LABS: CREATININE 0.8 mg/dL (0.55-1.3)
[2024-02-19 15:37] LABS: BILIRUBIN,TOTAL 0.5 mg/dL (0.2-1); TOT PROT 5.9 g/dl (6.4-8.2)
[2024-02-19] MEDS: DEXAMETHASONE SODIUM PHOSPHATE 10 MG, DIPHENHYDRAMINE 25 MG in SODIUM CHLORIDE 100 ML IVPB ONE (15:46)
[2024-02-19] MEDS: FAMOTIDINE 20 MG/50 ML IVPB 20 MG/50 ML MG IVPB ONE (16:16)
[2024-02-19 16:21] VITALS: TEMP 98.1
[2024-02-19] MEDS: PALONOSETRON HCL 0.25 MG/5 ML VIAL IVPUSH ONE (16:51)
[2024-02-19] MEDS: PACLITAXEL 96 MG in SODIUM CHLORIDE 250 ML IVPB ONE (16:55)
[2024-02-19] MEDS: CARBOPLATIN IVPB ONE (17:59)
[2024-02-19] MEDS: SODIUM CHLORIDE IVPB ONE (17:59)
[2024-02-19 18:47] VITALS: BP 102/79; PULSE 91; RESP 18
[2024-02-19] MEDS: PORTA CATH FLUSH 10 ML IVPUSH PRN (18:47)
== END 2024-02-19 18:53 | disposition home or self-care (01) ==
LOC: JONCCHEMO 13:16 → J7W 13:17 → JONCCHEMO 18:53
PROVIDERS: ATTEND Internal Medicine Hematology & Oncology
PROC: 3E04305 Introduction of Other Antineoplastic into Central Vein, Percutaneous Approach (ICD-10-PCS; principal; 2024-02-19)
PROC: 3E0437Z Introduction of Electrolytic and Water Balance Substance into Central Vein, Percutaneous Approach (ICD-10-PCS; 2024-02-19)
DX: Z51.11 Encounter for antineoplastic chemotherapy (principal); C57.9 Malignant neoplasm of female genital organ, unspecified
CPT/HCPCS: 36415; 80053; 83735; 85025; 96367; 96375; 96413; 96417; J2469

== ENCOUNTER 2024-02-26 12:14 | Day surgery (SDC) | payer OTHER ==
[2024-02-26 13:19] LABS: HEMATOCRIT 32.5 % (32.4-45.2); HEMOGLOBIN 10.4 GM/dL (10.7-15.3); MCH 30.7 pg (25.7-33.7); MCHC 32.1 g/dl (32.0-36.0); MEAN CELL VOLUME 95.6 fl (80-96); MEAN PLT VOLUME 9.9 fl (7.5-11.1); PLATELET COUNT 91 10^3/uL (134-434)
[2024-02-26 13:34] LABS: POTASSIUM 4.4 mmol/L (3.5-5.1)
[2024-02-26 13:39] LABS: ALBUMIN 2.8 g/dl (3.4-5.0); CALCIUM 8.8 mg/dL (8.5-10.1); MAGNESIUM 1.7 mg/dL (1.8-2.4)
[2024-02-26 13:42] LABS: CREATININE 0.8 mg/dL (0.55-1.3)
[2024-02-26 13:44] LABS: BILIRUBIN,TOTAL 0.5 mg/dL (0.2-1); TOT PROT 5.9 g/dl (6.4-8.2)
[2024-02-26 13:47] LABS: ANISOCYTOSIS 0; MACROCYTOSIS 0
[2024-02-26] MEDS: MAGNESIUM OXIDE 400 MG TABLET (FP) PO ONE (14:52)
[2024-02-26] MEDS: TBO-FILGRASTIM 300 MCG/0.5 ML DISP.SYRINGE SQ ONE (15:11)
[2024-02-26 16:59] VITALS: BP 118/53; PULSE 55; RESP 16; TEMP 98.7
== END 2024-02-26 15:20 | disposition home or self-care (01) ==
LOC: JONCCHEMO 12:14 → J7W 12:16 → JONCCHEMO 15:20
PROVIDERS: ATTEND Internal Medicine Hematology & Oncology
PROC: 3E013GC Introduction of Other Therapeutic Substance into Subcutaneous Tissue, Percutaneous Approach (ICD-10-PCS; principal; 2024-02-26)
DX: Z76.89 Persons encountering health services in other specified circumstances (principal); C57.9 Malignant neoplasm of female genital organ, unspecified
CPT/HCPCS: 36415; 80053; 83735; 85025; 96372; J1447

== ENCOUNTER 2024-02-27 10:16 | Day surgery (SDC) | payer OTHER ==
[2024-02-27] MEDS: TBO-FILGRASTIM 300 MCG/0.5 ML DISP.SYRINGE SQ ONE (10:46)
[2024-02-27 16:23] VITALS: BP 129/64; PULSE 45; RESP 16; TEMP 98.5
== END 2024-02-27 11:15 | disposition home or self-care (01) ==
LOC: JONCCHEMO 10:16 → J7W 10:18 → JONCCHEMO 11:15
PROVIDERS: ATTEND Internal Medicine Hematology & Oncology
PROC: 3E013GC Introduction of Other Therapeutic Substance into Subcutaneous Tissue, Percutaneous Approach (ICD-10-PCS; principal; 2024-02-27)
DX: Z76.89 Persons encountering health services in other specified circumstances (principal); C57.9 Malignant neoplasm of female genital organ, unspecified
CPT/HCPCS: 96372; J1447

== ENCOUNTER 2024-02-28 09:56 | Day surgery (SDC) | payer OTHER ==
[2024-02-28] MEDS: TBO-FILGRASTIM 300 MCG/0.5 ML DISP.SYRINGE SQ ONE (10:03)
[2024-02-28 16:45] VITALS: BP 113/48; PULSE 48; RESP 20; TEMP 98.3
== END 2024-02-28 10:20 | disposition home or self-care (01) ==
LOC: JONCCHEMO 09:56 → J7W 09:57 → JONCCHEMO 10:20
PROVIDERS: ATTEND Internal Medicine Hematology & Oncology
PROC: 3E013GC Introduction of Other Therapeutic Substance into Subcutaneous Tissue, Percutaneous Approach (ICD-10-PCS; principal; 2024-02-28)
DX: Z76.89 Persons encountering health services in other specified circumstances (principal); C57.9 Malignant neoplasm of female genital organ, unspecified
CPT/HCPCS: 96372; J1447

== ENCOUNTER 2024-03-04 12:35 | Day surgery (SDC) | payer OTHER ==
[2024-03-04 13:06] LABS: BASO % 0.4 % (0-2.0); EOS % 0.4 % (0-4.5); HEMATOCRIT 35.2 % (32.4-45.2); HEMOGLOBIN 11.2 GM/dL (10.7-15.3); LYMPH % 40.2 % (8-40); MCH 30.5 pg (25.7-33.7); MCHC 31.9 g/dl (32.0-36.0); MEAN CELL VOLUME 95.7 fl (80-96); MEAN PLT VOLUME 9.2 fl (7.5-11.1); MONO % 15.3 % (3.8-10.2); NEUT % 43.7 % (42.8-82.8); PLATELET COUNT 135 10^3/uL (134-434); RBC 3.68 M/mm3 (3.60-5.2); WHITE BLOOD COUNT 4.1 K/mm3 (4.0-10.0)
[2024-03-04 13:44] LABS: CHLORIDE 115 mmol/L (98-107); POTASSIUM 4.2 mmol/L (3.5-5.1); SODIUM 145 mmol/L (136-145)
[2024-03-04 13:46] LABS: CALCIUM 8.9 mg/dL (8.5-10.1)
[2024-03-04 13:47] LABS: ANION GAP 4 mmol/L (4-13); BLOOD UREA NITROGEN 14.8 mg/dL (7-18); CO2 26 mmol/L (21-32); GLUCOSE,RANDOM 92 mg/dL (74-106); MAGNESIUM 1.8 mg/dL (1.8-2.4)
[2024-03-04 13:50] LABS: CREATININE 1.1 mg/dL (0.55-1.3); SGPT/ALT 10 U/L (13-61)
[2024-03-04 13:51] LABS: BILIRUBIN,TOTAL 0.3 mg/dL (0.2-1); SGOT/AST 8 U/L (15-37); TOT PROT 6.2 g/dl (6.4-8.2)
[2024-03-04 13:53] LABS: ALK PHOS 66 U/L (45-117)
[2024-03-04] MEDS: DEXAMETHASONE SODIUM PHOSPHATE 10 MG, DIPHENHYDRAMINE 25 MG in SODIUM CHLORIDE 100 ML IVPB ONE (14:30)
[2024-03-04] MEDS: SODIUM CHLORIDE 250 ML IV ONE (14:30)
[2024-03-04] MEDS: FAMOTIDINE 20 MG/50 ML IVPB 20 MG/50 ML MG IVPB ONE (14:45)
[2024-03-04] MEDS: PALONOSETRON HCL 0.25 MG/5 ML VIAL IVPUSH ONE (14:50)
[2024-03-04] MEDS: PACLITAXEL 96 MG in SODIUM CHLORIDE 250 ML IVPB ONE (15:26)
[2024-03-04] MEDS: CARBOPLATIN IVPB ONE (16:56)
[2024-03-04] MEDS: SODIUM CHLORIDE IVPB ONE (16:56)
[2024-03-04] MEDS: PORTA CATH FLUSH 10 ML IVPUSH PRN (17:35)
[2024-03-04 18:31] VITALS: RESP 20; TEMP 98.3
[2024-03-04 18:39] VITALS: BP 153/85; PULSE 77
== END 2024-03-04 18:00 | disposition home or self-care (01) ==
LOC: JONCCHEMO 12:35 → J7W 12:48 → JONCCHEMO 18:00
PROVIDERS: ATTEND Internal Medicine Hematology & Oncology
DX: Z51.11 Encounter for antineoplastic chemotherapy (principal); C55 Malignant neoplasm of uterus, part unspecified
CPT/HCPCS: 36415; 80053; 83735; 85025; 96413; 96417

== ENCOUNTER 2024-03-11 11:13 | Day surgery (SDC) | payer OTHER ==
[2024-03-11 11:52] LABS: BASO % 0.4 % (0-2.0); EOS % 0.3 % (0-4.5); HEMATOCRIT 31.4 % (32.4-45.2); LYMPH % 29.2 % (8-40); MCH 30.8 pg (25.7-33.7); MCHC 31.9 g/dl (32.0-36.0); MEAN CELL VOLUME 96.7 fl (80-96); MEAN PLT VOLUME 9.5 fl (7.5-11.1); MONO % 3.9 % (3.8-10.2); NEUT % 66.2 % (42.8-82.8); PLATELET COUNT 84 10^3/uL (134-434); RBC 3.25 M/mm3 (3.60-5.2); RDW 19.2 % (11.6-15.6); WHITE BLOOD COUNT 3.8 K/mm3 (4.0-10.0)
[2024-03-11 12:17] LABS: CHLORIDE 114 mmol/L (98-107); POTASSIUM 4.4 mmol/L (3.5-5.1); SODIUM 143 mmol/L (136-145)
[2024-03-11 12:19] LABS: ALBUMIN 2.8 g/dl (3.4-5.0); ANION GAP 3 mmol/L (4-13); BLOOD UREA NITROGEN 21.2 mg/dL (7-18); CALCIUM 8.6 mg/dL (8.5-10.1); CO2 27 mmol/L (21-32); GLUCOSE,RANDOM 84 mg/dL (74-106); MAGNESIUM 1.7 mg/dL (1.8-2.4)
[2024-03-11 12:22] LABS: SGOT/AST 9 U/L (15-37); SGPT/ALT 9 U/L (13-61)
[2024-03-11 12:24] LABS: BILIRUBIN,TOTAL 0.6 mg/dL (0.2-1); TOT PROT 5.8 g/dl (6.4-8.2)
[2024-03-11 12:25] LABS: ALK PHOS 54 U/L (45-117)
[2024-03-11] MEDS: SODIUM CHLORIDE 250 ML IV ONE (12:50)
[2024-03-11] MEDS: FAMOTIDINE 20 MG/50 ML IVPB 20 MG/50 ML MG IVPB ONE (13:03)
[2024-03-11] MEDS: PALONOSETRON HCL 0.25 MG/5 ML VIAL IVPUSH ONE (13:27)
[2024-03-11] MEDS: DEXAMETHASONE SODIUM PHOSPHATE 10 MG, DIPHENHYDRAMINE 25 MG in SODIUM CHLORIDE 100 ML IVPB ONE (13:27)
[2024-03-11] MEDS: PACLITAXEL 96 MG in SODIUM CHLORIDE 250 ML IVPB ONE (14:21)
[2024-03-11] MEDS: CARBOPLATIN IVPB ONE (15:25)
[2024-03-11] MEDS: SODIUM CHLORIDE IVPB ONE (15:25)
[2024-03-11 16:53] VITALS: TEMP 98.4
[2024-03-11] MEDS ORDERED: PORTA CATH FLUSH 10 ML IVPUSH PRN (17:05)
[2024-03-11 17:06] VITALS: BP 141/65; PULSE 69; RESP 20
== END 2024-03-11 16:00 | disposition home or self-care (01) ==
LOC: JONCCHEMO 11:13 → J7W 11:18 → JONCCHEMO 16:00
PROVIDERS: ATTEND Internal Medicine Hematology & Oncology
PROC: 3E04305 Introduction of Other Antineoplastic into Central Vein, Percutaneous Approach (ICD-10-PCS; principal; 2024-03-11)
PROC: 3E043GC Introduction of Other Therapeutic Substance into Central Vein, Percutaneous Approach (ICD-10-PCS; 2024-03-11)
DX: Z51.11 Encounter for antineoplastic chemotherapy (principal); C55 Malignant neoplasm of uterus, part unspecified
CPT/HCPCS: 36415; 80053; 83735; 85025; 96365; 96367; 96413; 96417

== ENCOUNTER 2024-03-19 16:04 | Day surgery (SDC) | payer OTHER ==
[2024-03-19] MEDS: TBO-FILGRASTIM 300 MCG/0.5 ML DISP.SYRINGE SQ ONE (16:50)
[2024-03-19 17:59] VITALS: BP 115/54; PULSE 103; RESP 18; TEMP 99.4
[2024-03-19] MEDS: DEXAMETHASONE SODIUM PHOSPHATE 10 MG, DIPHENHYDRAMINE 25 MG in SODIUM CHLORIDE 100 ML IVPB ONE (18:06)
[2024-03-19] MEDS: PALONOSETRON HCL 0.25 MG/5 ML VIAL IVPUSH ONE (18:06)
[2024-03-19] MEDS: SODIUM CHLORIDE 250 ML IV ONE (18:06)
[2024-03-19] MEDS: SODIUM CHLORIDE IVPB ONE (18:07)
[2024-03-19] MEDS: PACLITAXEL 96 MG in SODIUM CHLORIDE 250 ML IVPB ONE (18:07)
[2024-03-19] MEDS: FAMOTIDINE 20 MG/50 ML IVPB 20 MG/50 ML MG IVPB ONE (18:07)
[2024-03-19] MEDS: CARBOPLATIN IVPB ONE (18:07)
== END 2024-03-19 17:00 | disposition home or self-care (01) ==
LOC: JONCCHEMO 16:04 → J7W 16:06 → JONCCHEMO 17:00
PROVIDERS: ATTEND Internal Medicine Hematology & Oncology
PROC: 3E013GC Introduction of Other Therapeutic Substance into Subcutaneous Tissue, Percutaneous Approach (ICD-10-PCS; principal; 2024-03-19)
DX: C55 Malignant neoplasm of uterus, part unspecified (principal); D70.9 Neutropenia, unspecified; Z76.89 Persons encountering health services in other specified circumstances
CPT/HCPCS: 96372; J1447

== ENCOUNTER 2024-03-20 14:09 | Day surgery (SDC) | payer OTHER ==
[2024-03-20] MEDS: SODIUM CHLORIDE 0.9% 500 ML INFUS.BAG IV ONE (14:40)
[2024-03-20 17:20] VITALS: BP 89/43; PULSE 50; RESP 20; TEMP 98.5
[2024-03-20] MEDS: TBO-FILGRASTIM 300 MCG/0.5 ML DISP.SYRINGE SQ ONE (17:39)
[2024-03-20] MEDS: PORTA CATH FLUSH 10 ML IVPUSH PRN (18:15)
== END 2024-03-20 18:26 | disposition home or self-care (01) ==
LOC: JONCCHEMO 14:09 → J7W 14:14 → JONCCHEMO 18:26
PROVIDERS: ATTEND Internal Medicine Hematology & Oncology
PROC: 3E043GC Introduction of Other Therapeutic Substance into Central Vein, Percutaneous Approach (ICD-10-PCS; principal; 2024-03-20)
PROC: 3E013GC Introduction of Other Therapeutic Substance into Subcutaneous Tissue, Percutaneous Approach (ICD-10-PCS; 2024-03-20)
DX: D70.9 Neutropenia, unspecified (principal); C55 Malignant neoplasm of uterus, part unspecified; Z76.89 Persons encountering health services in other specified circumstances
CPT/HCPCS: 96360; 96361; 96372; J1447

== ENCOUNTER 2024-03-21 14:15 | Day surgery (SDC) | payer OTHER ==
[2024-03-21] MEDS: TBO-FILGRASTIM 300 MCG/0.5 ML DISP.SYRINGE SQ ONE (14:19)
[2024-03-21 16:34] VITALS: BP 112/42; PULSE 45; RESP 20; TEMP 97.9
== END 2024-03-21 14:50 | disposition home or self-care (01) ==
LOC: J7W 14:15 → JONCCHEMO 14:15
PROVIDERS: ATTEND Internal Medicine Hematology & Oncology
PROC: 3E043GC Introduction of Other Therapeutic Substance into Central Vein, Percutaneous Approach (ICD-10-PCS; principal; 2024-03-21)
DX: C55 Malignant neoplasm of uterus, part unspecified (principal); D70.9 Neutropenia, unspecified; Z76.89 Persons encountering health services in other specified circumstances
CPT/HCPCS: 96372; J1447

== ENCOUNTER 2024-03-25 11:28 | Day surgery (SDC) | payer OTHER ==
[2024-03-25] MEDS ORDERED: SODIUM CHLORIDE IVPB ONE (11:30)
[2024-03-25] MEDS ORDERED: CARBOPLATIN IVPB ONE (11:30)
[2024-03-25] MEDS: SODIUM CHLORIDE 250 ML IV ONE (11:56)
[2024-03-25 13:03] LABS: HEMATOCRIT 29.1 % (32.4-45.2); HEMOGLOBIN 9.4 GM/dL (10.7-15.3); MCH 30.6 pg (25.7-33.7); MCHC 32.3 g/dl (32.0-36.0); MEAN CELL VOLUME 94.5 fl (80-96); MEAN PLT VOLUME 9.1 fl (7.5-11.1); PLATELET COUNT 180 10^3/uL (134-434); RBC 3.07 M/mm3 (3.60-5.2); RDW 19.2 % (11.6-15.6); WHITE BLOOD COUNT 3.6 K/mm3 (4.0-10.0)
[2024-03-25 13:22] LABS: POTASSIUM 3.8 mmol/L (3.5-5.1)
[2024-03-25 13:23] LABS: CALCIUM 8.5 mg/dL (8.5-10.1)
[2024-03-25 13:24] LABS: ALBUMIN 2.7 g/dl (3.4-5.0); BLOOD UREA NITROGEN 12.2 mg/dL (7-18); MAGNESIUM 1.5 mg/dL (1.8-2.4)
[2024-03-25 13:27] LABS: CREATININE 1.1 mg/dL (0.55-1.3)
[2024-03-25 13:29] LABS: BILIRUBIN,TOTAL 0.3 mg/dL (0.2-1); TOT PROT 5.9 g/dl (6.4-8.2)
[2024-03-25 13:33] LABS: ANISOCYTOSIS 1+; MACROCYTOSIS 1+
[2024-03-25] MEDS: FAMOTIDINE 20 MG/50 ML IVPB 20 MG/50 ML MG IVPB ONE (14:05)
[2024-03-25] MEDS: PALONOSETRON HCL 0.25 MG/5 ML VIAL IVPUSH ONE (14:06)
[2024-03-25] MEDS: DEXAMETHASONE SODIUM PHOSPHATE 10 MG, DIPHENHYDRAMINE 25 MG in SODIUM CHLORIDE 100 ML IVPB ONE (14:55)
[2024-03-25] MEDS: PACLITAXEL 96 MG in SODIUM CHLORIDE 250 ML IVPB ONE (15:27)
[2024-03-25] MEDS: CARBOplatin 135 MG in SODIUM CHLORIDE 250 ML IVPB ONE (16:33)
[2024-03-25 16:54] VITALS: TEMP 98.4
[2024-03-25 16:55] LABS: EPI CELLS 6 /uL (0-25.1); HYALINE CASTS 1 /uL (0-3.1); URINE APPEARANCE TURBID; URINE BACTERIA 3 /uL (0-1359); URINE BILIRUBIN 1+ (NEGATIVE); URINE COLOR ORANGE; URINE GLUCOSE (UA) NEGATIVE (NEGATIVE); URINE KETONE NEGATIVE (NEGATIVE); URINE LEUK ESTERASE 2+ (NEGATIVE); URINE NITRITE NEGATIVE (NEGATIVE); URINE PROTEIN 2+ (NEGATIVE); URINE WBC 1929 /uL (0-25.8)
[2024-03-25] MEDS: MAGNESIUM SULFATE IN WATER 2 GM/50 ML IVPB IVPB ONE (17:10)
[2024-03-25] MEDS: PORTA CATH FLUSH 10 ML IVPUSH PRN (18:15)
[2024-03-25 18:21] VITALS: BP 134/68; PULSE 81; RESP 18
[2024-03-25 19:28] LABS: URINE RBC 16162.9 /uL (0-23.9); YEAST FEW (NEGATIVE)
== END 2024-03-25 18:20 | disposition home or self-care (01) ==
LOC: JONCCHEMO 11:28 → J7W 11:29 → JONCCHEMO 18:20
PROVIDERS: ATTEND Internal Medicine Hematology & Oncology
PROC: 3E04305 Introduction of Other Antineoplastic into Central Vein, Percutaneous Approach (ICD-10-PCS; principal; 2024-03-25)
PROC: 3E043GC Introduction of Other Therapeutic Substance into Central Vein, Percutaneous Approach (ICD-10-PCS; 2024-03-25)
DX: Z51.11 Encounter for antineoplastic chemotherapy (principal); C55 Malignant neoplasm of uterus, part unspecified
CPT/HCPCS: 36415; 80053; 81003; 83735; 85025; 87077; 87086; 96365; 96367; 96413; 96417

== ENCOUNTER 2024-03-26 14:00 | Day surgery (SDC) | payer OTHER ==
[2024-03-26] MEDS: TBO-FILGRASTIM 300 MCG/0.5 ML DISP.SYRINGE SQ ONE (14:12)
[2024-03-26 17:16] VITALS: BP 133/52; PULSE 80; RESP 20; TEMP 97.7
== END 2024-03-26 14:40 | disposition home or self-care (01) ==
LOC: JONCCHEMO 14:00 → J7W 14:00 → JONCCHEMO 14:40
PROVIDERS: ATTEND Internal Medicine Hematology & Oncology
PROC: 3E013GC Introduction of Other Therapeutic Substance into Subcutaneous Tissue, Percutaneous Approach (ICD-10-PCS; principal; 2024-03-26)
DX: D70.9 Neutropenia, unspecified (principal); C55 Malignant neoplasm of uterus, part unspecified; Z76.89 Persons encountering health services in other specified circumstances
CPT/HCPCS: 96372; J1447

== ENCOUNTER 2024-03-27 14:26 | Day surgery (SDC) | payer OTHER ==
[2024-03-27] MEDS: TBO-FILGRASTIM 300 MCG/0.5 ML DISP.SYRINGE SQ ONE (13:54)
[2024-03-27 14:30] VITALS: BP 95/52; PULSE 82; RESP 20; TEMP 98.3
== END 2024-03-27 14:45 | disposition home or self-care (01) ==
LOC: JONCCHEMO 14:26 → J7W 14:26 → JONCCHEMO 14:45
PROVIDERS: ATTEND Internal Medicine Hematology & Oncology
PROC: 3E013GC Introduction of Other Therapeutic Substance into Subcutaneous Tissue, Percutaneous Approach (ICD-10-PCS; principal; 2024-03-27)
DX: D70.9 Neutropenia, unspecified (principal); C55 Malignant neoplasm of uterus, part unspecified
CPT/HCPCS: 96372; J1447

== ENCOUNTER 2024-03-28 13:26 | Day surgery (SDC) | payer OTHER ==
[2024-03-28] MEDS: TBO-FILGRASTIM 300 MCG/0.5 ML DISP.SYRINGE SQ ONE (13:28)
[2024-03-28 18:15] VITALS: BP 122/66; PULSE 86; RESP 18; TEMP 98.2
== END 2024-03-28 14:00 | disposition home or self-care (01) ==
LOC: JONCCHEMO 13:26 → J7W 13:26 → JONCCHEMO 14:00
PROVIDERS: ATTEND Internal Medicine Hematology & Oncology
PROC: 3E013GC Introduction of Other Therapeutic Substance into Subcutaneous Tissue, Percutaneous Approach (ICD-10-PCS; principal; 2024-03-28)
DX: D70.9 Neutropenia, unspecified (principal); C55 Malignant neoplasm of uterus, part unspecified; Z76.89 Persons encountering health services in other specified circumstances
CPT/HCPCS: 96372; J1447

== ENCOUNTER 2024-04-01 11:30 | Day surgery (SDC) | payer OTHER ==
[2024-04-01 11:53] LABS: BASO % 0.3 % (0-2.0); EOS % 0.2 % (0-4.5); HEMATOCRIT 27.2 % (32.4-45.2); HEMOGLOBIN 8.9 GM/dL (10.7-15.3); LYMPH % 31.7 % (8-40); MCH 30.9 pg (25.7-33.7); MCHC 32.6 g/dl (32.0-36.0); MEAN CELL VOLUME 94.8 fl (80-96); MEAN PLT VOLUME 9.4 fl (7.5-11.1); MONO % 13.7 % (3.8-10.2); NEUT % 54.1 % (42.8-82.8); PLATELET COUNT 100 10^3/uL (134-434); RBC 2.87 M/mm3 (3.60-5.2); RDW 19.5 % (11.6-15.6); WHITE BLOOD COUNT 3.1 K/mm3 (4.0-10.0)
[2024-04-01 12:09] LABS: POTASSIUM 3.9 mmol/L (3.5-5.1)
[2024-04-01 12:11] LABS: CALCIUM 8.8 mg/dL (8.5-10.1)
[2024-04-01 12:12] LABS: ALBUMIN 2.8 g/dl (3.4-5.0); BLOOD UREA NITROGEN 14.7 mg/dL (7-18); MAGNESIUM 1.7 mg/dL (1.8-2.4)
[2024-04-01 12:15] LABS: CREATININE 1.1 mg/dL (0.55-1.3)
[2024-04-01 12:17] LABS: BILIRUBIN,TOTAL 0.6 mg/dL (0.2-1); TOT PROT 5.8 g/dl (6.4-8.2)
[2024-04-01] MEDS: SODIUM CHLORIDE 250 ML IV ONE (12:30)
[2024-04-01] MEDS: DEXAMETHASONE SODIUM PHOSPHATE 10 MG, DIPHENHYDRAMINE 25 MG in DEXTROSE 5%-WATER - 100 ML IVPB ONE (12:50)
[2024-04-01] MEDS: PALONOSETRON HCL 0.25 MG/5 ML VIAL IVPUSH ONE (13:48)
[2024-04-01] MEDS: FAMOTIDINE 20 MG/50 ML IVPB 20 MG/50 ML MG IVPB ONE (13:50)
[2024-04-01] MEDS: MAGNESIUM OXIDE 400 MG TABLET (FP) PO ONE (14:29)
[2024-04-01] MEDS: PACLITAXEL 96 MG in SODIUM CHLORIDE 250 ML IVPB ONE (14:34)
[2024-04-01] MEDS: SODIUM CHLORIDE IVPB ONE (15:42)
[2024-04-01] MEDS: CARBOPLATIN IVPB ONE (15:42)
[2024-04-01] MEDS: PORTA CATH FLUSH 10 ML IVPUSH PRN (16:30)
[2024-04-01 18:06] VITALS: RESP 20; TEMP 98.6
[2024-04-01 18:35] VITALS: BP 137/56; PULSE 64
== END 2024-04-01 16:30 | disposition home or self-care (01) ==
LOC: JONCCHEMO 11:30 → J7W 11:42 → JONCCHEMO 16:30
PROVIDERS: ATTEND Internal Medicine Hematology & Oncology
DX: Z51.11 Encounter for antineoplastic chemotherapy (principal); C55 Malignant neoplasm of uterus, part unspecified; D70.9 Neutropenia, unspecified
CPT/HCPCS: 36415; 80053; 83735; 85025; 96367; 96375; 96413; 96417

== ENCOUNTER 2024-04-12 18:24 | Inpatient (IN) | payer OTHER ==
[2024-04-12 18:46] VITALS: BMI 25.4
[2024-04-12] MEDS ORDERED: ACETAMINOPHEN INJECTION 100 ML ONE (18:55)
[2024-04-12] MEDS: ACETAMINOPHEN 1000 MG/100 ML BAG IVPB ONE (19:10)
[2024-04-12 19:16] LABS: HEMATOCRIT 27.2 % (32.4-45.2); HEMOGLOBIN 8.8 GM/dL (10.7-15.3); MCH 30.8 pg (25.7-33.7); MCHC 32.3 g/dl (32.0-36.0); MEAN CELL VOLUME 95.2 fl (80-96); MEAN PLT VOLUME 7.9 fl (7.5-11.1); PLATELET COUNT 200 10^3/uL (134-434); RBC 2.86 M/mm3 (3.60-5.2); RDW 20.6 % (11.6-15.6); WHITE BLOOD COUNT 2.4 K/mm3 (4.0-10.0)
[2024-04-12 19:17] LABS: VENOUS BASE EXCESS -1.9 mmol/L (-2-2); VENOUS O2 SATURATION 15.3 % (70-80); VENOUS PCO2 36.5 mmHg (38-52); VENOUS PH 7.407 (7.310-7.410)
[2024-04-12 19:23] LABS: INR 1.08 (0.83-1.09); PROTHROMBIN TIME (PATIENT) 12.4 SEC (9.7-13.0)
[2024-04-12 19:26] LABS: ACTIVATED PTT 32.1 SECONDS (25.2-36.5)
[2024-04-12 19:34] LABS: POTASSIUM 4.6 mmol/L (3.5-5.1)
[2024-04-12 19:36] LABS: ALBUMIN 2.5 g/dl (3.4-5.0); BLOOD UREA NITROGEN 19.7 mg/dL (7-18)
[2024-04-12 19:40] LABS: CREATININE 1.5 mg/dL (0.55-1.3)
[2024-04-12 19:41] LABS: BILIRUBIN,TOTAL 0.5 mg/dL (0.2-1); TOT PROT 6.4 g/dl (6.4-8.2)
[2024-04-12 19:53] LABS: ADD RBC MORPHOLOGY YES
[2024-04-12 20:33] LABS: ANISOCYTOSIS 2+; MACROCYTOSIS 0; OVALOCYTE 1+
[2024-04-12 20:38] LABS: LACTIC ACID 2.1 mmol/L (0.4-2.0)
[2024-04-12] MEDS: SODIUM CHLORIDE 1,000 ML IV STA (20:57)
[2024-04-12] MEDS ORDERED: VANCOMYCIN 1 GRAM (PRE-DOCKED) 1,000 MG/250 ML BAG IVPB ONE ×2 (21:03→21:07)
[2024-04-12] MEDS ORDERED: PIPERACILLIN/TAZOB 4.5 GM 4.5 GM/100 ML BAG IVPB ONE (21:03)
[2024-04-12] MEDS: PIPERACILLIN/TAZOB 4.5 GM 4.5 GM in DEXTROSE 5%-WATER 100 ML IVPB ONE (21:12)
[2024-04-12] MEDS: VANCOMYCIN 1,000 MG in DEXTROSE 5%-WATER - 250 ML IVPB ONE (21:59)
[2024-04-12] MEDS ORDERED: MAGNESIUM 1GM/D5W - 1 GM/100 ML IVPB IVPB ONE (23:09)
[2024-04-12] MEDS: MAGNESIUM SULF 50% (8.12 MEQ/2 ML-1 GM VIAL) IVPB ONE (23:14)
[2024-04-12 23:47] LABS: EPI CELLS >36 /uL (0-25.1); HYALINE CASTS 2 /uL (0-3.1); URINE APPEARANCE TURBID; URINE BACTERIA >9,000 /uL (0-1359); URINE BILIRUBIN 2+ (NEGATIVE); URINE COLOR DK YELLOW; URINE GLUCOSE (UA) NEGATIVE (NEGATIVE); URINE KETONE TRACE (NEGATIVE); URINE LEUK ESTERASE 3+ (NEGATIVE); URINE NITRITE POSITIVE (NEGATIVE); URINE PROTEIN 3+ (NEGATIVE); URINE UROBILINOGEN 4.0 E.U/dl mg/dL (0.2-1.0); URINE WBC 7211 /uL (0-25.8)
[2024-04-13] MEDS: SODIUM CHLORIDE 1,000 ML IV STA (00:24)
[2024-04-13] MEDS ORDERED: DOCUSATE SODIUM 100 MG CAPSULE (FP) PO PRN (02:12)
[2024-04-13 02:15] LABS: URINE RBC 1454.7 /uL (0-23.9)
[2024-04-13] MEDS ORDERED: PIPERACILLIN/TAZOB 3.375 GM 3.375 GM/50 ML BAG IVPB ONE (03:29)
[2024-04-13] MEDS: SODIUM CHLORIDE 0.45% 1,000 ML IV SCH (03:37)
[2024-04-13] MEDS: PIPERACILLIN/TAZOB 3.375 GM 3.375 GM in DEXTROSE 5%-WATER - 50 ML IVPB SCH ×2 (03:38→08:38)
[2024-04-13] MEDS ORDERED: ALBUTEROL SO4 HFA INHALER IH PRN (08:00)
[2024-04-13] MEDS ORDERED: PIPERACILLIN/TAZOBACTAM 3.375 GM VIAL IVPB ONE (08:04)
[2024-04-13] MEDS: ACETAMINOPHEN 1000 MG/100 ML BAG IVPB PRN ×2 (08:33→14:35)
[2024-04-13] MEDS ORDERED: DABIGATRAN ETEXILATE MESYLATE 110 MG PO SCH (10:00)
[2024-04-13] MEDS: ENOXAPARIN NA (PORCINE) 80 MG/0.8 ML DISP.SYRIN SQ SCH (15:56)
[2024-04-13 16:49] LABS: POTASSIUM 4.1 mmol/L (3.5-5.1)
[2024-04-13 16:51] LABS: ALBUMIN 2.2 g/dl (3.4-5.0); BLOOD UREA NITROGEN 17.7 mg/dL (7-18); CALCIUM 8.5 mg/dL (8.5-10.1)
[2024-04-13 16:55] LABS: CREATININE 1.3 mg/dL (0.55-1.3)
[2024-04-13 16:56] LABS: BILIRUBIN,TOTAL 0.4 mg/dL (0.2-1); TOT PROT 5.3 g/dl (6.4-8.2)
[2024-04-13] MEDS ORDERED: CEFTRIAXONE 1 GM in DEXTROSE 5%-WATER - 50 ML IVPB ONE (17:00)
[2024-04-13] MEDS ORDERED: PIPERACILLIN/TAZOB 3.375 GM 3.375 GM in DEXTROSE 5%-WATER - 50 ML IVPB SCH (18:00)
[2024-04-13] MEDS: LIDOCAINE 5% TOPICAL PATCH TP SCH (19:27)
[2024-04-13] MEDS: PIPERACILLIN/TAZOB 3.375 GM 50 ML IVPB SCH (21:57)
[2024-04-13] MEDS: ATORVASTATIN CA 20 MG TABLET (FP) PO SCH (21:57)
[2024-04-13] MEDS ORDERED: GABAPENTIN 300 MG CAPSULE PO SCH (22:00)
[2024-04-14] MEDS ORDERED: ACETAMINOPHEN 325 MG TABLET (FP) PO PRN ×2 (02:12→06:00)
[2024-04-14] MEDS: LIDOCAINE PATCH REMOVAL MC SCH (05:20)
[2024-04-14 08:55] LABS: HEMOGLOBIN 8.5 GM/dL (10.7-15.3); MCHC 32.5 g/dl (32.0-36.0); MEAN CELL VOLUME 95.3 fl (80-96); MEAN PLT VOLUME 8.4 fl (7.5-11.1); PLATELET COUNT 213 10^3/uL (134-434); RBC 2.73 M/mm3 (3.60-5.2); RDW 19.6 % (11.6-15.6); WHITE BLOOD COUNT 4.6 K/mm3 (4.0-10.0)
[2024-04-14 09:14] LABS: POTASSIUM 3.6 mmol/L (3.5-5.1)
[2024-04-14 09:15] LABS: CALCIUM 8.3 mg/dL (8.5-10.1)
[2024-04-14 09:16] LABS: BLOOD UREA NITROGEN 15.8 mg/dL (7-18); MAGNESIUM 1.7 mg/dL (1.8-2.4)
[2024-04-14 09:19] LABS: CREATININE 1.1 mg/dL (0.55-1.3); PHOSPHOROUS 2.9 mg/dL (2.5-4.9)
[2024-04-14 10:28] LABS: ANISOCYTOSIS 1+; MACROCYTOSIS 0; OVALOCYTE 1+
[2024-04-14] MEDS: traMADol HCL 50 MG TABLET PO ONE (21:12)
[2024-04-16 09:13] LABS: HEMATOCRIT 26.8 % (32.4-45.2); HEMOGLOBIN 8.6 GM/dL (10.7-15.3); MCHC 32.1 g/dl (32.0-36.0); MEAN CELL VOLUME 93.5 fl (80-96); MEAN PLT VOLUME 8.2 fl (7.5-11.1); PLATELET COUNT 240 10^3/uL (134-434); RBC 2.86 M/mm3 (3.60-5.2); RDW 21.1 % (11.6-15.6); WHITE BLOOD COUNT 3.1 K/mm3 (4.0-10.0)
[2024-04-16 09:47] LABS: POTASSIUM 3.9 mmol/L (3.5-5.1)
[2024-04-16 09:52] LABS: BLOOD UREA NITROGEN 9.8 mg/dL (7-18); CALCIUM 8.3 mg/dL (8.5-10.1)
[2024-04-16 10:00] LABS: BILIRUBIN,TOTAL 0.3 mg/dL (0.2-1)
[2024-04-16 10:27] LABS: ANISOCYTOSIS 1+; MACROCYTOSIS 0; OVALOCYTE 1+
[2024-04-17 10:20] VITALS: RESP 18
[2024-04-18] MEDS ORDERED: FLU VACCINE (FLULAVAL) PF 45 MCG/0.5 ML SYRINGE 2024-2025 IM ONE (11:01)
[2024-04-18 16:44] VITALS: BP 101/69; PULSE 86; TEMP 99
== END 2024-04-18 15:15 | disposition home or self-care (01) | DRG 872 ==
LOC: JER 18:24 → JERBED 04-13 00:30 → J6S 04-13 04:29
PROVIDERS: ADMIT Internal Medicine; ATTEND Internal Medicine
DX: A41.9 Sepsis, unspecified organism (principal); I13.0 Hypertensive heart and chronic kidney disease with heart failure and stage 1 through stage 4 chronic kidney disease, or unspecified chronic kidney disease; I69.354 Hemiplegia and hemiparesis following cerebral infarction affecting left non-dominant side; C56.9 Malignant neoplasm of unspecified ovary; I50.30 Unspecified diastolic (congestive) heart failure; N13.6 Pyonephrosis; N17.9 Acute kidney failure, unspecified; I48.91 Unspecified atrial fibrillation; E03.9 Hypothyroidism, unspecified; R19.00 Intra-abdominal and pelvic swelling, mass and lump, unspecified site; D64.9 Anemia, unspecified; N18.9 Chronic kidney disease, unspecified
CPT/HCPCS: 0241U-QW; 36415; 71045-TC-FY; 74176-TC; 80048; 80053; 81003; 82803; 83605; 83735; 84100; 84484; 85025; 85610; 85730; 86304; 86850; 86900; 86901; 87040; 87086; 93005; 93010; 93971-TC; 97116-GP; 97161-GP; 99285-25; J0131

== ENCOUNTER 2024-05-07 12:08 | Day surgery (SDC) | payer OTHER ==
[~2024-05-07 12:08] MED LIST changes: +DEXAMETHASONE SODIUM PHOSPHATE 10 MG, DIPHENHYDRAMINE 25 MG in DEXTROSE 5%-WATER - 100 ML IVPB ONE; -DEXAMETHASONE SODIUM PHOSPHATE 10 MG, DIPHENHYDRAMINE 25 MG in SODIUM CHLORIDE 100 ML IVPB ONE
[2024-05-07] MEDS: DEXAMETHASONE SODIUM PHOSPHATE 10 MG, DIPHENHYDRAMINE 25 MG in DEXTROSE 5%-WATER - 100 ML IVPB ONE (13:30)
[2024-05-07] MEDS: SODIUM CHLORIDE 250 ML IV ONE (13:30)
[2024-05-07] MEDS: FAMOTIDINE 20 MG/50 ML IVPB 20 MG/50 ML MG IVPB ONE (14:00)
[2024-05-07] MEDS: PALONOSETRON HCL 0.25 MG/5 ML VIAL IVPUSH ONE (14:02)
[2024-05-07] MEDS: PACLITAXEL 96 MG in SODIUM CHLORIDE 250 ML IVPB ONE (14:18)
[2024-05-07] MEDS: CARBOPLATIN IVPB ONE (15:32)
[2024-05-07] MEDS: SODIUM CHLORIDE IVPB ONE (15:32)
[2024-05-07] MEDS: PORTA CATH FLUSH 10 ML IVPUSH PRN (16:05)
[2024-05-07 16:59] VITALS: RESP 20; TEMP 97.4
[2024-05-07 17:08] VITALS: BP 147/80; PULSE 75
== END 2024-05-07 16:15 | disposition home or self-care (01) ==
LOC: J7W 12:08 → JONCCHEMO 12:08
PROVIDERS: ATTEND Internal Medicine Hematology & Oncology
DX: Z51.11 Encounter for antineoplastic chemotherapy (principal); C55 Malignant neoplasm of uterus, part unspecified; D70.9 Neutropenia, unspecified
CPT/HCPCS: 96365; 96375; 96413; 96417

== ENCOUNTER 2024-05-14 09:45 | Day surgery (SDC) | payer OTHER ==
[2024-05-14] MEDS: SODIUM CHLORIDE 250 ML IV ONE (11:00)
[2024-05-14] MEDS: FAMOTIDINE 20 MG/50 ML IVPB 20 MG/50 ML MG IVPB ONE (11:11)
[2024-05-14] MEDS: PALONOSETRON HCL 0.25 MG/5 ML VIAL IVPUSH ONE (11:40)
[2024-05-14] MEDS: DEXAMETHASONE SODIUM PHOSPHATE 10 MG, DIPHENHYDRAMINE 25 MG in SODIUM CHLORIDE 100 ML IVPB ONE (11:45)
[2024-05-14] MEDS: PACLITAXEL 96 MG in SODIUM CHLORIDE 250 ML IVPB ONE (12:28)
[2024-05-14] MEDS: SODIUM CHLORIDE IVPB ONE (13:40)
[2024-05-14] MEDS: CARBOPLATIN IVPB ONE (13:40)
[2024-05-14 17:15] VITALS: BP 130/64; PULSE 89; RESP 20; TEMP 98.8
== END 2024-05-14 17:16 | disposition home or self-care (01) ==
LOC: JONCCHEMO 09:45 → J7W 09:46 → JONCCHEMO 17:16
PROVIDERS: ATTEND Internal Medicine Hematology & Oncology
DX: Z51.11 Encounter for antineoplastic chemotherapy (principal); C55 Malignant neoplasm of uterus, part unspecified
CPT/HCPCS: 96367; 96375; 96413; 96417

== ENCOUNTER 2024-05-21 10:37 | Day surgery (SDC) | payer OTHER ==
[2024-05-21] MEDS: TBO-FILGRASTIM 300 MCG/0.5 ML DISP.SYRINGE SQ ONE (10:26)
[2024-05-21 17:06] VITALS: BP 118/55; PULSE 103; RESP 18; TEMP 98.2
== END 2024-05-21 10:50 | disposition home or self-care (01) ==
LOC: J7W 10:37 → JONCCHEMO 10:37
PROVIDERS: ATTEND Internal Medicine Hematology & Oncology
PROC: 3E013GC Introduction of Other Therapeutic Substance into Subcutaneous Tissue, Percutaneous Approach (ICD-10-PCS; principal; 2024-05-21)
DX: C55 Malignant neoplasm of uterus, part unspecified (principal); Z76.89 Persons encountering health services in other specified circumstances
CPT/HCPCS: 96372; J1447

== ENCOUNTER 2024-05-22 11:25 | Day surgery (SDC) | payer OTHER ==
[2024-05-22] MEDS: TBO-FILGRASTIM 300 MCG/0.5 ML DISP.SYRINGE SQ ONE (11:33)
[2024-05-22 11:59] VITALS: BP 103/53; PULSE 95; RESP 20; TEMP 98.9
== END 2024-05-22 11:45 | disposition home or self-care (01) ==
LOC: JONCCHEMO 11:25 → J7W 11:40 → JONCCHEMO 11:40
PROVIDERS: ATTEND Internal Medicine Hematology & Oncology
PROC: 3E013GC Introduction of Other Therapeutic Substance into Subcutaneous Tissue, Percutaneous Approach (ICD-10-PCS; principal; 2024-05-22)
DX: C55 Malignant neoplasm of uterus, part unspecified (principal); Z76.89 Persons encountering health services in other specified circumstances
CPT/HCPCS: 96372; J1447

== ENCOUNTER 2024-05-23 10:43 | Day surgery (SDC) | payer OTHER ==
[2024-05-23 11:15] LABS: HEMATOCRIT 23.4 % (32.4-45.2); HEMOGLOBIN 7.6 GM/dL (10.7-15.3); MCH 32.2 pg (25.7-33.7); MCHC 32.4 g/dl (32.0-36.0); MEAN CELL VOLUME 99.5 fl (80-96); MEAN PLT VOLUME 9.6 fl (7.5-11.1); PLATELET COUNT 67 10^3/uL (134-434); RBC 2.35 M/mm3 (3.60-5.2); RDW 20.3 % (11.6-15.6); WHITE BLOOD COUNT 2.2 K/mm3 (4.0-10.0)
[2024-05-23] MEDS: TBO-FILGRASTIM 300 MCG/0.5 ML DISP.SYRINGE SQ ONE (11:17)
[2024-05-23 12:07] LABS: ANISOCYTOSIS 0; MACROCYTOSIS 0
[2024-05-23 17:58] VITALS: BP 116/56; PULSE 104; RESP 20; TEMP 99.3
== END 2024-05-23 11:30 | disposition home or self-care (01) ==
LOC: JONCCHEMO 10:43 → J7W 10:45 → JONCCHEMO 11:30
PROVIDERS: ATTEND Internal Medicine Hematology & Oncology
PROC: 3E013GC Introduction of Other Therapeutic Substance into Subcutaneous Tissue, Percutaneous Approach (ICD-10-PCS; principal; 2024-05-23)
DX: C55 Malignant neoplasm of uterus, part unspecified (principal); Z76.89 Persons encountering health services in other specified circumstances
CPT/HCPCS: 36415; 85025; 96372; J1447

== ENCOUNTER 2024-05-27 10:41 | Day surgery (SDC) | payer OTHER ==
[2024-05-27 11:38] LABS: BASO % 0.5 % (0-2.0); EOS % 0.5 % (0-4.5); HEMOGLOBIN 8.3 GM/dL (10.7-15.3); MCH 32.1 pg (25.7-33.7); MEAN CELL VOLUME 97.5 fl (80-96); MEAN PLT VOLUME 9.7 fl (7.5-11.1); MONO % 15.5 % (3.8-10.2); NEUT % 52.5 % (42.8-82.8); PLATELET COUNT 127 10^3/uL (134-434); RBC 2.57 M/mm3 (3.60-5.2); RDW 21.2 % (11.6-15.6); WHITE BLOOD COUNT 3.5 K/mm3 (4.0-10.0)
[2024-05-27 12:24] LABS: ANISOCYTOSIS 2+; MACROCYTOSIS 1+
[2024-05-27] MEDS: FUROSEMIDE 40 MG TABLET (FP) PO ONE (15:44)
[2024-05-27 17:39] VITALS: TEMP 98.8
[2024-05-27] MEDS ORDERED: PORTA CATH FLUSH 10 ML IVPUSH PRN (17:39)
[2024-05-27 21:34] LABS: BASO % 1.1 % (0-2.0); EOS % 0.2 % (0-4.5); HEMATOCRIT 33.3 % (32.4-45.2); HEMOGLOBIN 11.1 GM/dL (10.7-15.3); LYMPH % 16.2 % (8-40); MCH 30.8 pg (25.7-33.7); MCHC 33.4 g/dl (32.0-36.0); MEAN CELL VOLUME 92.3 fl (80-96); MEAN PLT VOLUME 8.4 fl (7.5-11.1); MONO % 10.4 % (3.8-10.2); NEUT % 72.1 % (42.8-82.8); PLATELET COUNT 107 10^3/uL (134-434); RBC 3.61 M/mm3 (3.60-5.2); RDW 20.6 % (11.6-15.6); WHITE BLOOD COUNT 4.7 K/mm3 (4.0-10.0)
[2024-05-28 08:22] VITALS: BP 139/78; PULSE 94; RESP 18
== END 2024-05-27 21:37 | disposition home or self-care (01) ==
LOC: JONCBLOOD 10:41 → J7W 10:42 → JONCBLOOD 21:37
PROVIDERS: ATTEND Internal Medicine Hematology & Oncology
PROC: 30243N1 Transfusion of Nonautologous Red Blood Cells into Central Vein, Percutaneous Approach (ICD-10-PCS; principal; 2024-05-27)
DX: C55 Malignant neoplasm of uterus, part unspecified (principal); Z76.89 Persons encountering health services in other specified circumstances
CPT/HCPCS: 36415; 36430; 85025; 86850; 86900; 86901; 86922; P9058

== ENCOUNTER 2024-06-04 09:29 | Day surgery (SDC) | payer OTHER ==
[2024-06-04 10:04] LABS: BASO % 0.6 % (0-2.0); EOS % 0.6 % (0-4.5); HEMATOCRIT 34.8 % (32.4-45.2); HEMOGLOBIN 11.4 GM/dL (10.7-15.3); LYMPH % 34.1 % (8-40); MCH 31.5 pg (25.7-33.7); MCHC 32.9 g/dl (32.0-36.0); MEAN CELL VOLUME 95.6 fl (80-96); MEAN PLT VOLUME 8.7 fl (7.5-11.1); NEUT % 55.7 % (42.8-82.8); PLATELET COUNT 188 10^3/uL (134-434); RBC 3.64 M/mm3 (3.60-5.2); WHITE BLOOD COUNT 3.7 K/mm3 (4.0-10.0)
[2024-06-04 10:31] LABS: CALCIUM 9.4 mg/dL (8.5-10.1)
[2024-06-04 10:32] LABS: ALBUMIN 2.9 g/dl (3.4-5.0); BLOOD UREA NITROGEN 15.5 mg/dL (7-18); MAGNESIUM 1.8 mg/dL (1.8-2.4)
[2024-06-04 10:36] LABS: BILIRUBIN,TOTAL 0.4 mg/dL (0.2-1); TOT PROT 6.4 g/dl (6.4-8.2)
[2024-06-04] MEDS: SODIUM CHLORIDE 250 ML IV ONE (11:32)
[2024-06-04] MEDS: DEXAMETHASONE SODIUM PHOSPHATE 10 MG, DIPHENHYDRAMINE 25 MG in SODIUM CHLORIDE 100 ML IVPB ONE (11:32)
[2024-06-04] MEDS: PALONOSETRON HCL 0.25 MG/5 ML VIAL IVPUSH ONE (12:08)
[2024-06-04] MEDS: FAMOTIDINE 20 MG/50 ML IVPB 20 MG/50 ML MG IVPB ONE (12:09)
[2024-06-04] MEDS: PACLITAXEL 96 MG in SODIUM CHLORIDE 250 ML IVPB ONE (12:30)
[2024-06-04] MEDS: SODIUM CHLORIDE IVPB ONE (13:36)
[2024-06-04] MEDS: CARBOPLATIN IVPB ONE (13:36)
[2024-06-04] MEDS: PORTA CATH FLUSH 10 ML IVPUSH PRN (14:15)
[2024-06-04 16:06] VITALS: BP 141/83; PULSE 82; RESP 16; TEMP 97.7
== END 2024-06-04 15:40 | disposition home or self-care (01) ==
LOC: JONCCHEMO 09:29 → J7W 09:29 → JONCCHEMO 15:40
PROVIDERS: ATTEND Internal Medicine Hematology & Oncology
DX: Z51.11 Encounter for antineoplastic chemotherapy (principal); C57.9 Malignant neoplasm of female genital organ, unspecified
CPT/HCPCS: 36415; 80053; 83735; 85025; 96367; 96375; 96413; 96417

== ENCOUNTER 2024-06-11 09:58 | Day surgery (SDC) | payer OTHER ==
[~2024-06-11 09:58] MED LIST changes: -CARBOPLATIN IVPB ONE; -DEXAMETHASONE SODIUM PHOSPHATE 10 MG, DIPHENHYDRAMINE 25 MG in DEXTROSE 5%-WATER - 100 ML IVPB ONE; +DEXAMETHASONE SODIUM PHOSPHATE 10 MG, DIPHENHYDRAMINE 25 MG in SODIUM CHLORIDE 100 ML IVPB ONE; -PACLITAXEL 96 MG in SODIUM CHLORIDE 250 ML IVPB ONE; -SODIUM CHLORIDE IVPB ONE
[2024-06-11] MEDS ORDERED: PACLITAXEL 96 MG in SODIUM CHLORIDE 250 ML IVPB ONE (10:00)
[2024-06-11] MEDS: TBO-FILGRASTIM 300 MCG/0.5 ML DISP.SYRINGE SQ ONE (10:33)
[2024-06-11] MEDS ORDERED: SODIUM CHLORIDE IVPB ONE (11:00)
[2024-06-11] MEDS ORDERED: CARBOPLATIN IVPB ONE (11:00)
[2024-06-11 14:32] VITALS: BP 132/91; PULSE 86; RESP 20; TEMP 98.8
== END 2024-06-11 10:50 | disposition home or self-care (01) ==
LOC: JONCCHEMO 09:58 → J7W 10:01 → JONCCHEMO 10:50
PROVIDERS: ATTEND Internal Medicine Hematology & Oncology
PROC: 3E013GC Introduction of Other Therapeutic Substance into Subcutaneous Tissue, Percutaneous Approach (ICD-10-PCS; principal; 2024-06-11)
DX: C57.9 Malignant neoplasm of female genital organ, unspecified (principal); Z76.89 Persons encountering health services in other specified circumstances
CPT/HCPCS: 96372; J1447

== ENCOUNTER 2024-06-12 10:33 | Day surgery (SDC) | payer OTHER ==
[2024-06-12] MEDS: TBO-FILGRASTIM 300 MCG/0.5 ML DISP.SYRINGE SQ ONE (10:48)
[2024-06-12 14:15] VITALS: BP 123/58; PULSE 46; RESP 20; TEMP 97.8
== END 2024-06-12 11:00 | disposition home or self-care (01) ==
LOC: JONCCHEMO 10:33 → J7W 10:34 → JONCCHEMO 11:00
PROVIDERS: ATTEND Internal Medicine Hematology & Oncology
PROC: 3E013GC Introduction of Other Therapeutic Substance into Subcutaneous Tissue, Percutaneous Approach (ICD-10-PCS; principal; 2024-06-12)
DX: Z76.89 Persons encountering health services in other specified circumstances (principal); C57.9 Malignant neoplasm of female genital organ, unspecified
CPT/HCPCS: 96372; J1447

== ENCOUNTER 2024-06-13 11:35 | Day surgery (SDC) | payer OTHER ==
[2024-06-13] MEDS: TBO-FILGRASTIM 300 MCG/0.5 ML DISP.SYRINGE SQ ONE (11:52)
== END 2024-06-13 12:05 | disposition home or self-care (01) ==
LOC: JONCCHEMO 11:35
PROVIDERS: ATTEND Internal Medicine Hematology & Oncology
PROC: 3E013GC Introduction of Other Therapeutic Substance into Subcutaneous Tissue, Percutaneous Approach (ICD-10-PCS; principal; 2024-06-13)
DX: Z76.89 Persons encountering health services in other specified circumstances (principal); C57.9 Malignant neoplasm of female genital organ, unspecified
CPT/HCPCS: 96372; J1447

== ENCOUNTER 2024-06-18 10:04 | Day surgery (SDC) | payer OTHER ==
[2024-06-18] MEDS: SODIUM CHLORIDE 250 ML IV ONE (11:30)
[2024-06-18] MEDS: DEXAMETHASONE SODIUM PHOSPHATE 10 MG, DIPHENHYDRAMINE 25 MG in SODIUM CHLORIDE 100 ML IVPB ONE (11:39)
[2024-06-18] MEDS: FAMOTIDINE 20 MG/50 ML IVPB 20 MG/50 ML MG IVPB ONE (12:13)
[2024-06-18] MEDS: PALONOSETRON HCL 0.25 MG/5 ML VIAL IVPUSH ONE (12:13)
[2024-06-18] MEDS: PACLITAXEL 96 MG in SODIUM CHLORIDE 250 ML IVPB ONE (12:44)
[2024-06-18] MEDS: SODIUM CHLORIDE IVPB ONE (13:59)
[2024-06-18] MEDS: CARBOPLATIN IVPB ONE (13:59)
[2024-06-18] MEDS: PORTA CATH FLUSH 10 ML IVPUSH PRN (14:30)
[2024-06-18 16:15] VITALS: RESP 20; TEMP 98.5
[2024-06-18 16:24] VITALS: BP 128/71; PULSE 67
== END 2024-06-18 15:00 | disposition home or self-care (01) ==
LOC: JONCCHEMO 10:04
PROVIDERS: ATTEND Internal Medicine Hematology & Oncology
PROC: 3E04305 Introduction of Other Antineoplastic into Central Vein, Percutaneous Approach (ICD-10-PCS; principal; 2024-06-18)
PROC: 3E0433Z Introduction of Anti-inflammatory into Central Vein, Percutaneous Approach (ICD-10-PCS; 2024-06-18)
PROC: 3E033GC Introduction of Other Therapeutic Substance into Peripheral Vein, Percutaneous Approach (ICD-10-PCS; 2024-06-18)
DX: Z51.11 Encounter for antineoplastic chemotherapy (principal); C57.9 Malignant neoplasm of female genital organ, unspecified
CPT/HCPCS: 96374; 96375; 96413; 96417

== ENCOUNTER 2024-06-26 10:15 | Day surgery (SDC) | payer OTHER ==
[~2024-06-26 10:15] MED LIST changes: -DEXAMETHASONE SODIUM PHOSPHATE 10 MG, DIPHENHYDRAMINE 25 MG in SODIUM CHLORIDE 100 ML IVPB ONE; -FAMOTIDINE 20 MG/50 ML IVPB 20 MG/50 ML MG IVPB ONE; +MAGNESIUM 2GM/50ML STERILE WATER IVPB IVPB ONE; -PALONOSETRON HCL 0.25 MG/5 ML VIAL IVPUSH ONE; -SODIUM CHLORIDE 250 ML IV ONE
[2024-06-26] MEDS: SODIUM CHLORIDE 250 ML IV ONE (11:24)
[2024-06-26] MEDS: DEXAMETHASONE SODIUM PHOSPHATE 10 MG, DIPHENHYDRAMINE 25 MG in SODIUM CHLORIDE 100 ML IVPB ONE (11:46)
[2024-06-26] MEDS: FAMOTIDINE 20 MG/50 ML IVPB 20 MG/50 ML MG IVPB ONE (12:20)
[2024-06-26] MEDS: PALONOSETRON HCL 0.25 MG/5 ML VIAL IVPUSH ONE (12:34)
[2024-06-26] MEDS: PACLITAXEL 96 MG in SODIUM CHLORIDE 250 ML IVPB ONE (13:08)
[2024-06-26] MEDS: CARBOPLATIN IVPB ONE (14:20)
[2024-06-26] MEDS: SODIUM CHLORIDE IVPB ONE (14:20)
[2024-06-26] MEDS: MAGNESIUM 2GM/50ML STERILE WATER IVPB IVPB ONE (14:55)
[2024-06-26 15:12] VITALS: RESP 18; TEMP 98.6
[2024-06-26 16:16] VITALS: BP 132/52; PULSE 42
[2024-06-26] MEDS: PORTA CATH FLUSH 10 ML IVPUSH PRN (16:16)
== END 2024-06-26 17:03 | disposition home or self-care (01) ==
LOC: JONCCHEMO 10:15 → J7W 10:30 → JONCCHEMO 17:03
PROVIDERS: ATTEND Internal Medicine Hematology & Oncology
PROC: 3E04305 Introduction of Other Antineoplastic into Central Vein, Percutaneous Approach (ICD-10-PCS; principal; 2024-06-26)
PROC: 3E043GC Introduction of Other Therapeutic Substance into Central Vein, Percutaneous Approach (ICD-10-PCS; 2024-06-26)
DX: Z51.11 Encounter for antineoplastic chemotherapy (principal); C57.9 Malignant neoplasm of female genital organ, unspecified
CPT/HCPCS: 96365; 96374; 96375; 96413; 96417

== ENCOUNTER 2024-07-02 12:09 | Emergency (ER) | payer OTHER ==
[2024-07-02 12:17] VITALS: BMI 24.2
[2024-07-02] MEDS ORDERED: ACETAMINOPHEN INJECTION 100 ML ONE (13:03)
[2024-07-02] MEDS: ACETAMINOPHEN 1000 MG/100 ML BAG IVPB ONE (13:26)
[2024-07-02 13:53] LABS: HEMATOCRIT 29.1 % (32.4-45.2); HEMOGLOBIN 9.2 GM/dL (10.7-15.3); MCH 30.4 pg (25.7-33.7); MCHC 31.6 g/dl (32.0-36.0); MEAN PLT VOLUME 9.4 fl (7.5-11.1); PLATELET COUNT 121 10^3/uL (134-434); RBC 3.03 M/mm3 (3.60-5.2); RDW 18.7 % (11.6-15.6)
[2024-07-02 14:00] LABS: INR 1.02 (0.83-1.09); PROTHROMBIN TIME (PATIENT) 11.2 SEC (9.7-13.0); WHITE BLOOD COUNT 1.1 K/mm3 (4.0-10.0)
[2024-07-02 14:03] LABS: ACTIVATED PTT 29.3 SECONDS (25.2-36.5)
[2024-07-02 14:15] LABS: POTASSIUM 4.2 mmol/L (3.5-5.1)
[2024-07-02 14:17] LABS: CALCIUM 8.7 mg/dL (8.5-10.1)
[2024-07-02 14:18] LABS: ALBUMIN 2.7 g/dl (3.4-5.0); BLOOD UREA NITROGEN 14.5 mg/dL (7-18)
[2024-07-02 14:21] LABS: CREATININE 0.9 mg/dL (0.55-1.3)
[2024-07-02 14:22] LABS: BILIRUBIN,TOTAL 0.6 mg/dL (0.2-1); TOT PROT 5.9 g/dl (6.4-8.2)
[2024-07-02 14:31] LABS: ANISOCYTOSIS 0; MACROCYTOSIS 0
[2024-07-02 15:17] LABS: HIV INTERPRETATION NEGATIVE (NEGATIVE)
[2024-07-02 21:03] VITALS: BP 111/57; PULSE 64; RESP 18; TEMP 98.6
== END 2024-07-02 22:22 | disposition home or self-care (01) ==
LOC: JER 12:09
PROC: 3E033NZ Introduction of Analgesics, Hypnotics, Sedatives into Peripheral Vein, Percutaneous Approach (ICD-10-PCS; principal; 2024-07-02)
DX: R10.84 Generalized abdominal pain (principal); G89.3 Neoplasm related pain (acute) (chronic)
CPT/HCPCS: 36415; 74178-TC; 80053; 85025; 85610; 85730; 86803; 87389; 99284-25; J0131; Q9967

== ENCOUNTER 2024-07-15 15:55 | Inpatient (IN) | payer OTHER ==
[2024-07-15] MEDS ORDERED: ACETAMINOPHEN INJECTION 100 ML ONE (16:56)
[2024-07-15] MEDS: SODIUM CHLORIDE 0.9% 500 ML INFUS.BAG IV ONE (17:25)
[2024-07-15] MEDS: ACETAMINOPHEN 1000 MG/100 ML BAG IVPB ONE (17:25)
[2024-07-15 17:32] LABS: VENOUS BASE EXCESS -0.3 mmol/L (-2-2); VENOUS O2 SATURATION 24.5 % (70-80); VENOUS PCO2 40.1 mmHg (38-52); VENOUS PH 7.402 (7.310-7.410)
[2024-07-15 17:37] LABS: BASO % 0.2 % (0-2.0); EOS % 0.3 % (0-4.5); HEMATOCRIT 31.3 % (32.4-45.2); LYMPH % 16.9 % (8-40); MCH 29.9 pg (25.7-33.7); MEAN CELL VOLUME 93.4 fl (80-96); MEAN PLT VOLUME 7.6 fl (7.5-11.1); MONO % 10.2 % (3.8-10.2); NEUT % 72.4 % (42.8-82.8); PLATELET COUNT 199 10^3/uL (134-434); RBC 3.35 M/mm3 (3.60-5.2); RDW 19.6 % (11.6-15.6); WHITE BLOOD COUNT 5.5 K/mm3 (4.0-10.0)
[2024-07-15 17:46] LABS: INR 1.38 (0.83-1.09)
[2024-07-15 17:49] LABS: ACTIVATED PTT 41.3 SECONDS (25.2-36.5)
[2024-07-15 17:53] LABS: POTASSIUM 5.1 mmol/L (3.5-5.1)
[2024-07-15 17:55] LABS: CALCIUM 9.1 mg/dL (8.5-10.1)
[2024-07-15 17:56] LABS: ALBUMIN 2.2 g/dl (3.4-5.0); BLOOD UREA NITROGEN 20.4 mg/dL (7-18)
[2024-07-15 17:59] LABS: CREATININE 1.2 mg/dL (0.55-1.3)
[2024-07-15 18:00] LABS: BILIRUBIN,TOTAL 0.4 mg/dL (0.2-1)
[2024-07-15 18:01] LABS: TOT PROT 5.8 g/dl (6.4-8.2)
[2024-07-15] MEDS ORDERED: AZITHROMYCIN IVPB 500 MG/250 ML BAG IVPB ONE (21:50)
[2024-07-15] MEDS ORDERED: CEFTRIAXONE 1 G/50 ML PREMIX 50 ML IVPB ONE (21:50)
[2024-07-15] MEDS: CEFTRIAXONE 1,000 MG in DEXTROSE 5%-WATER - 50 ML IVPB ONE (22:34)
[2024-07-15] MEDS: AZITHROMYCIN IVPB 500 MG in DEXTROSE 5%-WATER - 250 ML IVPB ONE (22:40)
[2024-07-16] MEDS: AZTREONAM 2 GM in DEXTROSE 5%-WATER 100 ML IVPB ONE (01:22)
[2024-07-16] MEDS: ACETAMINOPHEN 1000 MG/100 ML BAG IVPB ONE (01:59)
[2024-07-16] MEDS ORDERED: VANCOMYCIN 1 GM PREMIX (F) 1 GM/200 ML BAG ONE (03:05)
[2024-07-16] MEDS: VANCOMYCIN 1,000 MG in DEXTROSE 5%-WATER - 250 ML IVPB ONE (03:18)
[2024-07-16 03:20] LABS: EPI CELLS >36 /uL (0-25.1); HYALINE CASTS 1 /uL (0-3.1); PH,URINE 6.5 (5.0-8.0); URINE APPEARANCE TURBID; URINE BACTERIA >9,000 /uL (0-1359); URINE BILIRUBIN NEGATIVE (NEGATIVE); URINE COLOR ORANGE; URINE GLUCOSE (UA) NEGATIVE (NEGATIVE); URINE KETONE NEGATIVE (NEGATIVE); URINE LEUK ESTERASE 2+ (NEGATIVE); URINE NITRITE NEGATIVE (NEGATIVE); URINE PROTEIN 2+ (NEGATIVE); URINE UROBILINOGEN 0.2 mg/dL (0.2-1.0); URINE WBC 15437 /uL (0-25.8)
[2024-07-16 04:10] LABS: URINE RBC 798.7 /uL (0-23.9); YEAST NONE SEEN (NEGATIVE)
[2024-07-16 07:23] LABS: BASO % 0.3 % (0-2.0); EOS % 0.2 % (0-4.5); HEMATOCRIT 25.6 % (32.4-45.2); HEMOGLOBIN 8.4 GM/dL (10.7-15.3); LYMPH % 15.9 % (8-40); MCH 31.1 pg (25.7-33.7); MCHC 32.8 g/dl (32.0-36.0); MEAN CELL VOLUME 94.6 fl (80-96); MEAN PLT VOLUME 8.7 fl (7.5-11.1); MONO % 8.7 % (3.8-10.2); NEUT % 74.9 % (42.8-82.8); PLATELET COUNT 167 10^3/uL (134-434); RBC 2.71 M/mm3 (3.60-5.2); RDW 19.6 % (11.6-15.6); WHITE BLOOD COUNT 4.2 K/mm3 (4.0-10.0)
[2024-07-16 07:43] LABS: POTASSIUM 4.5 mmol/L (3.5-5.1)
[2024-07-16 07:50] LABS: ALBUMIN 1.9 g/dl (3.4-5.0); BLOOD UREA NITROGEN 21.3 mg/dL (7-18); CALCIUM 8.4 mg/dL (8.5-10.1)
[2024-07-16 07:53] LABS: CREATININE 1.1 mg/dL (0.55-1.3)
[2024-07-16 07:55] LABS: BILIRUBIN,TOTAL 0.5 mg/dL (0.2-1)
[2024-07-16] MEDS ORDERED: ACETAMINOPHEN 325 MG TABLET (FP) PO PRN (08:00)
[2024-07-16] MEDS: AZTREONAM 2 GM in DEXTROSE 5%-WATER 100 ML IVPB SCH ×2 (09:46→22:46)
[2024-07-16] MEDS: PANTOPRAZOLE SODIUM 40 MG VIAL IVPUSH SCH (09:48)
[2024-07-16] MEDS: DABIGATRAN ETEXILATE MESYLATE 150 MG CAPSULE PO SCH (09:48)
[2024-07-16] MEDS ORDERED: AZTREONAM 2 GRAM SYRINGE 2 GM/10 ML DISP.SYRIN IVPUSH SCH (10:00)
[2024-07-16] MEDS: ACETAMINOPHEN 1000 MG/100 ML BAG IVPB PRN (11:16)
[2024-07-16] MEDS: ATORVASTATIN CA 20 MG TABLET (FP) PO SCH (21:20)
[2024-07-16 22:39] LABS: N-TERMINAL BNP 639.6 pg/ml (5-450)
[2024-07-17] MEDS: traMADol HCL 50 MG TABLET PO ONE (02:48)
[2024-07-17] MEDS: ERTAPENEM SODIUM 1 GM in SODIUM CHLORIDE 50 ML IVPB SCH ×2 (03:57→21:35)
[2024-07-17] MEDS: ACETAMINOPHEN 1000 MG/100 ML BAG IVPB PRN (13:16)
[2024-07-18] MEDS: traMADol HCL 50 MG TABLET PO ONE (03:49)
[2024-07-18] MEDS ORDERED: ACETAMINOPHEN 1000 MG/100 ML BAG IVPB PRN (16:24)
[2024-07-19] MEDS: D5-1/2NS+20 MEQ KCL - 20 MEQ/1,000 ML INFUS.BAG IV SCH (13:11)
[2024-07-19] MEDS: MEROPENEM-0.9% SODIUM CHLORIDE 1 GM/50 ML BAG IVPB SCH (17:50)
[2024-07-19] MEDS: ACETAMINOPHEN 1000 MG/100 ML BAG IVPB PRN (18:38)
[2024-07-20 10:40] LABS: BASO % 0.4 % (0-2.0); HEMATOCRIT 27.1 % (32.4-45.2); HEMOGLOBIN 8.7 GM/dL (10.7-15.3); LYMPH % 13.8 % (8-40); MCH 30.3 pg (25.7-33.7); MEAN CELL VOLUME 94.6 fl (80-96); MEAN PLT VOLUME 7.7 fl (7.5-11.1); MONO % 14.5 % (3.8-10.2); NEUT % 70.3 % (42.8-82.8); PLATELET COUNT 143 10^3/uL (134-434); RBC 2.87 M/mm3 (3.60-5.2); RDW 20.5 % (11.6-15.6); WHITE BLOOD COUNT 4.4 K/mm3 (4.0-10.0)
[2024-07-20 11:06] LABS: POTASSIUM 4.2 mmol/L (3.5-5.1)
[2024-07-20 11:09] VITALS: BMI 24.7
[2024-07-20 11:09] LABS: ALBUMIN 1.9 g/dl (3.4-5.0); BLOOD UREA NITROGEN 23.6 mg/dL (7-18); CALCIUM 9.9 mg/dL (8.5-10.1)
[2024-07-20 11:12] LABS: BILIRUBIN,TOTAL 0.4 mg/dL (0.2-1); CREATININE 1.2 mg/dL (0.55-1.3); TOT PROT 4.9 g/dl (6.4-8.2)
[2024-07-20 12:01] LABS: ANISOCYTOSIS 1+; MACROCYTOSIS 0; OVALOCYTE 1+
[2024-07-20] MEDS ORDERED: D5-1/2NS+20 MEQ KCL - 20 MEQ/1,000 ML INFUS.BAG IV SCH (15:00)
[2024-07-20] MEDS: SODIUM CHLORIDE 250 ML IV ONE (15:31)
[2024-07-20] MEDS: DEXTROSE 5%-0.45% SALINE 1,000 ML IV SCH ×2 (15:47→17:37)
[2024-07-20] MEDS: LACTATED RINGERS SOLUTION 1,000 ML/1,000 ML INFUS.BAG IV STA (15:48)
[2024-07-20] MEDS: SODIUM CHLORIDE 1,000 ML IV STA (17:38)
[2024-07-20] MEDS: AMINO ACIDS 4.25%/D5W 1,000 ML IV SCH (17:39)
[2024-07-20 19:44] LABS: EPI CELLS 3 /uL (0-25.1); HYALINE CASTS 0 /uL (0-3.1); URINE APPEARANCE CLOUDY; URINE BACTERIA 5 /uL (0-1359); URINE BILIRUBIN NEGATIVE (NEGATIVE); URINE COLOR ORANGE; URINE GLUCOSE (UA) NEGATIVE (NEGATIVE); URINE KETONE NEGATIVE (NEGATIVE); URINE LEUK ESTERASE 1+ (NEGATIVE); URINE NITRITE NEGATIVE (NEGATIVE); URINE PROTEIN 1+ (NEGATIVE); URINE UROBILINOGEN 0.2 mg/dL (0.2-1.0); URINE WBC 689 /uL (0-25.8)
[2024-07-20 21:44] LABS: YEAST NOT SEEN (NEGATIVE)
[2024-07-21] MEDS: HEPARIN NA (PORCINE) 5,000 UNITS/ML 1ML VIAL SQ SCH (14:44)
[2024-07-21] MEDS: AMINO ACIDS 4.25%/D5W 1,000 ML IV SCH (16:25)
[2024-07-22] MEDS ORDERED: DEXTROSE 50%-WATER 25 GM/50 ML DISP.SYRIN ONE (05:37)
[2024-07-22 07:24] LABS: BASO % 0.3 % (0-2.0); EOS % 0.9 % (0-4.5); HEMATOCRIT 29.4 % (32.4-45.2); HEMOGLOBIN 9.5 GM/dL (10.7-15.3); LYMPH % 19.7 % (8-40); MCH 30.5 pg (25.7-33.7); MCHC 32.4 g/dl (32.0-36.0); MEAN CELL VOLUME 94.1 fl (80-96); MEAN PLT VOLUME 8.2 fl (7.5-11.1); MONO % 15.3 % (3.8-10.2); NEUT % 63.8 % (42.8-82.8); PLATELET COUNT 138 10^3/uL (134-434); RBC 3.13 M/mm3 (3.60-5.2); RDW 19.9 % (11.6-15.6); WHITE BLOOD COUNT 4.5 K/mm3 (4.0-10.0)
[2024-07-22 07:32] LABS: POTASSIUM 3.8 mmol/L (3.5-5.1)
[2024-07-22 07:43] LABS: BLOOD UREA NITROGEN 19.8 mg/dL (7-18)
[2024-07-22 07:44] LABS: CALCIUM 10.6 mg/dL (8.5-10.1)
[2024-07-22 07:45] LABS: CREATININE 0.8 mg/dL (0.55-1.3)
[2024-07-22 07:48] LABS: BILIRUBIN,TOTAL 0.5 mg/dL (0.2-1); TOT PROT 5.3 g/dl (6.4-8.2)
[2024-07-22] MEDS: metoPROLOL SUCCINATE 25 MG TAB.SR.24H (FP) PO SCH (09:28)
[2024-07-22] MEDS: ENOXAPARIN NA (PORCINE) 60 MG/0.6 ML DISP.SYRIN SQ SCH (09:28)
[2024-07-23] MEDS: AMINO ACIDS 4.25%/D5W 1,000 ML IV SCH (06:47)
[2024-07-23] MEDS: FUROSEMIDE 40 MG/4 ML INJECTABLE VIAL IVPUSH ONE (15:18)
[2024-07-24 08:09] LABS: POTASSIUM 3.1 mmol/L (3.5-5.1)
[2024-07-24 08:16] LABS: ALBUMIN 1.8 g/dl (3.4-5.0); BLOOD UREA NITROGEN 21.4 mg/dL (7-18)
[2024-07-24 08:18] LABS: CREATININE 0.7 mg/dL (0.55-1.3)
[2024-07-24 08:20] LABS: BILIRUBIN,TOTAL 0.3 mg/dL (0.2-1); TOT PROT 4.9 g/dl (6.4-8.2)
[2024-07-24] MEDS: KCL 10 MEQ IVPB 10 MEQ/100 ML INFUS.BAG IVPB SCH (13:02)
[2024-07-24 13:43] LABS: BASO % 0.3 % (0-2.0); EOS % 1.7 % (0-4.5); HEMATOCRIT 23.9 % (32.4-45.2); HEMOGLOBIN 7.5 GM/dL (10.7-15.3); LYMPH % 17.6 % (8-40); MCHC 31.6 g/dl (32.0-36.0); MEAN PLT VOLUME 9.2 fl (7.5-11.1); MONO % 11.7 % (3.8-10.2); NEUT % 68.7 % (42.8-82.8); PLATELET COUNT 145 10^3/uL (134-434); RBC 2.51 M/mm3 (3.60-5.2); RDW 20.4 % (11.6-15.6); WHITE BLOOD COUNT 4.8 K/mm3 (4.0-10.0)
[2024-07-24] MEDS: POTASSIUM CHLORIDE 20 MEQ in AMINO ACIDS 4.25%/D5W 2,000 ML IV SCH (14:06)
[2024-07-24] MEDS: SCOPOLAMINE HYDROBROMIDE 1 PATCH PATCH.TD72 TD SCH (14:08)
[2024-07-25 08:15] LABS: HEMATOCRIT 22.9 % (32.4-45.2); HEMOGLOBIN 7.4 GM/dL (10.7-15.3); MCH 30.4 pg (25.7-33.7); MCHC 32.2 g/dl (32.0-36.0); MEAN CELL VOLUME 94.4 fl (80-96); MEAN PLT VOLUME 8.1 fl (7.5-11.1); PLATELET COUNT 122 10^3/uL (134-434); RBC 2.42 M/mm3 (3.60-5.2); RDW 20.2 % (11.6-15.6)
[2024-07-25 08:44] LABS: POTASSIUM 3.5 mmol/L (3.5-5.1)
[2024-07-25 09:19] LABS: ALBUMIN 1.8 g/dl (3.4-5.0); BLOOD UREA NITROGEN 25.8 mg/dL (7-18); CALCIUM 9.8 mg/dL (8.5-10.1)
[2024-07-25 09:22] LABS: CREATININE 0.6 mg/dL (0.55-1.3)
[2024-07-25 09:23] LABS: BILIRUBIN,TOTAL 0.4 mg/dL (0.2-1); TOT PROT 4.9 g/dl (6.4-8.2)
[2024-07-25 09:35] LABS: ANISOCYTOSIS 1+
[2024-07-26 07:50] LABS: BASO % 0.7 % (0-2.0); EOS % 2.6 % (0-4.5); HEMATOCRIT 22.3 % (32.4-45.2); HEMOGLOBIN 7.3 GM/dL (10.7-15.3); LYMPH % 23.5 % (8-40); MCH 31.2 pg (25.7-33.7); MCHC 32.8 g/dl (32.0-36.0); MEAN CELL VOLUME 95.2 fl (80-96); MEAN PLT VOLUME 9.7 fl (7.5-11.1); MONO % 9.6 % (3.8-10.2); NEUT % 63.6 % (42.8-82.8); PLATELET COUNT 178 10^3/uL (134-434); RBC 2.34 M/mm3 (3.60-5.2); RDW 20.7 % (11.6-15.6); WHITE BLOOD COUNT 4.1 K/mm3 (4.0-10.0)
[2024-07-26 08:05] LABS: POTASSIUM 3.8 mmol/L (3.5-5.1)
[2024-07-26 08:11] LABS: CALCIUM 9.9 mg/dL (8.5-10.1)
[2024-07-26 08:15] LABS: CREATININE 0.5 mg/dL (0.55-1.3)
[2024-07-26 08:17] LABS: BILIRUBIN,TOTAL 0.4 mg/dL (0.2-1); TOT PROT 5.3 g/dl (6.4-8.2)
[2024-07-26 09:04] LABS: ANISOCYTOSIS 1+; MACROCYTOSIS 1+
[2024-07-27] MEDS: AMINO ACIDS/PROTEIN HYDROLYS 30 ML LIQUID.PKT PO SCH (17:11)
[2024-07-28 08:14] LABS: RETICULOCYTES 1.71 % (0.5-1.5)
[2024-07-28 10:10] LABS: POTASSIUM 3.8 mmol/L (3.5-5.1)
[2024-07-28 10:12] LABS: CALCIUM 9.3 mg/dL (8.5-10.1)
[2024-07-28 10:13] LABS: ALBUMIN 2.1 g/dl (3.4-5.0)
[2024-07-28 10:15] LABS: CREATININE 0.5 mg/dL (0.55-1.3)
[2024-07-28 10:18] LABS: BILIRUBIN,TOTAL 0.4 mg/dL (0.2-1)
[2024-07-28 10:19] LABS: TOT PROT 5.2 g/dl (6.4-8.2)
[2024-07-28] MEDS ORDERED: DEXTROSE 5%-0.45% SALINE 1,000 ML IV SCH (11:30)
[2024-07-28] MEDS ORDERED: AMINO ACIDS 4.25%/D5W 2,000 ML IV SCH (14:15)
[2024-07-28] MEDS: AMINO ACIDS 4.25%/D5W 2,000 ML IV SCH (15:17)
[2024-07-28] MEDS: DEXTROSE 5%-0.45% SALINE 1,000 ML IV SCH (15:18)
[2024-07-29 13:36] LABS: BASO % 0.4 % (0-2.0); HEMATOCRIT 25.2 % (32.4-45.2); HEMOGLOBIN 8.1 GM/dL (10.7-15.3); LYMPH % 31.9 % (8-40); MCH 30.6 pg (25.7-33.7); MCHC 32.3 g/dl (32.0-36.0); MEAN CELL VOLUME 94.7 fl (80-96); MEAN PLT VOLUME 8.1 fl (7.5-11.1); MONO % 17.8 % (3.8-10.2); NEUT % 48.9 % (42.8-82.8); PLATELET COUNT 118 10^3/uL (134-434); RBC 2.66 M/mm3 (3.60-5.2); RDW 21.4 % (11.6-15.6); WHITE BLOOD COUNT 3.2 K/mm3 (4.0-10.0)
[2024-07-29 15:18] LABS: POTASSIUM 3.5 mmol/L (3.5-5.1)
[2024-07-29 15:24] LABS: ALBUMIN 2.1 g/dl (3.4-5.0); BLOOD UREA NITROGEN 34.2 mg/dL (7-18); CALCIUM 9.2 mg/dL (8.5-10.1)
[2024-07-29 15:28] LABS: ANISOCYTOSIS 1+; CREATININE 0.5 mg/dL (0.55-1.3); MACROCYTOSIS 1+
[2024-07-29 15:29] LABS: BILIRUBIN,TOTAL 0.5 mg/dL (0.2-1); TOT PROT 5.2 g/dl (6.4-8.2)
[2024-07-30 16:35] LABS: BASO % 0.4 % (0-2.0); EOS % 0.6 % (0-4.5); HEMATOCRIT 24.9 % (32.4-45.2); HEMOGLOBIN 7.9 GM/dL (10.7-15.3); LYMPH % 26.9 % (8-40); MCH 30.3 pg (25.7-33.7); MCHC 31.8 g/dl (32.0-36.0); MEAN CELL VOLUME 95.2 fl (80-96); MEAN PLT VOLUME 9.4 fl (7.5-11.1); MONO % 16.1 % (3.8-10.2); PLATELET COUNT 144 10^3/uL (134-434); RBC 2.62 M/mm3 (3.60-5.2); RDW 21.7 % (11.6-15.6); WHITE BLOOD COUNT 4.4 K/mm3 (4.0-10.0)
[2024-07-30 16:56] LABS: POTASSIUM 3.4 mmol/L (3.5-5.1)
[2024-07-30 16:58] LABS: CALCIUM 9.2 mg/dL (8.5-10.1)
[2024-07-30 16:59] LABS: ALBUMIN 2.3 g/dl (3.4-5.0); BLOOD UREA NITROGEN 35.5 mg/dL (7-18)
[2024-07-30 17:02] LABS: CREATININE 0.5 mg/dL (0.55-1.3); PHOSPHOROUS 1.7 mg/dL (2.5-4.9)
[2024-07-30 17:04] LABS: BILIRUBIN,TOTAL 0.6 mg/dL (0.2-1); TOT PROT 5.7 g/dl (6.4-8.2)
[2024-07-30] MEDS: MAGNESIUM SULFATE IN WATER 2 GM/50 ML IVPB IVPB ONE (20:23)
[2024-07-30] MEDS: POTASSIUM PHOSPHATE 30 MM in DEXTROSE 5%-WATER - 500 ML IVPB ONE (20:33)
[2024-07-31 07:03] LABS: BASO % 0.6 % (0-2.0); EOS % 1.5 % (0-4.5); HEMATOCRIT 23.6 % (32.4-45.2); HEMOGLOBIN 7.6 GM/dL (10.7-15.3); MCH 30.3 pg (25.7-33.7); MCHC 32.2 g/dl (32.0-36.0); MEAN CELL VOLUME 94.3 fl (80-96); MEAN PLT VOLUME 9.3 fl (7.5-11.1); MONO % 15.6 % (3.8-10.2); NEUT % 51.3 % (42.8-82.8); PLATELET COUNT 154 10^3/uL (134-434); RBC 2.51 M/mm3 (3.60-5.2); RDW 21.4 % (11.6-15.6); WHITE BLOOD COUNT 3.6 K/mm3 (4.0-10.0)
[2024-07-31 07:32] LABS: ALBUMIN 2.2 g/dl (3.4-5.0); BLOOD UREA NITROGEN 37.2 mg/dL (7-18); CALCIUM 8.8 mg/dL (8.5-10.1)
[2024-07-31 07:33] LABS: MAGNESIUM 1.8 mg/dL (1.8-2.4)
[2024-07-31 07:35] LABS: BILIRUBIN,TOTAL 0.5 mg/dL (0.2-1); CREATININE 0.4 mg/dL (0.55-1.3); PHOSPHOROUS 3.5 mg/dL (2.5-4.9)
[2024-07-31 07:36] LABS: TOT PROT 5.4 g/dl (6.4-8.2)
[2024-08-01 08:00] LABS: BASO % 0.9 % (0-2.0); EOS % 1.4 % (0-4.5); HEMATOCRIT 19.6 % (32.4-45.2); LYMPH % 40.9 % (8-40); MCH 30.7 pg (25.7-33.7); MCHC 32.2 g/dl (32.0-36.0); MEAN CELL VOLUME 95.3 fl (80-96); MEAN PLT VOLUME 9.3 fl (7.5-11.1); MONO % 16.6 % (3.8-10.2); NEUT % 40.2 % (42.8-82.8); PLATELET COUNT 158 10^3/uL (134-434); RBC 2.06 M/mm3 (3.60-5.2); RDW 21.6 % (11.6-15.6); WHITE BLOOD COUNT 3.8 K/mm3 (4.0-10.0)
[2024-08-01 08:09] LABS: POTASSIUM 3.9 mmol/L (3.5-5.1)
[2024-08-01 08:12] LABS: ALBUMIN 2.1 g/dl (3.4-5.0); BLOOD UREA NITROGEN 44.6 mg/dL (7-18); CALCIUM 8.7 mg/dL (8.5-10.1)
[2024-08-01 08:15] LABS: CREATININE 0.6 mg/dL (0.55-1.3)
[2024-08-01 08:17] LABS: TOT PROT 5.2 g/dl (6.4-8.2)
[2024-08-01 08:19] LABS: BILIRUBIN,TOTAL 0.4 mg/dL (0.2-1)
[2024-08-01 08:22] LABS: HEMOGLOBIN 6.3 GM/dL (10.7-15.3)
[2024-08-01 20:32] LABS: BASO % 0.4 % (0-2.0); HEMOGLOBIN 9.1 GM/dL (10.7-15.3); LYMPH % 18.5 % (8-40); MCHC 32.4 g/dl (32.0-36.0); MEAN CELL VOLUME 92.5 fl (80-96); MEAN PLT VOLUME 7.9 fl (7.5-11.1); MONO % 14.5 % (3.8-10.2); NEUT % 65.6 % (42.8-82.8); PLATELET COUNT 150 10^3/uL (134-434); RBC 3.02 M/mm3 (3.60-5.2); RDW 19.8 % (11.6-15.6); WHITE BLOOD COUNT 5.6 K/mm3 (4.0-10.0)
[2024-08-02 08:32] LABS: BASO % 0.7 % (0-2.0); EOS % 1.7 % (0-4.5); HEMOGLOBIN 8.5 GM/dL (10.7-15.3); LYMPH % 33.1 % (8-40); MCH 30.4 pg (25.7-33.7); MCHC 32.7 g/dl (32.0-36.0); MEAN CELL VOLUME 92.9 fl (80-96); MEAN PLT VOLUME 8.7 fl (7.5-11.1); MONO % 16.5 % (3.8-10.2); PLATELET COUNT 162 10^3/uL (134-434); RDW 19.3 % (11.6-15.6); WHITE BLOOD COUNT 3.8 K/mm3 (4.0-10.0)
[2024-08-02 08:41] LABS: POTASSIUM 4.1 mmol/L (3.5-5.1)
[2024-08-02 08:44] LABS: ALBUMIN 2.2 g/dl (3.4-5.0)
[2024-08-02 08:45] LABS: BLOOD UREA NITROGEN 38.9 mg/dL (7-18)
[2024-08-02 08:48] LABS: CREATININE 0.6 mg/dL (0.55-1.3)
[2024-08-02 08:49] LABS: BILIRUBIN,TOTAL 0.6 mg/dL (0.2-1); TOT PROT 5.6 g/dl (6.4-8.2)
[2024-08-03] MEDS: PANTOPRAZOLE 40 MG TABLET PO SCH (09:03)
[2024-08-05 07:34] LABS: BASO % 0.3 % (0-2.0); EOS % 2.8 % (0-4.5); HEMATOCRIT 28.4 % (32.4-45.2); HEMOGLOBIN 9.3 GM/dL (10.7-15.3); LYMPH % 43.5 % (8-40); MCH 30.8 pg (25.7-33.7); MCHC 32.6 g/dl (32.0-36.0); MEAN CELL VOLUME 94.6 fl (80-96); MEAN PLT VOLUME 7.6 fl (7.5-11.1); MONO % 13.5 % (3.8-10.2); NEUT % 39.9 % (42.8-82.8); PLATELET COUNT 156 10^3/uL (134-434); RDW 20.5 % (11.6-15.6); WHITE BLOOD COUNT 3.1 K/mm3 (4.0-10.0)
[2024-08-05 10:32] LABS: ANISOCYTOSIS 1+; MACROCYTOSIS 1+; OVALOCYTE 1+
[2024-08-07 13:10] LABS: HEMATOCRIT 29.6 % (32.4-45.2); HEMOGLOBIN 9.2 GM/dL (10.7-15.3); MCH 29.8 pg (25.7-33.7); MCHC 31.2 g/dl (32.0-36.0); MEAN CELL VOLUME 95.6 fl (80-96); MEAN PLT VOLUME 7.9 fl (7.5-11.1); PLATELET COUNT 180 10^3/uL (134-434); RBC 3.09 M/mm3 (3.60-5.2); RDW 21.9 % (11.6-15.6); WHITE BLOOD COUNT 4.5 K/mm3 (4.0-10.0)
[2024-08-07 14:00] LABS: POTASSIUM 4.4 mmol/L (3.5-5.1)
[2024-08-07 14:02] LABS: CALCIUM 8.8 mg/dL (8.5-10.1)
[2024-08-07 14:03] LABS: ALBUMIN 2.5 g/dl (3.4-5.0); BLOOD UREA NITROGEN 41.6 mg/dL (7-18)
[2024-08-07 14:06] LABS: CREATININE 0.8 mg/dL (0.55-1.3)
[2024-08-07 14:07] LABS: BILIRUBIN,TOTAL 0.5 mg/dL (0.2-1)
[2024-08-08 15:04] VITALS: PULSE 81
[2024-08-08 18:10] VITALS: BP 104/65; RESP 17; TEMP 98.6
== END 2024-08-08 18:19 | DRG 177 ==
LOC: JER 15:55 → JERBED 19:53 → J4W 07-16 03:25
PROVIDERS: ADMIT Student in an Organized Health Care Education/Training Program; ATTEND Internal Medicine
DX: J69.0 Pneumonitis due to inhalation of food and vomit (principal); E43 Unspecified severe protein-calorie malnutrition; C56.9 Malignant neoplasm of unspecified ovary; I13.0 Hypertensive heart and chronic kidney disease with heart failure and stage 1 through stage 4 chronic kidney disease, or unspecified chronic kidney disease; J44.1 Chronic obstructive pulmonary disease with (acute) exacerbation; J98.11 Atelectasis; N39.0 Urinary tract infection, site not specified; N17.9 Acute kidney failure, unspecified; I50.32 Chronic diastolic (congestive) heart failure; I47.10 Supraventricular tachycardia, unspecified; E78.5 Hyperlipidemia, unspecified; I48.91 Unspecified atrial fibrillation; Z86.73 Personal history of transient ischemic attack (TIA), and cerebral infarction without residual deficits; I25.10 Atherosclerotic heart disease of native coronary artery without angina pectoris; M06.9 Rheumatoid arthritis, unspecified; E88.09 Other disorders of plasma-protein metabolism, not elsewhere classified; N18.9 Chronic kidney disease, unspecified; E87.6 Hypokalemia; Z68.24 Body mass index [BMI] 24.0-24.9, adult; L89.152 Pressure ulcer of sacral region, stage 2; L89.311 Pressure ulcer of right buttock, stage 1
CPT/HCPCS: 0241U-QW; 36415; 36430; 71045-TC-FY; 71275-TC; 74177-TC; 80053; 80061; 81003; 82140; 82272; 82533; 82728; 82803; 83036; 83540; 83550; 83605; 83735; 83880; 84100; 84155; 84165; 84443; 84484; 85025; 85027; 85045; 85610; 85651; 85730; 86140; 86850; 86900; 86901; 86922; 87040; 87077; 87086; 87186; 87635; 87899; 93005; 93010; 93306-TC; 97116-GP; 97162-GP; 99285-25; J0131; J1644; P9058; Q9967

== ENCOUNTER 2024-11-06 08:44 | Day surgery (SDC) | payer OTHER ==
[2024-11-06] MEDS: IRON SUCROSE INJECTION 200 MG in SODIUM CHLORIDE 100 ML IVPB ONE (09:50)
[2024-11-06] MEDS: SODIUM CHLORIDE 250 ML IV ONE (09:50)
[2024-11-06] MEDS: FAMOTIDINE 20 MG/50 ML IVPB 20 MG/50 ML MG IVPB ONE (10:30)
[2024-11-06] MEDS: PALONOSETRON HCL 0.25 MG/5 ML VIAL IVPUSH ONE (10:58)
[2024-11-06] MEDS: DEXAMETHASONE SODIUM PHOSPHATE 10 MG, DIPHENHYDRAMINE 25 MG in SODIUM CHLORIDE 100 ML IVPB ONE (10:59)
[2024-11-06] MEDS: PACLITAXEL 96 MG in SODIUM CHLORIDE 250 ML IVPB ONE (11:33)
[2024-11-06] MEDS: CARBOPLATIN IVPB ONE (12:38)
[2024-11-06] MEDS: SODIUM CHLORIDE IVPB ONE (12:38)
[2024-11-06] MEDS: PORTA CATH FLUSH 10 ML IVPUSH PRN (13:10)
[2024-11-06 17:00] VITALS: BP 135/70; PULSE 73; RESP 20; TEMP 97.6
== END 2024-11-06 13:30 | disposition home or self-care (01) ==
LOC: JONCCHEMO 08:44 → J7W 09:07 → JONCCHEMO 13:30
PROVIDERS: ATTEND Internal Medicine Hematology & Oncology
DX: Z51.11 Encounter for antineoplastic chemotherapy (principal); C57.9 Malignant neoplasm of female genital organ, unspecified; E61.1 Iron deficiency
CPT/HCPCS: 96367; 96375; 96413; 96417; J1756

== ENCOUNTER 2024-11-08 02:24 | Inpatient (IN) | payer OTHER ==
[2024-11-08 02:49] VITALS: BMI 27.0
[2024-11-08] MEDS ORDERED: HYDROmorphone HCL CARPU-JECT 2 MG/1 ML DISP.SYRIN ONE ×3 (02:50→06:53)
[2024-11-08] MEDS: HYDROmorphone HCl 2 MG/ML VIAL IVPUSH ONE ×3 (02:56→06:57)
[2024-11-08 03:40] LABS: ABSOLUTE IMMATURE GRANULOCYTES 0.03 x10^3/uL (0.0-0.031); BASOPHILS # 0.01 x10^3/uL (0.01-0.08); HEMATOCRIT 34.8 % (34.1-44.9); HEMOGLOBIN 11.2 g/dL (11.2-15.7); MCHC 32.2 g/dl (32.2-35.5); MEAN CELL VOLUME 94.1 fl (79.4-94.8); MONOCYTE # 0.15 x10^3/uL (0.24-0.86); MONOCYTE % 2.6 % (4.7-12.5); PLATELET COUNT 126 x10^3/uL (182-369); RDW 13.6 % (12.4-16.6)
[2024-11-08 03:49] LABS: PROTHROMBIN TIME (PATIENT) 10.9 SEC (9.7-13.0)
[2024-11-08 03:51] LABS: ACTIVATED PTT 25.8 SECONDS (25.2-36.5)
[2024-11-08 04:01] LABS: POTASSIUM 3.8 mmol/L (3.5-5.1)
[2024-11-08 04:03] LABS: BLOOD UREA NITROGEN 33.8 mg/dL (7-18); CALCIUM 9.1 mg/dL (8.5-10.1)
[2024-11-08 04:04] LABS: ALBUMIN 3.4 g/dl (3.4-5.0)
[2024-11-08 04:07] LABS: CREATININE 1.3 mg/dL (0.55-1.3)
[2024-11-08 04:08] LABS: BILIRUBIN,TOTAL 0.5 mg/dL (0.2-1); TOT PROT 6.8 g/dl (6.4-8.2)
[2024-11-08 08:34] LABS: EPI CELLS 1 /uL (0-25.1); HYALINE CASTS 0 /uL (0-3.1); URINE APPEARANCE CLEAR; URINE BACTERIA 325 /uL (0-1359); URINE BILIRUBIN NEGATIVE (NEGATIVE); URINE COLOR YELLOW; URINE GLUCOSE (UA) NEGATIVE (NEGATIVE); URINE KETONE NEGATIVE (NEGATIVE); URINE LEUK ESTERASE 1+ (NEGATIVE); URINE NITRITE NEGATIVE (NEGATIVE); URINE PROTEIN NEGATIVE (NEGATIVE); URINE RBC 42 /uL (0-23.9); URINE UROBILINOGEN 0.2 mg/dL (0.2-1.0); URINE WBC 133 /uL (0-25.8)
[2024-11-08] MEDS ORDERED: ALBUTEROL SO4 HFA INHALER IH PRN ×2 (10:51→17:22)
[2024-11-08] MEDS: HYDROmorphone HCL CARPU-JECT 2 MG/1 ML DISP.SYRIN IVPUSH PRN (11:56)
[2024-11-08] MEDS: SCOPOLAMINE HYDROBROMIDE 1 PATCH PATCH.TD72 TD SCH (11:58)
[2024-11-08] MEDS ORDERED: D5-1/2NS+20 MEQ KCL - 20 MEQ/1,000 ML INFUS.BAG IV SCH (12:00)
[2024-11-08] MEDS: ACETAMINOPHEN 325 MG TABLET (FP) PO PRN (15:22)
[2024-11-08] MEDS ORDERED: ACETAMINOPHEN INJECTION 100 ML ONE (15:47)
[2024-11-08] MEDS ORDERED: MIDAZOLAM HCL 2 MG/2 ML SINGLE DOSE VIAL ONE (15:48)
[2024-11-08] MEDS ORDERED: PROPOFOL 20 ML ONE (15:50)
[2024-11-08] MEDS ORDERED: DEXAMETHASONE SOD PHOSPHATE 4 MG/1 ML VIAL ONE (15:52)
[2024-11-08] MEDS ORDERED: GLYCOPYRROLATE 0.2 MG/1 ML VIAL ONE (15:52)
[2024-11-08] MEDS ORDERED: ONDANSETRON 4 MG/2 ML VIAL ONE (15:52)
[2024-11-08] MEDS ORDERED: LACTATED RINGERS SOLUTION 1,000 ML IV SCH ×2 (16:30→17:22)
[2024-11-08] MEDS: IOHEXOL 300 MG/ML INFUS..BTL IV ONE (16:56)
[2024-11-08] MEDS ORDERED: ACETAMINOPHEN 325 MG TABLET (FP) PO PRN (17:22)
[2024-11-08] MEDS ORDERED: HYDROmorphone HCL CARPU-JECT 2 MG/1 ML DISP.SYRIN IVPUSH PRN (17:22)
[2024-11-08] MEDS: D5-1/2NS+20 MEQ KCL - 20 MEQ/1,000 ML INFUS.BAG IV SCH (18:55)
[2024-11-08] MEDS: ATORVASTATIN CA 20 MG TABLET (FP) PO SCH (21:30)
[2024-11-08] MEDS ORDERED: ATORVASTATIN CA 20 MG TABLET (FP) PO SCH (22:00)
[2024-11-09 07:35] VITALS: BP 127/63; PULSE 78; RESP 18; TEMP 98.1
[2024-11-09 07:58] LABS: HEMATOCRIT 34.3 % (34.1-44.9); HEMOGLOBIN 10.7 g/dL (11.2-15.7); MCHC 31.2 g/dl (32.2-35.5); MEAN PLT VOLUME 11.1 fl (9.4-12.3); PLATELET COUNT 111 x10^3/uL (182-369)
[2024-11-09 08:20] LABS: POTASSIUM 4.6 mmol/L (3.5-5.1)
[2024-11-09 08:28] LABS: ALBUMIN 2.9 g/dl (3.4-5.0); BLOOD UREA NITROGEN 36.4 mg/dL (7-18); CALCIUM 9.3 mg/dL (8.5-10.1); CREATININE 1.5 mg/dL (0.55-1.3)
[2024-11-09 08:30] LABS: BILIRUBIN,TOTAL 0.6 mg/dL (0.2-1); TOT PROT 6.2 g/dl (6.4-8.2)
[2024-11-09] MEDS ORDERED: PANTOPRAZOLE 40 MG TABLET PO SCH (10:00)
[2024-11-09] MEDS ORDERED: metoPROLOL SUCCINATE 25 MG TAB.SR.24H (FP) PO SCH (10:00)
[2024-11-09] MEDS: PANTOPRAZOLE 40 MG TABLET PO SCH (10:11)
[2024-11-09] MEDS: metoPROLOL SUCCINATE 25 MG TAB.SR.24H (FP) PO SCH (10:11)
[2024-11-09] MEDS: PHENAZOPYRIDINE HCL 100 MG TABLET (FP) PO PRN (12:24)
[2024-11-11] MEDS ORDERED: SCOPOLAMINE HYDROBROMIDE 1 PATCH PATCH.TD72 TD SCH (11:30)
== END 2024-11-09 16:21 | disposition home or self-care (01) | DRG 690 ==
LOC: JER 02:24 → JERBED 06:34 → J7W 10:38
PROVIDERS: ADMIT Internal Medicine; ATTEND Internal Medicine
PROC: 0T763DZ Dilation of Right Ureter with Intraluminal Device, Percutaneous Approach (ICD-10-PCS; principal; 2024-11-08 15:30)
PROC: BT1DZZZ Fluoroscopy of Right Kidney, Ureter and Bladder (ICD-10-PCS; 2024-11-08 15:30)
DX: N13.6 Pyonephrosis (principal); I50.32 Chronic diastolic (congestive) heart failure; C56.9 Malignant neoplasm of unspecified ovary; I69.954 Hemiplegia and hemiparesis following unspecified cerebrovascular disease affecting left non-dominant side; I48.91 Unspecified atrial fibrillation; I11.0 Hypertensive heart disease with heart failure; E78.5 Hyperlipidemia, unspecified; F41.9 Anxiety disorder, unspecified; M54.50 Low back pain, unspecified; Z95.0 Presence of cardiac pacemaker; Z98.84 Bariatric surgery status
CPT/HCPCS: 36415; 71045-TC-FY; 74177-TC; 76000-TC-FY; 80053; 81003; 83605; 83690; 84484; 85025; 85610; 85730; 86850; 86900; 86901; 87077; 87086; 93005; 93010; 94760; 99285-25; C2617; Q9967

== ENCOUNTER 2024-11-20 10:38 | Day surgery (SDC) | payer OTHER ==
[2024-11-20] MEDS: SODIUM CHLORIDE 250 ML IV ONE (10:26)
[2024-11-20] MEDS: IRON SUCROSE INJECTION 200 MG in SODIUM CHLORIDE 100 ML IVPB ONE (10:46)
[2024-11-20] MEDS: DEXAMETHASONE SODIUM PHOSPHATE 10 MG, DIPHENHYDRAMINE 25 MG in SODIUM CHLORIDE 100 ML IVPB ONE (11:21)
[2024-11-20] MEDS: PALONOSETRON HCL 0.25 MG/5 ML VIAL IVPUSH ONE (11:27)
[2024-11-20] MEDS: FAMOTIDINE 20 MG/50 ML IVPB 20 MG/50 ML MG IVPB ONE (11:58)
[2024-11-20] MEDS: PACLITAXEL 78 MG in SODIUM CHLORIDE 250 ML IVPB ONE (12:28)
[2024-11-20 17:46] VITALS: BP 141/65; PULSE 45; RESP 20; TEMP 97.3
[2024-11-20] MEDS ORDERED: PORTA CATH FLUSH 10 ML IVPUSH PRN (17:46)
== END 2024-11-20 14:40 | disposition home or self-care (01) ==
LOC: JONCCHEMO 10:38
PROVIDERS: ATTEND Internal Medicine Hematology & Oncology
PROC: 3E04305 Introduction of Other Antineoplastic into Central Vein, Percutaneous Approach (ICD-10-PCS; principal; 2024-11-20)
PROC: 3E043GC Introduction of Other Therapeutic Substance into Central Vein, Percutaneous Approach (ICD-10-PCS; 2024-11-20)
DX: Z51.11 Encounter for antineoplastic chemotherapy (principal); C55 Malignant neoplasm of uterus, part unspecified
CPT/HCPCS: J1756

== ENCOUNTER 2024-11-25 09:49 | Day surgery (SDC) | payer OTHER ==
[2024-11-25] MEDS: TBO-FILGRASTIM 300 MCG/0.5 ML DISP.SYRINGE SQ ONE (09:59)
[2024-11-25 17:04] VITALS: RESP 20
[2024-11-25 17:07] VITALS: BP 130/74; PULSE 88; TEMP 98
== END 2024-11-25 10:20 | disposition home or self-care (01) ==
LOC: JONCNONCHE 09:49
PROVIDERS: ATTEND Internal Medicine Hematology & Oncology
PROC: 3E023GC Introduction of Other Therapeutic Substance into Muscle, Percutaneous Approach (ICD-10-PCS; principal; 2024-11-25)
DX: C55 Malignant neoplasm of uterus, part unspecified (principal); Z76.89 Persons encountering health services in other specified circumstances
CPT/HCPCS: J1447

== ENCOUNTER 2024-12-04 09:06 | Day surgery (SDC) | payer OTHER ==
[2024-12-04] MEDS: TBO-FILGRASTIM 300 MCG/0.5 ML DISP.SYRINGE SQ ONE (09:28)
[2024-12-04 15:32] VITALS: BP 124/53; PULSE 45; RESP 20; TEMP 98.1
== END 2024-12-04 10:30 | disposition home or self-care (01) ==
LOC: JONCNONCHE 09:06 → J7W 09:08 → JONCNONCHE 10:30
PROVIDERS: ATTEND Internal Medicine Hematology & Oncology
PROC: 3E013GC Introduction of Other Therapeutic Substance into Subcutaneous Tissue, Percutaneous Approach (ICD-10-PCS; principal; 2024-12-04)
DX: C55 Malignant neoplasm of uterus, part unspecified (principal); Z76.89 Persons encountering health services in other specified circumstances
CPT/HCPCS: 96372; J1447

== ENCOUNTER 2024-12-05 14:52 | Day surgery (SDC) | payer OTHER ==
[2024-12-05] MEDS: TBO-FILGRASTIM 300 MCG/0.5 ML DISP.SYRINGE SQ ONE (14:55)
[2024-12-05 17:46] VITALS: BP 136/61; PULSE 81; RESP 18; TEMP 99
== END 2024-12-05 15:45 | disposition home or self-care (01) ==
LOC: JONCNONCHE 14:52 → J7W 14:53 → JONCNONCHE 15:45
PROVIDERS: ATTEND Internal Medicine Hematology & Oncology
PROC: 3E013GC Introduction of Other Therapeutic Substance into Subcutaneous Tissue, Percutaneous Approach (ICD-10-PCS; principal; 2024-12-05)
DX: C55 Malignant neoplasm of uterus, part unspecified (principal); Z76.89 Persons encountering health services in other specified circumstances
CPT/HCPCS: 96372; J1447

== ENCOUNTER 2024-12-09 15:45 | Day surgery (SDC) | payer OTHER ==
[2024-12-09] MEDS: TBO-FILGRASTIM 300 MCG/0.5 ML DISP.SYRINGE SQ ONE (15:42)
[2024-12-09 15:51] VITALS: BP 129/69; PULSE 87; RESP 18; TEMP 98.3
== END 2024-12-09 15:55 | disposition home or self-care (01) ==
LOC: JONCNONCHE 15:45 → J7W 15:46 → JONCNONCHE 15:55
PROVIDERS: ATTEND Internal Medicine Hematology & Oncology
PROC: 3E013GC Introduction of Other Therapeutic Substance into Subcutaneous Tissue, Percutaneous Approach (ICD-10-PCS; principal; 2024-12-09)
DX: C55 Malignant neoplasm of uterus, part unspecified (principal); Z76.89 Persons encountering health services in other specified circumstances
CPT/HCPCS: 96372; J1447

== ENCOUNTER 2024-12-11 09:16 | Day surgery (SDC) | payer OTHER ==
[2024-12-11] MEDS: SODIUM CHLORIDE 250 ML IV ONE (10:28)
[2024-12-11] MEDS: IRON SUCROSE INJECTION 200 MG in SODIUM CHLORIDE 100 ML IVPB ONE (10:29)
[2024-12-11] MEDS: MAGNESIUM SULFATE IN WATER 2 GM/50 ML IVPB IVPB ONE (11:00)
[2024-12-11] MEDS: DEXAMETHASONE SODIUM PHOSPHATE 10 MG, DIPHENHYDRAMINE 25 MG in SODIUM CHLORIDE 100 ML IVPB ONE (11:58)
[2024-12-11] MEDS: PALONOSETRON HCL 0.25 MG/5 ML VIAL IVPUSH ONE (11:58)
[2024-12-11] MEDS: FAMOTIDINE 20 MG/50 ML IVPB 20 MG/50 ML MG IVPB ONE (13:05)
[2024-12-11] MEDS: PACLITAXEL 90 MG in SODIUM CHLORIDE 250 ML IVPB ONE (13:27)
[2024-12-11] MEDS: SODIUM CHLORIDE IVPB ONE (14:32)
[2024-12-11] MEDS: CARBOPLATIN IVPB ONE (14:32)
[2024-12-11] MEDS: PORTA CATH FLUSH 10 ML IVPUSH PRN (15:15)
[2024-12-11 17:32] VITALS: TEMP 98.5
[2024-12-11 17:45] VITALS: BP 140/72; PULSE 78; RESP 18
== END 2024-12-11 15:30 | disposition home or self-care (01) ==
LOC: JONCCHEMO 09:16 → J7W 09:16 → JONCCHEMO 15:30
PROVIDERS: ATTEND Internal Medicine Hematology & Oncology
DX: Z51.11 Encounter for antineoplastic chemotherapy (principal); C55 Malignant neoplasm of uterus, part unspecified
CPT/HCPCS: 96367; 96375; 96413; 96417; J1756

== ENCOUNTER 2024-12-25 17:22 | Inpatient (IN) | payer OTHER ==
[2024-12-25] MEDS ORDERED: ACETAMINOPHEN INJECTION 100 ML ONE (21:03)
[2024-12-25 21:05] LABS: BG HCT 27.0 % (32.4-45.2); VENOUS BASE EXCESS -0.8 mmol/L (-2-2); VENOUS O2 SATURATION 42.8 % (70-80); VENOUS PCO2 39.6 mmHg (38-52); VENOUS PH 7.399 (7.310-7.410)
[2024-12-25 21:06] LABS: ABSOLUTE IMMATURE GRANULOCYTES 0.01 x10^3/uL (0.0-0.031); BASOPHILS # 0.01 x10^3/uL (0.01-0.08); EOSINOPHIL % 0.4 % (0.7-5.8); EOSINOPHILS # 0.01 x10^3/uL (0.04-0.36); MEAN CELL VOLUME 96.1 fl (79.4-94.8); MEAN PLT VOLUME 11.3 fl (9.4-12.3)
[2024-12-25 21:08] LABS: IMMATURE PLATELET FRACTION # 5.30 x10^3/uL; MCHC 31.5 g/dl (32.2-35.5); MONOCYTE # 0.35 x10^3/uL (0.24-0.86); MONOCYTE % 14.5 % (4.7-12.5); RDW 17.0 % (12.4-16.6)
[2024-12-25] MEDS: ACETAMINOPHEN 1000 MG/100 ML BAG IVPB ONE (21:12)
[2024-12-25 21:14] LABS: INR 1.12 (0.83-1.09); PROTHROMBIN TIME (PATIENT) 12.3 SEC (9.7-13.0)
[2024-12-25 21:16] LABS: ACTIVATED PTT 18.8 SECONDS (25.2-36.5)
[2024-12-25 21:27] LABS: CO2 26.0 mmol/L (21-32); GLUCOSE,RANDOM 87.0 mg/dL (74-106)
[2024-12-25 21:30] LABS: CREATININE 1.1 mg/dL (0.55-1.3); SGOT/AST 8.0 U/L (15-37); SGPT/ALT 12.0 U/L (13-61)
[2024-12-25 21:32] LABS: TOT PROT 5.8 g/dl (6.4-8.2)
[2024-12-25 22:26] LABS: ALK PHOS 72.0 U/L (45-117)
[2024-12-25] MEDS ORDERED: DOCUSATE SODIUM 100 MG CAPSULE (FP) PO PRN (22:36)
[2024-12-25] MEDS ORDERED: PIPERACILLIN/TAZOB 4.5 GM 4.5 GM/100 ML BAG IVPB ONE (22:44)
[2024-12-25] MEDS: PIPERACILLIN/TAZOB 4.5 GM 4.5 GM in DEXTROSE 5%-WATER 100 ML IVPB ONE (22:50)
[2024-12-25 23:44] LABS: HCV DIAGNOSTIC IN-HOUSE W/RFLX NON-REACTIVE (NONREACTIVE)
[2024-12-25 23:47] LABS: HIV INTERPRETATION NEGATIVE (NEGATIVE)
[2024-12-26] MEDS ORDERED: VANCOMYCIN 1 GRAM (PRE-DOCKED) 1,000 MG/250 ML BAG IVPB ONE (01:11)
[2024-12-26] MEDS: VANCOMYCIN 1 GM PREMIX (F) 1 GM/200 ML BAG IVPB ONE (01:26)
[2024-12-26 08:47] LABS: MCHC 30.7 g/dl (32.2-35.5); MEAN CELL VOLUME 95.0 fl (79.4-94.8); MEAN PLT VOLUME 11.1 fl (9.4-12.3); RDW 17.2 % (12.4-16.6)
[2024-12-26 09:20] LABS: CO2 27.0 mmol/L (21-32)
[2024-12-26 09:21] LABS: GLUCOSE,RANDOM 82.0 mg/dL (74-106)
[2024-12-26 09:24] LABS: CREATININE 1.1 mg/dL (0.55-1.3)
[2024-12-26] MEDS: PIPERACILLIN/TAZOB 4.5 GM 4.5 GM in DEXTROSE 5%-WATER 100 ML IVPB SCH ×2 (09:40→17:16)
[2024-12-26] MEDS ORDERED: ALBUTEROL SO4 HFA INHALER IH PRN (11:26)
[2024-12-26] MEDS: AMINO ACIDS/PROTEIN HYDROLYS 30 ML LIQUID.PKT PO SCH (12:47)
[2024-12-26] MEDS: TBO-FILGRASTIM 300 MCG/0.5 ML DISP.SYRINGE SQ ONE (13:01)
[2024-12-26 13:20] LABS: EPI CELLS 18 /uL (0-25.1); HYALINE CASTS 0 /uL (0-3.1); URINE APPEARANCE TURBID; URINE BILIRUBIN NEGATIVE (NEGATIVE); URINE COLOR YELLOW; URINE GLUCOSE (UA) NEGATIVE (NEGATIVE); URINE KETONE NEGATIVE (NEGATIVE); URINE LEUK ESTERASE 3+ (NEGATIVE); URINE NITRITE POSITIVE (NEGATIVE); URINE PROTEIN 2+ (NEGATIVE); URINE UROBILINOGEN 1.0 mg/dL (0.2-1.0); URINE WBC 5844 /uL (0-25.8)
[2024-12-26 13:43] LABS: URINE BACTERIA 1086.7 /uL (0-1359); URINE RBC 394.2 /uL (0-23.9); YEAST NONE SEEN (NEGATIVE)
[2024-12-26] MEDS: MEROPENEM 1 GM in DEXTROSE 5%-WATER 100 ML IVPB SCH (15:11)
[2024-12-26] MEDS: ACETAMINOPHEN 500 MG TABLET (FP) PO PRN (15:17)
[2024-12-26] MEDS: ATORVASTATIN CA 20 MG TABLET (FP) PO SCH (22:49)
[2024-12-26] MEDS: DABIGATRAN ETEXILATE MESYLATE 75 MG CAPSULE PO SCH (22:49)
[2024-12-27 09:08] LABS: MCHC 30.5 g/dl (32.2-35.5); MEAN CELL VOLUME 94.9 fl (79.4-94.8); MEAN PLT VOLUME 10.4 fl (9.4-12.3); RDW 17.2 % (12.4-16.6)
[2024-12-27] MEDS: PANTOPRAZOLE 40 MG TABLET PO SCH (09:37)
[2024-12-27 10:07] LABS: CO2 27.0 mmol/L (21-32); GLUCOSE,RANDOM 80.0 mg/dL (74-106)
[2024-12-27 10:10] LABS: CREATININE 1.1 mg/dL (0.55-1.3); SGOT/AST 7.0 U/L (15-37); SGPT/ALT 11.0 U/L (13-61)
[2024-12-27 10:11] LABS: TOT PROT 5.3 g/dl (6.4-8.2)
[2024-12-27 10:13] LABS: ALK PHOS 68.0 U/L (45-117)
[2024-12-30 08:01] LABS: MCHC 30.5 g/dl (32.2-35.5); MEAN CELL VOLUME 96.6 fl (79.4-94.8); MEAN PLT VOLUME 10.8 fl (9.4-12.3); RDW 17.4 % (12.4-16.6)
[2024-12-30 09:14] LABS: CO2 27.0 mmol/L (21-32); GLUCOSE,RANDOM 87.0 mg/dL (74-106)
[2024-12-30 09:17] LABS: CREATININE 0.9 mg/dL (0.55-1.3)
[2024-12-30] MEDS: TBO-FILGRASTIM 480 MCG/0.8 ML DISP.SYRIN SQ SCH (18:05)
[2024-12-31 08:31] LABS: ABSOLUTE IMMATURE GRANULOCYTES 0.75 x10^3/uL (0.0-0.031); BASOPHILS # 0.10 x10^3/uL (0.01-0.08); EOSINOPHIL % 0.3 % (0.7-5.8); EOSINOPHILS # 0.06 x10^3/uL (0.04-0.36); MCHC 31.1 g/dl (32.2-35.5); MEAN CELL VOLUME 95.3 fl (79.4-94.8); MEAN PLT VOLUME 10.7 fl (9.4-12.3); MONOCYTE # 2.32 x10^3/uL (0.24-0.86); MONOCYTE % 11.0 % (4.7-12.5); RDW 18.2 % (12.4-16.6)
[2024-12-31 09:11] LABS: CO2 27.0 mmol/L (21-32); GLUCOSE,RANDOM 66.0 mg/dL (74-106)
[2024-12-31 09:14] LABS: CREATININE 0.9 mg/dL (0.55-1.3)
[2024-12-31] MEDS ORDERED: DEXAMETHASONE SOD PHOSPHATE 4 MG/1 ML VIAL ONE (10:35)
[2024-12-31] MEDS ORDERED: PROPOFOL 20 ML ONE (10:36)
[2024-12-31] MEDS ORDERED: ONDANSETRON 4 MG/2 ML VIAL IVPUSH PRN (10:39)
[2024-12-31] MEDS ORDERED: LACTATED RINGERS SOLUTION 1,000 ML IV SCH (10:45)
[2024-12-31] MEDS ORDERED: ALBUTEROL SO4 HFA INHALER IH PRN (11:42)
[2024-12-31] MEDS ORDERED: DOCUSATE SODIUM 100 MG CAPSULE (FP) PO PRN (11:42)
[2024-12-31] MEDS: LACTATED RINGERS SOLUTION 1,000 ML IV SCH (13:59)
[2024-12-31] MEDS: ONDANSETRON 4 MG/2 ML VIAL IVPUSH PRN (14:01)
[2024-12-31] MEDS: morphine CARPU-JECT 2 MG/1 ML DISP.SYRIN IVPUSH PRN (14:01)
[2024-12-31 14:16] LABS: MCHC 31.1 g/dl (32.2-35.5); MEAN CELL VOLUME 95.1 fl (79.4-94.8); MEAN PLT VOLUME 10.6 fl (9.4-12.3); RDW 18.6 % (12.4-16.6)
[2024-12-31] MEDS: AMINO ACIDS/PROTEIN HYDROLYS 30 ML LIQUID.PKT PO SCH (14:32)
[2024-12-31] MEDS: KETOROLAC TROMETHAMINE 15 MG/ML VIAL IVPUSH PRN (16:45)
[2024-12-31] MEDS: MEROPENEM 1 GM in DEXTROSE 5%-WATER 100 ML IVPB SCH (17:58)
[2024-12-31] MEDS: DABIGATRAN ETEXILATE MESYLATE 75 MG CAPSULE PO SCH (22:00)
[2024-12-31] MEDS: ATORVASTATIN CA 20 MG TABLET (FP) PO SCH (22:00)
[2025-01-01 08:48] LABS: MCHC 30.9 g/dl (32.2-35.5); MEAN CELL VOLUME 99.3 fl (79.4-94.8); MEAN PLT VOLUME 10.7 fl (9.4-12.3); RDW 18.4 % (12.4-16.6)
[2025-01-01] MEDS: PANTOPRAZOLE 40 MG TABLET PO SCH (09:20)
[2025-01-01] MEDS ORDERED: TBO-FILGRASTIM 480 MCG/0.8 ML DISP.SYRIN SQ SCH (10:00)
[2025-01-01] MEDS: ACETAMINOPHEN 1000 MG/100 ML BAG IVPB PRN (17:20)
[2025-01-01] MEDS: DOCUSATE SODIUM 100 MG CAPSULE (FP) PO SCH (21:37)
[2025-01-01 23:44] LABS: MCHC 30.9 g/dl (32.2-35.5); MEAN CELL VOLUME 96.5 fl (79.4-94.8); MEAN PLT VOLUME 10.4 fl (9.4-12.3); RDW 18.3 % (12.4-16.6)
[2025-01-02 06:50] LABS: MCHC 30.5 g/dl (32.2-35.5); MEAN CELL VOLUME 97.1 fl (79.4-94.8); MEAN PLT VOLUME 10.7 fl (9.4-12.3); RDW 18.0 % (12.4-16.6)
[2025-01-02 07:28] LABS: CO2 26.0 mmol/L (21-32); GLUCOSE,RANDOM 71.0 mg/dL (74-106)
[2025-01-02 07:29] LABS: SGPT/ALT 15.0 U/L (13-61)
[2025-01-02 07:31] LABS: CREATININE 2.2 mg/dL (0.55-1.3); SGOT/AST 18.0 U/L (15-37); TOT PROT 5.0 g/dl (6.4-8.2)
[2025-01-02 07:33] LABS: ALK PHOS 97.0 U/L (45-117)
[2025-01-02] MEDS: ACETAMINOPHEN 500 MG TABLET (FP) PO PRN (15:24)
[2025-01-02] MEDS: SODIUM CHLORIDE 500 ML IV PRN (18:01)
[2025-01-03 08:41] LABS: MCHC 33.0 g/dl (32.2-35.5); MEAN CELL VOLUME 89.1 fl (79.4-94.8); MEAN PLT VOLUME 10.7 fl (9.4-12.3); RDW 18.2 % (12.4-16.6)
[2025-01-03 09:31] LABS: CO2 27.0 mmol/L (21-32); GLUCOSE,RANDOM 85.0 mg/dL (74-106)
[2025-01-03 09:34] LABS: CREATININE 1.8 mg/dL (0.55-1.3); SGOT/AST 20.0 U/L (15-37); SGPT/ALT 13.0 U/L (13-61)
[2025-01-03 09:36] LABS: TOT PROT 4.5 g/dl (6.4-8.2)
[2025-01-03 09:37] LABS: ALK PHOS 83.0 U/L (45-117)
[2025-01-03] MEDS ORDERED: morphine CARPU-JECT 2 MG/1 ML DISP.SYRIN SQ PRN (11:03)
[2025-01-03 11:59] LABS: MCHC 33.2 g/dl (32.2-35.5); MEAN CELL VOLUME 89.3 fl (79.4-94.8); MEAN PLT VOLUME 10.7 fl (9.4-12.3); RDW 18.2 % (12.4-16.6)
[2025-01-03 12:10] LABS: INR 1.55 (0.83-1.09); PROTHROMBIN TIME (PATIENT) 16.9 SEC (9.7-13.0)
[2025-01-03 12:12] LABS: ACTIVATED PTT 46.5 SECONDS (25.2-36.5)
[2025-01-03] MEDS: DEXTROSE 5%-LACTATED RINGERS 1,000 ML IV SCH (12:15)
[2025-01-03 12:55] LABS: LDH 255.0 U/L (84-246)
[2025-01-03] MEDS ORDERED: morphine CARPU-JECT 2 MG/1 ML DISP.SYRIN IVPUSH PRN (14:04)
[2025-01-03] MEDS: ACETAMINOPHEN 1000 MG/100 ML BAG IVPB SCH (14:44)
[2025-01-03] MEDS: morphine CARPU-JECT 2 MG/1 ML DISP.SYRIN IVPUSH PRN (20:21)
[2025-01-03] MEDS ORDERED: CHLORHEXIDINE GLUCONATE 4% CLEANSER FOR DECOLONIZATION TP SCH (22:00)
[2025-01-03] MEDS ORDERED: MUPIROCIN 2% TOPICAL OINTMENT FOR DECOLONIZATION NS SCH (22:00)
[2025-01-04 09:45] LABS: ABSOLUTE IMMATURE GRANULOCYTES 0.12 x10^3/uL (0.0-0.031); BASOPHILS # 0.02 x10^3/uL (0.01-0.08); EOSINOPHIL % 0.1 % (0.7-5.8); EOSINOPHILS # 0.02 x10^3/uL (0.04-0.36); MCHC 32.3 g/dl (32.2-35.5); MEAN CELL VOLUME 89.7 fl (79.4-94.8); MEAN PLT VOLUME 11.4 fl (9.4-12.3); MONOCYTE # 1.52 x10^3/uL (0.24-0.86); MONOCYTE % 10.0 % (4.7-12.5); RDW 17.9 % (12.4-16.6)
[2025-01-04 11:24] LABS: CO2 23.0 mmol/L (21-32); GLUCOSE,RANDOM 91.0 mg/dL (74-106)
[2025-01-04 11:27] LABS: CREATININE 2.1 mg/dL (0.55-1.3); SGOT/AST 18.0 U/L (15-37); SGPT/ALT 13.0 U/L (13-61)
[2025-01-04 11:29] LABS: TOT PROT 4.6 g/dl (6.4-8.2)
[2025-01-04 11:30] LABS: ALK PHOS 85.0 U/L (45-117)
[2025-01-04] MEDS: LIDOCAINE 5% TOPICAL PATCH TP SCH (12:26)
[2025-01-04] MEDS: OXYBUTYNIN CHLORIDE 5 MG TABLET PO ONE (13:50)
[2025-01-04] MEDS: PHENAZOPYRIDINE HCL 100 MG TABLET (FP) PO SCH (13:50)
[2025-01-04] MEDS: PORTA CATH FLUSH 10 ML IVPUSH SCH (17:00)
[2025-01-04] MEDS: OXYBUTYNIN CHLORIDE 5 MG TABLET PO SCH (21:53)
[2025-01-04] MEDS: LIDOCAINE PATCH REMOVAL MC SCH (21:54)
[2025-01-05 10:06] LABS: ABSOLUTE IMMATURE GRANULOCYTES 0.11 x10^3/uL (0.0-0.031); BASOPHILS # 0.04 x10^3/uL (0.01-0.08); EOSINOPHIL % 0.3 % (0.7-5.8); EOSINOPHILS # 0.04 x10^3/uL (0.04-0.36); MCHC 33.4 g/dl (32.2-35.5); MEAN CELL VOLUME 86.8 fl (79.4-94.8); MEAN PLT VOLUME 11.6 fl (9.4-12.3); MONOCYTE # 1.42 x10^3/uL (0.24-0.86); MONOCYTE % 10.4 % (4.7-12.5); RDW 16.6 % (12.4-16.6)
[2025-01-05 10:37] LABS: CO2 23.0 mmol/L (21-32); GLUCOSE,RANDOM 96.0 mg/dL (74-106)
[2025-01-05 10:40] LABS: CREATININE 2.4 mg/dL (0.55-1.3); SGOT/AST 13.0 U/L (15-37); SGPT/ALT 11.0 U/L (13-61)
[2025-01-05 10:41] LABS: ALK PHOS 99.0 U/L (45-117)
[2025-01-05 10:42] LABS: TOT PROT 4.7 g/dl (6.4-8.2)
[2025-01-05] MEDS: LACTATED RINGERS SOLUTION 1,000 ML/1,000 ML INFUS.BAG IV SCH (11:23)
[2025-01-06 07:46] LABS: MCHC 32.6 g/dl (32.2-35.5); MEAN CELL VOLUME 88.6 fl (79.4-94.8); MEAN PLT VOLUME 11.2 fl (9.4-12.3); RDW 17.0 % (12.4-16.6)
[2025-01-06 08:17] LABS: CO2 24.0 mmol/L (21-32); GLUCOSE,RANDOM 78.0 mg/dL (74-106)
[2025-01-06 08:20] LABS: CREATININE 2.6 mg/dL (0.55-1.3); SGOT/AST 11.0 U/L (15-37); SGPT/ALT 9.0 U/L (13-61)
[2025-01-06 08:21] LABS: TOT PROT 4.8 g/dl (6.4-8.2)
[2025-01-06 08:22] LABS: ALK PHOS 104.0 U/L (45-117)
[2025-01-06] MEDS ORDERED: MEROPENEM 1 GM VIAL (RESTRICTED TO ID) IVPB ONE (09:10)
[2025-01-06] MEDS ORDERED: MIDAZOLAM HCL 2 MG/2 ML SINGLE DOSE VIAL ONE (15:22)
[2025-01-06] MEDS: MIDAZOLAM HCL 2 MG/2 ML SINGLE DOSE VIAL IVPUSH ONE (15:45)
[2025-01-07 10:01] LABS: MCHC 32.5 g/dl (32.2-35.5); MEAN CELL VOLUME 89.1 fl (79.4-94.8); MEAN PLT VOLUME 11.1 fl (9.4-12.3); RDW 17.0 % (12.4-16.6)
[2025-01-07 10:39] LABS: INR 1.28 (0.83-1.09); PROTHROMBIN TIME (PATIENT) 13.9 SEC (9.7-13.0)
[2025-01-07 10:42] LABS: ACTIVATED PTT 40.8 SECONDS (25.2-36.5)
[2025-01-07 10:58] LABS: CO2 23.0 mmol/L (21-32)
[2025-01-07 10:59] LABS: GLUCOSE,RANDOM 76.0 mg/dL (74-106)
[2025-01-07 11:02] LABS: CREATININE 2.7 mg/dL (0.55-1.3)
[2025-01-07] MEDS ORDERED: MIDAZOLAM HCL 2 MG/2 ML SINGLE DOSE VIAL ONE (12:51)
[2025-01-07] MEDS: MIDAZOLAM HCL 2 MG/2 ML SINGLE DOSE VIAL IVPUSH ONE (12:55)
[2025-01-08 07:25] LABS: ABSOLUTE IMMATURE GRANULOCYTES 0.07 x10^3/uL (0.0-0.031); BASOPHILS # 0.03 x10^3/uL (0.01-0.08); EOSINOPHIL % 0.5 % (0.7-5.8); EOSINOPHILS # 0.06 x10^3/uL (0.04-0.36); MCHC 33.2 g/dl (32.2-35.5); MEAN CELL VOLUME 89.5 fl (79.4-94.8); MEAN PLT VOLUME 10.6 fl (9.4-12.3); MONOCYTE # 0.79 x10^3/uL (0.24-0.86); MONOCYTE % 6.6 % (4.7-12.5); RDW 17.0 % (12.4-16.6)
[2025-01-08 08:12] LABS: CO2 23.0 mmol/L (21-32); GLUCOSE,RANDOM 77.0 mg/dL (74-106)
[2025-01-08 08:18] LABS: CREATININE 2.8 mg/dL (0.55-1.3); SGOT/AST 14.0 U/L (15-37); SGPT/ALT 6.0 U/L (13-61)
[2025-01-08 08:19] LABS: TOT PROT 4.3 g/dl (6.4-8.2)
[2025-01-08 08:20] LABS: ALK PHOS 92.0 U/L (45-117)
[2025-01-08 15:40] VITALS: BMI 25.4
[2025-01-08] MEDS ORDERED: morphine CARPU-JECT 2 MG/1 ML DISP.SYRIN IVPUSH PRN (18:52)
[2025-01-08 19:29] LABS: MCHC 34.2 g/dl (32.2-35.5); MEAN CELL VOLUME 89.3 fl (79.4-94.8); MEAN PLT VOLUME 10.4 fl (9.4-12.3); RDW 16.2 % (12.4-16.6)
[2025-01-09 08:13] LABS: ABSOLUTE IMMATURE GRANULOCYTES 0.05 x10^3/uL (0.0-0.031); BASOPHILS # 0.03 x10^3/uL (0.01-0.08); EOSINOPHIL % 1.3 % (0.7-5.8); EOSINOPHILS # 0.14 x10^3/uL (0.04-0.36); MCHC 32.1 g/dl (32.2-35.5); MEAN CELL VOLUME 90.3 fl (79.4-94.8); MEAN PLT VOLUME 10.8 fl (9.4-12.3); MONOCYTE # 0.84 x10^3/uL (0.24-0.86); MONOCYTE % 7.9 % (4.7-12.5); RDW 16.9 % (12.4-16.6)
[2025-01-09 08:38] LABS: CO2 23 mmol/L (21-32); GLUCOSE,RANDOM 67 mg/dL (74-106)
[2025-01-09 08:41] LABS: CREATININE 2.7 mg/dL (0.55-1.3); SGOT/AST 11 U/L (15-37); SGPT/ALT < 6 U/L (13-61)
[2025-01-09 08:43] LABS: TOT PROT 4.2 g/dl (6.4-8.2)
[2025-01-09 08:44] LABS: ALK PHOS 86 U/L (45-117)
[2025-01-09] MEDS ORDERED: MIDAZOLAM HCL 2 MG/2 ML SINGLE DOSE VIAL ONE (14:58)
[2025-01-09] MEDS ORDERED: FENTANYL CITRATE/PF 50 MCG/ML VIAL ONE (14:58)
[2025-01-09] MEDS ORDERED: FENTANYL CITRATE/PF 50 MCG/ML VIAL IVPUSH ONE (15:08)
[2025-01-09] MEDS: MIDAZOLAM HCL 2 MG/2 ML SINGLE DOSE VIAL IVPUSH ONE ×2 (15:08→15:55)
[2025-01-09] MEDS: FENTANYL CITRATE/PF 50 MCG/ML VIAL IVPUSH SCH (15:08)
[2025-01-10 09:58] LABS: ABSOLUTE IMMATURE GRANULOCYTES 0.08 x10^3/uL (0.0-0.031); BASOPHILS # 0.02 x10^3/uL (0.01-0.08); EOSINOPHIL % 1.6 % (0.7-5.8); EOSINOPHILS # 0.17 x10^3/uL (0.04-0.36); MCHC 32.6 g/dl (32.2-35.5); MEAN CELL VOLUME 90.8 fl (79.4-94.8); MEAN PLT VOLUME 10.9 fl (9.4-12.3); MONOCYTE # 0.70 x10^3/uL (0.24-0.86); MONOCYTE % 6.8 % (4.7-12.5); RDW 17.2 % (12.4-16.6)
[2025-01-10 10:29] LABS: CO2 23 mmol/L (21-32); GLUCOSE,RANDOM 63 mg/dL (74-106)
[2025-01-10 10:32] LABS: CREATININE 2.4 mg/dL (0.55-1.3); SGOT/AST 18 U/L (15-37); SGPT/ALT < 6 U/L (13-61)
[2025-01-10 10:33] LABS: TOT PROT 4.6 g/dl (6.4-8.2)
[2025-01-10 10:35] LABS: ALK PHOS 90 U/L (45-117)
[2025-01-11 09:59] LABS: ABSOLUTE IMMATURE GRANULOCYTES 0.03 x10^3/uL (0.0-0.031); BASOPHILS # 0.03 x10^3/uL (0.01-0.08); EOSINOPHIL % 2.4 % (0.7-5.8); EOSINOPHILS # 0.21 x10^3/uL (0.04-0.36); MCHC 31.7 g/dl (32.2-35.5); MEAN CELL VOLUME 94.4 fl (79.4-94.8); MEAN PLT VOLUME 10.8 fl (9.4-12.3); MONOCYTE # 0.68 x10^3/uL (0.24-0.86); MONOCYTE % 7.6 % (4.7-12.5); RDW 18.0 % (12.4-16.6)
[2025-01-11 10:40] LABS: CO2 24 mmol/L (21-32); GLUCOSE,RANDOM 72 mg/dL (74-106)
[2025-01-11 10:43] LABS: CREATININE 2.2 mg/dL (0.55-1.3); SGOT/AST 20 U/L (15-37)
[2025-01-11 10:45] LABS: TOT PROT 4.7 g/dl (6.4-8.2)
[2025-01-11 10:46] LABS: ALK PHOS 93 U/L (45-117)
[2025-01-11 10:47] LABS: SGPT/ALT < 6 U/L (13-61)
[2025-01-12 06:53] LABS: EPI CELLS 9 /uL (0-25.1); HYALINE CASTS 1 /uL (0-3.1); URINE APPEARANCE TURBID; URINE BILIRUBIN 1+ (NEGATIVE); URINE COLOR ORANGE; URINE GLUCOSE (UA) NEGATIVE (NEGATIVE); URINE KETONE NEGATIVE (NEGATIVE); URINE LEUK ESTERASE 2+ (NEGATIVE); URINE NITRITE POSITIVE (NEGATIVE); URINE PROTEIN 2+ (NEGATIVE); URINE UROBILINOGEN 1.0 mg/dL (0.2-1.0); URINE WBC 1934 /uL (0-25.8)
[2025-01-12 09:01] LABS: URINE BACTERIA 10.5 /uL (0-1359); URINE RBC 11443.5 /uL (0-23.9)
[2025-01-12 09:02] LABS: YEAST PRESENT (NEGATIVE)
[2025-01-13 08:39] LABS: MCHC 31.1 g/dl (32.2-35.5); MEAN CELL VOLUME 96.5 fl (79.4-94.8); MEAN PLT VOLUME 11.4 fl (9.4-12.3); RDW 18.8 % (12.4-16.6)
[2025-01-13 11:14] LABS: SGOT/AST 18 U/L (15-37); SGPT/ALT 8 U/L (13-61)
[2025-01-13 11:16] LABS: ALK PHOS 103 U/L (45-117); TOT PROT 5.3 g/dl (6.4-8.2)
[2025-01-13 13:15] LABS: MCHC 30.7 g/dl (32.2-35.5); MEAN CELL VOLUME 96.9 fl (79.4-94.8); MEAN PLT VOLUME 10.9 fl (9.4-12.3); RDW 18.8 % (12.4-16.6)
[2025-01-13 13:45] LABS: CO2 23 mmol/L (21-32)
[2025-01-13 13:47] LABS: SGOT/AST 20 U/L (15-37)
[2025-01-13 13:49] LABS: CREATININE 2.12 mg/dL (0.55-1.3)
[2025-01-13 13:50] LABS: TOT PROT 5.4 g/dl (6.4-8.2)
[2025-01-13 13:51] LABS: ALK PHOS 101 U/L (45-117)
[2025-01-13 13:57] LABS: GLUCOSE,RANDOM 45 mg/dL (74-106)
[2025-01-13 13:59] LABS: SGPT/ALT 7 U/L (13-61)
[2025-01-13] MEDS: DEXTROSE 5%-0.45% SALINE 1,000 ML IV SCH (14:15)
[2025-01-14 10:04] LABS: GLUCOSE,RANDOM 64 mg/dL (74-106)
[2025-01-14 10:05] LABS: TOT PROT 4.6 g/dl (6.4-8.2)
[2025-01-14 10:06] LABS: CO2 20 mmol/L (21-32)
[2025-01-14 10:07] LABS: ALK PHOS 87 U/L (40-150)
[2025-01-14 10:10] LABS: CREATININE 1.90 mg/dL (0.55-1.3); SGOT/AST 16 U/L (5-34); SGPT/ALT < 6 U/L (0-55)
[2025-01-15 09:55] LABS: ABSOLUTE IMMATURE GRANULOCYTES 0.03 x10^3/uL (0.0-0.031); BASOPHILS # 0.02 x10^3/uL (0.01-0.08); EOSINOPHIL % 0.0 % (0.7-5.8); EOSINOPHILS # 0.00 x10^3/uL (0.04-0.36); MCHC 30.7 g/dl (32.2-35.5); MEAN CELL VOLUME 98.3 fl (79.4-94.8); MEAN PLT VOLUME 10.9 fl (9.4-12.3); MONOCYTE # 0.59 x10^3/uL (0.24-0.86); MONOCYTE % 6.7 % (4.7-12.5); RDW 19.9 % (12.4-16.6)
[2025-01-15 10:52] LABS: GLUCOSE,RANDOM 88 mg/dL (74-106)
[2025-01-15 10:53] LABS: TOT PROT 5.0 g/dl (6.4-8.2)
[2025-01-15 10:54] LABS: CO2 18 mmol/L (21-32)
[2025-01-15 10:58] LABS: CREATININE 1.68 mg/dL (0.55-1.3); SGOT/AST 12 U/L (5-34); SGPT/ALT < 6 U/L (0-55)
[2025-01-15 11:50] LABS: ALK PHOS 99 U/L (40-150)
[2025-01-15] MEDS: ONDANSETRON 4 MG/2 ML VIAL IVPB PRN (14:11)
[2025-01-15] MEDS: DABIGATRAN ETEXILATE MESYLATE 75 MG CAPSULE PO SCH (14:11)
[2025-01-16 07:09] VITALS: RESP 18
[2025-01-16 07:43] LABS: ABSOLUTE IMMATURE GRANULOCYTES 0.01 x10^3/uL (0.0-0.031); BASOPHILS # 0.03 x10^3/uL (0.01-0.08); EOSINOPHIL % 2.6 % (0.7-5.8); EOSINOPHILS # 0.15 x10^3/uL (0.04-0.36); MCHC 29.8 g/dl (32.2-35.5); MEAN CELL VOLUME 101.6 fl (79.4-94.8); MEAN PLT VOLUME 11.0 fl (9.4-12.3); MONOCYTE # 0.57 x10^3/uL (0.24-0.86); MONOCYTE % 9.8 % (4.7-12.5); RDW 19.7 % (12.4-16.6)
[2025-01-16 08:34] LABS: GLUCOSE,RANDOM 72 mg/dL (74-106)
[2025-01-16 08:35] LABS: TOT PROT 4.6 g/dl (6.4-8.2)
[2025-01-16 08:36] LABS: CO2 21 mmol/L (21-32)
[2025-01-16 08:37] LABS: ALK PHOS 91 U/L (40-150)
[2025-01-16 08:40] LABS: CREATININE 1.62 mg/dL (0.55-1.3); SGOT/AST 14 U/L (5-34)
[2025-01-16 09:07] LABS: SGPT/ALT < 6 U/L (0-55)
[2025-01-16] MEDS: FERROUS SO4 325 MG TABLET (FP) PO SCH (09:46)
[2025-01-16] MEDS: CALCIUM GLUCONATE 10% - 1,000 MG/10 ML VIAL IVPB ONE (10:44)
[2025-01-17 07:39] LABS: ABSOLUTE IMMATURE GRANULOCYTES 0.03 x10^3/uL (0.0-0.031); BASOPHILS # 0.02 x10^3/uL (0.01-0.08); EOSINOPHIL % 0.8 % (0.7-5.8); EOSINOPHILS # 0.05 x10^3/uL (0.04-0.36); MCHC 30.2 g/dl (32.2-35.5); MEAN CELL VOLUME 101.2 fl (79.4-94.8); MEAN PLT VOLUME 10.7 fl (9.4-12.3); MONOCYTE # 0.70 x10^3/uL (0.24-0.86); MONOCYTE % 10.9 % (4.7-12.5); RDW 19.4 % (12.4-16.6)
[2025-01-17 08:22] LABS: GLUCOSE,RANDOM 72 mg/dL (74-106)
[2025-01-17 08:23] LABS: CO2 20 mmol/L (21-32); TOT PROT 4.5 g/dl (6.4-8.2)
[2025-01-17 08:25] LABS: ALK PHOS 89 U/L (40-150)
[2025-01-17 08:28] LABS: CREATININE 1.53 mg/dL (0.55-1.3); SGOT/AST 10 U/L (5-34); SGPT/ALT < 6 U/L (0-55)
[2025-01-18 07:11] LABS: MCHC 31.1 g/dl (32.2-35.5); MEAN CELL VOLUME 98.3 fl (79.4-94.8); MEAN PLT VOLUME 10.6 fl (9.4-12.3); RDW 20.2 % (12.4-16.6)
[2025-01-18 08:21] LABS: GLUCOSE,RANDOM 67 mg/dL (74-106); TOT PROT 4.6 g/dl (6.4-8.2)
[2025-01-18 08:22] LABS: CO2 21 mmol/L (21-32)
[2025-01-18 08:24] LABS: ALK PHOS 91 U/L (40-150)
[2025-01-18 08:26] LABS: SGOT/AST 11 U/L (5-34); SGPT/ALT < 6 U/L (0-55)
[2025-01-18 08:27] LABS: CREATININE 1.39 mg/dL (0.55-1.3)
[2025-01-19 09:15] LABS: ABSOLUTE IMMATURE GRANULOCYTES 0.05 x10^3/uL (0.0-0.031); BASOPHILS # 0.02 x10^3/uL (0.01-0.08); EOSINOPHIL % 0.1 % (0.7-5.8); EOSINOPHILS # 0.01 x10^3/uL (0.04-0.36); MCHC 31.1 g/dl (32.2-35.5); MEAN CELL VOLUME 100.4 fl (79.4-94.8); MEAN PLT VOLUME 10.7 fl (9.4-12.3); MONOCYTE # 0.70 x10^3/uL (0.24-0.86); MONOCYTE % 9.0 % (4.7-12.5); RDW 20.4 % (12.4-16.6)
[2025-01-19 09:56] LABS: GLUCOSE,RANDOM 55 mg/dL (74-106)
[2025-01-19 09:57] LABS: CO2 21 mmol/L (21-32); TOT PROT 4.8 g/dl (6.4-8.2)
[2025-01-19 09:59] LABS: ALK PHOS 92 U/L (40-150)
[2025-01-19 10:02] LABS: CREATININE 1.36 mg/dL (0.55-1.3); SGOT/AST 12 U/L (5-34); SGPT/ALT < 6 U/L (0-55)
[2025-01-20] MEDS ORDERED: PHENYLEPHRINE HCL/COCOA BUTTER 1 EACH SUPP.RECT RC SCH (11:30)
[2025-01-20 12:27] VITALS: BP 115/57; PULSE 65; TEMP 98.1
== END 2025-01-20 16:05 | DRG 853 ==
LOC: JER 17:22 → JERBED 22:36 → J7W 12-26 03:15
PROVIDERS: ADMIT Internal Medicine; ATTEND Internal Medicine
PROC: BT1DZZZ Fluoroscopy of Right Kidney, Ureter and Bladder (ICD-10-PCS; 2024-12-31)
PROC: 0TP98DZ Removal of Intraluminal Device from Ureter, Via Natural or Artificial Opening Endoscopic (ICD-10-PCS; 2024-12-31)
PROC: 0TC08ZZ Extirpation of Matter from Right Kidney, Via Natural or Artificial Opening Endoscopic (ICD-10-PCS; principal; 2024-12-31 10:00)
PROC: 0T768DZ Dilation of Right Ureter with Intraluminal Device, Via Natural or Artificial Opening Endoscopic (ICD-10-PCS; 2024-12-31 10:00)
PROC: 0TC68ZZ Extirpation of Matter from Right Ureter, Via Natural or Artificial Opening Endoscopic (ICD-10-PCS; 2024-12-31 10:00)
PROC: 30233N1 Transfusion of Nonautologous Red Blood Cells into Peripheral Vein, Percutaneous Approach (ICD-10-PCS; 2025-01-02)
PROC: 30233L1 Transfusion of Nonautologous Fresh Plasma into Peripheral Vein, Percutaneous Approach (ICD-10-PCS; 2025-01-04)
PROC: 0T9030Z Drainage of Right Kidney with Drainage Device, Percutaneous Approach (ICD-10-PCS; 2025-01-07)
PROC: 04V Lower Arteries, Restriction (ICD-10-PCS; 2025-01-09)
DX: A41.89 Other specified sepsis (principal); N17.0 Acute kidney failure with tubular necrosis; C56.9 Malignant neoplasm of unspecified ovary; I13.0 Hypertensive heart and chronic kidney disease with heart failure and stage 1 through stage 4 chronic kidney disease, or unspecified chronic kidney disease; I50.32 Chronic diastolic (congestive) heart failure; N17.9 Acute kidney failure, unspecified; I69.354 Hemiplegia and hemiparesis following cerebral infarction affecting left non-dominant side; N39.0 Urinary tract infection, site not specified; N13.8 Other obstructive and reflux uropathy; N20.2 Calculus of kidney with calculus of ureter; N13.39 Other hydronephrosis; E88.09 Other disorders of plasma-protein metabolism, not elsewhere classified; R31.0 Gross hematuria; I48.0 Paroxysmal atrial fibrillation; B96.20 Unspecified Escherichia coli [E. coli] as the cause of diseases classified elsewhere; M48.00 Spinal stenosis, site unspecified; E78.5 Hyperlipidemia, unspecified; D64.9 Anemia, unspecified; E03.9 Hypothyroidism, unspecified; F32.9 Major depressive disorder, single episode, unspecified; N18.9 Chronic kidney disease, unspecified; D70.9 Neutropenia, unspecified; R50.81 Fever presenting with conditions classified elsewhere; Z98.84 Bariatric surgery status; Z95.0 Presence of cardiac pacemaker
CPT/HCPCS: 36415; 36430; 37244; 50432; 71045-TC-FY; 74176-TC; 76000-TC-FY; 76775-TC; 76856-TC; 80048; 80053; 81003; 82570; 82803; 82962; 83010; 83605; 83615; 83735; 84100; 84300; 84484; 85025; 85027; 85384; 85610; 85730; 86803; 86850; 86900; 86901; 86922; 87040; 87086; 87389; 87637-QW; 93005; 93010; 94760; 97116-GP; 97162-GP; 99285-25; C2617; G0463; J1447; P9017; P9038; P9058